=== PATIENT | male | born 1985 | race Caucasian/White ===

== ENCOUNTER 2020-03-09 00:05 | Emergency (ER) | payer SELFPAY ==
--- NOTE | 2020-03-09 00:06 | ED.FALL ---
HPI - Fall General Chief Complaint: Fall Stated Complaint: RIB PAIN Time Seen by Provider: 03/09/20 00:06 Source: patient Mode of arrival: ambulatory Limitations: other (ETOH use) History of Present Illness MD complaint: fall Onset (ago): minute(s) Fall from: other (not sure, was drinking today using pesticides in the house and states he passed out) Fall witnessed: no Place fall occurred: home Loss of consciousness: yes Prolonged down time: unclear Symptoms prior to fall: lightheadedness Context: alcohol use and other (using pesticides at home) Location of injury: head, face and chest Severity: moderate Associated symptoms (after fall): denies Related Data Previous Rx's Medication Instructions Recorded cyclobenzaprine 10 mg PO TID PRN #14 tab 03/09/20 ibuprofen 600 mg PO Q6H PRN #30 tab 03/09/20 lidocaine 1 patch TOPICAL DAILY PRN #10 ea 03/09/20 Allergies Allergy/AdvReac Type Severity Reaction Status Date / Time No Known Allergies Allergy Verified 03/09/20 00:07 Review of Systems Review of Systems: Constitutional : No Fever, No Chills ENT/Mouth : No Ear Pain, No Hoarseness, No sore throat Eyes: No Eye Pain, No Swelling, No Redness, No Foreign Body, bruise R eye Cardiovascular : positive left rib Chest Pain, No SOB Respiratory : No Cough, No Dyspnea Gastrointestinal : No Nausea, No Vomiting, No Diarrhea, No abdominal Pain Genitourinary : No Dysuria, No Hematuria Musculoskeletal : no joint pain, No Myalgias, No Joint Swelling Skin : No Skin lacerations, No rash Neuro : No Weakness, No Numbness, No Loss of Consciousness, No Dizziness, No Headache Psych : No Anxiety/Panic, No Depression Heme/Lymph: no easy bruising, no Lymphadenopathy Endocrine : No Polyuria, No Polydipsia All other systems reviewed and are negative [facility] Past Medical History Medical History Anxiety HTN (hypertension) Surgical History H/O fasciotomy Social History Social History (Updated 03/09/20 @ 00:13 by Britni Keys DO) Alcohol intake: current Alcohol intake frequency: 0-2 drinks per day Alcohol type: hard liquor Smoking Status: Never smoker Smoked in Last 30 Days: No Use of substances other than those prescribed or required for medical reasons: No Advance Directives: No Physical Exam Vital Signs: Vital Signs: Vital Signs Temp Pulse Resp BP Pulse Ox 03/09/20 02:00 97 16 132/87 98 03/09/20 00:39 16 03/09/20 00:18 98.0 F 116 H 18 141/103 H 98 Body Mass Index 31.1 Appearance: Alert. Oriented X3. No acute distress. Anxious, ETOH odor Eyes: Pupils equal, round and reactive to light. ENT: Pharynx normal. Ecchymosis mild R periorbital area Neck: Normal inspection. Neck supple. CVS: Normal heart rate and rhythm. Pulses normal. Chest: L anterior lower ribs contusion noted Respiratory: No respiratory distress. Breath sounds normal. Abdomen: Soft and nontender. Skin: Skin warm and dry. Normal skin color. Normal skin turgor. Extremities: No lower extremity edema. No calf ttp Neuro: Oriented X 3. No motor deficit. No sensory deficit. Course Course Course Narrative: no acute traumatic findings, + ETOH, stable VS, no signs of pesticide poisoning, can be DC MDM - Fall MDM Narrative Medical decision making narrative: 34 yo male s/p drinking ETOH and using pesticides at home has no signs of cholinergic toxicity at this time but did fall likely due to ETOH - at this time will need labs, CT trauma of head/cspine/chest/abdomen - IVF ordered dispo per results and findings Lab Data Result diagrams: 03/09/20 00:45 03/09/20 00:45 Labs: Lab Results 03/09/20 03/09/20 03/09/20 Range/Units 00:45 00:45 00:45 WBC 6.7 (4.8-10.8) X10*3/uL RBC 5.96 H (4.60-5.80) X10*6/uL Hgb 17.0 (14.0-18.0) g/dl Hct 51.7 (42-52) % MCV 86.7 (80-98) fL MCH 28.5 (27.0-33.0) pg MCHC 32.9 (31.0-36.0) g/dl RDW 16.4 H (11.0-16.0) % Plt Count 355 (160-400) X10*3/uL MPV 8.7 L (9.4-12.4) fL Immature Gran % (Auto) 0.6 H (0.0-0.4) % Neut % (Auto) 65.9 (45-73) % Lymph % (Auto) 28.5 (20-40) % [place] % (Auto) 4.0 (2-11) % Eos % (Auto) 0.1 (0-4) % Baso % (Auto) 0.9 (0-2) % Lymph # (Auto) 1.9 (1.2-4.9) X10*3/uL [place] # (Auto) 0.3 (0.1-1.2) X10*3/uL Eos # (Auto) 0.0 (0.0-0.4) X10*3/uL Baso # (Auto) 0.1 (0.0-0.2) X10*3/uL Abs Immat Gran (auto) 0.04 H (0.00-0.03) X10*3/uL Absolute Neuts (auto) 4.4 (2.0-8.3) X10*3/uL Absolute Nucleated RBC 0.000 (0.0-0.012) X10*3/uL Nucleated RBC % (auto) 0.0 (0.0-0.2) /100WBC PT 11.7 (10.8-13.0) SEC INR 1.0 (0.9-1.1) APTT 30.1 (24.1-38.0) SEC Sodium 143 (135-145) mmol/L Potassium 4.2 (3.3-5.1) mmol/l Chloride 104 (96-108) mmol/L Carbon Dioxide 25 (22-29) mmol/L Anion Gap 18 (12-20) BUN 5 L (9-16) mg/dL Creatinine 1.06 (0.5-1.4) mg/dL Estim Creat Clear Calc 110.7 Estimated GFR > 60 Random Glucose 86 (60-115) mg/dL Calcium 8.9 (8.4-10.2) mg/dL Magnesium 2.0 (1.6-2.6) mg/dL Total Bilirubin 0.4 (0.0-1.0) mg/dL Direct Bilirubin < 0.2 (0.0-0.5) mg/dL AST 54 H (5-37) U/L ALT 75 H (0-40) U/L Alkaline Phosphatase 60 (39-117) U/L Total Protein 7.9 (6.5-8.0) g/dL Albumin 4.8 (3.5-5.0) g/dL Lipase 17 (8-78) U/L Ethyl Alcohol mg/dL 03/09/20 Range/Units 00:45 WBC (4.8-10.8) X10*3/uL RBC (4.60-5.80) X10*6/uL Hgb (14.0-18.0) g/dl Hct (42-52) % MCV (80-98) fL MCH (27.0-33.0) pg MCHC (31.0-36.0) g/dl RDW (11.0-16.0) % Plt Count (160-400) X10*3/uL MPV (9.4-12.4) fL Immature Gran % (Auto) (0.0-0.4) % Neut % (Auto) (45-73) % Lymph % (Auto) (20-40) % [place] % (Auto) (2-11) % Eos % (Auto) (0-4) % Baso % (Auto) (0-2) % Lymph # (Auto) (1.2-4.9) X10*3/uL [place] # (Auto) (0.1-1.2) X10*3/uL Eos # (Auto) (0.0-0.4) X10*3/uL Baso # (Auto) (0.0-0.2) X10*3/uL Abs Immat Gran (auto) (0.00-0.03) X10*3/uL Absolute Neuts (auto) (2.0-8.3) X10*3/uL Absolute Nucleated RBC (0.0-0.012) X10*3/uL Nucleated RBC % (auto) (0.0-0.2) /100WBC PT (10.8-13.0) SEC INR (0.9-1.1) APTT (24.1-38.0) SEC Sodium (135-145) mmol/L Potassium (3.3-5.1) mmol/l Chloride (96-108) mmol/L Carbon Dioxide (22-29) mmol/L Anion Gap (12-20) BUN (9-16) mg/dL Creatinine (0.5-1.4) mg/dL Estim Creat Clear Calc Estimated GFR Random Glucose (60-115) mg/dL Calcium (8.4-10.2) mg/dL Magnesium (1.6-2.6) mg/dL Total Bilirubin (0.0-1.0) mg/dL Direct Bilirubin (0.0-0.5) mg/dL AST (5-37) U/L ALT (0-40) U/L Alkaline Phosphatase (39-117) U/L Total Protein (6.5-8.0) g/dL Albumin (3.5-5.0) g/dL Lipase (8-78) U/L Ethyl Alcohol 172 mg/dL ECG Data Attestation: I personally reviewed and interpreted this ECG as follows: ECG interpretation date: 03/09/20 ECG interpretation time: 02:37 Interpretation: Rate: 94 Rhythm: NSR [place]: left Normal P waves. Normal TAYA. Normal QRS complex. ST T wave : normal qTC: normal prior studies: no acute ischemia The study has been interpreted contemporaneously by me. . Discharge Plan Discharge Clinical Impression: Alcohol intoxication Qualifiers: Complication of substance-induced condition: uncomplicated Qualified Code(s): F10.920 - Alcohol use, unspecified with intoxication, uncomplicated Contusion Qualifiers: Encounter type: initial encounter Contusion area: thoracic wall Front or back of thoracic wall: unspecified whether front or back Qualified Code(s): S20.20XA - Contusion of thorax, unspecified, initial encounter Patient Disposition: Home, Self-Care Instructions: Abuse of Alcohol (ED), Contusion in Adults (ED) Prescriptions: New cyclobenzaprine 10 mg tablet 10 mg PO TID PRN (Reason: muscle spasm) Qty: 14 RF: 0 ibuprofen 600 mg tablet 600 mg PO Q6H PRN (Reason: pain) Qty: 30 RF: 0 lidocaine 4 % adhesive patch,medicated 1 patch topical DAILY PRN (Reason: pain) Qty: 10 RF: 0 Stand Alone Forms: Work/School Release
--- NOTE | 2020-03-09 00:08 | CT_ITS ---
EXAMINATION: CT CHEST WITH CONTRAST CT ABDOMEN AND PELVIS WITH CONTRAST CLINICAL INFORMATION: Trauma. Fall. Left-sided pain. Contusion. COMPARISON: None. TECHNIQUE: Multidetector volumetric imaging was performed through the chest, abdomen and pelvis following the administration of 85 mL of Omnipaque 350 intravenous contrast. Sagittal and coronal reformatted images were obtained on the technologist's workstation. Axial MIP volume rendering provided. This CT examination was performed using dose optimization techniques as appropriate, variously including the following: *Automated exposure control *Adjustment of mA and/or kV according to patient size (this includes techniques or standardized protocols for targeted exams where dose is matched to indication/reason for exam; i.e. extremities or head) *Use of iterative reconstruction technique DLP: 1034 mGy-cm. FINDINGS: CHEST: Lungs: The central airways are patent. No consolidation. No pleural effusion or pneumothorax. There is a posterior left upper lobe pulmonary nodule measuring 0.3 cm on series 8 image 94. Mediastinum: The heart is of normal size. There is no pericardial effusion. Central vascular structures are unremarkable. No hilar or mediastinal lymphadenopathy. Chest Wall/Axilla: No lymphadenopathy. No chest wall mass. ABDOMEN/PELVIS: Liver, Gallbladder, Biliary Tree: The liver is normal in size, shape, and attenuation. No focal hepatic lesion or biliary ductal dilatation is present. The gallbladder is unremarkable with no evidence of radiopaque gallstones, gallbladder wall thickening, or pericholecystic inflammatory changes. Pancreas: Unremarkable. Spleen: Unremarkable. Adrenal Glands: Unremarkable. Kidneys and Ureters: The kidneys are normal in size, shape, and attenuation. No hydronephrosis, hydroureter or calculi seen. No perinephric stranding. Bladder: Unremarkable. Gastrointestinal Tract: The stomach is unremarkable. Normal caliber small bowel. There is no obstruction. No colonic wall thickening or inflammatory changes. No free air. No free fluid. The appendix is unremarkable. Abdominal Wall: There is no hernia. There is minimal stranding in the subcutaneous fat overlying the left lower chest/upper abdomen as seen on series 6 image 12. Additional minimal stranding lateral to the right hip on series 6 image 85. Lymphovascular Structures: Lymph nodes: Normal. Vascular: Unremarkable. Pelvic Viscera: The prostate and seminal vesicles are unremarkable. OSSEOUS STRUCTURES: No acute traumatic findings. The sternum is intact. The ribs are intact. No scapular fracture. Vertebral body height and alignment is maintained. No pelvic fracture. Appropriate alignment at the pelvis. CT/CT abdomen pelvis w con IMPRESSION: Minimal stranding in the subcutaneous tissues noted. No acute fractures are seen. No acute traumatic finding within the chest, abdomen, or pelvis. 0.3 cm left upper lobe pulmonary nodule. No further follow-up is necessary if this is a low risk patient.
--- NOTE | 2020-03-09 00:08 | CT_ITS ---
EXAMINATION: NONCONTRAST HEAD CT NONCONTRAST CERVICAL SPINE CT INDICATION INFORMATION: Fall COMPARISON: None TECHNIQUE: Separate noncontrast CT examinations of the head and cervical spine were performed. Coronal and sagittal images were created for each examination at the technologist workstation. This CT examination was performed using dose optimization techniques as appropriate, variously including the following: *Automated exposure control *Adjustment of mA and/or kV according to patient size (this includes techniques or standardized protocols for targeted exams where dose is matched to indication/reason for exam; i.e. extremities or head) *Use of iterative reconstruction technique DLP: 2051 mGy-cm FINDINGS: Head: There is no evidence of acute intracranial hemorrhage or territorial infarction. No abnormal mass effect or midline shift is seen. Bush to white matter differentiation is well preserved. No extra-axial fluid collections are identified. No hydrocephalus. No significant volume loss. There is no abnormal attenuation within the brain parenchyma. No acute osseous or soft tissue abnormality. The mastoid air cells and visualized portions of the paranasal sinuses are well aerated. Cervical spine: Straightening of the normal cervical lordosis. There is otherwise anatomic alignment of the vertebral bodies and posterior elements. The atlantoaxial and atlantooccipital articulations are intact. Vertebral body heights and intervertebral disc spaces are maintained. No evidence of acute fracture. No prevertebral soft tissue swelling. Visualized portions of the lung apices are unremarkable. The thyroid gland is unremarkable. CT/CT cervical spine wo con IMPRESSION: 1. No acute intracranial findings. 2. No acute fracture or malalignment of the cervical spine.
[2020-03-09 00:18] VITALS: BP 141/103; PULSE 116; RESP 18; TEMP 36.7; O2SAT 98; BMI 31.1
[2020-03-09 00:39] VITALS: RESP 16
[2020-03-09] MEDS: Morphine Sulfate 2 MG/ML CARTRIDGE IVPUSH (00:39)
[2020-03-09] MEDS: 0.9 % Sodium Chloride 1,000 ML 999 ML IVCONT ×2 (00:39→02:13)
[2020-03-09] MEDS: ondansetron HCL 4 MG/2 ML VIAL IVPUSH (00:39)
[2020-03-09 00:51] LABS: Basophils Absolute Auto 0.1 X10*3/uL (0.0-0.2); Basophils Percent Auto 0.9 % (0-2); Eosinophils Percent Auto 0.1 % (0-4); Hematocrit 51.7 % (42-52); Imm Gran Abs Auto 0.04 X10*3/uL (0.00-0.03); Imm Gran Pct Auto 0.6 % (0.0-0.4); Lymphocytes Absolute Auto 1.9 X10*3/uL (1.2-4.9); Lymphocytes Percent Auto 28.5 % (20-40); MANUAL DIFF FLAG NO; Mean Corpuscular HGB Conc 32.9 g/dl (31.0-36.0); Mean Corpuscular Hemoglobin 28.5 pg (27.0-33.0); Mean Corpuscular Volume 86.7 fL (80-98); Mean Platelet Volume 8.7 fL (9.4-12.4); Monocytes Absolute Auto 0.3 X10*3/uL (0.1-1.2); Neutrophils Absolute Auto 4.4 X10*3/uL (2.0-8.3); Neutrophils Percent Auto 65.9 % (45-73); Platelet Count 355 X10*3/uL (160-400); Red Blood Count 5.96 X10*6/uL (4.60-5.80); Red Cell Distribution Width 16.4 % (11.0-16.0); White Blood Count 6.7 X10*3/uL (4.8-10.8)
[2020-03-09 00:57] LABS: Prothrombin Time 11.7 SEC (10.8-13.0)
[2020-03-09] MEDS: Acetaminophen 325 MG TABLET 650 MG PO (00:59)
[2020-03-09 01:00] LABS: Partial Thromboplastin Time 30.1 SEC (24.1-38.0)
[2020-03-09 01:19] LABS: Ethanol 172 mg/dL
[2020-03-09 01:21] LABS: Alanine Aminotransferase 75 U/L (0-40); Albumin Level 4.8 g/dL (3.5-5.0); Alkaline Phosphatase 60 U/L (39-117); Anion Gap 18 (12-20); Aspartate Amino Transferase 54 U/L (5-37); Bilirubin Direct < 0.2 mg/dL (0.0-0.5); Bilirubin Total 0.4 mg/dL (0.0-1.0); Blood Urea Nitrogen 5 mg/dL (9-16); Calcium 8.9 mg/dL (8.4-10.2); Carbon Dioxide 25 mmol/L (22-29); Chloride 104 mmol/L (96-108); Creatinine Clr Calc Pharmacy 110.7; Estimated Glomerular Filt Rate > 60; Glucose Random 86 mg/dL (60-115); Lipase 17 U/L (8-78); Potassium 4.2 mmol/l (3.3-5.1); Sodium 143 mmol/L (135-145); Total Protein 7.9 g/dL (6.5-8.0)
--- NOTE | 2020-03-09 01:26 | ECG_ITS ---
Test Reason : FALL Blood Pressure : / mmHG Vent. Rate : 094 BPM Atrial Rate : 094 BPM P-R Int : 154 ms QRS Dur : 082 ms QT Int : 360 ms P-R-T Axes : 043 -42 -23 degrees QTc Int : 450 ms Normal sinus rhythm Left axis deviation Abnormal ECG No previous ECGs available Referred By: Britni Keys Electronically Signed By:JOSE DANIEL GAITAN MD
[2020-03-09 02:00] VITALS: BP 132/87; PULSE 97; RESP 16; O2SAT 98
[2020-03-09] MEDS: iohexoL 350 MG/ML 100 ML INFUS..BTL 85 ML IV (02:08)
[2020-03-09] MEDS: Lidocaine 4 % Patch ADH..PATCH 1 PATCH TRANSDERMA (02:13)
--- NOTE | 2020-03-09 02:42 | PC.NURSE ---
pt declined/refused addition lab draw for hemglobin
--- NOTE | 2020-03-09 02:59 | PC.NURSE ---
Pt attempting to call for sober ride home
== END 2020-03-09 03:31 | disposition home or self-care (01) ==
PROVIDERS: Emergency Provider Emergency Medicine
DX: S20.223A Contusion of bilateral back wall of thorax, initial encounter (principal); F10.129 Alcohol abuse with intoxication, unspecified; R07.81 Pleurodynia; M54.5 Low back pain; M54.2 Cervicalgia; R10.9 Unspecified abdominal pain; I10 Essential (primary) hypertension; W18.30XA Fall on same level, unspecified, initial encounter; Y93.9 Activity, unspecified; Y92.9 Unspecified place or not applicable; Y99.9 Unspecified external cause status; Y90.6 Blood alcohol level of 120-199 mg/100 ml; Z79.899 Other long term (current) drug therapy
CPT/HCPCS: 36415; 70450; 71260; 72125; 74177; 80048; 80076; 80320; 83690; 83735; 85025; 85610; 85730; 93005; 96361; 96374; 96375; 99284; J2270; J2405; Q9967

== ENCOUNTER 2020-05-22 09:44 | Emergency (ER) | payer OTHER, SELFPAY ==
[2020-05-22 09:57] VITALS: BP 149/104; PULSE 100; RESP 18; TEMP 36.8; O2SAT 98; BMI 34.4
--- NOTE | 2020-05-22 10:06 | PC.NURSE ---
PT EXTREMELY PARANOID, FLAT AFFECT, SHAKING STRETCHER, SPEAKING IN ONE OR TWO WORD SENTENCES, AGITATED WALKING AROUND ER LOOKING VERY CONFUSED. PT STATES MY BEHAVIOR AND NOT RIGHT.
--- NOTE | 2020-05-22 10:29 | CT_ITS ---
EXAMINATION: CT ABDOMEN AND PELVIS WITHOUT CONTRAST CLINICAL INFORMATION: Right upper quadrant abdominal pain COMPARISON: March 09, 2020 TECHNIQUE: Multidetector volumetric imaging was performed from the superior aspect of the liver through the pubic symphysis. Sagittal and coronal reformatted images were obtained on the technologist's workstation. This CT examination was performed using dose optimization techniques as appropriate, variously including the following: *Automated exposure control *Adjustment of mA and/or kV according to patient size (this includes techniques or standardized protocols for targeted exams where dose is matched to indication/reason for exam; i.e. extremities or head) *Use of iterative reconstruction technique DLP: 625 mGy-cm FINDINGS: There is a large amount of motion artifact present due to patient having involuntary tremors which makes it a suboptimal examination. LUNG BASES: The visualized lung bases are unremarkable. No pleural or pericardial effusion. Heart normal size. LIVER, GALLBLADDER, AND BILIARY TREE: The liver is normal in size, shape, and attenuation. No focal hepatic lesion or biliary ductal dilatation is present. The gallbladder is unremarkable with no evidence of radiopaque gallstones, gallbladder wall thickening, or obvious pericholecystic inflammatory changes. PANCREAS: Unremarkable. SPLEEN: Unremarkable. ADRENAL GLANDS: Unremarkable. KIDNEYS AND URETERS: The kidneys are normal in size, shape, and attenuation. No hydronephrosis, hydroureter, or calculi seen. No perinephric stranding. BLADDER: Unremarkable. GASTROINTESTINAL TRACT: No dilated loops of large or small bowel evident. No free air or free fluid. No evidence of acute diverticulitis. The appendix is visualized and appears unremarkable other than for containing a small phlebolith. About the distal cecum there is question of some inflammatory change within the fat however this is more likely related to motion artifact and true edematous change. No abnormal fluid collection is seen. ABDOMINAL WALL: No significant hernia is appreciated. LYMPH NODES: No lymphadenopathy appreciated. VASCULAR: Unremarkable. PELVIC VISCERA: Unremarkable. OSSEOUS STRUCTURES: No destructive bony lesions identified. There is spina bifida occulta at S1. CT/CT abdomen pelvis wo con IMPRESSION: Suboptimal study due to tremors and motion artifact. No specific findings to explain patient's pain.
--- NOTE | 2020-05-22 10:43 | PC.NURSE ---
PT FOUND ATTEMPTING TO GIVE WATER TO PT IN ROOM 18. PT VERBALLY ACOSTING TO THIS RN. EDUCATED ABOUT GIVING RANDOM PTS ITEMS AND BEING IN PTS ROOM.
[2020-05-22] MEDS: LORazepam 2 MG/ML VIAL IM ×3 (10:48→17:40)
--- NOTE | 2020-05-22 10:48 | PC.NURSE ---
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 PT ACCEPTING INJECTION CALM AND COOPERATIVE.
--- NOTE | 2020-05-22 11:24 | ED_ITS ---
HPI - Abdominal Pain General Chief Complaint: Abdominal Pain Stated Complaint: abd pain, n/v Time Seen by Provider: 05/22/20 10:18 Source: patient and EMS Mode of arrival: EMS Limitations: no limitations History of Present Illness HPI narrative: 34yoM c PMHx of PTSD, anxiety and HTN presenting to the ED c c/o RUQ abd pain that started at his umbilical aspect of the abdomen for the past 2 days with associated nausea/vomiting. Patient appears very anxious although denies any SI/HI/auditory visual hallucinations thoughts of self-injury. Denies any fevers, headaches, dizziness, hemoptysis, chest pain or shortness of breath, diarrhea, constipation or any other symptoms complaints or concerns at this time. Patient denies recent travel or sick contacts. Related Data Previous Rx's Medication Instructions Recorded cyclobenzaprine 10 mg PO TID PRN #14 tab 03/09/20 ibuprofen 600 mg PO Q6H PRN #30 tab 03/09/20 lidocaine 1 patch TOPICAL DAILY PRN #10 ea 03/09/20 lorazepam [Ativan] 1 mg PO TID PRN #10 tab 05/22/20 Allergies Allergy/AdvReac Type Severity Reaction Status Date / Time No Known Allergies Allergy Verified 03/09/20 00:07 Review of Systems Review of Systems Constitutional : No Weight loss, No Fever, No Chills, No Night Sweats, No Fatigue, NoMalaise ENT/Mouth: No ear pain, No sore throat, No Difficulty swallowing Cardiovascular : No Chest Pain, No SOB, No Dyspnea on Exertion, No Orthopnea, No Edema, No Palpitations Respiratory : No Cough, No Sputum, No Wheezing, No Dyspnea Gastrointestinal : + Nausea, + Vomiting, No Diarrhea, + abdominal Pain, No Hematochezia, No Melena Genitourinary : No irregular bleeding, No Dysuria, No Urinary Frequency, No Hematuria,No Urinary Incontinence, No Urgency, No Flank Pain Musculoskeletal : No joint pain, No Myalgias, No Joint Swelling Skin : No Skin Lesions, No rash Neuro : No Weakness, No Numbness, No Paresthesias, No Loss of Consciousness, NoDizziness, No Headache Psych : No Social Issues, Heme/Lymph: No Bruising, No Bleeding,No Lymphadenopathy Endocrine : No Polyuria, No Polydipsia, No Temperature Intolerance Yes all other systems are reviewed and are negative Physical Exam Vital Signs: Vital Signs: Last Vital Signs Temp 98.2 F 05/22/20 09:57 Pulse 100 05/22/20 09:57 Resp 18 05/22/20 09:57 BP 149/104 H 05/22/20 09:57 Pulse Ox 98 05/22/20 09:57 Body Mass Index 34.4 vital signs have been reviewed as normal and appeared to be correct. Blood pressure normal. Heart rate normal. Respiration rate normal. Temperature normal. Oxygen saturation normal. Appearance: Alert. Oriented X3. No acute distress. Head: Normal external exam. Normocephalic. Eyes: PERRLA. EOMI. Conjunctiva and sclera normal. Eyelids normal. ENT: Pharynx normal. Uvula midline. Moist mucous membranes. Neck: Normal inspection. Neck supple. FROM. No adenopathy. No meningeal signs. CVS: Normal heart rate and rhythm. Heart sound normal. No murmurs noted. Pulses normal throughout. Respiratory: No respiratory distress. Painless inspiration. Breath sounds normal. No wheezes/rales/rhonchi noted. Chest nontender. No accessory muscle usage noted or decreased air movement noted. Abdomen: Soft and TTP at upper/RUQ/epigastric abdomen with guarding. No rigidity. Negative Lawson sign. Bowel sounds normal in all 4 quadrants. No distention noted. No organomegaly noted. No visible injury noted. No rebound tenderness. Negative Rovsing sign. Negative obturator's sign. Negative psoas sign. Back: No CVA tenderness. Full range of motion noted. Skin: Skin warm and dry. Normal skin color. Normal skin turgor. No rashes/lesions/lacerations noted. Extremities: Extremities exhibit normal range of motion. Extremities nontender. Neuro: Oriented X 3. No motor deficit. No sensory deficit. Reflexes normal. Course Course Course Narrative: 11:25am - 34yoM c PMHx of PTSD, anxiety and HTN presenting to the ED c c/o RUQ abd pain that started at his umbilical aspect of the abdomen for the past 2 days with associated nausea/vomiting. - Concern for cholecysitis vs pancreatitis - Plan: Labs, CT scan of abd/pelvis without contrast as patient pulled out his IV. Provide 2 mg of IM Ativan Then re-evaluate Reevaluation(s) Reevaluation #1: - ETOH level 251. AST 45. ALT 72. Sodium 146. Otherwise all other labs WNL. CT scan of abdomen and pelvis within normal limits no acute processes noted unknown cause of the patient's abdominal pain although will DC home with a short script for Ativan as the patient appeared very anxious when he 1st arrived and is now resting at this time along with instructions return if any new or worsening symptoms to follow up with primary care provider. Patient understands agrees the plan. Time: 11:57 MDM - Abdominal Pain Medical Records Attestation: I reviewed the patient's medical records. Lab Data Attestation: I reviewed the patient's lab results. Result diagrams: 05/22/20 11:24 05/22/20 11:24 Labs: Lab Results 05/22/20 05/22/20 05/22/20 Range/Units 11:24 11:24 11:24 WBC 7.9 (4.8-10.8) X10*3/uL RBC 5.87 H (4.60-5.80) X10*6/uL Hgb 17.4 (14.0-18.0) g/dl Hct 50.7 (42-52) % MCV 86.4 (80-98) fL MCH 29.6 (27.0-33.0) pg MCHC 34.3 (31.0-36.0) g/dl RDW 13.7 (11.0-16.0) % Plt Count 264 D (160-400) X10*3/uL MPV 9.0 L (9.4-12.4) fL Immature Gran % (Auto) 0.8 H (0.0-0.4) % Neut % (Auto) 56.8 (45-73) % Lymph % (Auto) 35.5 (20-40) % Roberts % (Auto) 4.8 (2-11) % Eos % (Auto) 1.3 (0-4) % Baso % (Auto) 0.8 (0-2) % Lymph # (Auto) 2.8 (1.2-4.9) X10*3/uL Roberts # (Auto) 0.4 (0.1-1.2) X10*3/uL Eos # (Auto) 0.1 (0.0-0.4) X10*3/uL Baso # (Auto) 0.1 (0.0-0.2) X10*3/uL Abs Immat Gran (auto) 0.06 H (0.00-0.03) X10*3/uL Absolute Neuts (auto) 4.5 (2.0-8.3) X10*3/uL Absolute Nucleated RBC 0.000 (0.0-0.012) X10*3/uL Nucleated RBC % (auto) 0.0 (0.0-0.2) /100WBC PT 11.4 (10.8-13.0) SEC INR 1.0 (0.9-1.1) Sodium 146 H (135-145) mmol/L Potassium 4.2 (3.3-5.1) mmol/l Chloride 105 (96-108) mmol/L Carbon Dioxide 26 (22-29) mmol/L Anion Gap 19 (12-20) BUN 10 D (9-16) mg/dL Creatinine 1.13 (0.5-1.4) mg/dL Estim Creat Clear Calc 105.6 Estimated GFR > 60 Random Glucose 107 (60-115) mg/dL Calcium 8.9 (8.4-10.2) mg/dL Magnesium 2.2 (1.6-2.6) mg/dL Total Bilirubin 0.3 (0.0-1.0) mg/dL Direct Bilirubin 0.2 (0.0-0.5) mg/dL AST 45 H (5-37) U/L ALT 72 H (0-40) U/L Alkaline Phosphatase 75 D (39-117) U/L Total Protein 7.5 (6.5-8.0) g/dL Albumin 4.6 (3.5-5.0) g/dL Lipase 30 (8-78) U/L Ethyl Alcohol mg/dL 05/22/20 Range/Units 11:24 WBC (4.8-10.8) X10*3/uL RBC (4.60-5.80) X10*6/uL Hgb (14.0-18.0) g/dl Hct (42-52) % MCV (80-98) fL MCH (27.0-33.0) pg MCHC (31.0-36.0) g/dl RDW (11.0-16.0) % Plt Count (160-400) X10*3/uL MPV (9.4-12.4) fL Immature Gran % (Auto) (0.0-0.4) % Neut % (Auto) (45-73) % Lymph % (Auto) (20-40) % Roberts % (Auto) (2-11) % Eos % (Auto) (0-4) % Baso % (Auto) (0-2) % Lymph # (Auto) (1.2-4.9) X10*3/uL Roberts # (Auto) (0.1-1.2) X10*3/uL Eos # (Auto) (0.0-0.4) X10*3/uL Baso # (Auto) (0.0-0.2) X10*3/uL Abs Immat Gran (auto) (0.00-0.03) X10*3/uL Absolute Neuts (auto) (2.0-8.3) X10*3/uL Absolute Nucleated RBC (0.0-0.012) X10*3/uL Nucleated RBC % (auto) (0.0-0.2) /100WBC PT (10.8-13.0) SEC INR (0.9-1.1) Sodium (135-145) mmol/L Potassium (3.3-5.1) mmol/l Chloride (96-108) mmol/L Carbon Dioxide (22-29) mmol/L Anion Gap (12-20) BUN (9-16) mg/dL Creatinine (0.5-1.4) mg/dL Estim Creat Clear Calc Estimated GFR Random Glucose (60-115) mg/dL Calcium (8.4-10.2) mg/dL Magnesium (1.6-2.6) mg/dL Total Bilirubin (0.0-1.0) mg/dL Direct Bilirubin (0.0-0.5) mg/dL AST (5-37) U/L ALT (0-40) U/L Alkaline Phosphatase (39-117) U/L Total Protein (6.5-8.0) g/dL Albumin (3.5-5.0) g/dL Lipase (8-78) U/L Ethyl Alcohol 251 mg/dL Imaging Data CT scan - abdomen: Attestation: I personally reviewed and interpreted this imaging study as follows: Radiologist's impression: FINDINGS: There is a large amount of motion artifact present due to patient having involuntary tremors which makes it a suboptimal examination. LUNG BASES: The visualized lung bases are unremarkable. No pleural or pericardial effusion. Heart normal size. LIVER, GALLBLADDER, AND BILIARY TREE: The liver is normal in size, shape, and attenuation. No focal hepatic lesion or biliary ductal dilatation is present. The gallbladder is unremarkable with no evidence of radiopaque gallstones, gallbladder wall thickening, or obvious pericholecystic inflammatory changes. PANCREAS: Unremarkable. SPLEEN: Unremarkable. ADRENAL GLANDS: Unremarkable. KIDNEYS AND URETERS: The kidneys are normal in size, shape, and attenuation. No hydronephrosis, hydroureter, or calculi seen. No perinephric stranding. BLADDER: Unremarkable. GASTROINTESTINAL TRACT: No dilated loops of large or small bowel evident. No free air or free fluid. No evidence of acute diverticulitis. The appendix is visualized and appears unremarkable other than for containing a small phlebolith. About the distal cecum there is question of some inflammatory change within the fat however this is more likely related to motion artifact and true edematous change. No abnormal fluid collection is seen. ABDOMINAL WALL: No significant hernia is appreciated. LYMPH NODES: No lymphadenopathy appreciated. VASCULAR: Unremarkable. PELVIC VISCERA: Unremarkable. OSSEOUS STRUCTURES: No destructive bony lesions identified. There is spina bifida occulta at S1. CT/CT abdomen pelvis wo con IMPRESSION: Suboptimal study due to tremors and motion artifact. No specific findings to explain patient's pain. Discharge Plan Discharge Clinical Impression: Anxiety, Abdominal pain, Alcohol dependence Patient Disposition: Home, Self-Care Instructions: Abdominal Pain (ED), Alcohol Use Disorder (ED) Prescriptions: New lorazepam [Ativan] 1 mg tablet 1 mg PO TID PRN (Reason: anxiety) Qty: 10 RF: 0 No Action cyclobenzaprine 10 mg tablet 10 mg PO TID PRN (Reason: muscle spasm) Qty: 14 RF: 0 ibuprofen 600 mg tablet 600 mg PO Q6H PRN (Reason: pain) Qty: 30 RF: 0 lidocaine 4 % adhesive patch,medicated 1 patch topical DAILY PRN (Reason: pain) Qty: 10 RF: 0 Referrals: Physician,Unknown [Primary Care Provider] - 2 days (your pcp) Print Language: Mosotho [facility] Past Medical History Attestation statement: The following information was validated with the patient. Medical History Anxiety HTN (hypertension) Surgical History H/O fasciotomy Social History Social History Alcohol intake: current Alcohol intake frequency: 0-2 drinks per day Alcohol type: hard liquor Smoking Status: Never smoker Advance Directives: No Advance Directives Information Provided: No
[2020-05-22 11:30] LABS: Basophils Absolute Auto 0.1 X10*3/uL (0.0-0.2); Basophils Percent Auto 0.8 % (0-2); Eosinophils Absolute Auto 0.1 X10*3/uL (0.0-0.4); Eosinophils Percent Auto 1.3 % (0-4); Hematocrit 50.7 % (42-52); Hemoglobin 17.4 g/dl (14.0-18.0); Imm Gran Abs Auto 0.06 X10*3/uL (0.00-0.03); Imm Gran Pct Auto 0.8 % (0.0-0.4); Lymphocytes Absolute Auto 2.8 X10*3/uL (1.2-4.9); Lymphocytes Percent Auto 35.5 % (20-40); MANUAL DIFF FLAG NO; Mean Corpuscular HGB Conc 34.3 g/dl (31.0-36.0); Mean Corpuscular Hemoglobin 29.6 pg (27.0-33.0); Mean Corpuscular Volume 86.4 fL (80-98); Monocytes Absolute Auto 0.4 X10*3/uL (0.1-1.2); Monocytes Percent Auto 4.8 % (2-11); Neutrophils Absolute Auto 4.5 X10*3/uL (2.0-8.3); Neutrophils Percent Auto 56.8 % (45-73); Platelet Count 264 X10*3/uL (160-400); Red Blood Count 5.87 X10*6/uL (4.60-5.80); Red Cell Distribution Width 13.7 % (11.0-16.0); White Blood Count 7.9 X10*3/uL (4.8-10.8)
--- NOTE | 2020-05-22 11:33 | PC.NURSE ---
pt cooperative for blood draw by this rn. pt making bizarre statements such as im 60 years old. i gave a fake name and age so that i dont have to get billed. theres two stages of fake id's; the one you get when youre in high school to go to the [employer], and the one you get late in life to avoid taxes and stuff .
[2020-05-22 11:35] LABS: Prothrombin Time 11.4 SEC (10.8-13.0)
[2020-05-22 11:49] LABS: Ethanol 251 mg/dL
[2020-05-22 11:54] LABS: Alanine Aminotransferase 72 U/L (0-40); Albumin Level 4.6 g/dL (3.5-5.0); Alkaline Phosphatase 75 U/L (39-117); Anion Gap 19 (12-20); Aspartate Amino Transferase 45 U/L (5-37); Bilirubin Direct 0.2 mg/dL (0.0-0.5); Bilirubin Total 0.3 mg/dL (0.0-1.0); Blood Urea Nitrogen 10 mg/dL (9-16); Calcium 8.9 mg/dL (8.4-10.2); Carbon Dioxide 26 mmol/L (22-29); Chloride 105 mmol/L (96-108); Creatinine Clr Calc Pharmacy 105.6; Estimated Glomerular Filt Rate > 60; Glucose Random 107 mg/dL (60-115); Lipase 30 U/L (8-78); Magnesium 2.2 mg/dL (1.6-2.6); Potassium 4.2 mmol/l (3.3-5.1); Sodium 146 mmol/L (135-145); Total Protein 7.5 g/dL (6.5-8.0)
--- NOTE | 2020-05-22 12:18 | PC.NURSE ---
12:10 pt given discharge paper work. verbalizes understanding, making sure this rn has correct pharmacy. 12:17: justin rn alerting this rn to pt in 17h sitting on ground . this rn over to assess pt and pt appears to have tied shoelace around stretcher siderail and wrapped around pt neck. shoelace immediately cut and removed from pts neck. pt has reddened area around neck, speaking in full clear sentences, rr even/unlabored. provider at bedside to assess and sec 12 pt . security at bedside to change pt over to hospital attire. back to stretcher calm and cooperative.
--- NOTE | 2020-05-22 12:28 | PC.NURSE ---
pt ambulated over to [id number] w steady gait w security and this rn escort.
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
--- NOTE | 2020-05-22 12:57 | MHC.CARE ---
CARE team attempted to verify insurance for pt by obtaining IDs and Insurance card. The insurance card had number listed as [phone] is not open on weekends or after 5 for any calls. [facility] called [facility] [place] [facility] this matter. Admissions could not verify a commercial insurance name other than that pt is 90% service connected and can be referred [facility] needed but are also aware that it would be in pts best interests to have a bedsearch (if needed) [facility] of the [facility] depending upon availability.
--- NOTE | 2020-05-22 13:07 | PC.NURSE ---
[facility] faxed and called, verified with raul
--- NOTE | 2020-05-22 14:57 | PC.NURSE ---
Pt currently sleeping, respirations even and unlabored, in no apparent distress. Pt waiting to be seen by N.
--- NOTE | 2020-05-22 18:23 | PC.NURSE ---
Pt ambulated to bathroom with steady gait, asked to leave. Plan of care explained. Pt understandable, requested medication for anxiety, pt medicated per emar. Currently sitting in common area social with peers.
--- NOTE | 2020-05-22 19:18 | PC.NURSE ---
Report received. PT is standing in the doorway of his room. Calm and cooperative. Waiting to be seen by BHN.
[2020-05-22] MEDS: LORazepam 1 MG TABLET 2 MG PO (20:29)
--- NOTE | 2020-05-22 22:03 | MHC.CARE ---
Pt arrived to ED with medical complaints, however due to pt's behavioral presentation and attempt to hang self with a shoelace, pt was placed on a Section 12 for assessment. Pt's BAL was 215 at 11:24. BHN arrived for assessment in the afternoon, however due to pt's alcohol level it was discussed that a clinician would return to evaluate pt around 18:30. At 19:00 CARE team contacted [facility] re: when a clinician would be coming to assess pt. This short story writer was informed that no clinician will be available until after 23:00. Pt was instead assessed by CARE team. Disposition is for inpatient psychiatric admission. Pt is [facility] connected and is otherwise uninsured. CARE team will coordinate with [facility] in the morning re: pt's plan of care.
[2020-05-22 23:52] VITALS: BP 166/103; PULSE 105; RESP 14; O2SAT 99
[2020-05-23] VITALS (11 sets, daily range): BP systolic 128–163; BP diastolic 85–107; PULSE 86–124; RESP 18–20; TEMP 36.4–37.4; O2SAT 95–98
--- NOTE | 2020-05-23 01:44 | PC.NURSE ---
PT's med rec is only partially completed. This nurse called [facility] pharmacy to confirm meds but the only meds they had on file were short term prescriptions given from various emergency departments. PT stated that he takes clonidine 0.1 mg daily and gabapentin 400 mg BID, [facility]. This nurse was unable to reach the [facility] after hours in order to confirm the PT's meds. Provider notified. Clonidine dosage was confirmed with [facility]. Gabapentin will have to be confirmed with [facility] later on today.
--- NOTE | 2020-05-23 07:18 | PC.NURSE ---
Report received from NATALIE Bee. Pt resting, resp unlabored.
[2020-05-23] MEDS: cloNIDine HCL 0.1 MG TABLET PO ×2 (08:24→16:31)
[2020-05-23] MEDS: LORazepam 1 MG TABLET PO ×4 (08:24→16:31)
--- NOTE | 2020-05-23 09:38 | PC.NURSE ---
Pt reports good effect from Ativan given. 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 pt attempting to reach pt.
--- NOTE | 2020-05-23 09:52 | MHC.CARE ---
[facility]email left with the [facility] regarding possible placement options.
--- NOTE | 2020-05-23 11:19 | PC.NURSE ---
Pt continues to be concerned about his mother, states he is sole caregiver. Able to chaRGE PHONE TO CALL HER, PT ALSO CALLED FOR WELLNESS CHECK W/ [facility].
[2020-05-23 11:23] LABS: COVID-19 Test Negative (Negative)
--- NOTE | 2020-05-23 11:28 | PC.NURSE ---
Pt reports continued anxiety, denies any sign/symptom of witrhdrawal.
[2020-05-23] MEDS: Nicotine Polacrilex 2 MG GUM BUCCAL ×2 (12:38→20:46)
--- NOTE | 2020-05-23 13:08 | PC.NURSE ---
Pt awake, alert. Per CARE team pt has been accepted to [facility]. Pt currently eating lunch in common area, affect even.
--- NOTE | 2020-05-23 13:50 | PC.NURSE ---
Pt aware that he will be going to [facility]. Reviewed crisis process and inpatient processw/ pt.
--- NOTE | 2020-05-23 14:52 | MHC.CARE ---
Calls to [facility] in [place], they have accepted patient, would like him there for around 4pm. Unable to arrange ambulance until 5-5:30 pm, left message to see if they can take him later or if the admission could be pushed to the morning.
--- NOTE | 2020-05-23 15:11 | MHC.CARE ---
[facility] calls with [facility] [place], wanted him there at 1600. Unable to arrange the ambulance here until 1700. Admission will be tomorrow, ambulance cancelled for today. [facility] to call back the CARE Team with an admission time in the morning Providers updated
--- NOTE | 2020-05-23 16:08 | PC.NURSE ---
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 CARE team in now to speak w/ pt.
[2020-05-23 16:20] LABS: Amylase 52 U/L (28-100)
--- NOTE | 2020-05-23 16:34 | PC.NURSE ---
Pt reporting that he is feeling 'panicked.' Provider aware that he is also hypertensive. Ativan and clonodine given. Pt currently in common area.
[2020-05-23 19:21] LABS: Appearance Urine CLEAR; Color Urine YELLOW; Glucose Urine UA NEG (NEG); Leukocyte Esterase Urine NEG (NEG); Nitrite Urine NEG (NEG); Specific Gravity - Urine 1.025 (1.005-1.025); Urine Blood TRACE (NEG); Urine Ketones NEG (NEG); Urine Protein TRACE MG/DL (NEG-TRACE)
[2020-05-23 19:26] LABS: WBC Urine 0 /HPF (0-4)
[2020-05-23 20:03] LABS: Amphetamine Screen Urine Not Detected (Not Detect); Barbiturates, Urine Not Detected (Not Detect); Benzodiazepines Screen Urine Not Detected (Not Detect); Cannabinoid Screen Urine Not Detected (Not Detect); Cocaine Screen Urine Not Detected (Not Detect); Opiate Screen Urine Not Detected (Not Detect); Phencyclidine Screen Urine Not Detected (Not Detect)
--- NOTE | 2020-05-23 20:30 | PC.NURSE ---
UV and WILLIS result faxed to [facility] at [phone]. Patient calm and quiet with good behavioral control, will continue to monitor.
--- NOTE | 2020-05-24 00:39 | PC.NURSE ---
[facility] called/confirmed receipt of UA and UTOX result faxed earlier, they asked for latest vital signs and CIWA score/faxed as requested, spoke with Dr Govea/completed reported/accepted the patient/ETA at [facility] is 8 am/completed the transfer process/F/U by ED sectretary. Patient currently in bed appears sleeping, no distress observed/reported, will continue to monitor.
[2020-05-24] MEDS: LORazepam 1 MG TABLET PO ×2 (03:15→06:42)
[2020-05-24 04:37] VITALS: BP 131/86; PULSE 82; RESP 17; TEMP 36.8; O2SAT 99
--- NOTE | 2020-05-24 07:16 | PC.NURSE ---
Report received from NATALIE Peng. Pt resting, resp unlabored. Pt awakened for scheduled a.m. discharge.
--- NOTE | 2020-05-24 07:50 | PC.NURSE ---
EMS in to transfer pt to [facility] - pt awakened, cooperative w/ transfer. Pt reporting that he lost a vaporizer- referred to belongings list- not on list. Called security- no items in their possession. Pt wrote out a description, given to head charger.
== END 2020-05-24 08:23 | disposition home or self-care (01) ==
PROVIDERS: Physician Assistant; Physician Assistant Medical; Emergency Provider Emergency Medicine
DX: R10.11 Right upper quadrant pain (principal); F43.10 Post-traumatic stress disorder, unspecified; F10.229 Alcohol dependence with intoxication, unspecified; Y90.8 Blood alcohol level of 240 mg/100 ml or more; F41.1 Generalized anxiety disorder; F43.0 Acute stress reaction; Z79.899 Other long term (current) drug therapy
CPT/HCPCS: 36415; 74176; 80048; 80076; 80307; 80320; 81001; 82150; 83690; 83735; 85025; 85610; 87635; 96372; 99285; J2060

== ENCOUNTER 2020-08-31 08:18 | Emergency (ER) | payer OTHER, SELFPAY ==
--- NOTE | ~2020-08-31 | CT_ITS ---
EXAMINATION: CT HEAD WITHOUT CONTRAST CLINICAL INFORMATION: Headache COMPARISON: None TECHNIQUE: Contiguous axial imaging was performed from the skull base to vertex without intravenous administration of contrast. This CT examination was performed using dose optimization techniques as appropriate, variously including the following: *Automated exposure control *Adjustment of mA and/or kV according to patient size (this includes techniques or standardized protocols for targeted exams where dose is matched to indication/reason for exam; i.e. extremities or head) *Use of iterative reconstruction technique DLP: 801 mGy-cm FINDINGS: There is no evidence of acute intracranial hemorrhage or territorial infarction. No abnormal mass effect or midline shift is seen. Bush to white matter differentiation is well preserved. No extra-axial fluid collections are identified. The ventricles are normal in size. There is no abnormal attenuation within the brain parenchyma. The osseous structures and soft tissues are normal. There is mild mucoperiosteal thickening bilateral ostiomeatal complex and maxillary sinuses. Rest of the paranasal sinuses are clear. CT/CT head/brain wo con IMPRESSION: No acute intracranial process seen. Mild deformity changes bilateral maxillary sinus and ostiomeatal complex.
[2020-08-31 09:30] VITALS: BP 143/91; PULSE 119; RESP 17; TEMP 37.2; O2SAT 98
--- NOTE | 2020-08-31 10:07 | ED_ITS ---
HPI - Headache General Chief Complaint: Headache Stated Complaint: headache, dizziness, memory loss Time Seen by Provider: 08/31/20 10:02 Source: patient Mode of arrival: ambulatory Limitations: no limitations History of Present Illness HPI Narrative: 34-year-old male came in for evaluation of headache. This is a 34-year-old male came in for 2 days history of headache, describes the headache as the whole head hurt and pressure inside his head, headache started gradually then progressively getting worse, headache is constant, slightly associated with nausea but no vomiting, no photophobia, no neck stiffness. N othing makes the pain worse, nothing make it better, no history of similar headache in the past. Patient has a history of panic attacks feel very anxious requesting Ativan to calm her down. Patient has no SI or HI. Related Data Home Medications Medication Instructions Recorded Confirmed clonidine HCl 1 tab PO DAILY 05/23/20 05/23/20 Previous Rx's Medication Instructions Recorded cyclobenzaprine 10 mg PO TID PRN #14 tab 03/09/20 ibuprofen 600 mg PO Q6H PRN #30 tab 03/09/20 lidocaine 1 patch TOPICAL DAILY PRN #10 ea 03/09/20 famotidine [Pepcid] 20 mg PO BID #10 tab 05/22/20 lorazepam [Ativan] 1 mg PO TID PRN #10 tab 05/22/20 ondansetron HCl [Zofran] 4 mg PO Q8H PRN #10 tab 05/22/20 Allergies Allergy/AdvReac Type Severity Reaction Status Date / Time No Known Allergies Allergy Verified 03/09/20 00:07 Review of Systems Review of Systems: All other systems are reviewed and are negative Constitutional: Reports as per HPI and Reports no additional constitutional complaints Eyes: Reports as per HPI and Reports no additional eye complaints Reports system reviewed and no additional complaints, except as documented Cardiovascular: Reports as per HPI and Reports no additional cardiovascular complaints Respiratory: Reports as per HPI and Reports no additional respiratory complaints Gastrointestinal: Reports as per HPI and Reports no additional gastrointestinal complaints Genitourinary: Reports no additional female genitourinary complaints Musculoskeletal: Reports no additional musculoskeletal complaints Skin/Breast: Reports system reviewed and no additional complaints, except as docu Psychiatric: Reports no additional psychiatric complaints Endocrine: Reports no additional endocrine complaints Hematologic/Lymphatic: Reports no additional hematologic/lymphatic complaints Allergic/Immunologic: Reports no additional allergic/immunologic complaints Reports system reviewed and no additional complaints, except as documented and Reports Abnormal speech present [facility] Past Medical History Medical History Anxiety HTN (hypertension) Surgical History H/O fasciotomy Social History Social History Alcohol intake: unknown Smoking Status: Current some day smoker Advance Directives: No Advance Directives Information Provided: Yes Physical Exam Vital Signs: Vital Signs: Last Vital Signs Temp 99.1 F 08/31/20 12:00 Pulse 82 08/31/20 12:00 Resp 18 08/31/20 12:00 BP 139/80 08/31/20 12:00 Pulse Ox 98 08/31/20 12:00 Vital signs have been reviewed as appeared to be correct. Blood pressure elevated. Heart rate elevated likely due to anxiety. Respiration rate normal. Temperature normal. Oxygen saturation normal. Appearance: Alert. Oriented X3. No acute distress. Anxious. Head: Normal external exam. Normocephalic. Atraumatic. No Ayala signs noted. No raccoon eyes noted Eyes: PERRLA. EOMI. Conjunctiva and sclera normal. Eyelids normal. ENT: TM's Normal. Pharynx normal. Uvula midline. Moist mucous membranes. No trismus noted. No drooling noted. No muffled voice noted. Neck: Normal inspection. Neck supple. FROM. No adenopathy. Thyroid Normal. No meningeal signs. No neck mass noted. CVS: Normal heart rate and rhythm. Heart sound normal. No murmurs noted. Pulses normal throughout. Respiratory: No respiratory distress. Painless inspiration. Breath sounds normal. No wheezes/rales/rhonchi noted. Chest nontender. No accessory muscle usage noted or decreased air movement noted. Abdomen: Soft and nontender. Bowel sounds normal in all 4 quadrants. No distention noted. No organomegaly noted. No visible injury noted. Back: No CVA tenderness. Full range of motion noted. Skin: Skin warm and dry. Normal skin color. Normal skin turgor. No rashes/lesions/lacerations noted. Extremities: No lower extremity edema. Extremities exhibit normal range of motion. Extremities nontender. Neuro: Oriented X 3. No motor deficit. No sensory deficit. Reflexes normal. Course Course Course Narrative: Assessment and plan. 34-year-old male history of anxiety came in appear very anxious complaining of headache for the past 3 days, neuro exam/CT of the head are unremarkable. Patient has no risk for intracranial bleed no family history of brain tumor or aneurysm. Patient's symptoms improved after couple doses of Ativan and Tylenol. Will discharge the patient to follow-up with PCP. [facility] - Headache Lab Data Attestation: I reviewed the patient's lab results. Result diagrams: 08/31/20 10:20 08/31/20 10:20 Labs: Lab Results 08/31/20 08/31/20 Range/Units 10:20 10:20 WBC 5.6 (4.8-10.8) X10*3/uL RBC 5.76 (4.60-5.80) X10*6/uL Hgb 16.5 (14.0-18.0) g/dl Hct 47.5 (42-52) % MCV 82.5 (80-98) fL MCH 28.6 (27.0-33.0) pg MCHC 34.7 (31.0-36.0) g/dl RDW 14.0 (11.0-16.0) % Plt Count 214 (160-400) X10*3/uL MPV 8.8 L (9.4-12.4) fL Immature Gran % (Auto) 0.2 (0.0-0.4) % Neut % (Auto) 55.6 (45-73) % Lymph % (Auto) 34.9 (20-40) % Marion % (Auto) 7.4 (2-11) % Eos % (Auto) 1.4 (0-4) % Baso % (Auto) 0.5 (0-2) % Lymph # (Auto) 2.0 (1.2-4.9) X10*3/uL Marion # (Auto) 0.4 (0.1-1.2) X10*3/uL Eos # (Auto) 0.1 (0.0-0.4) X10*3/uL Baso # (Auto) 0.0 (0.0-0.2) X10*3/uL Abs Immat Gran (auto) 0.01 (0.00-0.03) X10*3/uL Absolute Neuts (auto) 3.1 (2.0-8.3) X10*3/uL Absolute Nucleated RBC 0.000 (0.0-0.012) X10*3/uL Nucleated RBC % (auto) 0.0 (0.0-0.2) /100WBC Sodium 141 (135-145) mmol/L Potassium 3.5 (3.3-5.1) mmol/L Chloride 101 (96-108) mmol/L Carbon Dioxide 26 (22-29) mmol/L Anion Gap 18 (12-20) BUN 5 L (9-16) mg/dL Creatinine 0.92 (0.5-1.4) mg/dL Estim Creat Clear Calc TNP Estimated GFR > 60 Random Glucose 87 (60-115) mg/dL Calcium 9.5 D (8.4-10.2) mg/dL Lipase 17 (8-78) U/L Imaging Data CT scan - head: Radiologist's impression: No acute intracranial process seen. Mild deformity changes bilateral maxillary sinus and ostiomeatal complex. Discharge Plan Discharge Clinical Impression: Anxiety, Headache Patient Disposition: Home, Self-Care Instructions: Acute Headache (ED), Anxiety (ED) Prescriptions: No Action lorazepam [Ativan] 1 mg tablet 1 mg PO TID PRN (Reason: anxiety) Qty: 10 RF: 0 ondansetron HCl [Zofran] 4 mg tablet 4 mg PO Q8H PRN (Reason: nausea and vomiting) Qty: 10 RF: 0 famotidine [Pepcid] 20 mg tablet 20 mg PO BID Qty: 10 RF: 0 clonidine HCl 0.1 mg tablet 1 tab PO DAILY RF: 0 cyclobenzaprine 10 mg tablet 10 mg PO TID PRN (Reason: muscle spasm) Qty: 14 RF: 0 ibuprofen 600 mg tablet 600 mg PO Q6H PRN (Reason: pain) Qty: 30 RF: 0 lidocaine 4 % adhesive patch,medicated 1 patch topical DAILY PRN (Reason: pain) Qty: 10 RF: 0 Referrals: Physician,Unknown [Primary Care Provider] - 2 days
[2020-08-31] MEDS: LORazepam 1 MG TABLET PO (10:27)
[2020-08-31 10:28] LABS: MANUAL DIFF FLAG NO
[2020-08-31] MEDS: Acetaminophen 325 MG TABLET 650 MG PO (10:28)
[2020-08-31] MEDS: ondansetron HCL 4 MG/2 ML VIAL IVPUSH (10:29)
[2020-08-31] MEDS: 0.9 % Sodium Chloride 1,000 ML 999 ML IVCONT (10:31)
--- NOTE | 2020-08-31 10:33 | PC.NURSE ---
Pt medicated for pain, nausea, and anxiety.
[2020-08-31 10:37] LABS: Basophils Percent Auto 0.5 % (0-2); Eosinophils Absolute Auto 0.1 X10*3/uL (0.0-0.4); Eosinophils Percent Auto 1.4 % (0-4); Hematocrit 47.5 % (42-52); Hemoglobin 16.5 g/dl (14.0-18.0); Imm Gran Abs Auto 0.01 X10*3/uL (0.00-0.03); Imm Gran Pct Auto 0.2 % (0.0-0.4); Lymphocytes Percent Auto 34.9 % (20-40); Mean Corpuscular HGB Conc 34.7 g/dl (31.0-36.0); Mean Corpuscular Hemoglobin 28.6 pg (27.0-33.0); Mean Corpuscular Volume 82.5 fL (80-98); Mean Platelet Volume 8.8 fL (9.4-12.4); Monocytes Absolute Auto 0.4 X10*3/uL (0.1-1.2); Monocytes Percent Auto 7.4 % (2-11); Neutrophils Absolute Auto 3.1 X10*3/uL (2.0-8.3); Neutrophils Percent Auto 55.6 % (45-73); Platelet Count 214 X10*3/uL (160-400); Red Blood Count 5.76 X10*6/uL (4.60-5.80); White Blood Count 5.6 X10*3/uL (4.8-10.8)
[2020-08-31 11:03] LABS: Anion Gap 18 (12-20); Blood Urea Nitrogen 5 mg/dL (9-16); Calcium 9.5 mg/dL (8.4-10.2); Carbon Dioxide 26 mmol/L (22-29); Chloride 101 mmol/L (96-108); Estimated Glomerular Filt Rate > 60; Glucose Random 87 mg/dL (60-115); Lipase 17 U/L (8-78); Potassium 3.5 mmol/L (3.3-5.1); Sodium 141 mmol/L (135-145)
[2020-08-31 12:00] VITALS: BP 139/80; PULSE 82; RESP 18; TEMP 37.3; O2SAT 98
--- NOTE | 2020-08-31 13:09 | PC.NURSE ---
Pt continues to have some anxiety. MD aware and plan is to provide the patient with IV ativan.
[2020-08-31] MEDS: LORazepam 2 MG/ML VIAL 1 MG IVPUSH (13:19)
== END 2020-08-31 14:21 | disposition home or self-care (01) ==
PROVIDERS: Emergency Provider Emergency Medicine
DX: R51.9 Headache, unspecified (principal); F41.1 Generalized anxiety disorder; F43.0 Acute stress reaction; Z79.899 Other long term (current) drug therapy
CPT/HCPCS: 36415; 70450; 80048; 83690; 85025; 96372; 99283; J2060; J2405

== ENCOUNTER 2020-09-02 23:04 | Emergency (ER) | payer OTHER, SELFPAY ==
[2020-09-02 23:10] VITALS: BP 165/117; PULSE 131; RESP 22; O2SAT 100; BMI 33.9
[2020-09-02 23:31] VITALS: BP 165/117; PULSE 131; RESP 20; TEMP 36.8; O2SAT 94
--- NOTE | 2020-09-02 23:34 | PC.NURSE ---
NATALIE MCCRARY AWARE OF PATIENT HIGH BLOOD PRESSURE AND HIGH HEART RATE .
--- NOTE | 2020-09-02 23:46 | MHC.CARE ---
CARE Team receives a call from Officer Myles from [facility]. He advocates for CARE Team to provide support and resources to pt for substance use. Officer states that pt was recently d/c from [address] Officer reports that pt had seizures before coming to the ED. CARE Team communicates this to pt's nurse, Estelita ESTRADA, who agrees to place CARE Team consult. CARE Team or recovery support will work with pt once he is medically cleared. Pt is a .
--- NOTE | 2020-09-02 23:55 | PC.NURSE ---
PT REFUSING LABS.
--- NOTE | 2020-09-02 23:58 | ECG_ITS ---
Test Reason : TACHY Blood Pressure : / mmHG Vent. Rate : 127 BPM Atrial Rate : 127 BPM P-R Int : 150 ms QRS Dur : 080 ms QT Int : 298 ms P-R-T Axes : 048 -30 -11 degrees QTc Int : 433 ms Sinus tachycardia Left axis deviation Abnormal ECG When compared with ECG of 09-MAR-2020 02:32, T wave amplitude has decreased in Anterior leads Referred By: Migdalia Jones Electronically Signed By:ISIDRO ZARATE MD
--- NOTE | 2020-09-03 00:10 | ED.ALCOHOL ---
HPI - Alcohol General Chief Complaint: ETOH/Substance Use Stated Complaint: etoh Time Seen by Provider: 09/02/20 23:58 Source: patient Mode of arrival: EMS History of Present Illness HPI narrative: 44-year-old male intoxicated who comes in stating he has been sober for a number of months but ?fell off the wagon? as he has been drinking for the past couple of days and he reports concerns that he has had 2 seizures. Patient states he is very embarrassed that he ?fell off the wagon? but is currently declining detox or feelings of suicidal ideation. Otherwise, patient has no acute complaints. Related Data Home Medications Medication Instructions Recorded Confirmed clonidine HCl 1 tab PO DAILY 05/23/20 05/23/20 Previous Rx's Medication Instructions Recorded cyclobenzaprine 10 mg PO TID PRN #14 tab 03/09/20 ibuprofen 600 mg PO Q6H PRN #30 tab 03/09/20 lidocaine 1 patch TOPICAL DAILY PRN #10 ea 03/09/20 famotidine [Pepcid] 20 mg PO BID #10 tab 05/22/20 lorazepam [Ativan] 1 mg PO TID PRN #10 tab 05/22/20 ondansetron HCl [Zofran] 4 mg PO Q8H PRN #10 tab 05/22/20 Allergies Allergy/AdvReac Type Severity Reaction Status Date / Time No Known Allergies Allergy Verified 03/09/20 00:07 Review of Systems Review of Systems: Pertinent positives and negatives as stated in HPI 10 point review of systems is otherwise negative. [facility] Past Medical History Source: nursing notes reviewed Medical History Anxiety HTN (hypertension) Surgical History H/O fasciotomy Social History Social History Alcohol intake: unknown Smoking Status: Current some day smoker Advance Directives: No Advance Directives Information Provided: No Physical Exam Vital Signs: Vital Signs: Last Vital Signs Temp 98.2 F 09/02/20 23:31 Pulse 84 09/03/20 06:00 Resp 16 09/03/20 06:00 BP 145/91 H 09/03/20 06:00 Pulse Ox 99 09/03/20 06:00 Body Mass Index 33.9 VITAL SIGNS: Reviewed. GENERAL: Well developed, well nourished, in no acute distress. HEAD: Normocephalic/atraumatic EYES: PERRLA, EOMI OROPHARYNX: no oral lesions noted, posterior pharynx clear NECK: Supple, no adenopathy LUNGS: Normal breath sounds. SpO2<99> CARDIOVASCULAR: Regular rate and rhythm without noted murmurs ABDOMEN: Soft, non-tender, non-distended with bowel sounds. NEUROLOGIC: Alert and oriented x 4. Slurring speech secondary to alcohol intoxication Course Course Course Narrative: 34-year-old male with history and clinical presentation consistent with alcohol intoxication. Patient declining lab work at this time and was provided with a dose of Librium as well as Ativan. Patient initially agitated but calmed down and is now resting comfortably. Patient is neither suicidal and is not requesting detox. The plan is to observe patient until he is adequately recovered from intoxication to be discharged. Reevaluation(s) Reevaluation #1: Patient placed in physician observation because the patient needed more time detox. At the time observation was started the patient's vital signs were stable, patient is alert and oriented but slightly agitated, neuro: Nonfocal, CV RRR, lungs clear Time: 01:00 Discharge Plan Discharge Clinical Impression: Alcoholic intoxication Patient Disposition: Home, Self-Care Instructions: Alcohol Intoxication (ED) Additional Instructions: Return to the emergency department if you have any acute worsening of your symptoms. Prescriptions: No Action lorazepam [Ativan] 1 mg tablet 1 mg PO TID PRN (Reason: anxiety) Qty: 10 RF: 0 ondansetron HCl [Zofran] 4 mg tablet 4 mg PO Q8H PRN (Reason: nausea and vomiting) Qty: 10 RF: 0 famotidine [Pepcid] 20 mg tablet 20 mg PO BID Qty: 10 RF: 0 clonidine HCl 0.1 mg tablet 1 tab PO DAILY RF: 0 cyclobenzaprine 10 mg tablet 10 mg PO TID PRN (Reason: muscle spasm) Qty: 14 RF: 0 ibuprofen 600 mg tablet 600 mg PO Q6H PRN (Reason: pain) Qty: 30 RF: 0 lidocaine 4 % adhesive patch,medicated 1 patch topical DAILY PRN (Reason: pain) Qty: 10 RF: 0 Referrals: Physician,None [Primary Care Provider] - 2 days
[2020-09-03] MEDS: 0.9 % Sodium Chloride 1,000 ML 999 ML IV (00:22)
[2020-09-03] MEDS: chlordiazePOXIDE HCl 25 MG CAPSULE PO (00:22)
--- NOTE | 2020-09-03 00:49 | PC.NURSE ---
ATTEMPT TO DO EKG ON PATIENT ,PATIENT BECOME UNCOOPERATIVE AND PULLING OUT LEADS ,MD MORALES AND NATALIE MCCRARY AWARE .
[2020-09-03] MEDS: LORazepam 2 MG/ML VIAL 1 MG IVPUSH ×2 (00:57→02:55)
--- NOTE | 2020-09-03 01:05 | PC.NURSE ---
Pt states im feeling anxious . pt medicated as per emar to relax. Gave girlfriend update on phone after pt's permission. will continue to monitor pt.
[2020-09-03 02:00] VITALS: BP 147/87; PULSE 85; RESP 16; O2SAT 98
--- NOTE | 2020-09-03 02:11 | PC.NURSE ---
PT IS GETTING UP AND GETTING DRESSED. PT TOLD TO SIT MANY TIMES.
[2020-09-03 04:00] VITALS: BP 141/90; PULSE 82; RESP 16; O2SAT 99
[2020-09-03 06:00] VITALS: BP 145/91; PULSE 84; RESP 16; O2SAT 99
[2020-09-03] MEDS: LORazepam 2 MG/ML VIAL IVPUSH ×2 (08:02→08:59)
[2020-09-03 08:03] VITALS: BP 130/103; PULSE 126; RESP 16; O2SAT 98
--- NOTE | 2020-09-03 08:15 | PC.NURSE ---
Hubert (classroom technology coach) at bedside speaking with pt. Pt reports ETOH last night, ? two seizures but reports he is unsure of what happened. Reports increased anxiety and has Ativan rx to him, Ativan ordered and given. Pt is vague with details prior to coming to ED. HR intially 130s but trending down after Ativan administration Pt denies SI/HI. Fluids started. Coordinating ride home at this time.
--- NOTE | 2020-09-03 08:19 | MHC.RECOVSUP ---
Recovery Support note: Patient is a 34 year old [place] speaking male who presented [place] [facility] due to alcohol use and suspected withdrawal symptoms. This screenplay writer met with patient prior to discharge to discuss drinking and recovery supports. Patient was agreeable to consultation. Patient reports that he had a period of sobriety over a month prior to relapsing a couple days ago. Patient reports he relapsed because of his anxiety and [facility]. 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 Patient acknowledges that alcohol consumption is not an appropriate way to handle anxiety and he reports that he will not be doing this again. Discussed coping skills with patient. Patient has a therapist through the [facility] and also is familiar with the [facility] supports. Patient is well versed in recovery supports and is familiar with AA and IOP. Patient reports he is trying to get his job back and does not have time for IOP. Patient reports he is on naltrexone and that he finds it helpful. Encouraged patient not to let this relapse slow down the great progress he has made with his recovery and patient acknowledged. Encouraged patient to reach out to friends or family for support if he is feeling anxious and coping skills are not helping. Recovery Support Team available as needed.
[2020-09-03] MEDS: 0.9 % Sodium Chloride 1,000 ML 999 ML IVCONT (08:36)
[2020-09-03 09:04] VITALS: BP 141/92; PULSE 119
[2020-09-03 09:30] VITALS: BP 141/90; PULSE 114; RESP 18; O2SAT 97
--- NOTE | 2020-09-03 10:06 | PC.NURSE ---
Pt sleeping, awakes easily then HR noted back up to 120s, Dr Marquez aware, will do EKG, pt now agreeable. Pt request to go home. States increased panic/anxiety and not managed well at home. Pt noted with clear speech, lucid.
== END 2020-09-03 10:10 | disposition home or self-care (01) ==
PROVIDERS: Emergency Provider Student in an Organized Health Care Education/Training Program
DX: F10.129 Alcohol abuse with intoxication, unspecified (principal); F41.1 Generalized anxiety disorder; F43.0 Acute stress reaction; I10 Essential (primary) hypertension; Y90.9 Presence of alcohol in blood, level not specified; F17.200 Nicotine dependence, unspecified, uncomplicated; Z71.6 Tobacco abuse counseling; Z79.899 Other long term (current) drug therapy; Z71.41 Alcohol abuse counseling and surveillance of alcoholic
CPT/HCPCS: 93005; 96365; 96375; 96376; 99284; J2060

== ENCOUNTER 2020-09-03 14:30 | Emergency (ER) | payer OTHER, SELFPAY ==
--- NOTE | ~2020-09-03 | CT_ITS ---
EXAMINATION: CT HEAD WITHOUT CONTRAST CLINICAL INFORMATION: Passed out on porch. COMPARISON: 08/31/2020 TECHNIQUE: Contiguous axial imaging was performed from the skull base to vertex without intravenous administration of contrast. This CT examination was performed using dose optimization techniques as appropriate, variously including the following: *Automated exposure control *Adjustment of mA and/or kV according to patient size (this includes techniques or standardized protocols for targeted exams where dose is matched to indication/reason for exam; i.e. extremities or head) *Use of iterative reconstruction technique DLP: 831 mGy-cm FINDINGS: There is no evidence of acute intracranial hemorrhage or territorial infarction. No abnormal mass effect or midline shift is seen. Bush to white matter differentiation is well preserved. No extra-axial fluid collections are identified. The ventricles are normal in size. There is no abnormal attenuation within the brain parenchyma. The osseous structures and soft tissues are normal. The mastoid air cells and visualized portions of the paranasal sinuses are well aerated. CT/CT head/brain wo con IMPRESSION: No acute intracranial pathology.
[2020-09-03 14:47] VITALS: BP 145/86; BP 147/89; PULSE 107; RESP 18; TEMP 36.7; O2SAT 95; BMI 33.4
--- NOTE | 2020-09-03 15:33 | ED_ITS ---
HPI - Alcohol General Chief Complaint: ETOH/Substance Use <JAY Abdi - Last Filed: 09/03/20 16:34> Stated Complaint: ETOH USE,FOUND BY NEIGHBOR ON BACK DECK <JAY Abdi - Last Filed: 09/03/20 16:34> Time Seen by Provider: 09/03/20 14:55 <JAY Abdi - Last Filed: 09/03/20 16:34> Source: patient and EMS <JAY Abdi - Last Filed: 09/03/20 16:34> Mode of arrival: EMS <JAY Abdi - Last Filed: 09/03/20 16:34> History of Present Illness HPI narrative: 34-year-old male with a past medical history of anxiety, hypertension, ETOH abuse, BIBA after neighbor called EMS finding patient intoxicated naked on his porch next to vomit. Patient was recently discharged from our facility 3 hours [facility] after being evaluated last night for similar instances. Patient admits to drinking a lot of vodka, denies illicit drugs, SI or HI. Denies fall/trauma or injury. Patient intoxicated, history limited due to acute mental status, falling asleep during evaluation, continuously asking for Ativan due to his fear of having a seizure <JAY Abdi - Last Filed: 09/03/20 16:34> Related Data Home Medications: Home Medications Medication Instructions Recorded Confirmed clonidine HCl 1 tab PO DAILY 05/23/20 05/23/20 Previous Rx's Medication Instructions Recorded cyclobenzaprine 10 mg PO TID PRN #14 tab 03/09/20 ibuprofen 600 mg PO Q6H PRN #30 tab 03/09/20 lidocaine 1 patch TOPICAL DAILY PRN #10 ea 03/09/20 famotidine [Pepcid] 20 mg PO BID #10 tab 05/22/20 lorazepam [Ativan] 1 mg PO TID PRN #10 tab 05/22/20 ondansetron HCl [Zofran] 4 mg PO Q8H PRN #10 tab 05/22/20 <JAY Abdi Last Filed: 09/03/20 16:34> Allergies/Adverse Reactions: Allergies Allergy/AdvReac Type Severity Reaction Status Date / Time No Known Allergies Allergy Verified 03/09/20 00:07 <JAY Abdi - Last Filed: 09/03/20 16:34> Review of Systems Review of Systems: Constitutional: No Fever Cardiovascular: No Chest Pain, No SOB Gastrointestinal: No Nausea, No Vomiting, No Abdominal pain Musculoskeletal: No joint pain, No Myalgias, No Joint Swelling Skin: No rash Neuro: No head trauma, No Headache Psych: No SI/HI History limited due to patient's acute intoxication <JAY Abdi - Last Filed: 09/03/20 16:34> Yes all other systems are reviewed and are negative <JAY Abdi - Last Filed: 09/03/20 16:34> PMFSH Past Medical History Attestation statement: The following information was validated with the patient. <JAY Abdi - Last Filed: 09/03/20 16:34> Medical History: Medical History Anxiety HTN (hypertension) <JAY Abdi - Last Filed: 09/03/20 16:34> Surgical History: Surgical History H/O fasciotomy <JAY Abdi - Last Filed: 09/03/20 16:34> Social History Social History: Social History Alcohol intake: current Alcohol intake frequency: 0-2 drinks per day Alcohol type: hard liquor Smoking Status: Never smoker Advance Directives: No Advance Directives Information Provided: No <JAY Abdi - Last Filed: 09/03/20 16:34> Physical Exam Vital Signs: Vital Signs: Last Vital Signs Temp 97.9 F 09/03/20 16:16 Pulse 133 H 09/03/20 21:13 Resp 16 09/03/20 21:13 BP 144/98 H 09/03/20 21:13 Pulse Ox 99 09/03/20 21:13 Body Mass Index 33.4 <JAY Abdi - Last Filed: 09/03/20 16:34> Vital Signs: Last Vital Signs Temp 97.9 F 09/03/20 16:16 Pulse 133 H 09/03/20 21:13 Resp 16 09/03/20 21:13 BP 144/98 H 09/03/20 21:13 Pulse Ox 99 09/03/20 21:13 Body Mass Index 33.4 <Migdalia Jones MD - Last Filed: 09/03/20 23:00> Const: Other: Intoxicated, EtOH odor on breath, arousable to voice <Iveth Arauz NV - Last Filed: 09/03/20 16:34> General: cooperative, healthy appearing and lethargic <Iveth Arauz NV - Last Filed: 09/03/20 16:34> Orientation/consciousness: lethargic <Iveth Arauz NV - Last Filed: 16:34> Limitations: no limitations <Iveth Arauz NV - Last Filed: 09/03/20 16:34> HENMT: Head: Yes normal to inspection, Yes atraumatic, No Ayala's sign, No contusion and No raccoon eyes <JAY Abdi - Last Filed: 09/03/20 16:34> Ears: hearing grossly normal bilaterally <Iveth Arauz NV - Last Filed: 09/03/20 16:34> General nose exam: Normal external nose present <Iveth Arauz NV - Last Filed: 09/03/20 16:34> Face and sinus: Yes normal facial exam <JAY Abdi - Last Filed: 09/03/20 16:34> Eyes: General: appearance normal, both eyes and all related structures <JAY Abdi - Last Filed: 09/03/20 16:34> Pupils: Equal, round and reactive pupils present and Dilated pupils bilaterally <JAY Abdi - Last Filed: 09/03/20 16:34> EOM: EOMs intact bilaterally <Iveth Arauz NV - Last Filed: 09/03/20 16:34> Neck: Neck: Yes normal visual inspection and Yes no meningeal signs <JAY Abdi - Last Filed: 09/03/20 16:34> Chest: Chest palpation & inspection: normal inspection of the chest <JAY Abdi - Last Filed: 09/03/20 16:34> Resp: Effort & Inspection: normal respiratory effort <JAY Abdi - Last Filed: 09/03/20 16:34> Cardio: Rate: regular rate <JAY Abdi - Last Filed: 09/03/20 16:34> GI: Inspection: Yes normal to inspection <JAY Abdi Last Filed: 09/03/20 16:34> Palpation (GI): Soft to palpation, nontender, no guarding and not rigid <JAY Abdi - Last Filed: 09/03/20 16:34> Skin: Rashes: no rashes <JAY Abdi Last Filed: 09/03/20 16:34> Wounds: no wounds <JAY Abdi Last Filed: 09/03/20 16:34> Neuro: General: moves all extremities and no meningeal signs <JAY Abdi Last Filed: 09/03/20 16:34> Cranial nerves: Yes Equal, round and reactive pupils present <JAY Abdi Last Filed: 09/03/20 16:34> Extrem: Other: HERNANDEZ <JAY Abdi Last Filed: 09/03/20 16:34> General: Yes normal to inspection <JAY Abdi Last Filed: 09/03/20 16:34> Course Course Course Narrative: CT head/brain wo con IMPRESSION: No acute intracranial pathology -Patient is sleeping comfortably, heart rate in the 120s will obtain EKG (appears chronically tachycardic) -1635--ED care transferred to JAY Macdonald pending ethanol/WILLIS, BHN eval, clinical sobriety and re-evaluation <JAY Abdi - Last Filed: 09/03/20 16:34> On re-evaluation patient is speaking in full sentences and articulating well, he continues to deny any suicidal or homicidal ideation and continues to decline any detox programs. Patient has a sober ride home who will also observe patient. Patient is otherwise clinically stable for discharge into the care of his friend who is sober. <Migdalia Jones MD - Last Filed: 09/03/20 23:00> MDM - Alcohol MDM Narrative Medical decision making narrative: 34-year-old male with a past medical history of anxiety, hypertension, ET OH abuse, BIBA after neighbor called EMS finding patient intoxicated naked on his porch next to vomit. Patient was recently discharged from our facility 3 hours [facility] after being evaluated last night for similar instances. On exam mildly tachycardic, NAD, EtOH odor on breath, atraumatic, alert to voice, continuously asking for Ativan, HERNANDEZ. Plan: Ethanol, IVF, head CT <JAY Abdi - Last Filed: 09/03/20 16:34> Medical Records Attestation: I reviewed the patient's medical records. <JAY Abdi Last Filed: 09/03/20 16:34> Lab Data Attestation: I reviewed the patient's lab results. <JAY Abdi Last Filed: 09/03/20 16:34> Labs: Lab Results 09/03/20 09/03/20 Range/Units 16:12 17:49 Urine Opiates Screen Not Detected (Not Detect) Ur Barbiturates Screen Not Detected (Not Detect) Ur Phencyclidine Scrn Not Detected (Not Detect) Ur Amphetamines Screen Not Detected (Not Detect) U Benzodiazepines Scrn Not Detected (Not Detect) Urine Cocaine Screen Not Detected (Not Detect) U Marijuana (THC) Screen Not Detected (Not Detect) Ethyl Alcohol 381 H* mg/dL <JAY Abdi Last Filed: 09/03/20 16:34> Lab Results 09/03/20 09/03/20 Range/Units 16:12 17:49 Urine Opiates Screen Not Detected (Not Detect) Ur Barbiturates Screen Not Detected (Not Detect) Ur Phencyclidine Scrn Not Detected (Not Detect) Ur Amphetamines Screen Not Detected (Not Detect) U Benzodiazepines Scrn Not Detected (Not Detect) Urine Cocaine Screen Not Detected (Not Detect) U Marijuana (THC) Screen Not Detected (Not Detect) Ethyl Alcohol 381 H* mg/dL <Migdalia Jones MD - Last Filed: 09/03/20 23:00> Discharge Plan Discharge Clinical Impression: Alcoholic intoxication <JAY Abdi Last Filed: 09/03/20 16:34> Patient Disposition: Home, Self-Care <JAY Abdi Last Filed: 09/03/20 16:34> Instructions: Alcohol Intoxication (ED) <JAY Abdi Last Filed: 09/03/20 16:34> Additional Instructions: Recommend seeking help for your alcohol problem. Please return to the emergency department for any acute changes. <JAY Abdi - Last Filed: 09/03/20 16:34> Prescriptions: No Action lorazepam [Ativan] 1 mg tablet 1 mg PO TID PRN (Reason: anxiety) Qty: 10 RF: 0 ondansetron HCl [Zofran] 4 mg tablet 4 mg PO Q8H PRN (Reason: nausea and vomiting) Qty: 10 RF: 0 famotidine [Pepcid] 20 mg tablet 20 mg PO BID Qty: 10 RF: 0 clonidine HCl 0.1 mg tablet 1 tab PO DAILY RF: 0 cyclobenzaprine 10 mg tablet 10 mg PO TID PRN (Reason: muscle spasm) Qty: 14 RF: 0 ibuprofen 600 mg tablet 600 mg PO Q6H PRN (Reason: pain) Qty: 30 RF: 0 lidocaine 4 % adhesive patch,medicated 1 patch topical DAILY PRN (Reason: pain) Qty: 10 RF: 0 <JAY Abdi - Last Filed: 09/03/20 16:34> Referrals: Ezekiel Earl PA [Primary Care Provider] - 2 days <JAY Abdi - Last Filed: 09/03/20 16:34>
[2020-09-03 16:16] VITALS: BP 124/77; PULSE 122; RESP 21; TEMP 36.6; O2SAT 95
[2020-09-03] MEDS: 0.9 % Sodium Chloride 1,000 ML 999 ML IVCONT (16:40)
--- NOTE | 2020-09-03 16:44 | PC.NURSE ---
Pt was uncooperative with outbursts on arrival to ED. Pt is now cooperative.following commands. He is sleeping at this time. VSS but HR in 120s. JAY eli aware of this and EKG obtained. He is receiving IVF and capnography is being monitored.
[2020-09-03 16:46] LABS: Amphetamine Screen Urine Not Detected (Not Detect); Barbiturates, Urine Not Detected (Not Detect); Benzodiazepines Screen Urine Not Detected (Not Detect); Cannabinoid Screen Urine Not Detected (Not Detect); Cocaine Screen Urine Not Detected (Not Detect); Opiate Screen Urine Not Detected (Not Detect); Phencyclidine Screen Urine Not Detected (Not Detect)
--- NOTE | 2020-09-03 17:48 | PC.NURSE ---
Pt threatening to leave and is trying to pull out IV. IV was removed for patient safety. Pt agreeable to blood draw at this time. Awaiting results prior to calling N team.
--- NOTE | 2020-09-03 17:53 | PC.NURSE ---
Pt offered sandwich and is calm at this time.
[2020-09-03 18:09] LABS: Ethanol 381 mg/dL
--- NOTE | 2020-09-03 18:30 | PC.NURSE ---
[facility] notified of pt's consult. They are aware of ETOH level at this time and agree to see pt once he is clinically sober. Fax sent to [facility] office at this time.
--- NOTE | 2020-09-03 19:30 | PC.NURSE ---
Assumed care of pt. Pt sleeping in stretcher in NAD. Pt wakes to voice.
[2020-09-03 21:13] VITALS: BP 144/98; PULSE 133; RESP 16; O2SAT 99
--- NOTE | 2020-09-03 21:17 | MHC.RECOVSUP ---
Recovery support o Current location: ED-21 o Identified substance use concern: Alcohol <del>-</del> <del>Overdose</del> <del>-</del> <del>Withdrawal</del> <del>-</del> <del>Seeking</del> <del>ATS</del> <del>(detox)</del> - Support ? Intervention: <del>o</del> <del>ATS</del> <del>bed</del> <del>search</del> <del>started/completed/in</del> <del>process</del> <del>o</del> <del>MAT</del> <del>started</del> <del>or</del> <del>to</del> <del>be</del> <del>started</del> o Community resources provided o Harm reduction discussion ? Plan: <del>o</del> <del>Referral</del> <del>to</del> <del>[facility]del> <del>o</del> <del>Bed</del> <del>search</del> <del>in</del> <del>progress</del> <del>to</del> <del>o</del> <del>Follow</del> <del>up</del> <del>tomorrow</del> o Patient awaiting crisis evaluation <del>o</del> <del>Patient</del> <del>to</del> <del>follow</del> <del>up</del> <del>with</del> <del>[facility]</del> <del>after</del> <del>discharge</del> ? Additional information: I was able to speak briefly with pt and he stated that he was in the ED last night and does not remember what happened. He is currently waiting on N to see him. pt stated having a hx of mental illness and is not on MAT. pt should be followed up with.
--- NOTE | 2020-09-03 21:44 | PC.NURSE ---
PT IS CONSTANTLY ASKING FOR HIS BELONGINGS AND PHONE. PT IS REDIRECTED AT THIS TIME. PT AWAKE AND SITTING UP IN STRETCHER COMPLAINING. PT STARTS SHAKING THE STRETCHER AND SECURITY AT BEDSIDE.
--- NOTE | 2020-09-03 22:20 | PC.NURSE ---
Dr. Jones at the patients bedside. Patient requesting to go home- per Dr. Jones if patient can find a ride home than he is free to be discharged. Patients cellphone has all contacts and numbers on it and is currently being charged so that patient can call a friend/family member.
== END 2020-09-03 23:26 | disposition home or self-care (01) ==
PROVIDERS: Physician Assistant; Emergency Provider Student in an Organized Health Care Education/Training Program; PCP Physician Assistant
DX: F10.120 Alcohol abuse with intoxication, uncomplicated (principal); Y90.8 Blood alcohol level of 240 mg/100 ml or more; R00.0 Tachycardia, unspecified; I10 Essential (primary) hypertension; F41.9 Anxiety disorder, unspecified
CPT/HCPCS: 36415; 70450; 80307; 80320; 96360; 99284

== ENCOUNTER 2021-07-25 18:56 | Emergency (ER) | payer OTHER, SELFPAY ==
[2021-07-25 19:05] VITALS: BP 141/92; PULSE 120; RESP 20; TEMP 37.1; O2SAT 98; BMI 31.9
[2021-07-25 19:41] LABS: COVID-19 Test Negative (Negative)
--- NOTE | 2021-07-25 20:03 | ED_ITS ---
HPI - Psych General Chief Complaint: Psychiatric Symptoms Stated Complaint: crisis Time Seen by Provider: 07/25/21 19:06 Source: patient and EMS Mode of arrival: EMS Limitations: no limitations History of Present Illness HPI Narrative: Patient comes to emergency room complaining ideas of self-harm, states that he is very ashamed (unclear reason). Patient states that all of his anxiety is triggered by the war in [facility]. Patient states he is a . Was stationed in [employer]. States he has a lot of guilt that his sister while he was there. 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 Related Data Home Medications Medication Instructions Recorded Confirmed clonidine HCl 0.1 mg tablet 1 tab PO DAILY 05/23/20 05/23/20 Previous Rx's Medication Instructions Recorded cyclobenzaprine 10 mg tablet 10 mg PO TID PRN #14 tab 03/09/20 ibuprofen 600 mg tablet 600 mg PO Q6H PRN #30 tab 03/09/20 lidocaine 4 % topical patch 1 patch TOPICAL DAILY PRN #10 ea 03/09/20 famotidine 20 mg tablet (Pepcid) 20 mg PO BID #10 tab 05/22/20 lorazepam 1 mg tablet (Ativan) 1 mg PO TID PRN #10 tab 05/22/20 ondansetron HCl 4 mg tablet 4 mg PO Q8H PRN #10 tab 05/22/20 (Zofran) Allergies Allergy/AdvReac Type Severity Reaction Status Date / Time No Known Allergies Allergy Verified 03/09/20 00:07 Review of Systems Review of Systems: Constitutional : No Weight loss, No Fever, No Chills, No Night Sweats, No Fatigue, No Malaise ENT/Mouth : No Hearing loss, No Ear Pain, No Nasal Congestion, No Sinus Pain, No Hoarseness, No sore throat, No Rhinorrhea, No Swallowing Difficulty Eyes: No Eye Pain, No Swelling, No Redness, No Foreign Body, No Discharge, No Vision Changes Cardiovascular : No Chest Pain, No SOB, No Dyspnea on Exertion, No Orthopnea, No Edema, No Palpitations Respiratory : No Cough, No Sputum, No Wheezing, No Smoke Exposure, No Dyspnea Gastrointestinal : No Nausea, No Vomiting, No Diarrhea, No Constipation, No abdominal Pain, No Hematochezia, No Melena Genitourinary : no irregular bleeding, No Dysuria, No Urinary Frequency, No Hematuria, No Urinary Incontinence, No Urgency, No Flank Pain, No Urinary Flow Changes, No Hesitancy Musculoskeletal : No joint pain, No Myalgias, No Joint Swelling Skin : No Skin Lesions, No rash Neuro : No Weakness, No Numbness, No Paresthesias, No Loss of Consciousness, No Dizziness, No Headache Psych : Anxiety, mild self-harm ideation, no homicidal ideation Heme/Lymph: No Bruising, No Bleeding,No Lymphadenopathy Endocrine : No Polyuria, No Polydipsia, No Temperature Intolerance [facility] Past Medical History Medical History ADHD Anxiety HTN (hypertension) Surgical History H/O fasciotomy Social History Social History Alcohol intake: current Alcohol intake frequency: 0-2 drinks per day Alcohol type: hard liquor Physical Exam Vital Signs: Vital Signs: Last Vital Signs Temp 98.7 F 07/25/21 19:05 Pulse 120 H 07/25/21 19:05 Resp 20 07/25/21 19:05 BP 141/92 H 07/25/21 19:05 Pulse Ox 98 07/25/21 19:05 BMI result Body Mass Index 31.9 Const: Other: Appearance: Alert. Oriented X3. No acute distress. Eyes: Pupils equal, round and reactive to light. ENT: Pharynx normal. Neck: Normal inspection. Neck supple. No lymph nodes noted. No crepitus CVS: Normal heart rate and rhythm. Pulses normal. Normal S1 and S2 Respiratory: No respiratory distress. Breath sounds normal. No Wheezing. No rales Abdomen: Soft and nontender. No rigidity. No distention. Skin: Skin warm and dry. Normal skin color. Normal skin turgor. Extremities: No lower extremity edema. No Lacerations. No Rash Neuro: Oriented X 3. No motor deficit. No sensory deficit. Moving all extremities. No slurred speech. CN 2 through 12 grossly intact Psych: calm, cooperative, patient is hyperverbal, speaking in tangents Course Course Course Narrative: Patients, cooperative, hyperverbal. Patient concerned that he ran out of Ativan couple of days ago and has not had any, concerned about going to withdrawal. Patient was given 2 mg of p.o. Ativan. [facility] consult pending Physician of katelyn started 20:10 [facility] - Psych Lab Data Labs: Lab Results 07/25/21 Range/Units 19:20 COVID-19 ([facility]) Negative (Negative) COVID-19 Clin Com See Note Discharge Plan Discharge Clinical Impression: Anxiety, Hyperverbal speech Patient Disposition: Still a Patient Prescriptions: No Action lorazepam [Ativan] 1 mg tablet 1 mg PO TID PRN (Reason: anxiety) Qty: 10 0RF ondansetron HCl [Zofran] 4 mg tablet 4 mg PO Q8H PRN (Reason: nausea and vomiting) Qty: 10 0RF famotidine [Pepcid] 20 mg tablet 20 mg PO BID Qty: 10 0RF clonidine HCl 0.1 mg tablet 1 tab PO DAILY 0RF cyclobenzaprine 10 mg tablet 10 mg PO TID PRN (Reason: muscle spasm) Qty: 14 0RF ibuprofen 600 mg tablet 600 mg PO Q6H PRN (Reason: pain) Qty: 30 0RF lidocaine 4 % adhesive patch,medicated 1 patch topical DAILY PRN (Reason: pain) Qty: 10 0RF Rx Instructions: may leave on for up to 12 hrs
[2021-07-25] MEDS: LORazepam 1 MG TABLET 2 MG PO (20:06)
[2021-07-25 22:22] LABS: Amphetamine Screen Urine POSITIVE (Not Detect); Barbiturates, Urine Not Detected (Not Detect); Benzodiazepines Screen Urine Not Detected (Not Detect); Cannabinoid Screen Urine POSITIVE (Not Detect); Cocaine Screen Urine Not Detected (Not Detect); Fentanyl, urine Not Detected (Not Detect); Opiate Screen Urine Not Detected (Not Detect); Phencyclidine Screen Urine Not Detected (Not Detect)
[2021-07-26 01:52] VITALS: BP 122/76; PULSE 98; RESP 16; TEMP 37.2; O2SAT 100
[2021-07-26] MEDS: LORazepam 1 MG TABLET 2 MG PO (02:14)
--- NOTE | 2021-07-26 06:41 | PC.NURSE ---
Patient overall slept well, received Ativan 2 mg @ 2005 and 213 for restlessness with + effect, BHN referral completed/confirmed, patient will be evaluated in the morning, care team made aware, patient requested discharge but was informed that he needs to speak with crises clinician, behavior non concerning, hyper-verbal with paranoia at the base, VSS, will continue to monitor
--- NOTE | 2021-07-26 07:25 | PC.NURSE ---
patient appers to remain asleep at present respirations ar even and unlabored patient appears in no distress
[2021-07-26 09:44] VITALS: BP 123/61; PULSE 87; RESP 19; TEMP 36.4; O2SAT 100
[2021-07-26] MEDS: LORazepam 1 MG TABLET PO (10:06)
== END 2021-07-26 13:38 | disposition home or self-care (01) ==
PROVIDERS: Emergency Provider Emergency Medicine
DX: F41.9 Anxiety disorder, unspecified (principal); F80.1 Expressive language disorder; R45.851 Suicidal ideations; Z20.822 Contact with and (suspected) exposure to COVID-19; Z72.89 Other problems related to lifestyle; Z65.5 Exposure to disaster, war and other hostilities; Z79.899 Other long term (current) drug therapy
CPT/HCPCS: 80307; 87635; 99284

== ENCOUNTER 2021-08-03 20:12 | Emergency (ER) | payer OTHER, SELFPAY ==
[2021-08-03 20:58] VITALS: BP 146/90; PULSE 111; RESP 18; TEMP 37.1; O2SAT 98; BMI 34.3
--- NOTE | 2021-08-03 22:05 | ED_ITS ---
HPI - General Adult General Chief complaint: General Medical <Uzma Lewis NP - Last Filed: 08/04/21 02:43> Stated complaint: Med refill <Uzma Lewis NP - Last Filed: 08/04/21 02:43> Source: patient <Uzma Lewis NP - Last Filed: 08/04/21 02:43> Mode of arrival: ambulatory <Uzma Lewis NP - Last Filed: 08/04/21 02:43> Limitations: no limitations <Uzma Lewis NP - Last Filed: 08/04/21 02:43> History of Present Illness HPI narrative: 35-year-old male presents for medication refill. States to have significant anxiety, PTSD, and flashback vivid night terrors. Denies suicidal and homicidal ideation at this time. <Uzma Lewis NP - Last Filed: 08/04/21 02:43> Onset (ago): month(s) <Uzma Lewis NP - Last Filed: 08/04/21 02:43> Severity: moderate <Uzma Lewis NP - Last Filed: 08/04/21 02:43> Treatments prior to arrival: none <Uzma Lewis NP - Last Filed: 08/04/21 02:43> Related Data Home medications: Home Medications Medication Instructions Recorded Confirmed clonidine HCl 0.1 mg tablet 1 tab PO DAILY 05/23/20 05/23/20 Previous Rx's Medication Instructions Recorded cyclobenzaprine 10 mg tablet 10 mg PO TID PRN #14 tab 03/09/20 ibuprofen 600 mg tablet 600 mg PO Q6H PRN #30 tab 03/09/20 lidocaine 4 % topical patch 1 patch TOPICAL DAILY PRN #10 ea 03/09/20 famotidine 20 mg tablet (Pepcid) 20 mg PO BID #10 tab 05/22/20 lorazepam 1 mg tablet (Ativan) 1 mg PO TID PRN #10 tab 05/22/20 ondansetron HCl 4 mg tablet 4 mg PO Q8H PRN #10 tab 05/22/20 (Zofran) lorazepam 1 mg tablet (Ativan) 1 mg PO TID PRN #7 tab 08/03/21 <Uzma Lewis NP - Last Filed: 08/04/21 02:43> Allergies/adverse reactions: Allergies Allergy/AdvReac Type Severity Reaction Status Date / Time watermelon Allergy Itching Verified 08/03/21 21:41 <Uzma Lewis NP - Last Filed: 08/04/21 02:43> Review of Systems Review of Systems: Constitutional: No Fever, No Chills ENT/Mouth: No Ear Pain, No Nasal Congestion, No sore throat Eyes: No Eye Pain, No Swelling, No Redness Cardiovascular: No Chest Pain, No SOB Respiratory: No Cough, No Sputum, No Dyspnea Gastrointestinal: No Nausea, No Vomiting, No Diarrhea, No Hematochezia, No Melena Genitourinary: No Dysuria, No Urinary Frequency, No Hematuria Musculoskeletal: No Myalgias Skin: No Skin Lesions, No rash Neuro: No Weakness, No Numbness, No Paresthesias, No Dizziness, No Headache Psych: positive Anxiety, no Depression, no SI/HI Heme/Lymph: No Lymphadenopathy Endocrine: No Polyuria, No Polydipsia <Uzma Lewis NP - Last Filed: 08/04/21 02:43> Yes all other systems are reviewed and are negative <Uzma Lewis NP - Last Filed: 08/04/21 02:43> [facility] Past Medical History Attestation statement: The following information was validated with the patient. <Uzma Lewis NP - Last Filed: 08/04/21 02:43> Source: old records reviewed <Uzma Lewis NP - Last Filed: 08/04/21 02:43> Medical History: Medical History ADHD Anxiety HTN (hypertension) <Uzma Lewis NP - Last Filed: 08/04/21 02:43> Surgical History: Surgical History H/O fasciotomy <Uzma Lewis NP - Last Filed: 08/04/21 02:43> Social History Social History: Social History Alcohol intake: current Alcohol intake frequency: a few times a month Alcohol type: beer Smoked in Last 30 Days: No Use of substances other than those prescribed or required for medical reasons: No Substance Use Type: Marijuana Advance Directives: No Advance Directives Information Provided: No <Uzma Lewis NP - Last Filed: 08/04/21 02:43> Physical Exam ED Vital Signs: Vital Signs - 24 hr 08/03/21 20:58 08/03/21 23:04 Temperature 98.8 F Pulse Rate 111 H 94 Respiratory Rate 18 18 Blood Pressure 146/90 H 140/80 H Pulse Oximetry 98 99 BMI result Body Mass Index 34.3 <Uzma Lewis NP - Last Filed: 08/04/21 02:43> Appearance: Alert. Oriented X3. No acute distress. Eyes: Pupils equal, round and reactive to light. Sclera nonicteric. EOMI. No nystagmus. ENT: Pharynx normal. Neck: Normal inspection. Neck supple. CVS: Normal heart rate and rhythm. Pulses normal. Respiratory: No respiratory distress. Breath sounds normal. Abdomen: Soft and nontender. Skin: Skin warm and dry. Normal skin color. Normal skin turgor. Extremities: No lower extremity edema. Gait well-balanced well coordinated. Neuro: No motor deficit. No sensory deficit. Cranial nerves 2-12 intact. <Uzma Lewis NP - Last Filed: 08/04/21 02:43> Course Course Course Narrative: 35-year-old male presents with anxiety, PTSD, and night terrors. [facility]. States that he has been having some increased anxiety secondary to PTSD exacerbation and night terrors. Patient is alert oriented x4, answering questions politely inappropriately, has episodes of inappropriate laughter but states that he does that because he is anxious. [facility] does [facility]. After detailed discussion, I will provide refill of Ativan, [place] Pat was verified. Patient verbalized understanding of and agrees to plan of care to discharge home. Verbalized understanding of signs and symptoms indicating need for emergent intervention <LAUREN Monsalve Last Filed: 08/04/21 02:43> Medical Decision Making Differential Diagnosis Differential Diagnosis: Anxiety, PTSD a medication refill <Uzma Lewis NP - Last Filed: 08/04 02:43> Medical Records Medical records reviewed: Yes I reviewed the patient's medical records. <Uzma Lewis NP - Last Filed: 08/04/21 02:43> Discharge Plan Discharge Clinical Impression: Anxiety, Complex posttraumatic stress disorder <Uzma Lewis NP - Last Filed: 08/04/21 02:43> Patient Disposition: Home, Self-Care <Uzma Lewis NP - Last Filed: 08/04/21 02:43> Instructions: Post Traumatic Stress Disorder (ED), Anxiety (ED) <Uzma Lewis NP - Last Filed: 08/04/21 02:43> Additional Instructions: [facility]. I refilled your Ativan prescription with 4 tablets. You must follow-up with your physician. Thank you for choosing this emergency department for evaluation. Please follow-up with primary care physician as needed. Return to the emergency department for any new, concerning, or worsening symptoms. <Uzma Lewis NP - Last Filed: 08/04/21 02:43> Prescriptions: New lorazepam [Ativan] 1 mg tablet 1 mg PO TID PRN (Reason: anxiety) Qty: 7 0RF No Action lorazepam [Ativan] 1 mg tablet 1 mg PO TID PRN (Reason: anxiety) Qty: 10 0RF ondansetron HCl [Zofran] 4 mg tablet 4 mg PO Q8H PRN (Reason: nausea and vomiting) Qty: 10 0RF famotidine [Pepcid] 20 mg tablet 20 mg PO BID Qty: 10 0RF clonidine HCl 0.1 mg tablet 1 tab PO DAILY 0RF cyclobenzaprine 10 mg tablet 10 mg PO TID PRN (Reason: muscle spasm) Qty: 14 0RF ibuprofen 600 mg tablet 600 mg PO Q6H PRN (Reason: pain) Qty: 30 0RF lidocaine 4 % adhesive patch,medicated 1 patch topical DAILY PRN (Reason: pain) Qty: 10 0RF Rx Instructions: may leave on for up to 12 hrs <Uzma Lewis NP - Last Filed: 08/04/21 02:43> Interventions: ED Discharge Assessment Last Done: 08/03/21 23:43 <LAUREN Monsalve Last Filed: 08/04/21 02:43> Discharge Date/Time: 08/03/21 23:44 <Uzma Lewis NP - Last Filed: 08/04/21 02:43>
[2021-08-03] MEDS: LORazepam 1 MG TABLET 2 MG PO (23:02)
[2021-08-03 23:04] VITALS: BP 140/80; PULSE 94; RESP 18; O2SAT 99
== END 2021-08-03 23:44 | disposition home or self-care (01) ==
PROVIDERS: Emergency Provider Emergency Medicine
DX: F41.9 Anxiety disorder, unspecified (principal); F43.10 Post-traumatic stress disorder, unspecified; F51.4 Sleep terrors [night terrors]; I10 Essential (primary) hypertension
CPT/HCPCS: 99283; 99284

== ENCOUNTER 2021-08-25 17:42 | Emergency (ER) | payer OTHER, SELFPAY ==
[2021-08-25 17:56] VITALS: BP 152/97; PULSE 104; RESP 20; TEMP 36.5; O2SAT 100; BMI 30.1
== END 2021-08-25 22:51 | disposition left against medical advice (07) ==
PROVIDERS: Emergency Provider Emergency Medicine
DX: F41.1 Generalized anxiety disorder (principal); F43.0 Acute stress reaction; Z79.899 Other long term (current) drug therapy
CPT/HCPCS: 99281; 99282

== ENCOUNTER 2021-08-29 01:42 | Emergency (ER) | payer OTHER, SELFPAY ==
[2021-08-29 01:47] VITALS: BP 149/97; PULSE 100; O2SAT 98
[2021-08-29 01:52] VITALS: BMI 29.6
[2021-08-29 02:01] VITALS: BP 152/92; PULSE 91; RESP 16; TEMP 37.1; O2SAT 95
--- NOTE | 2021-08-29 02:19 | PC.NURSE ---
upon assessment, pt reports anxiety, stating he feels fine other than anxious. pt was asked if he took his ativan today, and he stated no, im out, and that why im here im having money issues with my medications, and im here for resources. Pt requesting xanax and nicotine lozenges. pt asked this RN not to ask questions twice, this RN stated that the doctor may ask similar questions, to which he responded, well you need to go talk to the doctor because if I get asked questions twice I will misinform just to misinform. awaiting MD to sign up for pt
--- NOTE | 2021-08-29 02:55 | ED.PSYCH ---
HPI - Psych General Chief Complaint: Psychiatric Symptoms Stated Complaint: CRISIS Time Seen by Provider: 08/29/21 02:53 Source: patient Mode of arrival: EMS History of Present Illness HPI Narrative: 35-year-old male with a history on review of documentation demonstrating depression, anxiety, ADHD, alcohol intoxication who is brought in this morning by EMS when said patient called EMS for colt. Patient reports that he ran out of medication due to financial issues and he is here for resources. He otherwise denies any constitutional symptoms. Patient informed the nurse that he was only going to say things once so the doctor better be in the room with the story was going to change. Related Data Home Medications Medication Instructions Recorded Confirmed clonidine HCl 0.1 mg tablet 1 tab PO DAILY 05/23/20 05/23/20 dextroamphetamine-amphetamine 10 1 tab PO BID 08/29/21 08/29/21 mg tablet prazosin 1 mg capsule 1 cap PO BEDTIME 08/29/21 08/29/21 Previous Rx's Medication Instructions Recorded cyclobenzaprine 10 mg tablet 10 mg PO TID PRN #14 tab 03/09/20 ibuprofen 600 mg tablet 600 mg PO Q6H PRN #30 tab 03/09/20 lidocaine 4 % topical patch 1 patch TOPICAL DAILY PRN #10 ea 03/09/20 famotidine 20 mg tablet (Pepcid) 20 mg PO BID #10 tab 05/22/20 ondansetron HCl 4 mg tablet 4 mg PO Q8H PRN #10 tab 05/22/20 (Zofran) lorazepam 1 mg tablet (Ativan) 1 mg PO TID PRN #7 tab 08/03/21 Allergies Allergy/AdvReac Type Severity Reaction Status Date / Time watermelon Allergy Itching Verified 08/03/21 21:41 Review of Systems Review of Systems: Pertinent positives and negatives as stated in HPI 10 point review of systems is otherwise negative. [facility] Past Medical History Source: nursing notes reviewed Medical History ADHD Anxiety HTN (hypertension) Surgical History H/O fasciotomy Social History Social History Alcohol intake: current Alcohol intake frequency: a few times a month Alcohol type: beer Patient Tobacco Use Status: Current everyday Tobacco user Smoked in Last 30 Days: Yes Substance Use Type: Marijuana Advance Directives: No Advance Directives Information Provided: Yes Physical Exam Vital Signs: Vital Signs: Last Vital Signs Temp 98.8 F 08/29/21 02:01 Pulse 91 08/29/21 02:01 Resp 16 08/29/21 02:01 BP 152/92 H 08/29/21 02:01 Pulse Ox 95 08/29/21 02:01 BMI result Body Mass Index 29.6 VITAL SIGNS: Reviewed. GENERAL: Well developed, well nourished, in no acute distress. HEAD: Normocephalic/atraumatic EYES: PERRLA, EOMI EARS: Ext canals without abnormality OROPHARYNX: no oral lesions noted, posterior pharynx clear LUNGS: Normal breath sounds. SpO2<95> CARDIOVASCULAR: Regular rate and rhythm without noted murmurs ABDOMEN: Soft, non-tender, non-distended with bowel sounds. No rigidity. No guarding. No palpable masses or hernias noted MUSCULOSKELETAL: No tenderness, deformities, or effusions noted on gross inspection. EXTREMITIES: No cyanosis, clubbing or edema. SKIN: Inspection of the skin reveals no rashes NEUROLOGIC: Alert and oriented x 4. Strength and sensation to light touch were grossly intact x 4, cranial nerves 2-12 grossly intact. PSYCH: aggressive behavior, psychosis Course Course Course Narrative: 35-year-old male with history and clinical presentation suggestive of colt or psychosis. Patient is reported to have discussed ?bizarre things? with nursing staff in the behavioral pot for patient had be transferred for escalating aggression at approximately 0240. On review of urine toxicology findings orally positive for marijuana and on review medications prescribed there does not appear to be any evidence prescriptions for bipolar or antipsychotics. 2 mg Ativan were given orally and patient is currently resting comfortably. He is otherwise cleared for further evaluation by the crisis team. [facility]. Reevaluation(s) Reevaluation #1: Patient placed in physician observation because the patient needed more time for crisis evaluation. At the time observation was started the patient's vital signs were stable, patient is alert and oriented, neuro: Nonfocal, CV RRR, lungs clear Time: 07:19 MDM - Psych Lab Data Labs: Lab Results 08/29/21 Range/Units 03:52 Urine Opiates Screen Not Detected (Not Detect) Urine Fentanyl Screen Not Detected (Not Detect) Ur Barbiturates Screen Not Detected (Not Detect) Ur Phencyclidine Scrn Not Detected (Not Detect) Ur Amphetamines Screen Not Detected (Not Detect) U Benzodiazepines Scrn Not Detected (Not Detect) Urine Cocaine Screen Not Detected (Not Detect) U Marijuana (THC) Screen POSITIVE H (Not Detect) Discharge Plan Discharge Clinical Impression: Altered behavior, Psychosis Patient Disposition: Still a Patient Prescriptions: No Action ondansetron HCl [Zofran] 4 mg tablet 4 mg PO Q8H PRN (Reason: nausea and vomiting) Qty: 10 0RF famotidine [Pepcid] 20 mg tablet 20 mg PO BID Qty: 10 0RF clonidine HCl 0.1 mg tablet 1 tab PO DAILY 0RF cyclobenzaprine 10 mg tablet 10 mg PO TID PRN (Reason: muscle spasm) Qty: 14 0RF ibuprofen 600 mg tablet 600 mg PO Q6H PRN (Reason: pain) Qty: 30 0RF lidocaine 4 % adhesive patch,medicated 1 patch topical DAILY PRN (Reason: pain) Qty: 10 0RF Rx Instructions: may leave on for up to 12 hrs lorazepam [Ativan] 1 mg tablet 1 mg PO TID PRN (Reason: anxiety) Qty: 7 0RF prazosin 1 mg capsule 1 cap PO BEDTIME 0RF dextroamphetamine-amphetamine 10 mg tablet 1 tab PO BID 0RF
[2021-08-29] MEDS: LORazepam 1 MG TABLET 2 MG PO ×4 (03:20→21:06)
--- NOTE | 2021-08-29 03:26 | PC.NURSE ---
pt continues to be restless and aggressive at time of transfer to the POD. Pt refusing IM medication. Pt requesting PO medication. Provider aware. Medicated per order. Security at the bedside, Nursing supervisor calibration aware. This financial writer present.
[2021-08-29] MEDS: Nicotine Polacrilex 2 MG GUM BUCCAL ×3 (04:06→13:22)
[2021-08-29 04:13] LABS: Amphetamine Screen Urine Not Detected (Not Detect); Barbiturates, Urine Not Detected (Not Detect); Benzodiazepines Screen Urine Not Detected (Not Detect); Cannabinoid Screen Urine POSITIVE (Not Detect); Cocaine Screen Urine Not Detected (Not Detect); Fentanyl, urine Not Detected (Not Detect); Opiate Screen Urine Not Detected (Not Detect); Phencyclidine Screen Urine Not Detected (Not Detect)
--- NOTE | 2021-08-29 04:43 | PC.NURSE ---
At 0245, PT came to the pod from room 13 after being brought to our facility by ambulance with complaints of anxiety due to running out of meds. When this RN approached the PT, he was already changed over into proper attire for the pod but still had numerous items in his room and in his possession. PT was agreeable to having most of the items secured in a locker; this included multiple books, a liter, some pens, a hat, and a sharp plastic object. PT did however adamantly refuse to take off the two chains around his neck, citing that they were from his sister and he never takes them off. PT also had a pair of plastic sunglasses on his head that he refused to hand over because he has photosensitivity . PT threatened to harm staff if they tried to take any items from him, specifically the sunglasses and chains. PT's speech is scattered and grandiose in nature. Decision was made between staff, security, and clinical farm management supervisor to allow the PT to hold on to those items as they provided comfort to the PT and he had not presented with significant risk of harm to himself or others. Plan was to provide meds to the PT and hope that his demeanor and logic would change later in the morning. This RN asked the PT if he would accept meds that would help with his anxiety, listing zyprexa, ativan, and benadryl in IM form. PT initially agreed to take ativan and zyrexa but refused benadryl because he took hydroxyzine earlier and the meds did the same thing . This RN complied and brought two syringes into the PT's room to be administered. Right before the first med (zyrexa) was going to be delivered the PT changed his disposition about receiving meds through IM route and requested PO meds. This RN then requested 2 mg of ativan PO from provider. PT willingly accepted this med. After receiving the med, PT's behavior was calm and cooperative. PT came out of his room and politely asked if he could watch TV in the common area. This RN complied. PT then asked if he could have some sheets of paper and a marker to write out his thoughts. PT has remained in the common area, quietly watching TV and scribbling thoughts and images on paper.
--- NOTE | 2021-08-29 05:29 | PC.NURSE ---
PT is currently speaking with our head of security Trent, who had been made aware of plan for PT. PT's speech remains to be grandiose and paranoid throughout conversation but PT is still in control of his actions and behavior.
--- NOTE | 2021-08-29 06:16 | PC.NURSE ---
[facility] referral completed with Smartsheet form.
--- NOTE | 2021-08-29 07:25 | PC.NURSE ---
patient appears to remain asleep at present respirations are even and unlabored patient appears in no distress
[2021-08-29 08:05] VITALS: BP 132/88; PULSE 82; RESP 16; TEMP 36.7; O2SAT 100
--- NOTE | 2021-08-29 08:45 | PHA.MEDREC ---
Pharmacy Consult ? Medication Reconciliation Pharmacy has completed the medication reconciliation.
--- NOTE | 2021-08-29 10:05 | PC.NURSE ---
exhibits poor boundaries, goes into peers areas and starts conversations w seeming strangers. ambulates around unit with no shirt on, in conversations theres people with millions of dollars not using it, if i had it id fix my car and treat myself a little but theres no food in my house in [place]
[2021-08-29] MEDS: Nicotine Polacrilex 2 MG GUM 4 MG BUCCAL ×3 (15:18→23:08)
--- NOTE | 2021-08-29 21:05 | PC.NURSE ---
Patient jumped across bed in room, walked over to nurse's station requesting ativan that he states he needs for his anxiety and nicotine gum. Medication given as per MD order, see MAR. Patient quietly walked back to room. Will monitor closely.
[2021-08-29 21:14] VITALS: BP 135/89; PULSE 88; RESP 20; TEMP 37.1; O2SAT 98
--- NOTE | 2021-08-29 21:23 | PC.NURSE ---
Patient banging head against wall and then attempted to barricade himself in room by pushing all furniture against door. Patient currently laying on floor with shirt off. Security called and at bedside. Will monitor closely.
[2021-08-29] MEDS: clonazePAM 1 MG TABLET PO (23:49)
[2021-08-29] MEDS: Prazosin HCL 1 MG CAPSULE PO (23:49)
--- NOTE | 2021-08-29 23:49 | PC.NURSE ---
Patient agitated, walking through mae without shirt, requesting meds for anxiety. MD notified and Klonobishnu ordered and given, see MAR. Will monitor closely.
[2021-08-29 23:51] VITALS: BP 136/87; PULSE 76; RESP 16; TEMP 36.6; O2SAT 100
--- NOTE | 2021-08-30 00:13 | PC.NURSE ---
Patient sitting in chair that he placed on top of bed. Staff at bedside to help patient off of chair and into bed, patient refused. Offered patient food/fluids, patient refused. Security called and aware. Patient now laying in bed with chair still on top of bed. Will monitor closely.
--- NOTE | 2021-08-30 00:39 | PC.NURSE ---
Patient asleep, NAD noted. Will monitor closely.
[2021-08-30] MEDS: Nicotine Polacrilex 2 MG GUM 4 MG BUCCAL ×8 (01:06→18:05)
--- NOTE | 2021-08-30 03:52 | MHC.CARE ---
Late entry: CARE team checked in with pt. He has continued to demonstrate some disorganized and bizarre behavior and delusional thinking but has been maintaining behavioral control throughout the 2nd and 3rd shift this evening.
--- NOTE | 2021-08-30 07:10 | PC.NURSE ---
patient appears to remain asleep at present patient has created a little fort in his room by balancing mattress on its side and placing weighted chair on top of bed frame, seemingly patient awaits transfer today to [place] inpatient stay. respirations are even and unlabored, patient appears in no distress.
--- NOTE | 2021-08-30 07:32 | PC.NURSE ---
generations will suffer if i am sectioned over the course of my mothers birthday which is the 24th of this month , then requests coffee.
[2021-08-30] MEDS: Amphetamine Mixed Salts 10 MG TABLET PO ×2 (07:37→13:24)
[2021-08-30 09:32] LABS: MANUAL DIFF FLAG NO
[2021-08-30 09:39] LABS: Basophils Percent Auto 0.6 % (0-2); Eosinophils Absolute Auto 0.4 X10*3/uL (0.0-0.4); Eosinophils Percent Auto 6.5 % (0-4); Hematocrit 47.8 % (42.0-52.0); Hemoglobin 16.1 g/dl (14.0-18.0); Imm Gran Abs Auto 0.03 X10*3/uL (0.00-0.03); Imm Gran Pct Auto 0.5 % (0.0-0.4); Lymphocytes Absolute Auto 1.3 X10*3/uL (1.2-4.9); Lymphocytes Percent Auto 20.5 % (20-40); Mean Corpuscular HGB Conc 33.7 g/dl (31.0-36.0); Mean Corpuscular Hemoglobin 29.9 pg (27.0-33.0); Mean Corpuscular Volume 88.8 fL (80.0-98.0); Mean Platelet Volume 9.6 fL (9.4-12.4); Monocytes Absolute Auto 0.4 X10*3/uL (0.1-1.2); Monocytes Percent Auto 6.4 % (2-11); Neutrophils Absolute Auto 4.1 x10*3/uL (2.0-8.3); Neutrophils Percent Auto 65.5 % (45-73); Platelet Count 272 X10*3/uL (160-400); Red Blood Count 5.38 X10*6/uL (4.60-5.80); Red Cell Distribution Width 17.1 % (11.0-16.0); White Blood Count 6.3 X10*3/uL (4.8-10.8)
[2021-08-30 09:49] LABS: COVID-19 Test Negative (Negative)
[2021-08-30 09:53] LABS: Ethanol < 10 mg/dL
[2021-08-30 09:58] LABS: Alanine Aminotransferase 24 U/L (0-40); Albumin Level 4.5 g/dL (3.5-5.0); Alkaline Phosphatase 78 U/L (39-117); Anion Gap 15 (12-20); Aspartate Amino Transferase 24 U/L (5-37); Bilirubin Direct < 0.2 mg/dL (0.0-0.5); Bilirubin Total 0.3 mg/dL (0.0-1.0); Blood Urea Nitrogen 9 mg/dL (9-16); Calcium 10.2 mg/dL (8.4-10.2); Carbon Dioxide 27 mmol/L (22-29); Chloride 102 mmol/L (96-108); Estimated Glomerular Filt Rate > 60; Glucose Random 72 mg/dL (60-115); Potassium 4.6 mmol/L (3.3-5.1); Sodium 139 mmol/L (135-145); Total Protein 7.7 g/dL (6.5-8.0)
[2021-08-30 10:05] VITALS: BP 142/97; PULSE 107; TEMP 37.6; O2SAT 99
[2021-08-30 10:09] LABS: Appearance Urine CLEAR; Color Urine YELLOW; Glucose Urine UA NEG (NEG); Leukocyte Esterase Urine NEG (NEG); Nitrite Urine NEG (NEG); Specific Gravity - Urine 1.015 (1.005-1.025); Urine Blood NEG (NEG); Urine Ketones NEG (NEG); Urine Protein NEG (NEG-TRACE)
[2021-08-30 10:21] LABS: Amphetamine Screen Urine Not Detected (Not Detect); Barbiturates, Urine Not Detected (Not Detect); Benzodiazepines Screen Urine Not Detected (Not Detect); Cannabinoid Screen Urine POSITIVE (Not Detect); Cocaine Screen Urine Not Detected (Not Detect); Fentanyl, urine Not Detected (Not Detect); Opiate Screen Urine Not Detected (Not Detect); Phencyclidine Screen Urine Not Detected (Not Detect)
[2021-08-30 10:27] LABS: RBC Urine 0 /HPF (0); WBC Urine 0-2 /HPF (0-4)
[2021-08-30] MEDS: LORazepam 1 MG TABLET 2 MG PO ×3 (11:11→19:17)
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
[2021-08-30 13:09] LABS: Influenza A PCR NEGATIVE (Negative); Influenza B PCR NEGATIVE (Negative); Resp Syncy Virus RNA Qual PCR NEGATIVE (Negative); SARS COV2 PCR INHOUSE NEGATIVE (Negative)
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
[2021-08-30] MEDS: HaloperidoL 5 MG TABLET PO (19:17)
== END 2021-08-30 19:42 ==
PROVIDERS: Physician Assistant Medical; Student in an Organized Health Care Education/Training Program; Emergency Provider Emergency Medicine
DX: F33.1 Major depressive disorder, recurrent, moderate (principal); F10.129 Alcohol abuse with intoxication, unspecified; R41.82 Altered mental status, unspecified; F17.200 Nicotine dependence, unspecified, uncomplicated; F43.0 Acute stress reaction; F41.1 Generalized anxiety disorder; Y90.9 Presence of alcohol in blood, level not specified; Z20.822 Contact with and (suspected) exposure to COVID-19; Z71.6 Tobacco abuse counseling; Z79.899 Other long term (current) drug therapy
CPT/HCPCS: 0241U; 36415; 80053; 80307; 81001; 82077; 82248; 85025; 87635; 99285

== ENCOUNTER 2021-09-06 03:29 | Emergency (ER) | payer OTHER, SELFPAY ==
[2021-09-06 03:34] VITALS: BP 128/72; BP 137/81; PULSE 86; PULSE 90; RESP 16; TEMP 37; O2SAT 97; O2SAT 98; BMI 28.0
--- NOTE | 2021-09-06 03:36 | ED.PSYCH ---
HPI - Psych General Chief Complaint: Anxiety Stated Complaint: insomnia Time Seen by Provider: 09/06/21 03:36 Source: patient Mode of arrival: EMS Limitations: no limitations History of Present Illness HPI Narrative: Patient history of PTSD, ADHD, anxiety unable to sleep for last 3 days had few drinks try to sleep unable to sleep denies any depression suicidal ideation or homicidal feeling no hallucinations patient was here on 08/29 and transferred to [place] inpatient psych from where he was discharged 2 days ago. Patient unable to focus short-tempered asking for a place to sleep Related Data Home Medications Medication Instructions Recorded Confirmed dextroamphetamine-amphetamine 10 1 tab PO BID@0800,1200 08/29/21 08/29/21 mg tablet prazosin 1 mg capsule 1 cap PO BEDTIME PRN 08/29/21 08/29/21 Allergies Allergy/AdvReac Type Severity Reaction Status Date / Time watermelon Allergy Itching Verified 08/03/21 21:41 Review of Systems Review of Systems: Yes all other systems are reviewed and are negative PMFSH Past Medical History Medical History ADHD Anxiety HTN (hypertension) Surgical History H/O fasciotomy Social History Social History Alcohol intake: current Alcohol intake frequency: a few times a month Alcohol type: beer Patient Tobacco Use Status: Current everyday Tobacco user Substance Use Type: Marijuana Advance Directives: No Physical Exam Vital Signs: Vital Signs: Last Vital Signs Temp 98.6 F 09/06/21 03:34 Pulse 86 09/06/21 03:34 Resp 16 09/06/21 03:34 BP 137/81 09/06/21 03:34 Pulse Ox 98 09/06/21 03:34 BMI result Body Mass Index 28.0 Appearance: Alert. Oriented X3. No acute distress. Anxious Eyes: PERRLA, No Nystagmus ENT: Pharynx normal. Oral Mucosa moist Neck: Normal inspection. Neck supple. CVS: Normal heart rate and rhythm. Pulses normal. Respiratory: No respiratory distress. Equal air entry bilateral, Abdomen: Soft and nontender. Bowel sounds are present, Skin: Skin warm and dry. Normal skin color. Normal skin turgor. Extremities: No lower extremity edema. No calf tenderness Psych: Very anxious , angry in between, denies SI/HI no hallucination Neuro: Oriented X 3. No motor deficit. No sensory deficit.No cerebellar signs , cranial nerves II-XII intact MDM - Psych MDM Narrative Medical decision making narrative: Patient will be kept in part medicated with Ativan Haldol and Benadryl will be seen by care team in aM for anxiety Lab Data Labs: Lab Results 09/06/21 Range/Units 05:24 COVID-19 (ONEAL) Negative (Negative) COVID-19 Clin Com See Note Discharge Plan Discharge Clinical Impression: Anxiety Patient Disposition: Still a Patient Prescriptions: No Action prazosin 1 mg capsule 1 cap PO BEDTIME PRN (Reason: NIGHTMARES) 0RF dextroamphetamine-amphetamine 10 mg tablet 1 tab PO BID@0800,1200 0RF
[2021-09-06] MEDS: LORazepam 1 MG TABLET 2 MG PO (03:56)
--- NOTE | 2021-09-06 04:46 | PC.NURSE ---
PT is refusing all and any labs, including blood and urine samples.
--- NOTE | 2021-09-06 05:04 | PC.NURSE ---
PT seen by security walking out of ambulance bay with no shoes on his feet. When found outside, across the street from ambulance bay, PT stated that he needed to smoke a cigarette. This RN informed the PT that this behavior was unacceptable and PT would likely be discharged in the morning prior to shift change. After hearing this news, PT became irate and started yelling that he wanted to be transferred to another hospital to receive care. PT was then offered to be moved to the pod and to discuss his issues with crisis later in the morning. PT agreed to this plan.
[2021-09-06] MEDS: HaloperidoL 5 MG TABLET PO (05:22)
[2021-09-06] MEDS: diphenhydrAMINE HCL 25 MG TABLET 50 MG PO (05:22)
[2021-09-06 05:46] LABS: COVID-19 Test Negative (Negative)
--- NOTE | 2021-09-06 06:47 | PC.NURSE ---
Patient just got transferred from main ED, administered Haldol 5 mg po and Benadrayl 50 mg for racing thought, care team consult completed, care team made aware to assess the patient to see full evaluation is needed or not, patient denied SI/HI/AVH, patient is currently in bed appears sleeping, will continue to monitor.
--- NOTE | 2021-09-06 07:02 | PC.NURSE ---
patient appears to remain asleep respirations are even unlabored patient appears in no distress
--- NOTE | 2021-09-06 14:10 | MHC.CARE ---
CARE Team met with patient in 5, he was alert and oriented, engaged easily, made intermittent eye contact, speech and voice within normal limits, not pressured. Hygiene and grooming unremarkable. Thought process logical though unable to provide details about medication changes or upcoming appointments but stated he has things in place. Patient stated that he feels much better after sleeping today, It was a gift, had been unable to sleep the last few days since discharging from [facility] inpatient psychiatric unit. Patient left here last week on a Saturday for and discharged on Saturday, likely signed a 3-Day notice and is obviously more stable than last week and likely close to his baseline. Patient maintained that he feels safe to go home; he denied suicidal ideation, plan or intention and stated he has no thoughts to harm anyone else. The ambulance report supported patient's initial complaint of anxiety due to lack of sleep without any noted behavioral concerns. Attempts were made to contact patient's mother for collateral contact and the mailbox was full. Patient has all of his providers through the [facility], has stable housing and a supportive family, is help seeking and does not appear to be having a mental health crisis and not in need of an inpatient psychiatric hospitalization at this time. ED Provider, JAY Gya and furrier shop supervisor KVNG Jones consulted and in agreement with plan to discharge. Patient has contact information for [facility] and local crisis lines, LYFT will be provided to patient for return home.
[2021-09-06] MEDS: Nicotine Polacrilex Lozenge 4 MG LOZENGE BUCCAL (15:23)
== END 2021-09-06 15:40 | disposition home or self-care (01) ==
PROVIDERS: Emergency Provider Internal Medicine
DX: F41.9 Anxiety disorder, unspecified (principal); I10 Essential (primary) hypertension; Z20.822 Contact with and (suspected) exposure to COVID-19
CPT/HCPCS: 36415; 82077; 87635; 99283; 99284; Q0163

== ENCOUNTER 2021-09-11 13:03 | Emergency (ER) | payer OTHER, SELFPAY ==
[2021-09-11 13:13] VITALS: BP 144/86; BP 176/96; PULSE 81; TEMP 37.1; O2SAT 100; BMI 30.4
[2021-09-11] MEDS: LORazepam 1 MG TABLET 2 MG PO (14:25)
[2021-09-11] MEDS: Nicotine Polacrilex 2 MG GUM BUCCAL ×3 (14:25→21:28)
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
[2021-09-11 14:31] VITALS: RESP 16
[2021-09-11 14:46] LABS: Amphetamine Screen Urine Not Detected (Not Detect); Barbiturates, Urine Not Detected (Not Detect); Benzodiazepines Screen Urine Not Detected (Not Detect); Cannabinoid Screen Urine POSITIVE (Not Detect); Cocaine Screen Urine Not Detected (Not Detect); Fentanyl, urine Not Detected (Not Detect); Opiate Screen Urine Not Detected (Not Detect); Phencyclidine Screen Urine Not Detected (Not Detect)
--- NOTE | 2021-09-11 18:58 | MHC.CARE ---
[facility] unable to send clinician to evaluate pt. CARE team will be assessing pt shortly. Covid swab needed prior to eval.
--- NOTE | 2021-09-11 19:29 | PHA.MEDREC ---
Pharmacy Consult ? Medication Reconciliation Pharmacy has completed the medication reconciliation. Spoke with patient, contacted [facility] and [facility]x. Pt reports being on Clonidine 0.1 mg daily although no recent claim history. Last took medications about 1 week ago.
[2021-09-11 19:56] LABS: COVID-19 Test Negative (Negative)
[2021-09-11 21:46] VITALS: BP 136/95; PULSE 82; RESP 18; O2SAT 97
[2021-09-11] MEDS: LORazepam 1 MG TABLET PO (21:52)
[2021-09-12] MEDS: Nicotine Polacrilex 2 MG GUM BUCCAL ×7 (01:35→19:30)
[2021-09-12 01:39] VITALS: BP 128/71; PULSE 80; RESP 17; TEMP 36.6; O2SAT 97
[2021-09-12] MEDS: diphenhydrAMINE HCL 25 MG TABLET 50 MG PO ×2 (02:04→19:49)
--- NOTE | 2021-09-12 06:47 | PC.NURSE ---
Patient slept through the night, administered Ativan 1 mg PO at 2152 for anxiety after talking with care team, woke up at 0200 requested medication fall sleep, Benadryl 50 mg po administered at 0204, patient had long conversation with care team, disposition pending at this time, patient will be f/u by care team in the morning to establish disposition, behavior appropriate and non concerning at this time, med rec completed/pending provider's approval, VSS, will continue to monitor.
--- NOTE | 2021-09-12 07:14 | PC.NURSE ---
patient appears to remain at rest at present respirations are even and unlabored, patient appears in no distress
[2021-09-12] MEDS: LORazepam 1 MG TABLET 2 MG PO (08:55)
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
[2021-09-12] MEDS: LORazepam 1 MG TABLET PO ×2 (11:06→16:06)
--- NOTE | 2021-09-12 11:12 | PC.NURSE ---
i want whomever thats keeping me here to know i miss my mom and i need to work for her, youre keeping me from her, or this place is patient took offered ativan soon thereafter states loudly to the air in his room im not a threat to myself or others
--- NOTE | 2021-09-12 11:24 | PC.NURSE ---
i'm going to flip the f- out if im not released
--- NOTE | 2021-09-12 16:34 | MHC.CARE ---
CARE Team has been communicating with the [facility], Dr. Anaya Elmore (x [phone]) is his therapist of 6 years, she reported she last saw patient a month ago. Has typically in treatment for depression and substance use but never psychosis, they are aware of his recent admission to [facility]. [facility] for [facility] pending labs (which he has refused). Angelina from admissions (x [phone]) said the call back if absolutely unable to get labs After 6:30 call [phone] (senior windows systems administrator of day)
--- NOTE | 2021-09-12 17:43 | MHC.CARE ---
CARE team spoke with Carolyn, admissions forensic social worker at the [facility]. Carolyn reported that they are not able to admit the pt without a full lab work up and recommended trying the [facility] or [facility]. She also reported that the MD will pay for community admissions for psychiatric treatment, in the event that we could admit him within our facility or place him at another. Pt will be presented for possible admission to this hospital's inpatient psychiatry.
--- NOTE | 2021-09-12 19:16 | MHC.CARE ---
Inpatient psychiatry will not accept pt for transfer this evening, stating that the pt receiving treatment at the [facility] is essential to continuity of care and current acuity on both adult units. If pt continues to refuse labs and [facility] will not accommodate an admission tomorrow, his case will be reviewed at that time.
[2021-09-12] MEDS: HaloperidoL 5 MG TABLET PO ×2 (19:50)
[2021-09-13] MEDS: Nicotine Polacrilex 2 MG GUM BUCCAL ×8 (05:19→21:53)
--- NOTE | 2021-09-13 06:13 | PC.NURSE ---
Patient slept through the night, no distress observed/reported, out of bed once for bathroom use and back, patient was not happy when he was told his ativan is due at 2 am, even threatened to act up, patient agreed to take haldol, Haldol 10 mg + Benadryl 50 mg administered at 1950 with + effect, no ativan was administered during overnight shift, patient was assessed by care team, [facility] will not accept without labs done, patient is bed search per care team, behavior unpredictable, will continue to monitor.
--- NOTE | 2021-09-13 07:50 | PC.NURSE ---
patient appears to be on the whole resting at present, patient was awake at beginning of shift, asking about legal status and the ability to be discharged at present, respirations are even and unlabored patient appears in no distress.
[2021-09-13] MEDS: Ibuprofen 600 MG TABLET PO (09:01)
[2021-09-13] MEDS: LORazepam 1 MG TABLET PO ×2 (09:02→17:17)
[2021-09-13] MEDS: LORazepam 1 MG TABLET 2 MG PO ×2 (12:30→18:28)
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
[2021-09-13 17:14] LABS: MANUAL DIFF FLAG NO
[2021-09-13 17:19] LABS: Basophils Absolute Auto 0.1 X10*3/uL (0.0-0.2); Basophils Percent Auto 0.8 % (0-2); Eosinophils Absolute Auto 0.4 X10*3/uL (0.0-0.4); Eosinophils Percent Auto 4.2 % (0-4); Hematocrit 50.3 % (42.0-52.0); Hemoglobin 16.4 g/dl (14.0-18.0); Imm Gran Abs Auto 0.05 X10*3/uL (0.00-0.03); Imm Gran Pct Auto 0.6 % (0.0-0.4); Lymphocytes Absolute Auto 2.7 X10*3/uL (1.2-4.9); Lymphocytes Percent Auto 31.9 % (20-40); Mean Corpuscular HGB Conc 32.6 g/dl (31.0-36.0); Mean Corpuscular Hemoglobin 29.7 pg (27.0-33.0); Mean Corpuscular Volume 91.1 fL (80.0-98.0); Mean Platelet Volume 9.2 fL (9.4-12.4); Monocytes Absolute Auto 0.6 X10*3/uL (0.1-1.2); Monocytes Percent Auto 7.2 % (2-11); Neutrophils Absolute Auto 4.6 x10*3/uL (2.0-8.3); Neutrophils Percent Auto 55.3 % (45-73); Platelet Count 371 X10*3/uL (160-400); Red Blood Count 5.52 X10*6/uL (4.60-5.80); Red Cell Distribution Width 16.1 % (11.0-16.0); White Blood Count 8.4 X10*3/uL (4.8-10.8)
[2021-09-13 17:45] LABS: Alanine Aminotransferase 35 U/L (0-40); Albumin Level 4.4 g/dL (3.5-5.0); Alkaline Phosphatase 63 U/L (39-117); Anion Gap 14 (12-20); Aspartate Amino Transferase 23 U/L (5-37); Bilirubin Total 0.4 mg/dL (0.0-1.0); Blood Urea Nitrogen 10 mg/dL (9-16); Calcium 10.3 mg/dL (8.4-10.2); Carbon Dioxide 27 mmol/L (22-29); Chloride 105 mmol/L (96-108); Creatinine Clr Calc Pharmacy 111.5; Estimated Glomerular Filt Rate > 60; Glucose Fasting 79 mg/dL (60-99); Potassium 4.8 mmol/L (3.3-5.1); Sodium 141 mmol/L (135-145); Total Protein 7.2 g/dL (6.5-8.0)
[2021-09-13 19:45] LABS: Influenza A PCR NEGATIVE (Negative); Influenza B PCR NEGATIVE (Negative); Resp Syncy Virus RNA Qual PCR NEGATIVE (Negative); SARS COV2 PCR INHOUSE NEGATIVE (Negative)
[2021-09-13 19:51] VITALS: BP 133/78; PULSE 83; RESP 18; TEMP 37.2; O2SAT 100
[2021-09-13] MEDS: diphenhydrAMINE HCL 25 MG TABLET 50 MG PO (21:52)
[2021-09-13] MEDS: HaloperidoL 5 MG TABLET 10 MG PO (21:53)
[2021-09-14] MEDS: Nicotine Polacrilex 2 MG GUM BUCCAL ×3 (03:40→07:23)
[2021-09-14 05:56] VITALS: BP 129/84; PULSE 74; RESP 17; O2SAT 100
--- NOTE | 2021-09-14 06:11 | PC.NURSE ---
Patient slept through the night, patient received Haldol 10 mg PO and Benadryl 50 mg PO with positive effect, patient refused his first dose of Tegretol because he wants to know more about the medication, copy of medication information provided to the patient for perusal, behavior much calmer, more respectful, and non concerning at this time, VSS, disposition per care team is [facility] bed [facility], will continue to monitor.
[2021-09-14] MEDS: carBAMazepine ER 100 MG TAB.ER.12H 300 MG PO (07:22)
[2021-09-14] MEDS: LORazepam 1 MG TABLET PO ×2 (07:22→08:37)
[2021-09-14 07:32] VITALS: BP 132/76; PULSE 83; RESP 16; TEMP 36.8; O2SAT 99
--- NOTE | 2021-09-14 07:34 | PC.NURSE ---
pt is a/o x 3 no sob/elida noted skin pink warm dry speaks in full sentences. amb (i) gait steady. pt is upset and states that he wants to talk to [facility], i feel like i have wasted 4 days of my life here. i am going to take the meds that they ordered because i want to get home to my mom so that i can help her because she needs help at home . pt requested/received his ativan, tegretol and nicotine gum. pt is taking a shower and appears a little calmer.
--- NOTE | 2021-09-14 08:03 | PC.NURSE ---
CARE TEAM (ORA) AT BEDSIDE, PT AWARE OF PLAN OF CARE.
[2021-09-14] MEDS: diphenhydrAMINE HCL 25 MG TABLET 50 MG PO (08:36)
[2021-09-14] MEDS: HaloperidoL 5 MG TABLET PO (08:37)
--- NOTE | 2021-09-14 08:40 | PC.NURSE ---
PT SPOKE TO HIS MOTHER AT LENGTH ON THE PHONE
--- NOTE | 2021-09-14 10:08 | PC.NURSE ---
NICORETTE GUM GIVEN X 1 AT 1008, UNABLE TO CHART IN JUL.
--- NOTE | 2021-09-14 11:18 | MHC.CARE ---
CARE Team [facility] to the [facility] at 930[facility] - awaiting final review of Pts packet for referral. VA stated they will call back with acceptance or denial.
== END 2021-09-14 12:10 ==
PROVIDERS: Nurse Practitioner Family; Physician Assistant Medical; Emergency Provider Emergency Medicine
DX: F33.1 Major depressive disorder, recurrent, moderate (principal); F41.9 Anxiety disorder, unspecified; F43.10 Post-traumatic stress disorder, unspecified; F22 Delusional disorders; F12.90 Cannabis use, unspecified, uncomplicated; F17.200 Nicotine dependence, unspecified, uncomplicated; Z20.822 Contact with and (suspected) exposure to COVID-19; Z71.6 Tobacco abuse counseling; Z79.899 Other long term (current) drug therapy
CPT/HCPCS: 0241U; 36415; 80053; 80307; 85025; 87635; 99285; Q0163

== ENCOUNTER 2021-09-27 10:23 | Emergency (ER) | payer OTHER, SELFPAY ==
--- NOTE | 2021-09-27 10:57 | PC.NURSE ---
upon arrival at 1025 pod called and rn vasquez stated she would send staff out to get pt. previously discussed with cupola charger that pt was to go back to pod.
== END 2021-09-27 14:51 | disposition left against medical advice (07) ==
PROVIDERS: Emergency Provider Emergency Medicine
DX: F31.9 Bipolar disorder, unspecified (principal); F41.1 Generalized anxiety disorder; F90.9 Attention-deficit hyperactivity disorder, unspecified type

== ENCOUNTER 2022-05-14 18:22 | Inpatient (IN) | payer OTHER, SELFPAY ==
[2022-05-14] VITALS (7 sets, daily range): BP systolic 105–151; BP diastolic 62–84; PULSE 90–102; RESP 18–40; O2SAT 92–98; BMI 31.5
--- NOTE | ~2022-05-14 | CT_ITS ---
EXAMINATION: CT HEAD WITHOUT CONTRAST CLINICAL INFORMATION: Trauma. COMPARISON: CT head 09/03/2020 TECHNIQUE: Contiguous axial imaging was performed from the skull base to vertex without intravenous administration of contrast. Coronal and sagittal reformatted images are performed at the CT scanner. [This CT examination was performed using dose optimization techniques as appropriate, variously including the following: *Automated exposure control *Adjustment of mA and/or kV according to patient size (this includes techniques or standardized protocols for targeted exams where dose is matched to indication/reason for exam; i.e. extremities or head) *Use of iterative reconstruction technique] DLP: 1472 mGy-cm. FINDINGS: There is no evidence of acute intracranial hemorrhage or territorial infarction. No abnormal mass-effect or midline shift is seen. Bush to white matter differentiation is well preserved. No extra-axial fluid collections are identified. The ventricles are normal in size. There is no abnormal attenuation within the brain parenchyma. There is no osseous abnormality. The mastoid air cells and visualized portions of the paranasal sinuses are well-aerated. CT/CT head/brain wo IV con IMPRESSION: No acute intracranial pathology.
--- NOTE | 2022-05-14 18:49 | ECG_ITS ---
Test Reason : INTOX Blood Pressure : / mmHG Vent. Rate : 125 BPM Atrial Rate : 125 BPM P-R Int : 162 ms QRS Dur : 078 ms QT Int : 300 ms P-R-T Axes : 051 -53 005 degrees QTc Int : 433 ms Sinus tachycardia Left axis deviation Abnormal ECG When compared with ECG of 03-SEP-2020 10:02, No significant change was found Referred By: Radha Aguayo Electronically Signed By:KOREY VAZQUEZ
--- NOTE | 2022-05-14 18:50 | ED.ALCOHOL ---
HPI - Alcohol General Chief Complaint: ETOH/Substance Use <JAY Barber - Last Filed: 05/14/22 18:55> Stated Complaint: ? alcohol withdrawals..seeking help <JAY Barber - Last Filed: 05/14/22 18:55> Time Seen by Provider: 05/14/22 19:25 <JAY Barber - Last Filed: 05/14/22 18:55> Source: patient <JAY Velasco - Last Filed: 05/15/22 01:36> Mode of arrival: ambulatory <JAY Velasco - Last Filed: 05/15/22 01:36> Limitations: altered mental status <JAY Velasco Last Filed: 05/15/22 01:36> History of Present Illness HPI narrative: This is a 36-year-old male history of generalized anxiety, ADHD, bipolar disorder, PTSD presenting to the emergency department requesting detox from alcohol. Patient stated he was going to have a seizure, then purposely hit his head against the wall as hard as he could and started asking for Ativan. Patient aggressive, hitting, screaming, throwing himself on the ground and purposely slamming his head against the wall. Patient stating he is having seizures and moving all extremities however awake and alert during the entire episode. Patient extremely aggressive, trying to throw things tells staff he is trying to kill himself and would like himself . He is reaching for things in the room he can harm himself with. Unable to provide me an accurate history or review of systems. Security at the bedside. <JAY Velasco - Last Filed: 05/15/22 01:36> Related Data Home Medications: Home Medications Medication Instructions Recorded Confirmed dextroamphetamine-amphetamine 10 1 tab PO BID@0800,1200 08/29/21 09/11/21 mg tablet lorazepam 1 mg tablet 1 mg PO DAILY PRN anxiety 09/11/21 09/11/21 nicotine (polacrilex) 2 mg gum 2 mg buccal Q2H 09/11/21 09/11/21 prazosin 1 mg capsule 1 cap PO BEDTIME PRN nightmares 09/11/21 09/11/21 <JAY Barber - Last Filed: 05/14/22 18:55> Allergies/Adverse Reactions: Allergies Allergy/AdvReac Type Severity Reaction Status Date / Time watermelon Allergy Itching Verified 08/03/21 21:41 <JAY Barber - Last Filed: 05/14/22 18:55> Review of Systems Review of Systems: Yes Unobtainable due to mental status <JAY Velasco - Last Filed: 05/15/22 01:36> FOR[facility], [facility] Past Medical History Attestation statement: The following information was validated with the patient. <JAY Velasco - Last Filed: 05/15/22 01:36> Source: old records reviewed and nursing notes reviewed <JAY Velasco - Last Filed: 05/15/22 01:36> Medical History: Medical History ADHD Anxiety HTN (hypertension) <JAY Barber - Last Filed: 05/14/22 18:55> Surgical History: Surgical History H/O fasciotomy <JAY Barber - Last Filed: 05/14/22 18:55> Social History Social History: Social History Alcohol intake: current Alcohol intake frequency: a few times a month Alcohol type: beer Patient Tobacco Use Status: Current everyday Tobacco user Substance Use Type: Marijuana Advance Directives: No Advance Directives Information Provided: No <JAY Barber - Last Filed: 05/14/22 18:55> Physical Exam ED Vital Signs: Vital Signs - 24 hr 05/14/22 18:46 05/14/22 20:00 05/14/22 20:13 Pulse Rate 97 98 102 H Respiratory Rate 18 20 35 H Blood Pressure 151/84 H 105/65 109/62 Pulse Oximetry 97 98 95 Oxygen Delivery Method Room Air Nasal Cannula Nasal Cannula Oxygen Flow Rate 2 2 05/14/22 19:58 05/14/22 20:28 05/14/22 20:58 Pulse Rate 100 93 93 Respiratory Rate 40 H 21 H 21 H Blood Pressure 113/64 105/66 108/66 Pulse Oximetry 92 95 96 Oxygen Delivery Method Room Air Room Air Nasal Cannula Oxygen Flow Rate 2 2 05/14/22 22:54 05/15/22 00:17 Pulse Rate 90 87 Respiratory Rate 20 17 Blood Pressure 106/64 103/61 Pulse Oximetry 94 95 Oxygen Delivery Method Room Air Room Air Oxygen Flow Rate BMI result Body Mass Index 31.5 <JAY Barber - Last Filed: 05/14/22 18:55> Vital Signs - 24 hr 05/14/22 18:46 05/14/22 20:00 05/14/22 20:13 Pulse Rate 97 98 102 H Respiratory Rate 18 20 35 H Blood Pressure 151/84 H 105/65 109/62 Pulse Oximetry 97 98 95 Oxygen Delivery Method Room Air Nasal Cannula Nasal Cannula Oxygen Flow Rate 2 2 05/14/22 19:58 05/14/22 20:28 05/14/22 20:58 Pulse Rate 100 93 93 Respiratory Rate 40 H 21 H 21 H Blood Pressure 113/64 105/66 108/66 Pulse Oximetry 92 95 96 Oxygen Delivery Method Room Air Room Air Nasal Cannula Oxygen Flow Rate 2 2 05/14/22 22:54 05/15/22 00:17 Pulse Rate 90 87 Respiratory Rate 20 17 Blood Pressure 106/64 103/61 Pulse Oximetry 94 95 Oxygen Delivery Method Room Air Room Air Oxygen Flow Rate BMI result Body Mass Index 31.5 vss <JAY Velasco - Last Filed: 05/15/22 01:36> Appearance: Alert.? Oriented X3.? Patient with Erratic behavior and aggressive behavior. On the ground slamming his head into the wall screaming. Head: Normocephalic, atraumatic, no step-offs or deformities Eyes: Pupils equal, round and reactive to light.? ENT: Pharynx normal.? Neck: Normal inspection.? Neck supple.? CVS: Normal heart rate and rhythm.? Pulses normal.? Respiratory: No respiratory distress.? Breath sounds normal.? Abdomen: Soft and nontender.? Skin: Skin warm and dry.? Normal skin color.? Normal skin turgor.? Extremities: No lower extremity edema.? No calf ttp. 5/5 strength to bilateral upper and lower extremities Neuro: Oriented X 3.? No motor deficit.? No sensory deficit. CN 2-12 intact <JAY Velasco Last Filed: 05/15/22 01:36> Course Course Course Narrative: RME-18:50PM - 36-year-old male with a past medical history of alcohol dependence/abuse presenting to the ED reporting alcohol withdrawal seeking help. Started to pretend have a seizure while in the waiting room then intensely struck his head against a wall and slid down to the floor did not head his head or lose consciousness. Was able to get back up. Normal steady gait. Patient agitated and on appropriate at this time. Was triaged while in the wheelchair. Plan: Labs, EKG, COVID/RSV/flu swab. Patient will be evaluated in the ED sitting next to triage. <JAY Barber - Last Filed: 05/14/22 18:55> Reevaluation(s) Reevaluation #1: CBC with slight leukocytosis likely reactive from behavior/agitation. Chemistry with slightly elevated anion gap likely secondary to alcohol abuse/intoxication. Patient is noted to have a significantly elevated CPK 1984 consistent with rhabdomyolysis. Salicylates, acetaminophen negative. Ethanol level 256. Head CT pending <JAY Velasco Last Filed: 05/15/22 01:36> Time: 23:38 <JAY Velasco Last Filed: 05/15/22 01:36> Reevaluation #2: Head CT negative. Patient noted to be in significant rhabdomyolysis, uptrending CPK, spoke to hospitalist about case will ask patient if he would be willing to stay. <JAY Velasco Last Filed: 05/15/22 01:36> Time: 01:33 <JAY Velasco Last Filed: 05/15/22 01:36> Reevaluation #3: Patient willing to stay. At this time patient will be admitted to the hospital for rhabdo. <JAY Velasco Last Filed: 05/15/22 01:36> Time: 01:34 <JAY Velasco Last Filed: 05/15/22 01:36> Medical Decision Making Medical Decision Making MDM Narrative: 1922 36 year old male presents requesting detox from alcohol, patient states he is having seizure he throws himself on the ground continues talking stating that he is seizing, then he purposely started banging his head against the wall. Physical exam aggressive male. Otherwise benign. Concerns for PTSD versus bipolar disorder versus substance abuse. Unlikely alcohol withdrawal based off of initial presentation. Due to patient's slamming his head intentionally against the wall as hard as he could will obtain CT to rule out intracranial hemorrhage. Plan labs, imaging, drug screen, salicylate, acetaminophen. <JAY Velasco - Last Filed: 05/15/22 01:36> Differential Diagnosis Differential Diagnoses: The differential diagnosis associated with the presentation includes <JAY Velasco - Last Filed: 05/15/22 01:36> Concerns for PTSD versus bipolar disorder versus substance abuse. Unlikely alcohol withdrawal based off of initial presentation. Due to patient's slamming his head intentionally against the wall as hard as he could will obtain CT to rule out intracranial hemorrhage. <JAY Velasco - Last Filed: 05/15/22 01:36> Admission/Observation Consideration of admission/observation: Escalation of care including admission/observation considered <JAY Velasco - Last Filed: 05/15/22 01:36> Consult Healthcare Provider Management of the patient was discussed with: Behavioral Health Provider <JAY Velasco - Last Filed: 05/15/22 01:36> Lab Data MDM Lab Attestation statement: I reviewed the patient's lab results. <JAY Velasco - Last Filed: 05/15/22 01:36> Result Diagrams: : 05/14/22 19:54 05/14/22 19:54 <JAY Barber - Last Filed: 05/14/22 18:55> Labs: Lab Results 05/14/22 05/14/22 05/15/22 Range/Units 19:54 19:54 00:51 WBC 12.5 H (4.8-10.8) X10*3/uL RBC 5.26 (4.60-5.80) X10*6/uL Hgb 15.6 (14.0-18.0) g/dl Hct 44.4 (42.0-52.0) % MCV 84.4 (80.0-98.0) fL MCH 29.7 (27.0-33.0) pg MCHC 35.1 (31.0-36.0) g/dl RDW 13.2 (11.0-16.0) % Plt Count 346 (160-400) X10*3/uL MPV 9.4 (9.4-12.4) fL Immature Gran % (Auto) 0.4 (0.0-0.4) % Neut % (Auto) 43.9 L (45-73) % Lymph % (Auto) 37.8 (20-40) % Taylor % (Auto) 8.8 (2-11) % Eos % (Auto) 8.3 H (0-4) % Baso % (Auto) 0.8 (0-2) % Lymph # (Auto) 4.7 (1.2-4.9) X10*3/uL Taylor # (Auto) 1.1 (0.1-1.2) X10*3/uL Eos # (Auto) 1.0 H (0.0-0.4) X10*3/uL Baso # (Auto) 0.1 (0.0-0.2) X10*3/uL Abs Immat Gran (auto) 0.05 H (0.00-0.03) X10*3/uL Absolute Neuts (auto) 5.5 (2.0-8.3) x10*3/uL Absolute Nucleated RBC 0.000 (0.0-0.012) X10*3/uL Nucleated RBC % (auto) 0.0 (0.0-0.2) /100WBC Sodium 144 (135-145) mmol/L Potassium 3.7 D (3.3-5.1) mmol/L Chloride 104 (96-108) mmol/L Carbon Dioxide 23 (22-29) mmol/L Anion Gap 21 H (12-20) BUN 6 L (9-16) mg/dL Creatinine 0.95 (0.5-1.4) mg/dL Estim Creat Clear Calc 129.7 Estimated GFR > 60 Random Glucose 87 (60-115) mg/dL Calcium 9.7 (8.4-10.2) mg/dL Magnesium 2.3 (1.6-2.6) mg/dL Total Bilirubin 0.4 (0.0-1.0) mg/dL AST 49 H (5-37) U/L ALT 41 H (0-40) U/L Alkaline Phosphatase 104 (39-117) U/L Total Creatine Kinase 1984 H 2524 H (38-174) U/L Total Protein 7.7 (6.5-8.0) g/dL Albumin 4.7 (3.5-5.0) g/dL Lipase 27 (8-78) U/L Salicylates < 5.0 L (15-30) mg/dL Acetaminophen < 1 (<30) mcg/mL Ethyl Alcohol 256 mg/dL <JAY Barber - Last Filed: 05/14/22 18:55> Lab Results 05/14/22 05/14/22 05/15/22 Range/Units 19:54 19:54 00:51 WBC 12.5 H (4.8-10.8) X10*3/uL RBC 5.26 (4.60-5.80) X10*6/uL Hgb 15.6 (14.0-18.0) g/dl Hct 44.4 (42.0-52.0) % MCV 84.4 (80.0-98.0) fL MCH 29.7 (27.0-33.0) pg MCHC 35.1 (31.0-36.0) g/dl RDW 13.2 (11.0-16.0) % Plt Count 346 (160-400) X10*3/uL MPV 9.4 (9.4-12.4) fL Immature Gran % (Auto) 0.4 (0.0-0.4) % Neut % (Auto) 43.9 L (45-73) % Lymph % (Auto) 37.8 (20-40) % Taylor % (Auto) 8.8 (2-11) % Eos % (Auto) 8.3 H (0-4) % Baso % (Auto) 0.8 (0-2) % Lymph # (Auto) 4.7 (1.2-4.9) X10*3/uL Taylor # (Auto) 1.1 (0.1-1.2) X10*3/uL Eos # (Auto) 1.0 H (0.0-0.4) X10*3/uL Baso # (Auto) 0.1 (0.0-0.2) X10*3/uL Abs Immat Gran (auto) 0.05 H (0.00-0.03) X10*3/uL Absolute Neuts (auto) 5.5 (2.0-8.3) x10*3/uL Absolute Nucleated RBC 0.000 (0.0-0.012) X10*3/uL Nucleated RBC % (auto) 0.0 (0.0-0.2) /100WBC Sodium 144 (135-145) mmol/L Potassium 3.7 D (3.3-5.1) mmol/L Chloride 104 (96-108) mmol/L Carbon Dioxide 23 (22-29) mmol/L Anion Gap 21 H (12-20) BUN 6 L (9-16) mg/dL Creatinine 0.95 (0.5-1.4) mg/dL Estim Creat Clear Calc 129.7 Estimated GFR > 60 Random Glucose 87 (60-115) mg/dL Calcium 9.7 (8.4-10.2) mg/dL Magnesium 2.3 (1.6-2.6) mg/dL Total Bilirubin 0.4 (0.0-1.0) mg/dL AST 49 H (5-37) U/L ALT 41 H (0-40) U/L Alkaline Phosphatase 104 (39-117) U/L Total Creatine Kinase 1984 H 2524 H (38-174) U/L Total Protein 7.7 (6.5-8.0) g/dL Albumin 4.7 (3.5-5.0) g/dL Lipase 27 (8-78) U/L Salicylates < 5.0 L (15-30) mg/dL Acetaminophen < 1 (<30) mcg/mL Ethyl Alcohol 256 mg/dL <JAY Velasco - Last Filed: 05/15/22 01:36> Independent Interpretation I performed an independent interpretation of an: EKG <JAY Velasco - Last Filed: 05/15/22 01:36> Radiology Impression Discussion of test interpretation with radiology: I have reviewed the radiologist's reading. <JAY Velasco - Last Filed: 05/15/22 01:36> Independent Historian Clinical information obtained from an independent historian. History obtained from or confirmed by: Other (self however poor historian ) <JAY Velasco - Last Filed: 05/15/22 01:36> External Record Review External record reviewed: Inpatient record, Outpatient record and Prior outpatient labs <JAY Velasco - Last Filed: 05/15/22 01:36> Core Measures AMI core measures followed: Yes <JAY Velasco - Last Filed: 05/15/22 01:36> Measure exclusions: not indicated <JAY Velasco - Last Filed: 05/15/22 01:36> Medications Administered Discontinued Medications Generic Name Dose Route Start Last Admin Trade Name Freq PRN Reason Stop Dose Admin Diphenhydramine HCl 50 mg 05/14/22 19:25 05/14/22 19:47 Diphenhydramine Hcl 50 Mg/Ml Vial IM 05/14/22 19:26 50 mg ONCE ONE Administration Haloperidol Lactate 10 mg 05/14/22 19:25 05/14/22 19:47 Haloperidol Lactate 5 Mg/Ml Vial IM 05/14/22 19:26 10 mg ONCE ONE Administration Sodium Chloride 1,000 mls @ 999 mls/hr 05/14/22 22:45 05/14/22 23:13 Ns IV 05/14/22 23:45 999 mls/hr .Q1H1M FRANK Administration Sodium Chloride 1,000 mls @ 999 mls/hr 05/14/22 22:45 05/14/22 23:13 Ns IV 05/14/22 23:45 999 mls/hr .Q1H1M FRANK Administration Lorazepam 1 mg 05/14/22 19:25 05/14/22 19:48 Lorazepam 2 Mg/Ml Vial IM 05/14/22 19:26 1 mg ONCE ONE Administration Lorazepam 2 mg 05/14/22 19:32 05/14/22 19:36 Lorazepam 1 Mg Tablet PO 05/14/22 19:33 2 mg ONCE ONE Administration <JAY Barber - Last Filed: 05/14/22 18:55> Medications Administered Discontinued Medications Generic Name Dose Route Start Last Admin Trade Name Freq PRN Reason Stop Dose Admin Diphenhydramine HCl 50 mg 05/14/22 19:25 05/14/22 19:47 Diphenhydramine Hcl 50 Mg/Ml Vial IM 05/14/22 19:26 50 mg ONCE ONE Administration Haloperidol Lactate 10 mg 05/14/22 19:25 05/14/22 19:47 Haloperidol Lactate 5 Mg/Ml Vial IM 05/14/22 19:26 10 mg ONCE ONE Administration Sodium Chloride 1,000 mls @ 999 mls/hr 05/14/22 22:45 05/14/22 23:13 Ns IV 05/14/22 23:45 999 mls/hr .Q1H1M FRANK Administration Sodium Chloride 1,000 mls @ 999 mls/hr 05/14/22 22:45 05/14/22 23:13 Ns IV 05/14/22 23:45 999 mls/hr .Q1H1M FRANK Administration Lorazepam 1 mg 05/14/22 19:25 05/14/22 19:48 Lorazepam 2 Mg/Ml Vial IM 05/14/22 19:26 1 mg ONCE ONE Administration Lorazepam 2 mg 05/14/22 19:32 05/14/22 19:36 Lorazepam 1 Mg Tablet PO 05/14/22 19:33 2 mg ONCE ONE Administration <JAY Velasco - Last Filed: 05/15/22 01:36> Critical Care Time Critical Care Time Critical Care Time: No <JAY Velasco - Last Filed: 05/15/22 01:36> Discharge Plan Discharge Clinical Impression: Alcoholic intoxication, Rhabdomyolysis <JAY Barber - Last Filed: 05/14/22 18:55> Patient Disposition: Admitted As Inpatient <JAY Barber Last Filed: 05/14/22 18:55> Prescriptions: No Action dextroamphetamine-amphetamine 10 mg tablet 1 tab PO BID@0800,1200 lorazepam 1 mg tablet 1 mg PO DAILY PRN (Reason: anxiety) nicotine (polacrilex) 2 mg Gum 2 mg BUCCAL Q2H prazosin 1 mg capsule 1 cap PO BEDTIME PRN (Reason: nightmares) <JAY Barber Last Filed: 05/14/22 18:55>
--- NOTE | 2022-05-14 19:10 | MHC.EDTECH ---
This tech attempted to draw labs,ekg on patient, patient is not cooperating,and are awaiting a bed assignment,Provider Noel Rn are aware.
[2022-05-14] MEDS: LORazepam 1 MG TABLET 2 MG PO (19:36)
[2022-05-14] MEDS: diphenhydrAMINE HCL 50 MG/ML VIAL IM (19:47)
[2022-05-14] MEDS: Haloperidol Lactate 5 MG/ML VIAL 10 MG IM (19:47)
[2022-05-14] MEDS: LORazepam 2 MG/ML VIAL 1 MG IM (19:48)
[2022-05-14 19:58] LABS: MANUAL DIFF FLAG NO
[2022-05-14 20:00] LABS: Basophils Absolute Auto 0.1 X10*3/uL (0.0-0.2); Basophils Percent Auto 0.8 % (0-2); Eosinophils Percent Auto 8.3 % (0-4); Hematocrit 44.4 % (42.0-52.0); Hemoglobin 15.6 g/dl (14.0-18.0); Imm Gran Abs Auto 0.05 X10*3/uL (0.00-0.03); Imm Gran Pct Auto 0.4 % (0.0-0.4); Lymphocytes Absolute Auto 4.7 X10*3/uL (1.2-4.9); Lymphocytes Percent Auto 37.8 % (20-40); Mean Corpuscular HGB Conc 35.1 g/dl (31.0-36.0); Mean Corpuscular Hemoglobin 29.7 pg (27.0-33.0); Mean Corpuscular Volume 84.4 fL (80.0-98.0); Mean Platelet Volume 9.4 fL (9.4-12.4); Monocytes Absolute Auto 1.1 X10*3/uL (0.1-1.2); Monocytes Percent Auto 8.8 % (2-11); Neutrophils Absolute Auto 5.5 x10*3/uL (2.0-8.3); Neutrophils Percent Auto 43.9 % (45-73); Platelet Count 346 X10*3/uL (160-400); Red Blood Count 5.26 X10*6/uL (4.60-5.80); Red Cell Distribution Width 13.2 % (11.0-16.0); White Blood Count 12.5 X10*3/uL (4.8-10.8)
[2022-05-14 20:27] LABS: Alanine Aminotransferase 41 U/L (0-40); Albumin Level 4.7 g/dL (3.5-5.0); Alkaline Phosphatase 104 U/L (39-117); Anion Gap 21 (12-20); Aspartate Amino Transferase 49 U/L (5-37); Bilirubin Total 0.4 mg/dL (0.0-1.0); Blood Urea Nitrogen 6 mg/dL (9-16); Calcium 9.7 mg/dL (8.4-10.2); Carbon Dioxide 23 mmol/L (22-29); Chloride 104 mmol/L (96-108); Creatinine Clr Calc Pharmacy 129.7; Estimated Glomerular Filt Rate > 60; Glucose Random 87 mg/dL (60-115); Lipase 27 U/L (8-78); Magnesium 2.3 mg/dL (1.6-2.6); Potassium 3.7 mmol/L (3.3-5.1); Sodium 144 mmol/L (135-145); Total Protein 7.7 g/dL (6.5-8.0)
--- NOTE | 2022-05-14 20:27 | PC.NURSE ---
Pt came in violent and combative, pt was in dangerous to himself and to other. Pt was chemical restrain as order by the provider.
--- NOTE | 2022-05-14 20:53 | MHC.RECOVSUP ---
? Reason for consult:ETOH o? Current location:ED18? o? Identified substance use concern:? -? Support ? Intervention: o? Community resources provided ? Plan: o? Follow up tomorrow? ? Additional information:RC tried to wake pt up to discuss ATS services, and/or instructional coach services, but the pt was heavily sedated and was not responding. Please follow up tomorrow. (RC did make sure pt was breathing)
--- NOTE | 2022-05-14 21:39 | PC.NURSE ---
Patient asleep, vs assessed, no apparent distress
[2022-05-14 22:41] LABS: Acetaminophen LAB < 1 mcg/mL (<30); Ethanol 256 mg/dL; Salicylate < 5.0 mg/dL (15-30)
[2022-05-14] MEDS: 0.9 % Sodium Chloride 1,000 ML 999 ML IV ×2 (23:13)
--- NOTE | 2022-05-14 23:15 | PC.NURSE ---
Pt woken up to establish IV access.Patient calm and cooperative, in and out of sleep while line was being established; 20g in R forearm. 2L NS running per JUL.
[2022-05-15] VITALS (7 sets, daily range): BP systolic 103–152; BP diastolic 61–94; PULSE 87–107; RESP 17–20; TEMP 36.6–37.4; O2SAT 95–99
--- NOTE | 2022-05-15 00:19 | PC.NURSE ---
Patient resting quietly, no apparent distress, vs assessed, pt no longer on O2 supplementation; O2Sat at 95% on RA.
--- NOTE | 2022-05-15 02:29 | PC.NURSE ---
Pt resting quietly, no apparent distress.
[2022-05-15] MEDS: 0.9 % Sodium Chloride 1,000 ML 999 ML IV ×2 (02:45→02:46)
[2022-05-15 03:36] LABS: Influenza A PCR NEGATIVE (Negative); Influenza B PCR NEGATIVE (Negative); Resp Syncy Virus RNA Qual PCR NEGATIVE (Negative); SARS COV2 PCR INHOUSE NEGATIVE (Negative)
--- NOTE | 2022-05-15 05:36 | PC.NURSE ---
Addendum entered by Emily Cadet 05/15/22 05:56: *While going over the assessment Original Note: While going of the [place] Suicide assessment patient refused to answer whether he has planned to harm to harm himself and if so, was it with in three months. Otherwise, patient has been calm and cooperative. Patient is alert and oriented. No apparent distress, pt denies any pain, nausea, sensitivity to light nor sound, audible/visual hallucinations.
--- NOTE | 2022-05-15 06:17 | P.HPHOSP_ITS ---
History of Present Illness Date of Service: 05/15/22 Chief Complaint: detox 20-year-old male with past medical history of bipolar disorder, PTSD, anxiety, hypertension, ADHD, G AD, who presents to the hospital requesting detox. Patient has severe PTSD, went through an episode of severe anxiety and agitation in the ED, received multiple sedatives, currently is sleeping. Patient is arousable, able to answers questions appropriately. history is obtained mostly from ED PA, patient reported having seizure, then purposefully hit his head against the wall while in the ED as hard as he could and started asking for Ativan. Patient became more aggressive, hitting screaming and throwing himself on the ground and purposefully to slamming his head against the wall. on arrival to the ED patient hemodynamically stable with no significant abnormal vitals Labs are significant for WBC count 12.5, CPK of 1984 that increased to 1524 despite the fluids Alcohol level of [address] negative Review of Systems Review of Systems: Yes all other systems are reviewed and are negative [facility] Medical History (Updated 05/15/22 @ 06:22 by Deepak Wolfe MD) ADHD ADHD (attention deficit hyperactivity disorder) Anxiety Bipolar 1 disorder ЕЛЕНА (generalized anxiety disorder) HTN (hypertension) Family History (Updated 05/15/22 @ 06:23 by Deepak Wolfe MD) Other No family history of coronary artery disease Surgical History H/O fasciotomy Social History Alcohol intake: current Alcohol intake frequency: a few times a month Alcohol type: beer Patient Tobacco Use Status: Current everyday Tobacco user Substance Use Type: Marijuana Advance Directives: No Advance Directives Information Provided: No Meds Allergies Allergy/AdvReac Type Severity Reaction Status Date / Time watermelon Allergy Itching Verified 05/15/22 02:32 Active Medications: Current Medications Acetaminophen (Acetaminophen 325 Mg Tablet) 650 mg PO Q6H PRN PRN Reason: Pain, Mild (Pain Scale 1-3) Docusate Sodium (Docusate Sodium 100 Mg Capsule) 100 mg PO DAILY PRN PRN Reason: Constipation Folic Acid (Folic Acid 1 Mg Tablet) 1 mg PO DAILY [facility]ANK Ondansetron HCl (Ondansetron Hcl 4 Mg/2 Ml Vial) 4 mg IVPUSH Q8H PRN PRN Reason: Nausea and Vomiting Pharmacy Consult (Consult Rx Perform Med Rec) 1 each MISCELLANE ONCE PRN PRN Reason: Consult order Sodium Chloride (0.9 % Sodium Chloride Flush 3 Ml Syringe) 3 ml IVFLUSH QSHIFT FRANK Thiamine HCl (Thiamine Hcl 100 Mg Tablet) 100 mg PO DAILY [facility] Home Medications Medication Instructions Recorded Confirmed Last Taken Type dextroamphetamine-amphetamine 10 1 tab PO BID@0800,1200 08/29/21 05/15/22 Unknown History mg tablet lorazepam 1 mg tablet 1 mg PO DAILY PRN anxiety 09/11/21 05/15/22 Unknown History nicotine (polacrilex) 2 mg gum 2 mg buccal Q2H 09/11/21 05/15/22 Unknown History Physical Exam Vital Signs and Narrative: Vital Signs: Last Vital Signs Pulse 89 05/15/22 05:48 Resp 18 05/15/22 05:48 BP 132/81 05/15/22 05:48 Pulse Ox 99 05/15/22 05:48 O2 Del Method 05/15/22 05:48 O2 Flow Rate 2 05/14/22 20:58 BMI result Body Mass Index 31.5 Const: Other: sleeping well arousable General: cooperative and no acute distress Eyes: General: appearance normal, both eyes and all related structures Resp: Effort & Inspection: normal respiratory effort Auscultation: clear to auscultation bilaterally Cardio: Rate: regular rate Rhythm: regular rhythm GI: Palpation (GI): Soft to palpation Auscultation: normal bowel sounds Skin: General skin exam: no rashes or lesions noted Neuro: Cognition (Neuro): normal cognition Extrem: General: Yes normal to inspection and Yes no pedal edema Results Labs CBC and Chem 7: 05/14/22 19:54 05/14/22 19:54 Labs: Laboratory Results - last 24 hr 05/14/22 05/14/22 05/15/22 19:54 19:54 00:51 MCV 84.4 MCH 29.7 MCHC 35.1 RDW 13.2 Plt Count 346 MPV 9.4 Immature Gran % (Auto) 0.4 Neut % (Auto) 43.9 L Lymph % (Auto) 37.8 [place] % (Auto) 8.8 Eos % (Auto) 8.3 H Baso % (Auto) 0.8 Lymph # (Auto) 4.7 [place] # (Auto) 1.1 Eos # (Auto) 1.0 H Baso # (Auto) 0.1 Abs Immat Gran (auto) 0.05 H Absolute Neuts (auto) 5.5 Absolute Nucleated RBC 0.000 Nucleated RBC % (auto) 0.0 Anion Gap 21 H Estim Creat Clear Calc 129.7 Estimated GFR > 60 Random Glucose 87 Calcium 9.7 Magnesium 2.3 Total Bilirubin 0.4 AST 49 H ALT 41 H Alkaline Phosphatase 104 Total Creatine Kinase 1984 H 2524 H Total Protein 7.7 Albumin 4.7 Lipase 27 Salicylates < 5.0 L Acetaminophen < 1 Ethyl Alcohol 256 COVID-19 (ONEAL) COVID-19 Clin Com Influenza Type A (PCR) Influenza Type B (PCR) RSV RNA Qual (PCR) SARS-CoV-2 RNA (RT-PCR) 05/15/22 05/15/22 02:50 02:50 MCV MCH MCHC RDW Plt Count MPV Immature Gran % (Auto) Neut % (Auto) Lymph % (Auto) [place] % (Auto) Eos % (Auto) Baso % (Auto) Lymph # (Auto) [place] # (Auto) Eos # (Auto) Baso # (Auto) Abs Immat Gran (auto) Absolute Neuts (auto) Absolute Nucleated RBC Nucleated RBC % (auto) Anion Gap Estim Creat Clear Calc Estimated GFR Random Glucose Calcium Magnesium Total Bilirubin AST ALT Alkaline Phosphatase Total Creatine Kinase Total Protein Albumin Lipase Salicylates Acetaminophen Ethyl Alcohol COVID-19 (ONEAL) Cancelled COVID-19 Clin Com Cancelled Influenza Type A (PCR) NEGATIVE Influenza Type B (PCR) NEGATIVE RSV RNA Qual (PCR) NEGATIVE SARS-CoV-2 RNA (RT-PCR) NEGATIVE Imaging Radiologist's Impressions: Impressions Head CT 05/14/22 22:41 IMPRESSION: No acute intracranial pathology. Assessment and Plan (1) Rhabdomyolysis: Status: Acute (2) Alcoholic intoxication: Status: Acute Plan 36-year-old male with past medical history of alcohol abuse mother medical and mood history presents the hospital questioning detox from alcohol # rhabdomyolysis - likely secondary to trauma, patient noticed to be hitting himself with throwing himself on the floor while in the E D - will treat with IV fluids - follow CPK # alcohol intoxication and withdrawal - patient started on phenobarb protocol - thiamine and folic acid - monitor withdrawal symptoms # bipolar/anxiety/ mood disorder - had a psychotic episode in the ED - consult psychiatry DVT prophylaxis: early ambulati Time Spent With Patient Time: Total time managing care of this patient today ____ minutes. Quality Stroke Does the patient have a stroke diagnosis?: No VTE Prior VTE?: No VTE Risk Level:: Medical - low VTE Device Contraindication: Treatment Not Indicated VTE Drug Contraindication: Treatment Not Indicated
--- NOTE | 2022-05-15 07:11 | PHA.MEDREC ---
Pharmacy Consult ? Medication Reconciliation Pharmacy has completed the medication reconciliation. Reviewed med rec done by nursing
[2022-05-15] MEDS: Folic Acid 1 MG TABLET PO (08:31)
[2022-05-15] MEDS: Thiamine HCL 100 MG TABLET PO (08:31)
[2022-05-15] MEDS: Lactated Ringers 1,000 ML 125 ML IVCONT ×2 (08:32→15:33)
[2022-05-15] MEDS: PHENobarbitaL sodium 130 MG/ML IM ONCE 350 MG IM (08:32)
[2022-05-15] MEDS: 0.9 % Sodium Chloride Flush 3 ML SYRINGE IVFLUSH (08:32)
--- NOTE | 2022-05-15 08:55 | PC.NURSE ---
pt is a/o x 4 no sob/elida noted skin pink warm dry speaks in full sentences. lungs - slightly diminished. heart sounds - regular. abd soft and non-tender. bx + x 4 quads. no edema noted. pt aware of plan of care.
[2022-05-15] MEDS: Nicotine Polacrilex 2 MG GUM BUCCAL ×2 (10:45→15:33)
[2022-05-15] MEDS: PHENobarbitaL sodium 130 MG/ML VIAL IM Q3Hx2 260 MG IM ×2 (10:45→12:44)
[2022-05-15] MEDS: Dextroamphetamine/Amphetamine XR 10 MG CAP.ER.24H 20 MG PO (10:45)
--- NOTE | 2022-05-15 11:05 | PHA.MEDREC ---
Pharmacy Consult ? Medication Reconciliation Pharmacy has completed the medication reconciliation. Contacted [place] for list of medications.
--- NOTE | 2022-05-15 11:49 | MHC.CM.PN ---
CM met wirh Patient at bedside and addressed MENDEZ with him, providing him with the original and a copy will be placed on the chart. Patient lives in a house with his Mother and he is receiving Disability. Patient has a diagnosis of ETOH, Bipolar, Severe PTSD, Severe Anxiety, Agitation, ADHD and he may benefit from a Care Team Consult. Home VS Care team intervention is the goal and CM has initiated and will follow for dc planning.Patient's P[facility] through [facility] [place].
--- NOTE | 2022-05-15 12:51 | PM.EVENT ---
Event Note Date of Service: 05/15/22 Event Note: Patient seen evaluated this morning Looks much more comfortable, less agitated No reported events since the morning Continue alcohol withdrawal protocol with phenobarbital Atarax as needed for anxiety Addiction team to follow the patient once he is medically clear Time Spent With Patient Time: Total time managing care of this patient today ____ minutes.
--- NOTE | 2022-05-15 13:30 | PC.NURSE ---
pt seen by dr barajas, pt aware of plan of care. pt denies any si/hi. pt has been calm and co-op.
[2022-05-15 13:55] LABS: Appearance Urine Clear; Color Urine Yellow; Glucose Urine UA Negative (Negative); Leukocyte Esterase Urine Negative (Negative); Nitrite Urine Negative (Negative); Urine Blood Negative (Negative); Urine Ketones 15 mg/dL (Negative); Urine Protein Negative (Neg-Trace)
[2022-05-15 13:58] LABS: Amphetamine Screen Urine Not Detected (Not Detect); Barbiturates, Urine POSITIVE (Not Detect); Benzodiazepines Screen Urine Not Detected (Not Detect); Cannabinoid Screen Urine POSITIVE (Not Detect); Cocaine Screen Urine Not Detected (Not Detect); Fentanyl, urine Not Detected (Not Detect); Opiate Screen Urine Not Detected (Not Detect); Phencyclidine Screen Urine Not Detected (Not Detect)
[2022-05-15] MEDS: hydrOXYzine HCL 25 MG TABLET PO (15:37)
--- NOTE | 2022-05-15 17:13 | PC.NURSE ---
pt asking to have fluids paused for a little while. no obvious signs of dehydration noted.
--- NOTE | 2022-05-15 20:21 | PC.NURSE ---
pt not found in his bed, clothing not present, gown at bedside. security called. door by RP found agar. door does lock when closed all the way. security called and [address] 384 room checked and pt not present. pt has iv and police called.
--- NOTE | 2022-05-15 20:28 | PC.NURSE ---
20 angio found in red bin. pt self removed his iv before leaving. cell feed department supervisor is aware of pt elopment.
--- NOTE | 2022-05-15 20:39 | PC.NURSE ---
security cam has pt leaving fully dressed at 1840 walking thur the main ed doors.
--- NOTE | 2022-05-15 21:47 | PM.EVENT ---
Event Note Date of Service: 05/15/22 Event Note: Was informed by the nurse that pt eloped around 18:30 but it was noticed around 20:30. Time Spent With Patient Time: Total time managing care of this patient today ____ minutes.
--- NOTE | 2022-05-15 21:53 | PM.PSYCN ---
History of Present Illness Date of Service: 05/15/22 Chief Complaint: RHabdo Reason for Consult: assess Sources of Information: patient interviewed, chart reviewed and crisis/core team assessment reviewed HPI Narrative: Patient is a 36-year-old , with history of substance abuse, PTSD, and carries bipolar disorder diagnosis. Who presents to the ED requesting detox, exhibiting dysregulation in the face of non medication adherence and ongoing substance abuse. Patient got dysregulated in the ED, yelling screaming hit his head on the wall, saying he wants Ativan; he feigned a behavioral seizure, witnessed (and not a seizure). Dining Room Hostess consulted to assess. By the time sheet writer met with patient he was calm and in adequate behavior control. He apologized for his behaviors saying he was drunk and out of his mind but that he is fine now. He denies any SI or HI. He agrees to restart Seroquel which he had been on in the past. [facility] Past Psychiatric History: -Pt has [facility] providers through the [facility]. Hx of LEO escobedo in 2019 for SI. -Past meds: zoloft, wellbutrin, paxil, effexor, viibryd (tried 2x), trintellix, [place] (didnt like that it required blood work), Lamictal, Seroquel (?calming effect?), Risperdal (?the worst?), Abilify (?the worst?), latuda (?set me off?), Clonidine. Says ?no ssri, no snri, no antipsychotic had any effect on me. Medical Evaluation Reviewed: Yes [facility] Medical History (Updated 07/31/22 @ 11:12 by Lion Sherman MD) ADHD ADHD (attention deficit hyperactivity disorder) Anxiety Bipolar 1 disorder ЕЛЕНА (generalized anxiety disorder) HTN (hypertension) PTSD (post-traumatic stress disorder) Surgical History H/O fasciotomy Family History: Deferred Social History: Substance History: Severe alcohol abuse Trauma History: Positive for trauma history Diagnostics Vital Signs (24Hr): Vital Signs - 24 hr 05/14/22 22:54 05/15/22 00:17 05/15/22 02:30 Temperature Pulse Rate 90 87 90 Respiratory Rate 20 17 19 Blood Pressure 106/64 103/61 108/72 Pulse Oximetry 94 95 98 Oxygen Delivery Method Room Air Room Air Room Air 05/15/22 04:00 05/15/22 05:48 05/15/22 07:21 Temperature 97.9 F Pulse Rate 89 89 91 Respiratory Rate 19 18 20 Blood Pressure 132/81 132/81 130/86 Pulse Oximetry 97 99 95 Oxygen Delivery Method Room Air Room Air Room Air 05/15/22 09:37 05/15/22 13:30 Temperature 98.7 F 99.4 F Pulse Rate 88 107 H Respiratory Rate 18 20 Blood Pressure 140/83 H 152/94 H Pulse Oximetry 97 97 Oxygen Delivery Method Room Air Room Air BMI result Body Mass Index 31.5 Labs 05/14/22 19:54 05/14/22 19:54 Labs: Laboratory Results - last 48 hr 05/14/22 05/14/22 05/15/22 19:54 19:54 00:51 WBC 12.5 H RBC 5.26 Hgb 15.6 Hct 44.4 MCV 84.4 MCH 29.7 MCHC 35.1 RDW 13.2 Plt Count 346 MPV 9.4 Immature Gran % (Auto) 0.4 Neut % (Auto) 43.9 L Lymph % (Auto) 37.8 [place] % (Auto) 8.8 Eos % (Auto) 8.3 H Baso % (Auto) 0.8 Lymph # (Auto) 4.7 [place] # (Auto) 1.1 Eos # (Auto) 1.0 H Baso # (Auto) 0.1 Abs Immat Gran (auto) 0.05 H Absolute Neuts (auto) 5.5 Absolute Nucleated RBC 0.000 Nucleated RBC % (auto) 0.0 Sodium 144 Potassium 3.7 D Chloride 104 Carbon Dioxide 23 Anion Gap 21 H BUN 6 L Creatinine 0.95 Estim Creat Clear Calc 129.7 Estimated GFR > 60 Random Glucose 87 Calcium 9.7 Magnesium 2.3 Total Bilirubin 0.4 AST 49 H ALT 41 H Alkaline Phosphatase 104 Total Creatine Kinase 1984 H 2524 H Total Protein 7.7 Albumin 4.7 Lipase 27 Urine Color Urine Appearance Urine pH Ur Specific [place] Urine Protein Urine Glucose (UA) Urine Ketones Urine Blood Urine Nitrite Ur Leukocyte Esterase Salicylates < 5.0 L Urine Opiates Screen Urine Fentanyl Screen Acetaminophen < 1 Ur Barbiturates Screen Ur Phencyclidine Scrn Ur Amphetamines Screen U Benzodiazepines Scrn Urine Cocaine Screen U Marijuana (THC) Screen Ethyl Alcohol 256 COVID-19 (ONEAL) COVID-19 Clin Com Influenza Type A (PCR) Influenza Type B (PCR) RSV RNA Qual (PCR) SARS-CoV-2 RNA (RT-PCR) 05/15/22 05/15/22 05/15/22 02:50 02:50 07:12 WBC RBC Hgb Hct MCV MCH MCHC RDW Plt Count MPV Immature Gran % (Auto) Neut % (Auto) Lymph % (Auto) [place] % (Auto) Eos % (Auto) Baso % (Auto) Lymph # (Auto) [place] # (Auto) Eos # (Auto) Baso # (Auto) Abs Immat Gran (auto) Absolute Neuts (auto) Absolute Nucleated RBC Nucleated RBC % (auto) Sodium Potassium Chloride Carbon Dioxide Anion Gap BUN Creatinine Estim Creat Clear Calc Estimated GFR Random Glucose Calcium Magnesium Total Bilirubin AST ALT Alkaline Phosphatase Total Creatine Kinase 3059 H Total Protein Albumin Lipase Urine Color Urine Appearance Urine pH Ur Specific [place] Urine Protein Urine Glucose (UA) Urine Ketones Urine Blood Urine Nitrite Ur Leukocyte Esterase Salicylates Urine Opiates Screen Urine Fentanyl Screen Acetaminophen Ur Barbiturates Screen Ur Phencyclidine Scrn Ur Amphetamines Screen U Benzodiazepines Scrn Urine Cocaine Screen U Marijuana (THC) Screen Ethyl Alcohol COVID-19 (ONEAL) Cancelled COVID-19 Clin Com Cancelled Influenza Type A (PCR) NEGATIVE Influenza Type B (PCR) NEGATIVE RSV RNA Qual (PCR) NEGATIVE SARS-CoV-2 RNA (RT-PCR) NEGATIVE 05/15/22 05/15/22 13:35 13:35 WBC RBC Hgb Hct MCV MCH MCHC RDW Plt Count MPV Immature Gran % (Auto) Neut % (Auto) Lymph % (Auto) [place] % (Auto) Eos % (Auto) Baso % (Auto) Lymph # (Auto) [place] # (Auto) Eos # (Auto) Baso # (Auto) Abs Immat Gran (auto) Absolute Neuts (auto) Absolute Nucleated RBC Nucleated RBC % (auto) Sodium Potassium Chloride Carbon Dioxide Anion Gap BUN Creatinine Estim Creat Clear Calc Estimated GFR Random Glucose Calcium Magnesium Total Bilirubin AST ALT Alkaline Phosphatase Total Creatine Kinase Total Protein Albumin Lipase Urine Color Yellow Urine Appearance Clear Urine pH 7.0 Ur Specific [place] 1.010 Urine Protein Negative Urine Glucose (UA) Negative Urine Ketones 15 Urine Blood Negative Urine Nitrite Negative Ur Leukocyte Esterase Negative Salicylates Urine Opiates Screen Not Detected Urine Fentanyl Screen Not Detected Acetaminophen Ur Barbiturates Screen POSITIVE H Ur Phencyclidine Scrn Not Detected Ur Amphetamines Screen Not Detected U Benzodiazepines Scrn Not Detected Urine Cocaine Screen Not Detected U Marijuana (THC) Screen POSITIVE H Ethyl Alcohol COVID-19 (ONEAL) COVID-19 Clin Com Influenza Type A (PCR) Influenza Type B (PCR) RSV RNA Qual (PCR) SARS-CoV-2 RNA (RT-PCR) Imaging Radiology Impressions: ITS Impressions Head CT 05/14/22 22:41 IMPRESSION: No acute intracranial pathology. Mental Status Exam Mental Status Exam Narrative: Pt is tired but alert and oriented; behavior is cooperative, calm; patient is not in distress; dressed in hospital attire with with adequate hygiene; mood is described as okay and affect blunted; eye contact appropriate; Speech is normal rate, volume and prosody and not pressured; some psychomotor retardation present; thought process is organized and goal directed; Thought content is on tx; otherwise pertinent to relevant topics and without any delusional content, paranoid ideations or grandiosity; denies any SI/HI. There is no evidence of perceptual disturbance. Patients insight and judgment appear intact. Medications Medications Current Medications Acetaminophen (Acetaminophen 325 Mg Tablet) 650 mg PO Q6H PRN PRN Reason: Pain, Mild (Pain Scale 1-3) Amphetamine/Dextroamphetamine (Dextroamphetamine/Amphetamine Xr 10 Mg Cap.Er.24h) 20 mg PO DAILY [facility] Last Admin: 05/15/22 10:45 Dose: 20 mg Docusate Sodium (Docusate Sodium 100 Mg Capsule) 100 mg PO DAILY PRN PRN Reason: Constipation Folic Acid (Folic Acid 1 Mg Tablet) 1 mg PO DAILY [facility] Last Admin: 05/15/22 08:31 Dose: 1 mg Hydroxyzine HCl (Hydroxyzine Hcl 25 Mg Tablet) 25 mg PO Q4H PRN PRN Reason: anxiety/restlessness Last Admin: 05/15/22 15:37 Dose: 25 mg Lactated Ringer's (Lr) 1,000 mls @ 125 mls/hr IVCONT .Q8H [facility] Last Infusion: 05/15/22 17:10 Dose: 0 mls/hr Nicotine Polacrilex (Nicotine Polacrilex 2 Mg Gum) 2 mg BUCCAL Q2H [facility] Last Admin: 05/15/22 15:34 Dose: Not Given Ondansetron HCl (Ondansetron Hcl 4 Mg/2 Ml Vial) 4 mg IVPUSH Q8H PRN PRN Reason: Nausea and Vomiting Pharmacy Consult (Consult Rx Perform Med Rec) 1 each MISCELLANE ONCE PRN PRN Reason: Consult order Pharmacy Consult (Consult Rx Etoh Phenob Im/Po) 1 each MISCELLANE ONCE PRN; Protocol PRN Reason: Consult order Phenobarbital (Phenobarbital 15 Mg Tablet) 45 mg PO BID [facility]; Protocol Stop: 05/17/22 09:01 Phenobarbital (Phenobarbital 30 Mg Tablet) 30 mg PO BID [facility]; Protocol Stop: 05/19/22 09:01 Phenobarbital (Phenobarbital 30 Mg Tablet) 30 mg PO DAILY [facility]; Protocol Stop: 05/21/22 09:01 Sodium Chloride (0.9 % Sodium Chloride Flush 3 Ml Syringe) 3 ml IVFLUSH QSHIFT [facility] Last Admin: 05/15/22 15:13 Dose: Not Given Thiamine HCl (Thiamine Hcl 100 Mg Tablet) 100 mg PO DAILY [facility] Last Admin: 05/15/22 08:31 Dose: 100 mg Allergies Allergies Allergy/AdvReac Type Severity Reaction Status Date / Time watermelon Allergy Itching Verified 05/15/22 02:32 Assessment & Plan Assessment & Plan (1) Alcoholic intoxication: Status: Acute Code(s): F10.929 - Alcohol use, unspecified with intoxication, unspecified (2) PTSD (post-traumatic stress disorder): Status: Acute Code(s): F43.10 - Post-traumatic stress disorder, unspecified Plan Patient is a 36-year-old , with history of substance abuse, PTSD, and carries bipolar disorder diagnosis. Who presents to the ED requesting detox, exhibiting dysregulation in the face of non medication adherence and ongoing substance abuse. Patient got dysregulated in the ED, yelling screaming hit his head on the wall, saying he wants Ativan; he feigned a behavioral seizure, witnessed (and not a seizure). Dining Room Hostess consulted to assess. By the time sheet writer met with patient he was calm and in adequate behavior control. He apologized for his behaviors saying he was drunk and out of his mind but that he is fine now. He denies any SI or HI. He agrees to restart Seroquel which he had been on in the past. Patient says he [facility]. Impression/plan: At this time patient is calm and apologizes for his behavior saying he was intoxicated and out of control. He denies any SI or HI Recommend giving patient some more time to demonstrate whether he remains in behavioral control or not Start Seroquel Recommend against stimulant medication at this time Total time managing care of this patient today ____ minutes. Patient educated on: diagnosis, medication risk/benefits and substance abuse Informed Consent: understands and further education needed
== END 2022-05-15 20:30 | disposition left against medical advice (07) | DRG 558 ==
LOC: HO.ED 05-15 01:36 → HO.EDOVER 05-15 07:05 → HO.S3 05-15 19:32
PROVIDERS: Physician Assistant; Physician Assistant Medical; Admitting Provider Internal Medicine; Emergency Provider Internal Medicine; Visit Provider Student in an Organized Health Care Education/Training Program
DX: M62.82 Rhabdomyolysis (principal); F10.139 Alcohol abuse with withdrawal, unspecified; F90.9 Attention-deficit hyperactivity disorder, unspecified type; F17.210 Nicotine dependence, cigarettes, uncomplicated; Z71.6 Tobacco abuse counseling; Z20.822 Contact with and (suspected) exposure to COVID-19; Y90.8 Blood alcohol level of 240 mg/100 ml or more; F41.1 Generalized anxiety disorder; F31.9 Bipolar disorder, unspecified; F10.129 Alcohol abuse with intoxication, unspecified; Z79.899 Other long term (current) drug therapy
CPT/HCPCS: 0241U; 36415; 70450; 80053; 80143; 80179; 80307; 81003; 82077; 82550; 83690; 83735; 85025; 92950; 93005; 99285; J1200; J2060; J2560

== ENCOUNTER 2022-06-25 11:33 | Emergency (ER) | payer OTHER, SELFPAY ==
--- NOTE | ~2022-06-25 | CT_ITS ---
EXAMINATION: CT SOFT TISSUE NECK WITH CONTRAST CLINICAL INFORMATION: Throat pain and neck swelling. COMPARISON: No relevant prior imaging. TECHNIQUE: Following the intravenous administration of 60 mL of Omnipaque 350 intravenous contrast, helical imaging was performed in the axial plane with generation of coronal and sagittal reformatted images. This CT examination was performed using dose optimization techniques as appropriate, variously including the following: *Automated exposure control *Adjustment of mA and/or kV according to patient size (this includes techniques or standardized protocols for targeted exams where dose is matched to indication/reason for exam; i.e. extremities or head) *Use of iterative reconstruction technique DLP: 1786 mGy-cm FINDINGS: There is symmetric prominence and hyperenhancement of the palatine and lingual tonsils. Otherwise no worrisome enhancing soft tissue mass. There are a few symmetrically enlarged albeit otherwise nonspecific cervical lymph nodes, none of which demonstrate worrisome enhancement characteristics to suggest capsular invasion or central necrosis. Parapharyngeal and retromaxillary fat is preserved grossly preserved. [employer] spaces are symmetric. The parotid and submandibular glands are normal. The tongue base and epiglottis are normal. Preepiglottic fat is preserved. Glottic and subglottic airways are patent. The thyroid gland is normal and the remainder of the visualized visceral soft tissues are normal. There are nonspecific centrilobular gland glass opacities visualized within both lungs. The aortic arch apex is normal. Cervical carotid and vertebral arteries are grossly patent. Internal jugular veins fill symmetrically. There is no acute osseous finding. No worrisome lytic or blastic osseous lesion. Grossly no evidence of spinal canal compromise. The skull base is intact. No mastoid or middle ear effusion. No active paranasal sinus disease. Limited visualization of intracranial anatomy reveals no abnormal finding. CT/CT soft tissue neck w IV con IMPRESSION: There is symmetric prominence of the palatine and lingual tonsils that may represent a manifestation of tonsillitis in the clinical setting of throat pain. There are a few symmetrically enlarged likely reactive cervical lymph nodes, none of which demonstrate worrisome enhancement characteristics. No discrete enhancing soft tissue mass. There are nonspecific centrilobular gland glass opacities visualized within both lungs that are only partially included within [id number] of this examination and it may represent infectious or inflammatory etiology.
[2022-06-25 11:50] VITALS: BP 132/102; PULSE 101; RESP 20; TEMP 37.4; O2SAT 99; BMI 31.9
--- NOTE | 2022-06-25 11:51 | ED.GENADULT ---
HPI - General Adult General Chief complaint: General Medical <JAY Gay - Last Filed: 06/25/22 11:57> Stated complaint: swollen glands <JAY Gay - Last Filed: 06/25/22 11:57> Time Seen by Provider: 06/25/22 14:36 <JAY Gay - Last Filed: 06/25/22 11:57> Source: patient <Parknéstor Cordero DEYA Dudley - Last Filed: 06/25/22 17:52> Mode of arrival: ambulatory <Park Dudley CNP - Last Filed: 06/25/22 17:52> Limitations: no limitations <Park Dudley CNP - Last Filed: 06/25/22 17:52> History of Present Illness HPI narrative: Patient is a 36-year-old male presents emergency department for evaluation of sore throat and neck swelling. Reports onset of symptoms to be 5 days ago. Initially with a sore throat that is progressively worsening. He states he woke this morning noticing swelling to the left side of his neck. He also endorses feelings of he has difficulty breathing, difficulty swallowing, and changes to his voice. Denies fevers, chills, nasal congestion, ear pain, chest pain. <Park Dudley CNP - Last Filed: 06/25/22 17:52> Related Data Home medications: Home Medications Medication Instructions Recorded Confirmed lorazepam 1 mg tablet 1 mg PO BID PRN panic attacks 09/11/21 05/15/22 nicotine (polacrilex) 2 mg gum 2 mg buccal Q2H PRN Smoking 09/11/21 05/15/22 Cessation clonidine HCl 0.1 mg tablet 0.1 mg PO BID 05/15/22 05/15/22 dextroamphetamine-amphetamine ER 20 mg PO DAILY 05/15/22 05/15/22 20 mg 24hr capsule,extend release (Adderall XR) multivitamin 1 tab PO DAILY 05/15/22 05/15/22 venlafaxine 75 mg capsule,extended 150 mg PO DAILY 05/15/22 05/15/22 release 24 hr Previous Rx's Medication Instructions Recorded doxycycline hyclate 100 mg capsule 100 mg PO BID 7 days #14 caps 06/25/22 <JAY Gay - Last Filed: 06/25/22 11:57> Allergies/adverse reactions: Allergies Allergy/AdvReac Type Severity Reaction Status Date / Time watermelon Allergy Itching Verified 05/15/22 02:32 <JAY Gay - Last Filed: 06/25/22 11:57> Review of Systems Review of Systems: Constitutional: No fever. No chills. No weakness. Positive fatigue. ENT/ Mouth: No Ear Pain, no Nasal Congestion, positive sore throat, No Rhinorrhea, positive Swallowing Difficulty Skin: No rash or itching. Cardiovascular: No chest pain. No palpitations. Respiratory: Positive shortness of breath. No cough. No sputum production. Gastrointestinal: No nausea. No vomiting. No diarrhea. No abdominal pain. Genitourinary: No burning micturition. No urinary frequency. Neurologic: No headache. No dizziness. No syncope. No numbness or tingling in the extremities. Musculoskeletal: No muscle pain. No back pain. No joint pain or stiffness. <Park Dudley CNP - Last Filed: 06/25/22 17:52> Yes all other systems are reviewed and are negative <Park Dudley CNP - Last Filed: 06/25/22 17:52> PMF Past Medical History Attestation statement: The following information was validated with the patient. <Park Dudley CNP - Last Filed: 06/25/22 17:52> Source: old records reviewed <Park Dudley CNP - Last Filed: 06/25/22 17:52> Medical History: Medical History ADHD ADHD (attention deficit hyperactivity disorder) Anxiety Bipolar 1 disorder ЕЛЕНА (generalized anxiety disorder) HTN (hypertension) <JAY Gay - Last Filed: 06/25/22 11:57> Surgical History: Surgical History H/O fasciotomy <JAY Gay Last Filed: 06/25/22 11:57> Family History Family History: Family History (Updated 05/15/22 @ 06:23 by Deepak Wolfe MD) Other No family history of coronary artery disease <JAY Gay - Last Filed: 06/25/22 11:57> Social History Social History: Social History Alcohol intake: current Alcohol intake frequency: a few times a month Alcohol type: beer Patient Tobacco Use Status: Current everyday Tobacco user Substance Use Type: Marijuana Advance Directives: No Advance Directives Information Provided: No service: Yes Current occupational status: disabled <JAY Gay - Last Filed: 06/25/22 11:57> Physical Exam ED Vital Signs: Vital Signs - 24 hr 06/25/22 11:50 06/25/22 17:45 Temperature 99.4 F 99.3 F Pulse Rate 101 H 98 Respiratory Rate 20 18 Blood Pressure 132/102 H 155/100 H Pulse Oximetry 99 100 Oxygen Delivery Method Room Air Room Air BMI result Body Mass Index 31.9 <JAY Gay - Last Filed: 06/25/22 11:57> Vital Signs - 24 hr 06/25/22 11:50 06/25/22 17:45 Temperature 99.4 F 99.3 F Pulse Rate 101 H 98 Respiratory Rate 20 18 Blood Pressure 132/102 H 155/100 H Pulse Oximetry 99 100 Oxygen Delivery Method Room Air Room Air BMI result Body Mass Index 31.9 <Park Dudley CNP - Last Filed: 06/25/22 17:52> Appearance: Alert.?Oriented to person, place and time. No acute distress.?Normal affect. Eyes: Pupils equal, round and reactive to light.? ENT: Pharynx erythematous, 2+ tonsil sore hypertrophy on the left, uvula midline. No trismus. No drooling. Neck: Normal inspection.? Neck supple.? Positive left cervical adenopathy. Swelling and tenderness upon palpation over the left anterior neck. ? CVS: Heart sounds normal. Normal heart rate and rhythm.? Pulses normal.?? Respiratory: No respiratory distress.? Lung sounds clear to auscultation bilaterally?? Abdomen: Soft and non-tender. Normoactive bowel sounds. Skin: Skin warm and dry.? Normal skin color.? Extremities: No lower extremity edema.? Neuro: Moves all extremities spontaneously. Sensation intact bilaterally. Ambulates with normal steady gait. <Park Dudley CNP - Last Filed: 06/25/22 17:52> Course Course Course Narrative: RME - 36 yo male presenting to the ER for evaluation of worsening sore throat and neck swelling for the last 5 days, L>R. Now reports trouble breathing, difficulty swallowing and voice changes. Handling secretions normally in triage, airway patent. Uvula midline but fullness of the left tonsil and anterior neck tenderness and swelling L>R. Will get labs and CT scan for further evaluation. Stable to remain in waiting room until treatment room is available. <JAY Gay - Last Filed: 06/25/22 11:57> Reevaluation(s) Reevaluation #1: CBC reveals leukocytosis 18.6 with left shift, CMP overall unremarkable, aside from mildly elevated AST/ALT which is consistent with prior labs although slightly more elevated. Abdominal examination is benign, no associated gastrointestinal symptoms. Tolerated oral liquids and solids without complication in the emergency department. CT of the soft tissue neck reveals symmetrical prominence of tonsils with enlarged reactive cervical lymph nodes, no discrete soft tissue mass. Nonspecific centrilobar ground-glass opacities within both lungs. Not consistent with peritonsillar/retropharyngeal abscess, Darian's angina. Discussed findings with patient, at this time will treat with Decadron 10 mg orally single dosage common sent prescription for antibiotic to pharmacy for coverage of tonsillitis/community-acquired pneumonia. Reviewed worrisome signs and symptoms or to the emergency department outpatient follow-up provider. All questions answered. Stable for discharge. <Park Dudley CNP - Last Filed: 06/25/22 17:52> Time: 16:57 <Park Dudley CNP - Last Filed: 06/25/22 17:52> Medications Administered Discontinued Medications Generic Name Dose Route Start Last Admin Trade Name Freq PRN Reason Stop Dose Admin Acetaminophen 975 mg 06/25/22 17:06 06/25/22 17:39 Acetaminophen 325 Mg Tablet PO 06/25/22 17:07 975 mg ONCE ONE Administration Dexamethasone Sodium Phosphate 10 mg 06/25/22 17:06 06/25/22 17:39 Dexamethasone Sod Phosphate 10 Mg/Ml Vial PO 06/25/22 17:07 10 mg ONCE ONE Administration Iohexol 100 ml 06/25/22 15:25 06/25/22 15:26 Iohexol 350 Mg/Ml 100 Ml Infus..Btl IV 06/25/22 15:26 60 ml ONCE ONE Administration <JAY Gay - Last Filed: 06/25/22 11:57> Medications Administered Discontinued Medications Generic Name Dose Route Start Last Admin Trade Name Ajay PRN Reason Stop Dose Admin Acetaminophen 975 mg 06/25/22 17:06 06/25/22 17:39 Acetaminophen 325 Mg Tablet PO 06/25/22 17:07 975 mg ONCE ONE Administration Dexamethasone Sodium Phosphate 10 mg 06/25/22 17:06 06/25/22 17:39 Dexamethasone Sod Phosphate 10 Mg/Ml Vial PO 06/25/22 17:07 10 mg ONCE ONE Administration Iohexol 100 ml 06/25/22 15:25 06/25/22 15:26 Iohexol 350 Mg/Ml 100 Ml Infus..Btl IV 06/25/22 15:26 60 ml ONCE ONE Administration <Park Dudley CNP - Last Filed: 06/25/22 17:52> Medical Decision Making Medical Decision Making [facility] Narrative: Patient is a 36-year-old male with past medical history of ADHD, anxiety, bipolar disorder, hypertension presented to the emergency department for evaluation of sore throat and neck swelling as reported in HPI. At the time my examination he is overall well-appearing. No respiratory distress. No tachypnea or hypoxic, he is managing his secretions and speaking clear full sentences. Examination notable for left tonsillar hypertrophy and left anterior neck swelling/tenderness. <Park Dudley CNP - Last Filed: 06/25/22 17:52> Differential Diagnosis Differential Diagnoses: The differential diagnosis associated with the presentation includes (Tonsillitis, retropharyngeal abscess, parapharyngeal abscess, Darian's angina, viral upper respiratory infection, pneumonia) <Park Dudley CNP - Last Filed: 06/25/22 17:52> Lab Data [facility] Lab Attestation statement: I reviewed the patient's lab results. <Park Dudley CNP - Last Filed: 06/25/22 17:52> Result Diagrams: 06/25/22 12:33 06/25/22 12:33 <JAY Gay - Last Filed: 06/25/22 11:57> Labs: Lab Results 06/25/22 06/25/22 06/25/22 Range/Units 12:33 12:33 12:33 WBC 18.6 H (4.8-10.8) X10*3/uL RBC 4.50 L (4.60-5.80) X10*6/uL Hgb 13.4 L (14.0-18.0) g/dl Hct 39.8 L (42.0-52.0) % MCV 88.4 (80.0-98.0) fL MCH 29.8 (27.0-33.0) pg MCHC 33.7 (31.0-36.0) g/dl RDW 14.4 (11.0-16.0) % Plt Count 277 (160-400) X10*3/uL MPV 8.7 L (9.4-12.4) fL Immature Gran % (Auto) 3.6 H (0.0-0.4) % Neut % (Auto) 73.4 H (45-73) % Lymph % (Auto) 9.8 L (20-40) % Marion % (Auto) 8.9 (2-11) % Eos % (Auto) 3.7 (0-4) % Baso % (Auto) 0.6 (0-2) % Lymph # (Auto) 1.8 (1.2-4.9) X10*3/uL Marion # (Auto) 1.7 H (0.1-1.2) X10*3/uL Eos # (Auto) 0.7 H (0.0-0.4) X10*3/uL Baso # (Auto) 0.1 (0.0-0.2) X10*3/uL Abs Immat Gran (auto) 0.67 H (0.00-0.03) X10*3/uL Absolute Neuts (auto) 13.7 H (2.0-8.3) x10*3/uL Absolute Nucleated RBC 0.000 (0.0-0.012) X10*3/uL Nucleated RBC % (auto) 0.0 (0.0-0.2) /100WBC Smear Tech's Comments VERIFIED Sodium 139 (135-145) mmol/L Potassium 4.3 (3.3-5.1) mmol/L Chloride 105 (96-108) mmol/L Carbon Dioxide 23 (22-29) mmol/L Anion Gap 15 (12-20) BUN 6 L (9-16) mg/dL Creatinine 0.79 (0.5-1.4) mg/dL Estim Creat Clear Calc 147.4 Estimated GFR > 60 Random Glucose 101 (60-115) mg/dL Calcium 9.0 D (8.4-10.2) mg/dL Magnesium 2.0 (1.6-2.6) mg/dL Total Bilirubin 0.4 (0.0-1.0) mg/dL Direct Bilirubin 0.2 (0.0-0.5) mg/dL AST 90 H (5-37) U/L ALT 130 H (0-40) U/L Alkaline Phosphatase 87 (39-117) U/L Total Protein 6.9 (6.5-8.0) g/dL Albumin 4.3 (3.5-5.0) g/dL Monoscreen Negative (Negative) Influenza Type A (PCR) (Negative) Influenza Type B (PCR) (Negative) RSV RNA Qual (PCR) (Negative) SARS-CoV-2 RNA (RT-PCR) (Negative) 06/25/22 Range/Units 12:33 WBC (4.8-10.8) X10*3/uL RBC (4.60-5.80) X10*6/uL Hgb (14.0-18.0) g/dl Hct (42.0-52.0) % MCV (80.0-98.0) fL MCH (27.0-33.0) pg MCHC (31.0-36.0) g/dl RDW (11.0-16.0) % Plt Count (160-400) X10*3/uL MPV (9.4-12.4) fL Immature Gran % (Auto) (0.0-0.4) % Neut % (Auto) (45-73) % Lymph % (Auto) (20-40) % Marion % (Auto) (2-11) % Eos % (Auto) (0-4) % Baso % (Auto) (0-2) % Lymph # (Auto) (1.2-4.9) X10*3/uL Marion # (Auto) (0.1-1.2) X10*3/uL Eos # (Auto) (0.0-0.4) X10*3/uL Baso # (Auto) (0.0-0.2) X10*3/uL Abs Immat Gran (auto) (0.00-0.03) X10*3/uL Absolute Neuts (auto) (2.0-8.3) x10*3/uL Absolute Nucleated RBC (0.0-0.012) X10*3/uL Nucleated RBC % (auto) (0.0-0.2) /100WBC Smear Tech's Comments Sodium (135-145) mmol/L Potassium (3.3-5.1) mmol/L Chloride (96-108) mmol/L Carbon Dioxide (22-29) mmol/L Anion Gap (12-20) BUN (9-16) mg/dL Creatinine (0.5-1.4) mg/dL Estim Creat Clear Calc Estimated GFR Random Glucose (60-115) mg/dL Calcium (8.4-10.2) mg/dL Magnesium (1.6-2.6) mg/dL Total Bilirubin (0.0-1.0) mg/dL Direct Bilirubin (0.0-0.5) mg/dL AST (5-37) U/L ALT (0-40) U/L Alkaline Phosphatase (39-117) U/L Total Protein (6.5-8.0) g/dL Albumin (3.5-5.0) g/dL Monoscreen (Negative) Influenza Type A (PCR) NEGATIVE (Negative) Influenza Type B (PCR) NEGATIVE (Negative) RSV RNA Qual (PCR) NEGATIVE (Negative) SARS-CoV-2 RNA (RT-PCR) NEGATIVE (Negative) <JAY Gay - Last Filed: 06/25/22 11:57> Lab Results 06/25/22 06/25/22 06/25/22 Range/Units 12:33 12:33 12:33 WBC 18.6 H (4.8-10.8) X10*3/uL RBC 4.50 L (4.60-5.80) X10*6/uL Hgb 13.4 L (14.0-18.0) g/dl Hct 39.8 L (42.0-52.0) % MCV 88.4 (80.0-98.0) fL MCH 29.8 (27.0-33.0) pg MCHC 33.7 (31.0-36.0) g/dl RDW 14.4 (11.0-16.0) % Plt Count 277 (160-400) X10*3/uL MPV 8.7 L (9.4-12.4) fL Immature Gran % (Auto) 3.6 H (0.0-0.4) % Neut % (Auto) 73.4 H (45-73) % Lymph % (Auto) 9.8 L (20-40) % Marion % (Auto) 8.9 (2-11) % Eos % (Auto) 3.7 (0-4) % Baso % (Auto) 0.6 (0-2) % Lymph # (Auto) 1.8 (1.2-4.9) X10*3/uL Marion # (Auto) 1.7 H (0.1-1.2) X10*3/uL Eos # (Auto) 0.7 H (0.0-0.4) X10*3/uL Baso # (Auto) 0.1 (0.0-0.2) X10*3/uL Abs Immat Gran (auto) 0.67 H (0.00-0.03) X10*3/uL Absolute Neuts (auto) 13.7 H (2.0-8.3) x10*3/uL Absolute Nucleated RBC 0.000 (0.0-0.012) X10*3/uL Nucleated RBC % (auto) 0.0 (0.0-0.2) /100WBC Smear Tech's Comments VERIFIED Sodium 139 (135-145) mmol/L Potassium 4.3 (3.3-5.1) mmol/L Chloride 105 (96-108) mmol/L Carbon Dioxide 23 (22-29) mmol/L Anion Gap 15 (12-20) BUN 6 L (9-16) mg/dL Creatinine 0.79 (0.5-1.4) mg/dL Estim Creat Clear Calc 147.4 Estimated GFR > 60 Random Glucose 101 (60-115) mg/dL Calcium 9.0 D (8.4-10.2) mg/dL Magnesium 2.0 (1.6-2.6) mg/dL Total Bilirubin 0.4 (0.0-1.0) mg/dL Direct Bilirubin 0.2 (0.0-0.5) mg/dL AST 90 H (5-37) U/L ALT 130 H (0-40) U/L Alkaline Phosphatase 87 (39-117) U/L Total Protein 6.9 (6.5-8.0) g/dL Albumin 4.3 (3.5-5.0) g/dL Monoscreen Negative (Negative) Influenza Type A (PCR) (Negative) Influenza Type B (PCR) (Negative) RSV RNA Qual (PCR) (Negative) SARS-CoV-2 RNA (RT-PCR) (Negative) 06/25/22 Range/Units 12:33 WBC (4.8-10.8) X10*3/uL RBC (4.60-5.80) X10*6/uL Hgb (14.0-18.0) g/dl Hct (42.0-52.0) % MCV (80.0-98.0) fL MCH (27.0-33.0) pg MCHC (31.0-36.0) g/dl RDW (11.0-16.0) % Plt Count (160-400) X10*3/uL MPV (9.4-12.4) fL Immature Gran % (Auto) (0.0-0.4) % Neut % (Auto) (45-73) % Lymph % (Auto) (20-40) % Marion % (Auto) (2-11) % Eos % (Auto) (0-4) % Baso % (Auto) (0-2) % Lymph # (Auto) (1.2-4.9) X10*3/uL Marion # (Auto) (0.1-1.2) X10*3/uL Eos # (Auto) (0.0-0.4) X10*3/uL Baso # (Auto) (0.0-0.2) X10*3/uL Abs Immat Gran (auto) (0.00-0.03) X10*3/uL Absolute Neuts (auto) (2.0-8.3) x10*3/uL Absolute Nucleated RBC (0.0-0.012) X10*3/uL Nucleated RBC % (auto) (0.0-0.2) /100WBC Smear Tech's Comments Sodium (135-145) mmol/L Potassium (3.3-5.1) mmol/L Chloride (96-108) mmol/L Carbon Dioxide (22-29) mmol/L Anion Gap (12-20) BUN (9-16) mg/dL Creatinine (0.5-1.4) mg/dL Estim Creat Clear Calc Estimated GFR Random Glucose (60-115) mg/dL Calcium (8.4-10.2) mg/dL Magnesium (1.6-2.6) mg/dL Total Bilirubin (0.0-1.0) mg/dL Direct Bilirubin (0.0-0.5) mg/dL AST (5-37) U/L ALT (0-40) U/L Alkaline Phosphatase (39-117) U/L Total Protein (6.5-8.0) g/dL Albumin (3.5-5.0) g/dL Monoscreen (Negative) Influenza Type A (PCR) NEGATIVE (Negative) Influenza Type B (PCR) NEGATIVE (Negative) RSV RNA Qual (PCR) NEGATIVE (Negative) SARS-CoV-2 RNA (RT-PCR) NEGATIVE (Negative) <Park Dudley CNP - Last Filed: 06/25/22 17:52> Independent Interpretation I performed an independent interpretation of an: CT Scan <Park Dudley CNP - Last Filed: 06/25/22 17:52> Radiology Impression Discussion of test interpretation with radiology: I have reviewed the radiologist's reading. <Park Dudley CNP - Last Filed: 06/25/22 17:52> Radiologist Impression: CT/CT soft tissue neck w IV con IMPRESSION: There is symmetric prominence of the palatine and lingual tonsils that may represent a manifestation of tonsillitis in the clinical setting of throat pain. There are a few symmetrically enlarged likely reactive cervical lymph nodes, none of which demonstrate worrisome enhancement characteristics. No discrete enhancing soft tissue mass. ? There are nonspecific centrilobular gland glass opacities visualized within both lungs that are only partially included within [id number] of this examination and it may represent infectious or inflammatory etiology. <Park Dudley CNP - Last Filed: 06/25/22 17:52> Prescription Management I considered prescription management with: Antibiotic <Park Dudley CNP - Last Filed: 06/25/22 17:52> Discharge Plan Discharge Clinical Impression: Acute tonsillitis, Community acquired pneumonia <JAY Gay - Last Filed: 06/25/22 11:57> Patient Disposition: Home, Self-Care <JAY Gay - Last Filed: 06/25/22 11:57> Instructions: Tonsillitis (ED), Pneumonia (ED) <JAY Gay - Last Filed: 06/25/22 11:57> Additional Instructions: You received a dose of steroids while in the emergency department today, this will help with your symptoms You can take ibuprofen 200 mg, 3 tablets (600mg) every 6-8 hours as needed for pain, in addition to Tylenol 500 mg, 2 tablets (1,000mg) every 4-6 hours as needed for pain, but not to exceed 3 doses daily (3,000mg).? Prescription for antibiotics were sent to your pharmacy, please complete this entire course. Contact your primary care provider to arrange for a follow-up visit within the next week if symptoms persist. You may return back to emergency department any new or worsening symptoms or concerns. <JAY Gay - Last Filed: 06/25/22 11:57> Prescriptions: New doxycycline hyclate 100 mg capsule 100 mg PO BID 7 Days Qty: 14 0RF No Action dextroamphetamine-amphetamine [Adderall XR] 20 mg Capsule,Extended Release 24hr 20 mg PO DAILY multivitamin Tablet 1 tab PO DAILY clonidine HCl 0.1 mg Tablet 0.1 mg PO BID venlafaxine 75 mg Capsule,Extended Release 24hr 150 mg PO DAILY lorazepam 1 mg tablet 1 mg PO BID PRN (Reason: panic attacks) nicotine (polacrilex) 2 mg Gum 2 mg BUCCAL Q2H PRN (Reason: Smoking Cessation) <JAY Gay - Last Filed: 06/25/22 11:57> Referrals: Physician,Unknown J [Primary Care Provider] - <JAY Gay - Last Filed: 06/25/22 11:57> Interventions: ED Discharge Assessment Last Done: 06/25/22 17:50 <JAY Gay - Last Filed: 06/25/22 11:57> Discharge Date/Time: 06/25/22 17:50 <JAY Gay - Last Filed: 06/25/22 11:57>
[2022-06-25 12:40] LABS: Basophils Absolute Auto 0.1 X10*3/uL (0.0-0.2); Basophils Percent Auto 0.6 % (0-2); Eosinophils Absolute Auto 0.7 X10*3/uL (0.0-0.4); Eosinophils Percent Auto 3.7 % (0-4); Hematocrit 39.8 % (42.0-52.0); Hemoglobin 13.4 g/dl (14.0-18.0); Imm Gran Abs Auto 0.67 X10*3/uL (0.00-0.03); Imm Gran Pct Auto 3.6 % (0.0-0.4); Lymphocytes Absolute Auto 1.8 X10*3/uL (1.2-4.9); Lymphocytes Percent Auto 9.8 % (20-40); Mean Corpuscular HGB Conc 33.7 g/dl (31.0-36.0); Mean Corpuscular Hemoglobin 29.8 pg (27.0-33.0); Mean Corpuscular Volume 88.4 fL (80.0-98.0); Mean Platelet Volume 8.7 fL (9.4-12.4); Monocytes Absolute Auto 1.7 X10*3/uL (0.1-1.2); Monocytes Percent Auto 8.9 % (2-11); Neutrophils Absolute Auto 13.7 x10*3/uL (2.0-8.3); Neutrophils Percent Auto 73.4 % (45-73); Platelet Count 277 X10*3/uL (160-400); Red Cell Distribution Width 14.4 % (11.0-16.0); SCAN SMEAR FLAG 1; White Blood Count 18.6 X10*3/uL (4.8-10.8)
[2022-06-25 12:41] LABS: MANUAL DIFF FLAG SCAN
[2022-06-25 13:00] LABS: Alanine Aminotransferase 130 U/L (0-40); Albumin Level 4.3 g/dL (3.5-5.0); Alkaline Phosphatase 87 U/L (39-117); Anion Gap 15 (12-20); Aspartate Amino Transferase 90 U/L (5-37); Bilirubin Direct 0.2 mg/dL (0.0-0.5); Bilirubin Total 0.4 mg/dL (0.0-1.0); Blood Urea Nitrogen 6 mg/dL (9-16); Carbon Dioxide 23 mmol/L (22-29); Chloride 105 mmol/L (96-108); Creatinine Clr Calc Pharmacy 147.4; Estimated Glomerular Filt Rate > 60; Glucose Random 101 mg/dL (60-115); Potassium 4.3 mmol/L (3.3-5.1); Sodium 139 mmol/L (135-145); Total Protein 6.9 g/dL (6.5-8.0)
[2022-06-25 13:03] LABS: Monotest Negative (Negative); SLIDE REVIEW VERIFIED
[2022-06-25 13:17] LABS: Influenza A PCR NEGATIVE (Negative); Influenza B PCR NEGATIVE (Negative); Resp Syncy Virus RNA Qual PCR NEGATIVE (Negative); SARS COV2 PCR INHOUSE NEGATIVE (Negative)
[2022-06-25] MEDS: iohexoL 350 MG/ML 100 ML INFUS..BTL IV (15:26)
[2022-06-25] MEDS: Acetaminophen 325 MG TABLET 975 MG PO (17:39)
[2022-06-25] MEDS: dexAMETHasone sod phosphate 10 MG/ML VIAL PO (17:39)
[2022-06-25 17:45] VITALS: BP 155/100; PULSE 98; RESP 18; TEMP 37.4; O2SAT 100
== END 2022-06-25 17:50 | disposition home or self-care (01) ==
PROVIDERS: Physician Assistant; Emergency Provider Emergency Medicine
DX: J03.90 Acute tonsillitis, unspecified (principal); J18.8 Other pneumonia, unspecified organism; Z20.822 Contact with and (suspected) exposure to COVID-19; Z20.828 Contact with and (suspected) exposure to other viral communicable diseases; I10 Essential (primary) hypertension; F17.200 Nicotine dependence, unspecified, uncomplicated; F12.90 Cannabis use, unspecified, uncomplicated; Z79.899 Other long term (current) drug therapy
CPT/HCPCS: 0241U; 70491; 80048; 80076; 83735; 85025; 86308; 99283; 99284; J1100; Q9967

== ENCOUNTER 2023-01-24 17:29 | Emergency (ER) | payer OTHER, SELFPAY ==
[2023-01-24] VITALS (12 sets, daily range): BP systolic 116–147; BP diastolic 62–94; PULSE 89–110; RESP 14–28; O2SAT 83–96; BMI 36.7
--- NOTE | ~2023-01-24 | XR_ITS ---
EXAMINATION: XR CHEST CLINICAL INFORMATION: Reason for Exam shortness of breath COMPARISON: CT chest 03/09/2020 TECHNIQUE: One view of the chest FINDINGS: Lines and tubes: EKG leads overlie the patient. Clear lungs. No pleural effusion. No pneumothorax. Unchanged cardiomediastinal silhouette. XR/XR chest 1V IMPRESSION: * Clear lungs.
--- NOTE | 2023-01-24 17:38 | ECG_ITS ---
Test Reason : SOB Blood Pressure : / mmHG Vent. Rate : 088 BPM Atrial Rate : 088 BPM P-R Int : 164 ms QRS Dur : 080 ms QT Int : 348 ms P-R-T Axes : 046 -81 012 degrees QTc Int : 421 ms Normal sinus rhythm Left axis deviation Abnormal ECG When compared with ECG of 14-MAY-2022 19:42, Heart rate has decreased Referred By: Migdalia Jones Electronically Signed By:BRITNEY NAGY
--- NOTE | 2023-01-24 17:38 | ED_ITS ---
HPI - Overdose General Chief Complaint: Overdose Stated Complaint: OVERDOSE + NARCAN Time Seen by Provider: 01/24/23 17:31 Source: patient Mode of arrival: EMS History of Present Illness HPI Narrative: 37-year-old male is brought in by EMS after he was noted to overdose, states that he snorted the drugs and then EMS states that his friend administered Narcan, unclear amount and patient himself is unclear exactly what he may have been given. He states that this is his 1st time. He is noted to be hypoxic and complains of difficulty breathing. Related Data Home Medications Medication Instructions Recorded Confirmed lorazepam 1 mg tablet 1 mg PO BID PRN panic attacks 09/11/21 05/15/22 nicotine (polacrilex) 2 mg gum 2 mg buccal Q2H PRN Smoking 09/11/21 05/15/22 Cessation clonidine HCl 0.1 mg tablet 0.1 mg PO BID 05/15/22 05/15/22 dextroamphetamine-amphetamine ER 20 mg PO DAILY 05/15/22 05/15/22 20 mg 24hr capsule,extend release (Adderall XR) multivitamin 1 tab PO DAILY 05/15/22 05/15/22 venlafaxine 75 mg capsule,extended 150 mg PO DAILY 05/15/22 05/15/22 release 24 hr Previous Rx's Medication Instructions Recorded doxycycline hyclate 100 mg capsule 100 mg PO BID 7 days #14 caps 06/25/22 Allergies Allergy/AdvReac Type Severity Reaction Status Date / Time watermelon Allergy Itching Verified 05/15/22 02:32 Review of Systems 2 Review of Systems: Pertinent positives and negatives as stated in HPI PMFSH Past Medical History Source: nursing notes reviewed Medical History PTSD (post-traumatic stress disorder) ЕЛЕНА (generalized anxiety disorder) ADHD (attention deficit hyperactivity disorder) Bipolar 1 disorder ADHD HTN (hypertension) Anxiety Surgical History H/O fasciotomy Family History Family History Other No family history of coronary artery disease Social History Social History Alcohol intake: current Alcohol intake frequency: 0-2 drinks per day Alcohol type: beer Patient Tobacco Use Status: Current everyday Tobacco user Smoked in Last 30 Days: No Use of substances other than those prescribed or required for medical reasons: Yes Substance Use Type: Opiates Advance Directives: No Advance Directives Information Provided: No service: Yes Current occupational status: disabled Physical Exam 2 Vital Signs: Vital Signs: Last Vital Signs Pulse 108 H 01/24/23 22:06 Resp 16 01/24/23 22:06 BP 137/75 01/24/23 22:06 Pulse Ox 96 01/24/23 22:06 O2 Del Method High Flow Nasal C annula 01/24/23 22:06 O2 Flow Rate 40 01/24/23 21:08 FiO2 50 01/24/23 21:08 Oxygen Flow Rate 15 01/24/23 17:38 BMI result Body Mass Index 36.7 VITAL SIGNS: Reviewed. GENERAL: Well developed, well nourished, in no acute distress. HEAD: Normocephalic/atraumatic EYES: PERRLA, EOMI EARS: Ext canals without abnormality NOSE: Nares patent bilateral OROPHARYNX: no oral lesions noted, posterior pharynx clear NECK: Supple, no adenopathy LUNGS: Normal breath sounds, tachypnea. No adventitious sounds or accessory muscle use. SpO2<78> CARDIOVASCULAR: Tachycardia rate and rhythm without noted murmurs ABDOMEN: Soft, non-tender, non-distended with bowel sounds. No rigidity. No guarding. No palpable masses or hernias noted MUSCULOSKELETAL: No tenderness, deformities, or effusions noted on gross inspection. EXTREMITIES: No cyanosis, clubbing or edema. SKIN: Inspection of the skin reveals no rashes NEUROLOGIC: Alert and oriented x 4. Strength and sensation to light touch were grossly intact x 4. Medications Administered Discontinued Medications Generic Name Dose Route Start Last Admin Trade Name Freq PRN Reason Stop Dose Admin Fentanyl 25 mcg 01/24/23 18:03 01/24/23 18:10 Fentanyl Citrate/Pf 100 Mcg/2 Ml Vial IVPUSH 01/24/23 18:04 25 mcg ONCE ONE Administration Protocol Lorazepam 0.5 mg 01/24/23 19:28 01/24/23 19:54 Lorazepam 2 Mg/Ml Vial IVPUSH 01/24/23 19:29 0.5 mg ONCE ONE Administration Lorazepam 0.5 mg 01/24/23 22:21 01/24/23 22:27 Lorazepam 0.5 Mg Tablet PO 01/24/23 22:22 0.5 mg ONCE ONE Administration Methylprednisolone Sodium Succinate 125 mg 01/24/23 18:03 01/24/23 18:10 Methylprednisolone Sod Succ 125 Mg/2 Ml Vial IVPUSH 01/24/23 18:04 125 mg ONCE ONE Administration Medical Decision Making Medical Decision Making [facility] Narrative: 37-year-old male with history and clinical presentation consistent with accidental overdose, 1st time he using inhaled opioids as per patient. Suspect that patient may have a pneumonitis, my prelim read of the stat portable chest x-ray is negative for pulmonary edema or pneumothorax. Patient required to be placed on 100% non-rebreather to get oxygenation greater than 84%. 1746: Patient will be placed on Oxymizer and titrated to 92% and in the meantime preparation for high-flow nasal cannula as it is my 15 and that patient will do better on humidified oxygen. Patient is received 25 mcg of fentanyl and then 0.5 mg of Ativan x2 and 125 mg of Solu-Medrol. Patient has progressively been weaned off of the high-flow and is now on the Oxymizer at 9 L. he appears much improved I reviewed all investigations and there is no leukocytosis, there is no anemia or thrombocytopenia. Chemistry disease are grossly within normal limits without ELENI and no electrolyte or liver enzyme abnormalities. High sensitivity troponin is noted to be detectable at 13.6 without acute EKG changes. Chest x-ray without infiltrate and otherwise my interpretation is in agreement with radiology's impression. Signed out to DR Cam - Titrate off oxygen - discharge when clinically stable Differential Diagnosis Differential Diagnoses: The differential diagnosis associated with the presentation includes Please see the discussion above Admission/Observation Consideration of admission/observation: Escalation of care including admission/observation considered Please see the discussion above Lab Data [facility] Lab Attestation statement: I reviewed the patient's lab results. Please see the discussion above 01/24/23 17:40 01/24/23 17:40 Labs: Lab Results 01/24/23 01/24/23 Range/Units 17:40 18:49 WBC 9.5 (4.8-10.8) X10*3/uL RBC 6.82 H D (4.60-5.80) X10*6/uL Hgb 17.4 D (14.0-18.0) g/dl Hct 54.2 H D (42.0-52.0) % MCV 79.5 L (80.0-98.0) fL MCH 25.5 L (27.0-33.0) pg MCHC 32.1 (31.0-36.0) g/dl RDW 16.9 H (11.0-16.0) % Plt Count 301 (160-400) X10*3/uL MPV 9.4 (9.4-12.4) fL Immature Gran % (Auto) 0.4 (0.0-0.4) % Neut % (Auto) 77.7 H (45-73) % Lymph % (Auto) 17.5 L (20-40) % Gallia % (Auto) 3.1 (2-11) % Eos % (Auto) 1.0 (0-4) % Baso % (Auto) 0.3 (0-2) % Lymph # (Auto) 1.7 (1.2-4.9) X10*3/uL Gallia # (Auto) 0.3 (0.1-1.2) X10*3/uL Eos # (Auto) 0.1 (0.0-0.4) X10*3/uL Baso # (Auto) 0.0 (0.0-0.2) X10*3/uL Abs Immat Gran (auto) 0.04 H (0.00-0.03) X10*3/uL Absolute Neuts (auto) 7.4 (2.0-8.3) x10*3/uL Absolute Nucleated RBC 0.000 (0.0-0.012) X10*3/uL Nucleated RBC % (auto) 0.0 (0.0-0.2) /100WBC Sodium 143 (135-145) mmol/L Potassium 4.0 (3.3-5.1) mmol/L Chloride 105 (96-108) mmol/L Carbon Dioxide 23 (22-29) mmol/L Anion Gap 19 (12-20) BUN 8 L (9-16) mg/dL Creatinine 1.27 (0.5-1.4) mg/dL Estim Creat Clear Calc 97.3 Estimated GFR > 60 Random Glucose 107 (60-115) mg/dL Calcium 9.8 D (8.4-10.2) mg/dL Total Bilirubin 0.3 (0.0-1.0) mg/dL AST 26 (5-37) U/L ALT 43 H (0-40) U/L Alkaline Phosphatase 51 (39-117) U/L Troponin I High Sens 13.6 (<3.5-35.0) ng/L Total Protein 7.8 (6.5-8.0) g/dL Albumin 4.6 (3.5-5.0) g/dL COVID-19 (ONEAL) Negative (Negative) COVID-19 Clin Com See Note Independent Interpretation I performed an independent interpretation of an: EKG Interpretation: Normal sinus rhythm, HR-88, no STEMI, MS/QRS/QTC is within normal limits. Radiology Impression Discussion of test interpretation with radiology: I have reviewed the radiologist's reading. Radiologist Impression: Please see the discussion above Critical Care Time Critical Care Time Critical Care Time: Yes Total Critical Care Time: 60 Attestation: I personally attest to this time spent taking care of the patient. Discharge Plan Discharge Clinical Impression: Accidental overdose, Pneumonitis Patient Disposition: Still a Patient Instructions: Adult Overdose (ED), Pneumonitis (ED) Additional Instructions: Follow-up with your primary care doctor. Prescriptions: No Action dextroamphetamine-amphetamine [Adderall XR] 20 mg Capsule,Extended Release 24hr 20 mg PO DAILY multivitamin Tablet 1 tab PO DAILY clonidine HCl 0.1 mg Tablet 0.1 mg PO BID venlafaxine 75 mg Capsule,Extended Release 24hr 150 mg PO DAILY doxycycline hyclate 100 mg capsule 100 mg PO BID 7 Days Qty: 14 0RF lorazepam 1 mg tablet 1 mg PO BID PRN (Reason: panic attacks) nicotine (polacrilex) 2 mg Gum 2 mg BUCCAL Q2H PRN (Reason: Smoking Cessation)
--- NOTE | 2023-01-24 17:40 | PC.NURSE ---
pt a&ox3. respirations even but labored 22-24 breaths per minute. pt lungs sounds clear but diminished. pt reports chest pain and difficultly breathing reporting he is having a panic attack . pt skin diaphoretic and warm to touch and slightly ashen. pt coming from friends house where he reports trying opiates for the first time. pt friend found pt on floor unresponsive. ems reports finding multiple bags around the pt. pt on 15L oxymax sating at 82-88%. pt denies SI/HI. pt sinus tachy 105-110 on tele.
[2023-01-24 17:46] LABS: MANUAL DIFF FLAG NO
[2023-01-24 17:48] LABS: Basophils Percent Auto 0.3 % (0-2); Eosinophils Absolute Auto 0.1 X10*3/uL (0.0-0.4); Hematocrit 54.2 % (42.0-52.0); Hemoglobin 17.4 g/dl (14.0-18.0); Imm Gran Abs Auto 0.04 X10*3/uL (0.00-0.03); Imm Gran Pct Auto 0.4 % (0.0-0.4); Lymphocytes Absolute Auto 1.7 X10*3/uL (1.2-4.9); Lymphocytes Percent Auto 17.5 % (20-40); Mean Corpuscular HGB Conc 32.1 g/dl (31.0-36.0); Mean Corpuscular Hemoglobin 25.5 pg (27.0-33.0); Mean Corpuscular Volume 79.5 fL (80.0-98.0); Mean Platelet Volume 9.4 fL (9.4-12.4); Monocytes Absolute Auto 0.3 X10*3/uL (0.1-1.2); Monocytes Percent Auto 3.1 % (2-11); Neutrophils Absolute Auto 7.4 x10*3/uL (2.0-8.3); Neutrophils Percent Auto 77.7 % (45-73); Platelet Count 301 X10*3/uL (160-400); Red Blood Count 6.82 X10*6/uL (4.60-5.80); Red Cell Distribution Width 16.9 % (11.0-16.0); White Blood Count 9.5 X10*3/uL (4.8-10.8)
--- NOTE | 2023-01-24 17:49 | PC.NURSE ---
pt on nasal cannula sating in the low 80s pt then placed on on 15L on non rebreather sating between 87-90%.
--- NOTE | 2023-01-24 17:50 | PC.NURSE ---
repiratory at bedside placing pt on high flow nasal cannula 75% at 40L. pt sating at 94%
--- NOTE | 2023-01-24 17:57 | PC.NURSE ---
belonging secured with security in [place].
[2023-01-24 18:03] LABS: Alanine Aminotransferase 43 U/L (0-40); Albumin Level 4.6 g/dL (3.5-5.0); Alkaline Phosphatase 51 U/L (39-117); Anion Gap 19 (12-20); Aspartate Amino Transferase 26 U/L (5-37); Bilirubin Total 0.3 mg/dL (0.0-1.0); Blood Urea Nitrogen 8 mg/dL (9-16); Calcium 9.8 mg/dL (8.4-10.2); Carbon Dioxide 23 mmol/L (22-29); Chloride 105 mmol/L (96-108); Creatinine Clr Calc Pharmacy 97.3; Estimated Glomerular Filt Rate > 60; Glucose Random 107 mg/dL (60-115); Sodium 143 mmol/L (135-145); Total Protein 7.8 g/dL (6.5-8.0)
[2023-01-24] MEDS: fentaNYL citrate/PF 100 MCG/2 ML VIAL 25 MCG IVPUSH (18:10)
[2023-01-24] MEDS: methylPREDNISolone Sod Succ 125 MG/2 ML VIAL IVPUSH (18:10)
--- OUTSIDE RECORDS SUMMARY | 2023-01-24 18:20 | XMS_ITS | Continuity of Care Document ---
Author Name Unknown Organization [facility] ter Address [address] [place] [id number]- Care Team Providers Care Glaze Sprayer Name Role Phone Dimitris QURESHI, John Plascencia Primary Care Physician Encounter [facility] – [place] Date(s): 03/10/20 - 03/12/[address] [address]- [facility] Discharge Disposition: A-D/C Home Attending Physician: Cole QURESHI, Buck Pang Admitting Physician: Elton Eller MD Referring Physician: Not on Staff, Referring MD Allergies, Adverse Reactions, Alerts No Known Medication Allergies Immunizations Not Given Vaccine Date Status Refusal Reason pneumococcal 23-valent vaccine 03/11/20 Not Given Patient Refuses Medications Adderall 15 mg oral tablet 1 tablet = 15 mg, By Mouth, Daily in AM, # 2 tablet, 0 Refills, Maintenance, 03/12/20 15:47:00 EDT,Tablet, [facility], 1 tablet By Mouth Daily in AM, 1, cm, 03/12/20 12:33:00 EDT, Height, 93.4, kg, 03/10/20 15:40:00 EDT, Dry Weight Start Date: 03/12/20 Status: Ordered ALPRAZolam 1 mg oral tablet 1 tablet = 1 mg, By Mouth, 2 times a day, # 4 tablet, 0 Refills, Acute 03/14/20 16:00:00 EST, 03/12/20 15:47:00 EDT, Tablet, [facility], 1, cm, 03/12/20 12:33:00 EDT, Height, 93.4, kg, 03/10/20 15:40:00 EDT, Dry Weight Start Date: 03/12/20 Stop Date: 03/14/20 Status: Ordered cloNIDine 0.1 mg oral tablet 0.1 mg, 1, tablet, By Mouth, Daily, # 2 tablet, Refills 0, Tot. Refills 0, Maintenance, 03/12/20 15:42:00 EDT, Route to Pharmacy Electronically, [facility], 1, cm, 03/12/20 12:33:00 EDT, Height, 93.4, kg, 03/10/20 15:40:00 EDT, Dry Weight Start Date: 03/12/20 Status: Ordered folic acid 1 mg oral tablet 1 mg, 1, tablet, By Mouth, Daily, # 30 tablet, Refills 11, Tot. Refills 11, Maintenance, 03/12/20 15:43:00 EDT, Route to Pharmacy Electronically, [facility], 1, cm, 03/12/20 12:33:00 EDT, Height, 93.4, kg, 03/10/20 15:40:00 EDT, Dry Weight Start Date: 03/12/20 Status: Ordered melatonin 3 mg oral tablet, extended release 1 tablet = 3 mg, By Mouth, Daily at bedtime, # 60 tablet, 1 Refills, Acute 03/12/21 15:44:00 EDT, 03/12/20 15:43:00 EDT, ER Tablet, [facility], 1 tablet By Mouth Daily at bedtime, 1, cm, 03/12/20 12:33:00 EDT, Height, 93.4, kg, 03/10/20... Start Date: 03/12/20 Stop Date: 03/12/21 Status: Ordered pyridoxine 50 mg oral tablet 50 mg, 1, tablet, By Mouth, Daily, # 30 tablet, Refills 11, Tot. Refills 11, Acute 03/12/21 15:44:00 EDT, 03/12/20 15:43:00 EDT, Route to Pharmacy Electronically, [facility], 1, cm, 03/12/20 12:33:00 EDT, Height, 93.4, kg, 03/10/20 15:40... Start Date: 03/12/20 Stop Date: 03/12/21 Status: Ordered thiamine 100 mg oral tablet 100 mg, 1, tablet, By Mouth, 2 times a day, # 30 tablet, Refills 11, Tot. Refills 11, Acute 03/12/21 15:44:00 EDT, 03/12/20 15:43:00 EDT, Route to Pharmacy Electronically, [facility], 1, cm, 03/12/20 12:33:00 EDT, Height, 93.4, kg, 03/10... Start Date: 03/12/20 Stop Date: 03/12/21 Status: Ordered venlafaxine 50 mg oral tablet 1 tablet = 50 mg, By Mouth, 2 times a day, # 4 tablet, 0 Refills, Maintenance, 03/12/20 15:42:00 EDT, Tablet, [facility], 1, cm, 03/12/20 12:33:00 EDT, Height, 93.4, kg, 03/10/20 15:40:00 EDT, Dry Weight Start Date: 03/12/20 Status: Ordered Vital Signs Most recent to oldest [Reference Range]: 1 2 3 Height 1 cm (03/12/20 12:33 PM) 1 cm (03/12/20 8:27 AM) 1 cm (03/12/20 5:07 AM) Weight 93.4 kg (03/10/20 3:40 PM) Oxygen Saturation [94-100 %] 99 % (03/12/20 12:33 PM) 96 % (03/12/20 8:27 AM) 100 % (03/12/20 5:07 AM) Pulse Rate [55-90 bpm] 64 bpm (03/12/20 12:33 PM) 56 bpm (03/12/20 8:27 AM) 60 bpm (03/12/20 5:07 AM) Blood Pressure [90-138/55-84 mm Hg] 146/78mm Hg *H* (03/12/20 12:33 PM) 143/78mm Hg *H* (03/12/20 8:27 AM) 132/86mm Hg (03/12/20 5:07 AM) Respiratory Rate [16-30 br/min] 18 br/min (03/12/20 12:33 PM) 18 br/min (03/12/20 8:27 AM) 19 br/min (03/12/20 5:07 AM) Temperature [96.8-100.4 DegF] 98.7 DegF (03/12/20 12:33 PM) 98.5 DegF (03/12/20 8:27 AM) 98.6 DegF (03/12/20 5:07 AM) Mode of Delivery (Oxygen) Room air (03/12/20 12:33 PM) Room air (03/12/20 8:27 AM) Room air (03/12/20 5:07 AM) Blood pressure sites Arm, right (03/12/20 12:33 PM) Arm, left (03/12/20 8:27 AM) Arm, left (03/12/20 5:07 AM) Temperature Route Oral (03/12/20 12:33 PM) Oral (03/12/20 8:27 AM) Oral (03/12/20 5:07 AM) Dry Weight 93.4 kg (03/10/20 3:40 PM)
--- OUTSIDE RECORDS SUMMARY | 2023-01-24 18:20 | XMS_ITS | Continuity of Care Document ---
Author Name Unknown Organization [facility] ter Address [address] [place] [id number]- Care Team Providers Care Dye Can Operator Name Role Phone John Shanks MD Primary Care Physician Encounter [facility] – [place] Date(s): 03/05/20 - 03/05/[address] [address]- [facility] Encounter Diagnosis Flank pain(Final) - 03/05/20 Discharge Disposition: A-D/C Home Attending Physician: Jayesh Payne MD Admitting Physician: Jayesh Payne MD Referring Physician: Not on Staff, Referring MD Allergies, Adverse Reactions, Alerts No Known Medication Allergies Medications Adderall 15 mg oral tablet 1 tablet = 15 mg, By Mouth, Daily in AM, # 30 tablet, 0 Refills, Maintenance, 03/05/20 18:02:00 EDT, Tablet Start Date: 03/05/20 Status: Ordered cloNIDine 0.1 mg oral tablet 0.1 mg, 1, tablet, By Mouth, Daily, # 30 tablet, Refills 0, Tot. Refills 0, Maintenance, 03/05/20 18:02:00 EDT, Print Requisition Start Date: 03/05/20 Status: Ordered venlafaxine 50 mg oral tablet 1 tablet = 50 mg, By Mouth, 2 times a day, # 60 tablet, 0 Refills, Maintenance, 03/05/20 18:03:00 EDT, Tablet Start Date: 03/05/20 Status: Ordered Vital Signs Most recent to oldest [Reference Range]: 1 2 3 Oxygen Saturation [94-100 %] 99 % (03/05/20 2:55 PM) 100 % (03/05/20 1:49 PM) 96 % (03/05/20 11:09 AM) Pulse Rate [55-90 bpm] 88 bpm (03/05/20 2:55 PM) 92 bpm *H* (03/05/20 1:49 PM) 93 bpm *H* (03/05/20 11:09 AM) Blood Pressure [90-138/55-84 mm Hg] 153/90mm Hg *H* (03/05/20 2:55 PM) 152/96mm Hg *H* (03/05/20 1:49 PM) 159/86mm Hg *H* (03/05/20 11:09 AM) Respiratory Rate [16-30 br/min] 18 br/min (03/05/20 2:55 PM) 18 br/min (03/05/20 1:49 PM) 16 br/min (03/05/20 11:09 AM) Temperature [96.8-100.4 DegF] 98.6 DegF (03/05/20 2:55 PM) 98.7 DegF (03/05/20 1:49 PM) 98.1 DegF (03/05/20 11:09 AM) Mode of Delivery (Oxygen) Room air (03/05/20 2:55 PM) Room air (03/05/20 1:49 PM) Room air (03/05/20 11:09 AM) Blood pressure sites Arm, right (03/05/20 2:55 PM) Arm, right (03/05/20 1:49 PM) Arm, left (03/05/20 11:09 AM) Temperature Route Oral (03/05/20 2:55 PM) Oral (03/05/20 1:49 PM) Oral (03/05/20 11:09 AM)
--- OUTSIDE RECORDS SUMMARY | 2023-01-24 18:20 | XMS_ITS | Continuity of Care Document ---
Author Name Unknown Organization [facility] ter Address [address] [place] [id number] Care Team Providers Care Promotional Demonstrator Name Role Phone Not on Staff, PCP Primary Care Physician Unavail able [place] [facility] [place] - 06/19/[address] [id number]- Encounter Diagnosis Rhabdomyolysis(Final) - 06/17/22 Discharge Disposition: A-D/C AMA Attending Physician: Ros QURESHI, Davidhui Admitting Physician: Rock Post DO Referring Physician: Not on Staff, Referring MD Allergies, Adverse Reactions, Alerts No Known Medication Allergies Immunizations Not Given Vaccine Date Status Refusal Reason pneumococcal 23-valent vaccine 03/11/20 Not Given Patient Refuses Medications Adderall 15 mg oral tablet 1 tablet = 15 mg, By Mouth, Daily in AM, 0 Refills, Maintenance, 06/18/22 0:47:00 EST, Tablet, Partial fill upon patient request if the prescription is for a schedule II opioid drug. Start Date: 06/18/22 Status: Ordered cloNIDine 0.1 mg oral tablet 0.1 mg, 1, tablet, By Mouth, Daily, # 2 tablet, Refills 0, Tot. Refills 0, Maintenance, 03/12/20 15:42:00 EDT, Route to Pharmacy Electronically, [facility], 1, cm, 03/12/20 12:33:00 EDT, Height, 93.4, kg, 03/10/20 15:40:00 EDT, Dry Weight Start Date: 03/12/20 Status: Ordered cloNIDine 0.1 mg oral tablet 0.1 mg, 1, tablet, By Mouth, Daily, # 30 tablet, Refills 0, Maintenance, 06/18/22 0:47:00 EST, Partial fill upon patient request if the prescription is for a schedule II opioid drug. Start Date: 06/18/22 Status: Ordered folic acid 1 mg oral tablet 1 mg, 1, tablet, By Mouth, Daily, # 30 tablet, Refills 11, Tot. Refills 11, Maintenance, 03/12/20 15:43:00 EDT, Route to Pharmacy Electronically, [facility], 1, cm, 03/12/20 12:33:00 EDT, Height, 93.4, kg, 03/10/20 15:40:00 EDT, Dry Weight Start Date: 03/12/20 Status: Ordered venlafaxine 25 mg oral tablet 2 tablet = 50 mg, By Mouth, 2 times a day, # 270 tablet, 0 Refills, Maintenance, 06/18/22 0:47:00 EST, Tablet, Partial fill upon patient request if the prescription is for a schedule II opioid drug. Start Date: 06/18/22 Status: Ordered Results Radiology Reports * Exam Date Time Procedure Performing Provider Status 06/18/22 5:14 AM Chest Portable Ghanshyam Adam (Waylon ified) Notes: (Chest Portable) Reason For Exam: leukocytosis, cough;Pleuritic Pain RESULT: Chest Portable Examination: Portable chest performed on 06/18/2022. History: Pleuritic pain. Leukocytosis. Cough. Findings: A frontal view of the chest is submitted without comparison. The cardiac and mediastinal silhouettes are within normal limits. Right upper and left lower lobe airspace opacities are demonstrated, greatest within the right upper lobe. There are no pneumothoraces or pleural effusions. The osseous structures are unremarkable. IMPRESSION: Multifocal airspace opacity, consistent with pneumonia. Follow-up to complete radiographic resolution after treatment is recommended. WSN: [id number] Ordering Physician: Yudy West Dictated By: Gela Costa MD Dictated Date/Time: 06/18/22 8:51 am Reviewed By: Gela Costa MD Signed By: Gela Costa MD Signed Date/Time: 06/18/22 8:51 am Transcribed By: CAS Transcribed Date/Time: 06/18/22 8:50 am * Exam Date Time Procedure Performing Provider Status 06/18/22 3:[address] Head/Brain W/O Contrast Geronimo Madrigal (Verified) Notes: (CT Head/Brain W/O Contrast) Reason For Exam: ams, likey intoxicated. need to r/o hematomoa / infarct;Behavior Problem RESULT: CT Head/Brain W/O Contrast CT Head/Brain W/O Contrast INDICATION: Reason: Behavior Problem; ams, likey intoxicated. need to r o hematomoa infarct; Clinical Question(s): Infarction TECHNIQUE: Noncontrast head CT using axial technique and reconstructed in axial and coronal planes.Iterative reconstruction techniques are used to optimize dose and image quality. CTDIvol Head: 47.80 mGy, DLP Head: 772 mGy*cm. COMPARISON: None. 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 BRAIN AND EXTRA-AXIAL SPACES: No parenchymal hemorrhage, midline shift, or mass effect. Bush-white matter differentiation is wellpreserved. No acute infarct. Ventricles, sulci, and basilar cisterns are normal. Mild low-density white matter changes. No subarachnoid hemorrhage. No subdural or epidural collection. CALVARIUM, SKULL BASE, AND SOFT TISSUES: No fractures or suspicious bony lesions. Mild mucosal thickening of the right maxillary sinus and ethmoid air cells. The remaining paranasalsinuses and mastoid air cells are clear. Visualized orbits and globes are intact. The extracranial soft tissues are unremarkable. IMPRESSION: No acute intracranial hemorrhage or acute intracranial process. I have personally reviewed the images and I agree with this report. WSN: [id number] Ordering Physician: Yudy West Dictated By: Carolina Cardoza DO Dictated Date/Time: 06/18/22 9:50 am Reviewed By: Pete Garg MD Signed By: Pete Garg MD Signed Date/Time: 06/18/22 9:55 am Transcribed By: CAS Transcribed Date/Time: 06/18/22 9:21 am Vital Signs Most recent to oldest [Reference Range]: 1 2 3 Oxygen Saturation [94-100 %] 99 % (06/19/22 7:24 AM) 95 % (06/19/22 6:13 AM) 99 % (06/19/22 4:23 AM) Pulse Rate [55-90 bpm] 84 bpm (06/19/22 7:24 AM) 88 bpm (06/19/22 6:13 AM) 85 bpm (06/19/22 4:23 AM) Blood Pressure [90-138/55-84 mm Hg] 146/94mm Hg *H* (06/19/22 7:24 AM) 138/93mm Hg (06/19/22 6:13 AM) 135/93mm Hg (06/19/22 4:23 AM) Respiratory Rate [16-30 br/min] 14 br/min *L* (06/19/22 7:24 AM) 23 br/min (06/19/22 6:13 AM) 88 br/min *H* (06/19/22 4:23 AM) Temperature [96.8-100.4 DegF] 98.1 DegF (06/19/22 6:13 AM) 98.7 DegF (06/18/22 9:33 AM) 99.2 DegF (06/17/22 8:55 PM) Liters per Minute 2 L/min (06/17/22 11:30 AM) 2 L/min (06/17/22 10:35 AM) Mode of Delivery (Oxygen) Room air (06/19/22 7:24 AM) Room air (06/19/22 6:13 AM) Room air (06/19/22 4:23 AM) Blood pressure sites Arm, right (06/18/22 6:44 PM) Arm, right (06/18/22 4:28 PM) Arm, right (06/18/22 2:06 PM) Temperature Route Oral (06/19/22 6:13 AM) Oral (06/18/22 9:33 AM) Oral (06/17/22 8:55 PM) Admission evaluation note * Brett QURESHI, Yudy Hall: MODIFY, MODIFY, MODIFY, PERFORM, MODIFY, MODIFY Event Display: Admission Note Authored Date: Patient: ??JASVIR PETTIT ? Age:??36 Years?Sex:??Male?:??1985?? Chief Complaint/Reason for Consultation naked running around outside, girlfriend reports cocaine use, pt yelling he needed water and ativan. 250mg Ketamine IM given History of Present Illness 36-year-old male with PMH of HTN, alcohol use disorder, ADHD, anxiety was brought to the ED by EMS due to altered mental status. ?? Patient medical chart reviewed, seen and examined at bedside.?? As per chart review patient found by the police after using cocaine wandering in the streets naked and agitated.?? Received 250 mg of IM ketamine by EMS and also received Narcan by his girlfriend earlier that evening.?? Currently patient easily arousable, awake and oriented to self, time and place.?? He does not know how he ended up in the hospital.?? Complains of feeling anxious/shaky.?? Denies any headache, dizziness, chest pain,shortness of breath, palpitations, nausea, vomiting, fever, chills, cough, sore throat, runny nose,abdominal pain, constipation, diarrhea, dysuria. ?? Initially in the ED, patient remains afebrile, tachycardic to 100, RR 18, initial blood pressureelevated to 195/114 later improved to 131/93, saturating 95% on room air.?? Found to have significant leukocytosis 24.6, Hgb 16, PLT 312, electrolytes normal, BUN/creatinine 12/1.2, anion gap of 24, bicarb of 20, blood glucose 108, AST/ALT 87/42, lactate initially was 7.9 improved to 3 after IV fluids, CK uptrending 6405-- 7759 -- 8286.?? High-sensitivity troponin 22?21?17, ethanol level 21, urine drug screen in process.?? Patient received IV lorazepam and 2 L of fluid boluses and will be admitted to inpatient medicine service for further management. Review of Systems All the systems are reviewed and are negative, except as above Objective ? Vital Signs?? Temperature: 99.2 DegF (06/17/22 20:55:00) Temperature Route: Oral (06/17/22 20:55:00) Pulse Rate:??99 bpm??High (06/17/22 20:55:00) Respiratory Rate: 16 br/min (06/17/22 23:18:00) Systolic Blood Pressure:??139 mm Hg??High (06/17/22 20:55:00) Diastolic Blood Pressure:??114 mm Hg??High (06/17/22 20:55:00) Blood pressure sites: Leg, left (06/17/22 10:35:00) Mean Arterial Pressure: 141 mm Hg (06/17/22 09:33:00) Pulse Pressure: 78 mm Hg (06/17/22 16:33:00) Oxygen Saturation: 97 % (06/17/22 20:55:00) Liters per Minute: 2 L/min (06/17/22 11:30:00) Mode of Delivery (Oxygen): Room air (06/17/22 20:55:00) Early Warning Score: 3 (06/17/22 23:57:00) ? Pain Scores FACES Scale Score: 0 (09:33) ? Intake/Output? No Data Available ?? Precautions Seizure Precautions ? Physical Exam ?? Gen- not in acute distress,??anxious HEENT- Normocephalic, Atraumatic, pupils equally reacting to light and accommodation.?? No pallor, icterus Neck-supple, no JVD, no lymphadenopathy. Heart-S1S2(+),??regular, no murmurs lungs- Clear, b/l air entry, no wheezing Abdomen-soft, nontender,nondistended,??bowel sounds present in 4q Extremities-pulses palpable??2+. No pedal edema Neurological- AAO??3. No??gross focal neurological deficits Psychiatric-patient???s mood is anxious Assessment/Plan 36-year-old male with PMH of HTN, alcohol use disorder, ADHD, anxiety was brought to the ED by EMS due to altered mental status. Initially in the ED, patient remains afebrile, tachycardic to 100, RR 18, initial blood pressure elevated to 195/114 later improved to 131/93, saturating 95% on room air.?? Found to have significant leukocytosis 24.6, Hgb 16, PLT 312, electrolytes normal, BUN/abhjujoody64/1.2, anion gap of 24, bicarb of 20, blood glucose 108, AST/ALT 87/42, lactate initially was 7.9 improved to 3 after IV fluids, CK uptrending 6405-- 3280 -- 8286.?? High-sensitivity troponin 22?21?17, ethanol level 21, urine drug screen in process.?? Patient received IV lorazepam and 2 L of fluid boluses and will be admitted to inpatient medicine service for further management. ?? Altered mental status Alcohol intoxication/withdrawal Polysubstance use disorder Rhabdomyolysis? Transaminitis Lactic acidosis Anion gap metabolic acidosis -??due to elevated lactic acid significant leukocytosis - likely due to hemoconcentration due to hypovolemia vs stress induced. will do infectious workup - f/w CXR, Urinanalysis. no skin rashes/cellulitis like changes. Vitals as per unit standard Telemetry monitoring S/p 2 L fluid boluses Continued??on maintenance IV fluids 200 cc/h On CIWA protocol, lorazepam as needed as per CIWA score Follow-up with urine drug screen Trend electrolytes,??lactate,??CK until normal Trend LFTs Thiamine/folic acid/multivitamin/pyridoxine Zofran??as needed nausea and vomiting HTN???clonidine??0.1 mg daily Once improved, addiction medicine consulted f/w CT head ?? Code???full, confirmed with patient at bedside Diet???regular DVT prophylaxis???subcu Lovenox ?? Patient seen and examined on 06/17/2022 Histories Allergies Allergies ?(Active and Proposed Allergies Only) No Known Medication Allergies? (Severity: Unknown severity, Onset: Unknown) ? Past Medical History/Problem List No problems documented. ? Past Surgical History No surgery history documented. ? Social History No social history documented. ? Family History No family history recorded. ? Medications Home Medications Amphetamine-Dextroamphetamine (Adderall 15 mg oral tablet)?1?tab(s)?15?Milligram?By Mouth?Daily in AM Clonidine (cloNIDine 0.1 mg oral tablet)?0.1?Milligram?1?tablet?By Mouth?Daily Venlafaxine (venlafaxine 25 mg oral tablet)?2?tab(s)?50?Milligram?By Mouth?2 times a day ? Inpatient Medications Medications (18) Active SCHEDULED: (6) Enoxaparin 40 mg Inj (Enoxaparin Inj) ??40 mg 0.4 mL, Subcutaneous Injection, Daily Folic Acid 1 mg Tablet (Folic Acid Tablet) ??1 mg, By Mouth, Daily Multivitamin Tablet ??1 tablet, By Mouth, Daily NaCl 0.9% Flush 3ml (NaCL 0.9% Flush) ??3 mL, IV Push, Every 8 hours Pyridoxine 50 mg Tablet (Pyridoxine Tablet) ??50 mg, By Mouth, Daily Thiamine 100 mg Tablet (Thiamine Tablet) ??100 mg, By Mouth, 2 times a day CONTINUOUS: (1) Lactated Ringers (1000 mL) Cont IV 1,000 mL (LR 1,000 mL) ??1,000 mL, IV Infusion, 200 mL/hr PRN: (11) Acetaminophen 325 mg Tablet (Acetaminophen Tablet) ??650 mg, By Mouth, Every 4 hours Clonidine 0.1 mg Tablet (cloNIDine 0.1 mg oral tablet) ??0.1 mg, By Mouth, Daily Dextromethorphan-Guaifenesin 20 mg-200 mg/10 mL Liqu UD (Robitussin DM Liquid) ??10 mL, By Mouth, Every 4 hours Lorazepam 2 mg Inj Syringe (Ativan Inj) ??1 mg, IV Push Slowly, Every 2 hours Lorazepam 2 mg Inj Syringe (Ativan Inj) ??2 mg, IV Push Slowly, Every 2 hours Lorazepam 2 mg Inj Syringe (Ativan Inj) ??2 mg, IV Push Slowly, Every hour Melatonin 3 mg Tablet (Melatonin Tablet) ??3 mg, By Mouth, Daily at bedtime NaCl 0.9% Flush 3ml (NaCL 0.9% Flush) ??3 mL, IV Push, Every 8 hours Polyethylene Glycol 17 Gm Powder (MiraLax Powder) ??17 Gm 1 pack/packet, By Mouth, Daily Senna 8.6 mg / Docusate 50 mg tablet (Docusate/Senna Tablet) ??1 tablet, By Mouth, 2 times a day Simethicone 80 mg Chewable Tablet (Simethicone Tablet) ??80 mg, Chew, 3 times a day ? Results Recent Labs BLOOD COUNT & DIFF WBC 24.6 k/mm3 (High)?? 06/17/2022 09:57 RBC 5.42 m/mm3 ()?? 06/17/2022 09:57 Hgb 16.0 Gm/dL ()?? 06/17/2022 09:57 Hct 49.8 % ()?? 06/17/2022 09:57 MCV 91.9 femtoliters ()?? 06/17/2022 09:57 MCH 29.5 pg ()?? 06/17/2022 09:57 MCHC 32.1 g/dL (Low)?? 06/17/2022 09:57 Platelet Count 312 k/mm3 ()?? 06/17/2022 09:57 RDW-SD 51.4 femtoliters (High)?? 06/17/2022 09:57 MPV 9.5 femtoliters ()?? 06/17/2022 09:57 Nucleated RBC (Automated) 0.0 #/100 WBC'S ()?? 06/17/2022 09:57 Abs. NRBC 0.0 k/mm3 ()?? 06/17/2022 09:57 Abs. Neut 20.7 k/mm3 (High)?? 06/17/2022 09:57 Abs. Lymph 0.7 k/mm3 (Low)?? 06/17/2022 09:57 Abs. Eaton 2.7 k/mm3 (High)?? 06/17/2022 09:57 Abs. Eo 0.0 k/mm3 ()?? 06/17/2022 09:57 Abs. Baso 0.0 k/mm3 ()?? 06/17/2022 09:57 Neut % 75.0 % ()?? 06/17/2022 09:57 Lymph % 3.0 % (Low)?? 06/17/2022 09:57 Eaton % 11.0 % (High)?? 06/17/2022 09:57 Eos % 0.0 % ()?? 06/17/2022 09:57 Baso % 0.0 % ()?? 06/17/2022 09:57 Metamyelocyte % 2.0 % ()?? 06/17/2022 09:57 Band % 9.0 % (High)?? 06/17/2022 09:57 Platelet Estimate ADEQUATE ()?? 06/17/2022 09:57 ?? CARDIAC CK, Total 8286 units/L (High)?? 06/17/2022 15:09 CK MB Confirmation - Quant 36.9 ng/mL (High)?? 06/17/2022 09:57 High Sensitivity Troponin (HSTnT) 17 ng/L ()?? 06/17/2022 13:23 ?? CHEM GENERAL Sodium 142 mmol/L ()?? 06/17/2022 09:57 Potassium 4.9 mmol/L ()?? 06/17/2022 09:57 Chloride 98 mmol/L ()?? 06/17/2022 09:57 Bicarbonate Level 20 mmol/L (Low)?? 06/17/2022 09:57 Anion Gap 24 (High)?? 06/17/2022 09:57 Glucose Level 108 mg/dL (High)?? 06/17/2022 09:57 Glucose, POC 112 mg/dL (High)?? 06/17/2022 09:40 BUN 12 mg/dL ()?? 06/17/2022 09:57 Creatinine-Blood 1.2 mg/dL ()?? 06/17/2022 09:57 Estimated GFR Creatinine 46 ML/MIN/1.73 M2 ()?? 06/17/2022 09:57 Calcium 9.8 mg/dL ()?? 06/17/2022 09:57 Protein, Total 8.0 Gm/dL ()?? 06/17/2022 09:57 Albumin 5.3 Gm/dL (High)?? 06/17/2022 09:57 AG Ratio 2.0 ()?? 06/17/2022 09:57 Alkaline Phosphatase 81 units/L ()?? 06/17/2022 09:57 AST (SGOT) 87 units/L (High)?? 06/17/2022 09:57 ALT (SGPT) 42 units/L (High)?? 06/17/2022 09:57 Bilirubin, Total 0.4 mg/dL ()?? 06/17/2022 09:57 Lactate 3.0 mmol/L (High)?? 06/17/2022 11:33 ?? HEME OTHER Hold Blue Top SPECIMEN DISCARDED AFTER 4 HOURS. ()?? 06/17/2022 11:33 ?? MISC. CHEMISTRY Hold Gel Top SPECIMEN DISCARDED AFTER 1 WEEK ()?? 06/17/2022 11:33 ?? TOXICOLOGY/TDM Ethanol, Serum or Plasma 21 mg/dL (Abnormal)?? 06/17/2022 09:57 Salicylate Level <0.3 mg/dL (Low)?? 06/17/2022 09:57 Acetaminophen Level <5 mg/L (Low)?? 06/17/2022 09:57 ?? VIROLOGY COVID-19 by RT-PCR NEGATIVE ()?? 06/17/2022 23:28 ? Urinalysis?? No qualifying data available. ?? Microbiology ?? COVID-19 (Novel Coronavirus), Rapid PCR?? Completed?? Source: Nasal Body Site: Nose Collected Dt/Tm: 06/17/2022 22:08 Last Updated Dt/Tm: 06/18/2022 00:47 ? Cardiology Labs CK, Total:??8286 units/L??High (06/17/22 15:09:00) CK, Total:??7759 units/L??High (06/17/22 13:23:00) CK, Total:??6405 units/L??High (06/17/22 09:57:00) CK, Total:??6405 units/L??High (06/17/22 09:57:00) CK MB Confirmation - Quant:??36.9 ng/mL??High (06/17/22 09:57:00) High Sensitivity Troponin (HSTnT): 17 ng/L (06/17/22 13:23:00) High Sensitivity Troponin (HSTnT): 21 ng/L (06/17/22 11:33:00) High Sensitivity Troponin (HSTnT):??22 ng/L??High (06/17/22 09:58:00) ? EKG study * Event Display: ECG 12-Lead Authored Date: Please click on pdf link to open report * Event Display: ECG 12-Lead Authored Date: Ventricular Rate: 134 BPM Atrial Rate: 134 BPM P-R Interval: 144 ms QRS Duration: 74 ms Q-T Interval: 282 ms QTC Calculation(Bazett): 421 ms P Seymour: 45 degrees R Seymour: 6 degrees T Seymour: 23 degrees Poor data quality, interpretation may be adversely affected Sinus tachycardia Indeterminate axis Borderline ECG No previous ECGs available Confirmed by GUILLAUME OCHOA ([id number]) on 06/18/2022 9:46:52 AM Lewis: GUILLAUME OCHOA [facility] Progress note * Cristina Bhardwaj: PERFORM, SIGN, VERIFY Event Display: [facility] Authored Date: Patient: JASVIR PETTIT Age: 36 years Sex: Male : 1985 Associated Diagnoses: None Author: Cristina Bhardwaj Addiction med consult request placed - ETOH, cocaine, marijuana use. Patient was admitted with AMS after using cocaine. Tox + cocaine and barbiturates. Attempted to meet with the patient around 10am this morning, however patient was not in his ED bed. Upon reviewing the patients chart after, appears patient left AMA about 10 min prior to my arrival to the ED. Addiction service will sign off for now. * Nawaf Jackman DO: PERFORM Event Display: [facility] Authored Date: [id number] Patient: ??JAVSIR PETTIT ? Age:??36 Years?Sex:??Male?:??1985?? Subjective Patient seen and examined this morning. ??He is resting in the ED room??and states that he is feeling quite anxious at this time. ??He admits to use of alcohol as well as marijuana but denying other drugs.?? We will wait for U tox to return??however there was reported history of cocaine use.?? Otherwise we will continue patient on CIWA protocol and continue to monitor.?? Patient did have an elevated procalcitonin however he has been afebrile and denying any respiratory symptoms at this time andthis may have been elevated in the setting of the very elevated lactate as well as rhabdomyolysis??and will repeat??his patient without any other pulmonary signs. ?? Review of Systems As per HPI Objective Vital Signs?? Temperature: 98.7 DegF (06/18/22 09:33:00) Temperature Route: Oral (06/18/22 09:33:00) Pulse Rate:??91 bpm??High (06/18/22 12:42:00) Respiratory Rate: 18 br/min (06/18/22 12:42:00) Systolic Blood Pressure: 124 mm Hg (06/18/22 12:42:00) Diastolic Blood Pressure: 79 mm Hg (06/18/22 12:42:00) Blood pressure sites: Arm, right (06/18/22 12:42:00) Mean Arterial Pressure: 104 mm Hg (06/18/22 11:18:00) Pulse Pressure: 45 mm Hg (06/18/22 12:42:00) Oxygen Saturation: 95 % (06/18/22 12:42:00) Mode of Delivery (Oxygen): Room air (06/18/22 12:42:00) Early Warning Score: 2 (06/18/22 12:43:04) ? Intake/Output? No Data Available ? Physical Exam General Appearance: NAD. Eyes:??No scleral icterus. ENT: ??MM moist. Dentition intact. Cardiovascular: RRR S1 and S2 heard with no M/R/G. No JVD. Respiratory: ??Breath sounds clear to auscultation bilaterally. GI: Soft. Nontender and nondistended. MS: ??No edema or erythema in the lower extremities. Skin:??No rashes seen on chest, abdomen, or back. ? Neuro: ??No slurred speech. Moving upper and lower extremities spontaneously. Psych: Alert and oriented x3.?? Results Recent Labs BLOOD COUNT & DIFF WBC 14.7 k/mm3 (High)?? 06/18/2022 05:18 RBC 4.31 m/mm3 (Low)?? 06/18/2022 05:18 Hgb 13.2 Gm/dL (Low)?? 06/18/2022 05:18 Hct 38.9 % (Low)?? 06/18/2022 05:18 MCV 90.3 femtoliters ()?? 06/18/2022 05:18 MCH 30.6 pg ()?? 06/18/2022 05:18 MCHC 33.9 g/dL ()?? 06/18/2022 05:18 Platelet Count 201 k/mm3 ()?? 06/18/2022 05:18 RDW-SD 48.1 femtoliters (High)?? 06/18/2022 05:18 MPV 9.6 femtoliters ()?? 06/18/2022 05:18 Nucleated RBC (Automated) 0.0 #/100 WBC'S ()?? 06/18/2022 05:18 Abs. NRBC 0.0 k/mm3 ()?? 06/18/2022 05:18 Abs. Neut 11.2 k/mm3 (High)?? 06/18/2022 05:18 Abs. Lymph 2.0 k/mm3 ()?? 06/18/2022 05:18 Abs. Eaton 1.0 k/mm3 ()?? 06/18/2022 05:18 Abs. Eo 0.4 k/mm3 ()?? 06/18/2022 05:18 Abs. Baso 0.1 k/mm3 ()?? 06/18/2022 05:18 Neut % 76.1 % (High)?? 06/18/2022 05:18 Lymph % 13.3 % (Low)?? 06/18/2022 05:18 Eaton % 6.9 % ()?? 06/18/2022 05:18 Eos % 2.7 % ()?? 06/18/2022 05:18 Baso % 0.5 % ()?? 06/18/2022 05:18 Metamyelocyte % 2.0 % ()?? 06/17/2022 09:57 Band % 9.0 % (High)?? 06/17/2022 09:57 Platelet Estimate ADEQUATE ()?? 06/17/2022 09:57 Imm Gran 0.5 % ()?? 06/18/2022 05:18 Abs. Imm Gran 0.1 k/mm3 ()?? 06/18/2022 05:18 ?? CARDIAC CK, Total 7658 units/L (High)?? 06/18/2022 05:18 CK MB Confirmation - Quant 31.5 ng/mL (High)?? 06/18/2022 05:18 High Sensitivity Troponin (HSTnT) 17 ng/L ()?? 06/17/2022 13:23 ?? CHEM GENERAL Sodium 136 mmol/L ()?? 06/18/2022 05:18 Potassium 3.7 mmol/L ()?? 06/18/2022 05:18 Chloride 102 mmol/L ()?? 06/18/2022 05:18 Bicarbonate Level 25 mmol/L ()?? 06/18/2022 05:18 Anion Gap 9 ()?? 06/18/2022 05:18 Glucose Level 81 mg/dL ()?? 06/18/2022 05:18 Glucose, POC 112 mg/dL (High)?? 06/17/2022 09:40 BUN 10 mg/dL ()?? 06/18/2022 05:18 Creatinine-Blood 1.0 mg/dL ()?? 06/18/2022 05:18 Estimated GFR Creatinine 108 ML/MIN/1.73 M2 ()?? 06/18/2022 05:18 Calcium 9.1 mg/dL ()?? 06/18/2022 05:18 Phosphorus 3.2 mg/dL ()?? 06/18/2022 05:18 Magnesium 1.8 mg/dL ()?? 06/18/2022 05:18 Protein, Total 8.0 Gm/dL ()?? 06/17/2022 09:57 Albumin 5.3 Gm/dL (High)?? 06/17/2022 09:57 AG Ratio 2.0 ()?? 06/17/2022 09:57 Alkaline Phosphatase 81 units/L ()?? 06/17/2022 09:57 AST (SGOT) 87 units/L (High)?? 06/17/2022 09:57 ALT (SGPT) 42 units/L (High)?? 06/17/2022 09:57 Bilirubin, Total 0.4 mg/dL ()?? 06/17/2022 09:57 Lactate 1.4 mmol/L ()?? 06/18/2022 05:18 ?? HEME OTHER Hold Blue Top SPECIMEN DISCARDED AFTER 4 HOURS. ()?? 06/18/2022 05:18 ?? MISC. CHEMISTRY Procalcitonin 1.04 ng/mL ()?? 06/18/2022 05:18 Hold Gel Top SPECIMEN DISCARDED AFTER 1 WEEK ()?? 06/17/2022 11:33 ?? TOXICOLOGY/TDM Ethanol, Serum or Plasma 21 mg/dL (Abnormal)?? 06/17/2022 09:57 Salicylate Level <0.3 mg/dL (Low)?? 06/17/2022 09:57 Barbiturate Screen, Urine POSITIVE (Abnormal)?? 06/18/2022 06:11 Cannabinoid Screen, Urine NONE DETECTED ()?? 06/18/2022 06:11 Cocaine Metabolite Screen, Urine POSITIVE (Abnormal)?? 06/18/2022 06:11 Amphetamine Screen, Urine NONE DETECTED ()?? 06/18/2022 06:11 Acetaminophen Level <5 mg/L (Low)?? 06/17/2022 09:57 ?? UA/URINALYSIS Appear/Color, Urine LIGHT YELLOW ()?? 06/18/2022 06:11 Specific [place], Urine 1.013 ()?? 06/18/2022 06:11 pH, Urine 8.5 (High)?? 06/18/2022 06:11 Albumin, Urine NEGATIVE ()?? 06/18/2022 06:11 Glucose, Urine NEGATIVE ()?? 06/18/2022 06:11 Ketones, Urine NEGATIVE ()?? 06/18/2022 06:11 Bilirubin, Urine NEGATIVE ()?? 06/18/2022 06:11 Hemoglobin, Urine NEGATIVE ()?? 06/18/2022 06:11 Nitrite, Urine NEGATIVE ()?? 06/18/2022 06:11 Leukocyte, Urine NEGATIVE ()?? 06/18/2022 06:11 Urobilinogen NORMAL mg/dL ()?? 06/18/2022 06:11 WBC's, Urine 1 /HPF ()?? 06/18/2022 06:11 RBC's, Urine 1 /HPF ()?? 06/18/2022 06:11 Mucus SLIGHT /LPF ()?? 06/18/2022 06:11 ?? VIROLOGY COVID-19 by RT-PCR NEGATIVE ()?? 06/17/2022 23:28 ? Assessment/Plan Jasvir is a 36-year-old gentleman with a possible history of hypertension, alcohol use disorder, polysubstance use, ADHD and anxiety was brought into the emergency department after being found in an altered mental state. ??He was initially noted to be afebrile but tachycardic and hypertensive which subsequently improved. ??Patient additionally noted to have a very elevated leukocytosis as well asa lactate of 7.9 and an elevated CK which is now improving after fluid resuscitation. ??Patient admitted for further observation and management. ?? Altered mental status Polysubstance use disorder Alcohol intoxication/withdrawal Patient with a significant past medical history of multiple substance use disorder. ??He states that his last drink was just before presentation and U-Tox notable for barbiturates and cocaine. ??Patient also endorses marijuana use. ??Patient with an elevated CK which peaked at just over 8000 there is no downtrending with fluid resuscitation we will continue on aggressive fluid resuscitation untilback below 5000. ??Additionally patient with an elevated lactate which is again likely secondary tothe substance use and elevated lactate. ??CT head without any acute abnormalities ?Continue aggressive fluid resuscitation ?Continue to monitor output ?Trend CK ?Continue CIWA protocol with Ativan dosing ?Addiction psych consult placed ?Thiamine/folate/multivitamin/pyridoxine ?? Community acquired pneumonia Patient found to be tachycardic and hypertensive on presentation as well as had a significant leukocytosis and an elevated procalcitonin at 1.04. ??Patient's leukocytosis has improved but is still elevated and he has a chest x-ray that is remarkable for multifocal airspace opacities consistent withpneumonia. ??Given this we will initiate on therapy for community-acquired pneumonia. ?Start??ceftriaxone ?Azithromycin 500 mg today and then 250 mg for 4 days ?Monitor response ?Monitor respiratory status ?? Hypertension: Continue clonidine ?? Diet: Regular DVT prophylaxis: Lovenox Code: Full ?? Portable XR Chest Views * BHSP[facility]erscribe , UMESH S: TRANSCRIBE Gela Costa MD: VERIFY Event Display: Result: Authored Date: [id number] Examination: Portable chest performed on 06/18/2022. History: Pleuritic pain. Leukocytosis. Cough. Findings: A frontal view of the chest is submitted without comparison. The cardiac and mediastinal silhouettes are within normal limits. Right upper and left lower lobe airspace opacities are demonstrated, greatest within the right upper lobe. There are no pneumothoraces or pleural effusions. The osseous structures are unremarkable. IMPRESSION: Multifocal airspace opacity, consistent with pneumonia. Follow-up to complete radiographic resolution after treatment is recommended. WSN: [id number] Ordering Physician: Yudy West Dictated By: Gela Costa MD Dictated Date/Time: 06/18/22 8:51 am Reviewed By: Gela Costa MD Signed By: Gela Costa MD Signed Date/Time: 06/18/22 8:51 am Transcribed By: CAS Transcribed Date/Time: 06/18/22 8:[address] Head WO contrast * Pete Garg MD: VERIFY Pete Garg MD: VERIFY Carolina Cardoza DO: SIGN Event Display: Result: Authored Date: [id number] CT Head/Brain W/O Contrast INDICATION: Reason: Behavior Problem; ams, likey intoxicated. need to r o hematomoa infarct; Clinical Question(s): Infarction TECHNIQUE: Noncontrast head CT using axial technique and reconstructed in axial and coronal planes.Iterative reconstruction techniques are used to optimize dose and image quality. CTDIvol Head: 47.80 mGy, DLP Head: 772 mGy*cm. COMPARISON: None. 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 BRAIN AND EXTRA-AXIAL SPACES: No parenchymal hemorrhage, midline shift, or mass effect. Bush-white matter differentiation is wellpreserved. No acute infarct. Ventricles, sulci, and basilar cisterns are normal. Mild low-density white matter changes. No subarachnoid hemorrhage. No subdural or epidural collection. CALVARIUM, SKULL BASE, AND SOFT TISSUES: No fractures or suspicious bony lesions. Mild mucosal thickening of the right maxillary sinus and ethmoid air cells. The remaining paranasalsinuses and mastoid air cells are clear. Visualized orbits and globes are intact. The extracranial soft tissues are unremarkable. IMPRESSION: No acute intracranial hemorrhage or acute intracranial process. I have personally reviewed the images and I agree with this report. WSN: [id number] Ordering Physician: Yudy West Dictated By: Carolina Cardoza DO Dictated Date/Time: 06/18/22 9:50 am Reviewed By: Pete Garg MD Signed By: Pete Garg MD Signed Date/Time: 06/18/22 9:55 am Transcribed By: CAS Transcribed Date/Time: 06/18/22 9:21 am Patient Care team information Care Team Personnel Name: Woodrow Rivas RN Position: [facility] ED RN W/OE and Tasks Member Role: Primary Care Nurse Name: Jeovanny Jaeger RN Position: S RN Member Role: Primary Care Nurse Name: Not on Staff, PCP Position: [facility] Physician (General Medicine) Member Role: PCP Name: Jewels RAY Attending Position: [facility] ED Medicine Name: Stacey Ratliff RN Position: [facility] ED RN W/OE and Tasks Member Role: Patient Care Provider Name: Ailyn Kirk Position: [facility] ED [facility] Member Role: Planimeter Operator Name: Brittany Oviedo Position: [facility] ED [facility] Member Role: Planimeter Operator Care Team Related Persons Name: HAYLEY PETTIT Address: home [address] [place] [id number]
--- OUTSIDE RECORDS SUMMARY | 2023-01-24 18:20 | XMS_ITS | Continuity of Care Document ---
Author Name Unknown Organization [facility] ter Address [address] [place] [id number]- Care Team Providers Care Adoption Specialist Name Role Phone Not on Staff, PCP Primary Care Physician Unavail able [place] [facility] [place]/19[place] - 08/20/[address] [address]- Discharge Disposition: A-D/C Home Attending Physician: Ashtyn Ryan MD, Eva Admitting Physician: Ashtyn Ryan MD, Eva Referring Physician: Not on Staff, Referring MD Allergies, Adverse Reactions, Alerts No Known Medication Allergies Immunizations Not Given Vaccine Date Status Refusal Reason pneumococcal 23-valent vaccine 03/11/20 Not Given Patient Refuses Medications cloNIDine 0.1 mg oral tablet 0.1 mg, 1, tablet, By Mouth, Daily, # 2 tablet, Refills 0, Tot. Refills 0, Maintenance, 03/12/20 15:42:00 EDT, Route to Pharmacy Electronically, [facility], 1, cm, 03/12/20 12:33:00 EDT, Height, 93.4, kg, 03/10/20 15:40:00 EDT, Dry Weight Start Date: 03/12/20 Status: Ordered folic acid 1 mg oral tablet 1 mg, 1, tablet, By Mouth, Daily, # 30 tablet, Refills 11, Tot. Refills 11, Maintenance, 03/12/20 15:43:00 EDT, Route to Pharmacy Electronically, [facility], 1, cm, 03/12/20 12:33:00 EDT, Height, 93.4, kg, 03/10/20 15:40:00 EDT, Dry Weight Start Date: 03/12/20 Status: Ordered Vital Signs Most recent to oldest [Reference Range]: 1 2 3 Oxygen Saturation [94-100 %] 99 % (08/20/21 11:27 AM) 99 % (08/19/21 4:26 PM) 99 % (08/19/21 2:27 PM) Pulse Rate [55-90 bpm] 78 bpm (08/20/21 11:27 AM) 88 bpm (08/19/21 4:26 PM) 99 bpm *H* (08/19/21 2:27 PM) Blood Pressure [90-138/55-84 mm Hg] 130/88mm Hg (08/20/21 11: AM) 132/70mm Hg (08/19/21 4:26 PM) 134/94mm Hg (08/19/21 2:27 PM) Respiratory Rate [16-30 br/min] 16 br/min (08/20/21: AM) 16 br/min (08/19/21 4:26 PM) 16 br/min (08/19/21 2:27 PM) Temperature [96.8-100.4 DegF] 98.5 DegF (08/20/21: AM) 97.6 DegF (08/19/21:27 PM) Mode of Delivery (Oxygen) Room air (08/20/21 11:27 AM) Room air (08/19/21 4:26 PM) Room air (08/19/21 2:27 PM) Blood pressure sites Arm, right (08/20/21 11: AM) Arm, right (08/19/21 2:27 PM) Temperature Route Oral (08/20/21 11: AM) Oral (08/19/21 2:27 PM)
--- NOTE | 2023-01-24 18:58 | PC.NURSE ---
Assumed care of pt. Assessed pain post medications. Pt lyingon stretcher, endorsing chest and head pain 10/10. requesting additional pain management. Pt on High Flow NC, with O2 sat >93% at this time. LSCTA. pt AxO x4.
[2023-01-24 19:11] LABS: COVID-19 Test Negative (Negative); IDNOW Serial# 08D9AD1C
[2023-01-24 19:19] LABS: Troponin-I High Sensitivity 13.6 ng/L (<3.5-35.0)
[2023-01-24] MEDS: LORazepam 2 MG/ML VIAL 0.5 MG IVPUSH (19:54)
[2023-01-24] MEDS: LORazepam 0.5 MG TABLET PO (22:27)
--- NOTE | 2023-01-24 22:30 | PC.NURSE ---
Call phone obtained from [employer], provided to pt to make personal calls
[2023-01-24 22:53] LABS: Ethanol 80 mg/dL
[2023-01-25 00:07] VITALS: BP 146/87; PULSE 85; RESP 17; TEMP 37.2; O2SAT 96
--- NOTE | 2023-01-25 00:34 | PC.NURSE ---
Titrated O2 to 4LPM on NC to ween pt off.
[2023-01-25 01:47] VITALS: BP 134/86; PULSE 95; RESP 15; O2SAT 95
--- NOTE | 2023-01-25 01:48 | PC.NURSE ---
Titrating pt down to 2L O2 via NC with good effect for weening off.
[2023-01-25 04:35] VITALS: BP 148/85; PULSE 103; RESP 26; O2SAT 97
[2023-01-25 04:50] VITALS: BP 149/88; PULSE 86; RESP 20; O2SAT 94
[2023-01-25 05:04] VITALS: BP 146/94; PULSE 88; RESP 16; RESP 20; O2SAT 94
[2023-01-25] MEDS: Albuterol Sulfate 90 MCG 8 GM INHALER 4 PUFF INHALE (05:04)
== END 2023-01-25 05:29 | disposition home or self-care (01) ==
PROVIDERS: Student in an Organized Health Care Education/Training Program; Emergency Provider Emergency Medicine
DX: T50.901A Poisoning by unspecified drugs, medicaments and biological substances, accidental (unintentional), initial encounter (principal); R00.0 Tachycardia, unspecified; Y92.9 Unspecified place or not applicable; J18.9 Pneumonia, unspecified organism; Z20.822 Contact with and (suspected) exposure to COVID-19; I10 Essential (primary) hypertension; F41.9 Anxiety disorder, unspecified; F43.10 Post-traumatic stress disorder, unspecified; F17.200 Nicotine dependence, unspecified, uncomplicated; Z79.899 Other long term (current) drug therapy
CPT/HCPCS: 36415; 71045; 80053; 80307; 84484; 85025; 87635; 93005; 94640; 96374; 96375; 99284; 99285; J2060; J2930; J3010

== ENCOUNTER 2024-08-03 16:21 | Inpatient (IN) | payer OTHER, SELFPAY ==
[2024-08-03] VITALS (8 sets, daily range): BP systolic 157–193; BP diastolic 57–124; PULSE 96–129; RESP 10–20; TEMP 36.6–37.3; O2SAT 94–97; BMI 36.4
--- NOTE | ~2024-08-03 | US_ITS ---
CLINICAL HISTORY: RUQ US abdomen limited. COMPARISON: None Technique: Real time sonographic imaging, including color-flow imaging, was performed by the nurse unit manager. Multiple sales representative consultant static images were saved for review. FINDINGS: The liver has diffusely increased echogenicity. Hypoechoic lesions present within the right lobe of the liver measuring up to 1.0 cm. Main portal vein demonstrates antegrade flow. The gallbladder is normal in size. No cholelithiasis or sludge identified. There is a positive sonographic Lawson's sign. Gallbladder wall: 1-2 mm, normal. Common bile duct: 5 mm, normal. No free intraperitoneal fluid identified. IMPRESSION: 1. Positive sonographic Lawson's sign. No additional evidence for cholecystitis. 2. Hepatic steatosis. Indeterminate small hypoechoic lesions within the right lobe of the liver possibly representing focal fatty sparing of the technically indeterminate. Recommend CT or MR hepatic protocol for further characterization. 3. No evidence of portal venous thrombus. This document has been electronically signed by: Francis Huff MD on 08/03/2024 20:03:54
--- NOTE | ~2024-08-03 | NM_ITS ---
EXAMINATION: NM HEPATOBILIARY WITH PHARM HISTORY: abd pain, r/o cholecystitis. TECHNIQUE: An hepatobiliary scan was performed following the intravenous administration of 5 mCi technetium 99m-mebrofenin. Sequential images were obtained over 1 hour. Subsequently, the patient received 2.1 mcg IV CCK over 30 minutes and additional imaging was performed. COMPARISON: Correlation is made with an abdominal ultrasound dated 08/03/2024. FINDINGS: There is normal uptake and excretion of the radiopharmaceutical by the liver. Common bile duct activity is seen at 8 minutes. Gallbladder activity is noted at 12 minutes. Small bowel activity is seen at 14 minutes. After the administration of intravenous CCK, the estimated ejection fraction is 86%, which is within normal limits. NM/NM hepatobiliary w pharm IMPRESSION: Normal hepatobiliary scan with normal gallbladder ejection fraction. Electronically signed by: Francisco Alvarez MD 08/04/2024 03:47 PM EDT
--- NOTE | 2024-08-03 16:26 | ED_ITS ---
HPI - General Adult General Chief complaint: ETOH/Substance Use Stated complaint: alcohol withdrawal Time Seen by Provider: 08/03/24 16:26 Source: patient Mode of arrival: EMS Limitations: no limitations History of Present Illness ED Provider: Zachary Acevedo DO HPI narrative: 38-year-old male with past medical history of alcohol use disorder who reports that he relapsed last week and wants detox with a history of PTSD related to his service, rhabdomyolysis, anxiety, hypertension and surgical history of fasciotomy presents to the emergency department for detox and also reports right upper abdominal pain. Review of last patient's visit here in 2022 shows that he overdose on opiates and received naloxone. He denies illicit drug use since that time, denies tobacco use. He states he has had recent stressors at home with his mother's medical condition and ran out of his prescribed lorazepam last week when he started consuming alcohol again. He states previous to that it had been several months of sobriety. He started consuming approximately 15-25 beers per day starting 7 days ago and his last drink was 3 hours ago. He reports a history of alcohol withdrawal seizures. Denies history of intubation for alcohol withdrawal. States he does have persistent epigastric and right upper quadrant abdominal pain, worsening anxiety, and some visual hallucinations today. Related Data Home Medications ?Medication ?Instructions ?Recorded ?Confirmed lorazepam 1 mg tablet 1 mg PO TID PRN panic attacks 09/11/21 08/03/24 dextroamphetamine-amphetamine ER 40 mg PO DAILY 05/15/22 08/03/24 20 mg 24hr capsule,extend release (Adderall XR) prazosin 2 mg capsule 2 mg PO BEDTIME 08/03/24 08/03/24 quetiapine 25 mg tablet 25 mg PO BEDTIME 08/03/24 08/03/24 trazodone 100 mg tablet 100 mg PO BEDTIME PRN Sleep 08/03/24 08/03/24 venlafaxine 150 mg tablet,extended 300 mg PO DAILY 08/03/24 08/03/24 release 24 hr Allergies Allergy/AdvReac Type Severity Reaction Status Date / Time watermelon Allergy Itching Verified 08/03/24 16:30 Review of Systems 2 Review of Systems: Yes all other systems are reviewed and are negative PMFSH Past Medical History Medical History PTSD (post-traumatic stress disorder) ЕЛЕНА (generalized anxiety disorder) ADHD (attention deficit hyperactivity disorder) Bipolar 1 disorder ADHD HTN (hypertension) Anxiety Surgical History H/O fasciotomy Family History Family History Other No family history of coronary artery disease Social History Social History Household Members: [facility] Do you presently have visiting nurse or other home services: No Alcohol intake: current Alcohol intake frequency: 3 or more drinks per day Alcohol type: hard liquor Comment: PT is relaxed and fell asleep Patient Tobacco Use Status: Former Tobacco user Smoked in Last 30 Days: No Use of substances other than those prescribed or required for medical reasons: No Substance Use Type: Opiates Do you feel safe in your current relationship?: Yes Advance Directives: No Advance Directives Information Provided: Yes Do you have a plan to hurt others: No Plan Recently lost weight without trying: Yes How much weight loss: Unsure Eating poorly because of decreased appetite: Yes Nutrition screen score: 5 Nutrition Risks: Poor intake 0-25% >4 days service: Yes Current occupational status: disabled Physical Exam ED Vital Signs: Vital Signs - 24 hr 08/03/24 19:27 Temperature 98.6 F Pulse Rate 111 H Respiratory Rate 20 Blood Pressure 169/102 H Pulse Oximetry 97 Oxygen Delivery Method Room Air BMI result Body Mass Index 36.4 Constitutional: ?Alert, oriented, speaking in full sentences, appears uncomfortable, appears anxious HEENT: ?Normocephalic, atraumatic. Eyes: ?PERRL, EOMI Neck: ?Supple, nontender Chest: ?No chest wall tenderness Respiratory: ?Lungs clear to auscultation, no increased work of breathing Cardio: ?Tachycardic rate, regular rhythm, no murmur, 2+ radial and DP pulses symmetrically GI: ?Soft, nondistended, there is tenderness elicited with guarding over the epigastrium and right upper quadrant Back: ?Normal range of motion, nontender Skin: ?No rash, no lesions, well-healed scar over the right upper extremity Neuro: ?Alert and oriented to person, place and time, moves all 4 extremities, no focal deficits Extremities: ?No swelling or tenderness, full range of motion Psych: ?Calm, alert and cooperative, appropriate behavior Course Course Course Narrative: This is a rapid medical exam performed by Anais Peña PA-C. The patient is a 38-year-old male with a history of alcohol abuse, PTSD, anxiety who presents with withdrawal symptoms. Patient states he has been trying to detox on his own, his last drink was 3 hours ago, he complains of abdominal pain and anxiety at this time. We will be screening basic labs serum ethanol and placing a CIWA scale. The patient was stable and can return to the waiting room pending his full medical assessment. Medications Administered Generic Name Dose Route Start Last Admin Trade Name Freq PRN Reason Stop Dose Admin Acetaminophen 650 mg 08/03/24 19:41 08/04/24 11:51 Acetaminophen 325 Mg Tablet PO 650 mg Q6H PRN Administration Pain, Mild 1-3,fever,headache Amphetamine/Dextroamphetamine 40 mg 08/04/24 09:00 08/04/24 09:40 Dextroamphetamine/Amphetamine Xr 10 Mg Cap.Er.24h PO 40 mg DAILY FRANK Administration Enoxaparin Sodium 40 mg 08/03/24 20:00 08/03/24 20:34 Enoxaparin Sodium 40 Mg/0.4 Ml Syringe SUBCUT 40 mg Q24H FRANK Administration Piperacillin Sod/Tazobactam 100 mls @ 200 mls/hr 08/03/24 20:15 08/04/24 15:45 Sod 4.5 gm/ Sodium Chloride IV 200 mls/hr Q6H FRANK Administration Lorazepam 1 mg 08/03/24 21:51 08/04/24 11:51 Lorazepam 1 Mg Tablet PO 1 mg TID PRN Administration panic attacks Nicotine Polacrilex 2 mg 08/03/24 20:10 08/03/24 21:16 Nicotine Polacrilex 2 Mg Gum BUCCAL 2 mg Q2H PRN Administration Nicotine Cravings Phenobarbital 45 mg 08/04/24 09:00 08/04/24 09:40 Phenobarbital 15 Mg Tablet PO 08/05/24 21:01 45 mg BID FRANK Administration Prazosin HCl 2 mg 08/03/24 21:55 08/03/24 22:27 Prazosin Hcl 1 Mg Capsule PO 2 mg BEDTIME FRANK Administration Protocol Quetiapine Fumarate 25 mg 08/03/24 21:55 08/03/24 22:27 Quetiapine Fumarate 25 Mg Tablet PO 25 mg BEDTIME FRANK Administration Sodium Chloride 3 ml 08/04/24 00:00 08/04/24 15:53 0.9 % Sodium Chloride Flush 3 Ml Syringe IVFLUSH 3 ml QSHIFT FRANK Administration Thiamine HCl 100 mg 08/04/24 09:00 08/04/24 09:40 Thiamine Hcl 100 Mg Tablet PO 100 mg DAILY FRANK Administration Venlafaxine HCl 300 mg 08/04/24 09:00 08/04/24 09:40 Venlafaxine Hcl Er 150 Mg Cap.Er.24h PO 300 mg DAILY FRANK Administration Discontinued Medications Generic Name Dose Route Start Last Admin Trade Name Freq PRN Reason Stop Dose Admin Al Hydroxide/Mg Hydroxide 30 ml 08/03/24 19:40 08/03/24 20:32 Magnesium Hydrox/Alum Hydrox 30 Ml Oral.Susp PO 08/03/24 19:41 30 ml ONCE ONE Administration Belladonna Alkaloids/Phenobarbital 10 ml 08/03/24 19:40 08/03/24 20:32 Phenobarb/Hyoscy/Atropine/Scop 10 Ml Elixir PO 08/03/24 19:41 10 ml ONCE ONE Administration Diazepam 10 mg 08/03/24 21:35 08/03/24 21:48 Diazepam 10 Mg/2 Ml Cartridge IVPUSH 08/03/24 21:36 10 mg STAT STA Administration Lactated Ringer's 1,000 mls @ 999 mls/hr 08/03/24 17:15 08/03/24 18:15 Lr IV 08/03/24 18:15 Infused .Q1H1M FRANK Infusion Thiamine HCl 200 mg/ Sodium 102 mls @ 204 mls/hr 08/03/24 19:40 08/03/24 21:30 Chloride IV 08/03/24 20:09 Infused ONCE ONE Infusion Dextrose/Lactated Ringer's 1,000 mls @ 125 mls/hr 08/03/24 20:30 08/04/24 05:57 D5lr IVCONT 08/04/24 04:29 Infused .Q8H FRANK Infusion Morphine Sulfate 4 mg 08/03/24 18:39 08/03/24 19:00 Morphine Sulfate 4 Mg/Ml Cartridge IVPUSH 08/03/24 18:40 4 mg ONCE ONE Administration Protocol Phenobarbital Sodium 270 mg 08/03/24 17:30 08/03/24 18:06 Phenobarbital Sodium 130 Mg/Ml Im Once IM 08/03/24 17:31 270 mg ONCE ONE Administration Phenobarbital Sodium 200 mg 08/03/24 21:00 08/04/24 01:04 Phenobarbital Sodium 130 Mg/Ml Vial Im Q3hx2 IM 08/04/24 00:01 200 mg Q3H FRANK Administration Phenobarbital Sodium 130 mg 08/04/24 14:02 08/04/24 15:45 Phenobarbital Sodium 130 Mg/Ml Vial IM 08/04/24 14:03 130 mg ONCE ONE Administration Medical Decision Making Medical Decision Making [facility] Narrative: Patient presenting with severe alcohol withdrawal. Initial CIWA is listed at 20. We suspect he will require higher level of care and initiated phenobarbital IM load. I suspect his abdominal tenderness and pain may be related to alcoholic gastritis but we will further evaluate for possible pancreatitis and performed reassessments to determine if this requires imaging for potential cholecystitis or other intra-abdominal pathologies. The patient is pleasant, agrees with plan and will continued to be monitored. Mild elevation in alkaline phosphatase. No pancreatitis per labs. Persistent right upper quadrant and epigastric abdominal pain after phenobarbital load further evaluated with right upper quadrant ultrasound with Doppler which showed no acute abnormalities per histologic technician read. Patient received morphine with some improvement in pain and is also given a GI cocktail for further management. His vital signs have remained stable and he has had no severe features since initiation of phenobarbital. Case discussed with hospitalist for admission due to severe alcohol. Admission/Observation Consideration of admission/observation: Escalation of care including admission/observation considered Consult Healthcare Provider Management of the patient was discussed with: Hospitalist Lab Data [facility] Lab Attestation statement: I reviewed the patient's lab results. 08/04/24 05:48 08/04/24 05:48 Labs: Lab Results 08/03/24 08/03/24 Range/Units 16:36 16:56 WBC 9.2 (4.8-10.8) X10*3/uL RBC 6.31 H (4.60-5.80) X10*6/uL Hgb 17.1 (14.0-18.0) g/dl Hct 50.7 (42.0-52.0) % MCV 80.3 (80.0-98.0) fL MCH 27.1 (27.0-33.0) pg MCHC 33.7 (31.0-36.0) g/dl RDW 18.0 H (11.0-16.0) % Plt Count 305 (160-400) X10*3/uL MPV 8.6 L (9.4-12.4) fL Immature Gran % (Auto) 1.3 H (0.0-0.4) % Neut % (Auto) 58.8 (45-73) % Lymph % (Auto) 29.5 (20-40) % Isabella % (Auto) 7.9 (2-11) % Eos % (Auto) 1.4 (0-4) % Baso % (Auto) 1.1 (0-2) % Lymph # (Auto) 2.7 (1.2-4.9) X10*3/uL Isabella # (Auto) 0.7 (0.1-1.2) X10*3/uL Eos # (Auto) 0.1 (0.0-0.4) X10*3/uL Baso # (Auto) 0.1 (0.0-0.2) X10*3/uL Abs Immat Gran (auto) 0.12 H (0.00-0.03) X10*3/uL Absolute Neuts (auto) 5.4 (2.0-8.3) x10*3/uL Absolute Nucleated RBC 0.000 (0.0-0.012) X10*3/uL Nucleated RBC % (auto) 0.0 (0.0-0.2) /100WBC Sodium 140 (135-145) mmol/L Potassium 3.7 (3.3-5.1) mmol/L Chloride 105 (96-108) mmol/L Carbon Dioxide 18 L (22-29) mmol/L Anion Gap 21 H (12-20) BUN 4 L (9-16) mg/dL Creatinine 0.79 (0.5-1.4) mg/dL Estim Creat Clear Calc 150.8 Estimated GFR > 60 Random Glucose 83 (60-115) mg/dL Calcium 9.2 D (8.4-10.2) mg/dL Magnesium 2.2 (1.6-2.6) mg/dL Total Bilirubin 0.4 (0.0-1.0) mg/dL AST 71 H (5-37) U/L ALT 116 H (0-40) U/L Alkaline Phosphatase 60 (39-117) U/L Total Protein 8.0 (6.5-8.0) g/dL Albumin 4.5 (3.5-5.0) g/dL Lipase 30 (8-78) U/L Urine Opiates Screen Not Detected (Not Detect) Ur Buprenorphine Scrn Not Detected (Not Detect) ng/mL Ur Oxycodone Screen Not Detected (Not Detect) ng/mL Urine Methadone Screen Not Detected (Not Detect) ng/mL Urine Fentanyl Screen Not Detected (Not Detect) Ur Barbiturates Screen Not Detected (Not Detect) Ur Phencyclidine Scrn Not Detected (Not Detect) Ur Amphetamines Screen Not Detected (Not Detect) U Benzodiazepines Scrn Not Detected (Not Detect) Urine Cocaine Screen Not Detected (Not Detect) U Marijuana (THC) Screen Not Detected (Not Detect) Ethyl Alcohol 141 mg/dL Independent Interpretation I performed an independent interpretation of an: EKG Interpretation: Some baseline artifact but otherwise sinus tachycardia at 120 beats per minute, no obvious ST wave elevation or depression, normal axis, unremarkable intervals. Radiology Impression Discussion of test interpretation with radiology: I have reviewed the radiologist's reading. Radiologist Impression: IMPRESSION: 1. Positive sonographic Lawson's sign. No additional evidence for cholecystitis. 2. Hepatic steatosis. Indeterminate small hypoechoic lesions within the right lobe of the liver possibly representing focal fatty sparing of the technically indeterminate. Recommend CT or MR hepatic protocol for further characterization. 3. No evidence of portal venous thrombus. Per findings above, no acute abnormalities suspected. Patient will require further evaluation with nonemergent workup. Discharge Plan Discharge Clinical Impression: Alcohol withdrawal syndrome Patient Disposition: Admitted As Inpatient
--- NOTE | 2024-08-03 16:29 | ECG_ITS ---
Test Reason : tachy Blood Pressure : */* mmHG Vent. Rate : 120 BPM Atrial Rate : 120 BPM P-R Int : 162 ms QRS Dur : 70 ms QT Int : 316 ms P-R-T Axes : 57 -46 -21 degrees QTcB Int : 446 ms Sinus tachycardia Left axis deviation Abnormal ECG When compared with ECG of 24-Jan-2023 17:38, No significant change was found Referred By: Anais Peña Electronically Signed By: ISIDRO ZARATE MD
[2024-08-03 16:41] LABS: MANUAL DIFF FLAG NO
[2024-08-03 16:42] LABS: Basophils Absolute Auto 0.1 X10*3/uL (0.0-0.2); Basophils Percent Auto 1.1 % (0-2); Eosinophils Absolute Auto 0.1 X10*3/uL (0.0-0.4); Eosinophils Percent Auto 1.4 % (0-4); Hematocrit 50.7 % (42.0-52.0); Hemoglobin 17.1 g/dl (14.0-18.0); Imm Gran Abs Auto 0.12 X10*3/uL (0.00-0.03); Imm Gran Pct Auto 1.3 % (0.0-0.4); Lymphocytes Absolute Auto 2.7 X10*3/uL (1.2-4.9); Lymphocytes Percent Auto 29.5 % (20-40); Mean Corpuscular HGB Conc 33.7 g/dl (31.0-36.0); Mean Corpuscular Hemoglobin 27.1 pg (27.0-33.0); Mean Corpuscular Volume 80.3 fL (80.0-98.0); Mean Platelet Volume 8.6 fL (9.4-12.4); Monocytes Absolute Auto 0.7 X10*3/uL (0.1-1.2); Monocytes Percent Auto 7.9 % (2-11); Neutrophils Absolute Auto 5.4 x10*3/uL (2.0-8.3); Neutrophils Percent Auto 58.8 % (45-73); Platelet Count 305 X10*3/uL (160-400); Red Blood Count 6.31 X10*6/uL (4.60-5.80); White Blood Count 9.2 X10*3/uL (4.8-10.8)
[2024-08-03] MEDS: Lactated Ringers 1,000 ML 999 ML IV (17:10)
--- NOTE | 2024-08-03 17:10 | PC.NURSE ---
a&ox4. tachycardic. hypertensive. pt denies any chest pain/palpitations. pt currently on RA w/o difficulty - no sob/wob noted. respirations even/unlabored. pt presents to the ED after being evaluated in triage requesting detox from alcohol withdrawal. pt reports binge drinking for the past week, drinking approximately 15-20 nips of vodka per day. 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 pt reports increase in life stressors - hx PTSD from the /depression/family deaths/illnesses. pt denies SI/HI/substance use. pt reports that he is interested in detox services. during assessment, pt noted to be extremely tremulous/diaphoretic/uncomfortable/anxious. updated CIWA = 24. pt reports hx of alcohol withdrawal seizures. provider notified/aware. 18IV placed in the right AC. seizure pads in place for safety precautions. pt seen by ED provider/notified/aware of plan of care. plan of care ongoing. call riggs placed within reach.
[2024-08-03 17:15] LABS: Amphetamine Screen Urine Not Detected (Not Detect); Barbiturates, Urine Not Detected (Not Detect); Benzodiazepines Screen Urine Not Detected (Not Detect); Buprenorphine Scr Not Detected (Not Detect); Cannabinoid Screen Urine Not Detected (Not Detect); Cocaine Screen Urine Not Detected (Not Detect); Fentanyl, urine Not Detected (Not Detect); Methadone Screen, Urine Not Detected (Not Detect); Opiate Screen Urine Not Detected (Not Detect); Oxycodone Screen Urine Not Detected (Not Detect); Phencyclidine Screen Urine Not Detected (Not Detect)
[2024-08-03 17:16] LABS: Alanine Aminotransferase 116 U/L (0-40); Albumin Level 4.5 g/dL (3.5-5.0); Alkaline Phosphatase 60 U/L (39-117); Anion Gap 21 (12-20); Aspartate Amino Transferase 71 U/L (5-37); Bilirubin Total 0.4 mg/dL (0.0-1.0); Blood Urea Nitrogen 4 mg/dL (9-16); Calcium 9.2 mg/dL (8.4-10.2); Carbon Dioxide 18 mmol/L (22-29); Chloride 105 mmol/L (96-108); Creatinine Clr Calc Pharmacy 150.8; Estimated Glomerular Filt Rate > 60; Ethanol 141 mg/dL; Glucose Random 83 mg/dL (60-115); Lipase 30 U/L (8-78); Magnesium 2.2 mg/dL (1.6-2.6); Potassium 3.7 mmol/L (3.3-5.1); Sodium 140 mmol/L (135-145)
[2024-08-03] MEDS: PHENobarbitaL sodium 130 MG/ML IM ONCE 270 MG IM (18:06)
--- NOTE | 2024-08-03 18:06 | PC.NURSE ---
pt remains tachycardic/hypertensive. otherwise vss and up to date. pt initated of phenobarb protocol. medication administered per provider order. seizure pads remain in place. lights dimmed to promote comfort. plan of care ongoing. call riggs placed within reach.
[2024-08-03] MEDS: Morphine Sulfate 4 MG/ML CARTRIDGE IVPUSH (19:00)
--- NOTE | 2024-08-03 19:03 | PC.NURSE ---
pt medicated per provider order. effectiveness pending. pt having ultrasound completed at this time. plan of care ongoing.
--- NOTE | 2024-08-03 19:32 | MHC.EDTECH ---
1999 rounding done ,vitals taken ,Patient was given fresh ice water ,RN Hope is aware of Pt high heart rate and high blood Pressure .
--- NOTE | 2024-08-03 19:43 | P.HPHOSP_ITS ---
History of Present Illness Date of Service: 08/03/24 Chief Complaint: Alcohol use disorder This is a 38-year-old male with pertinent history of alcohol use disorder with history of alcohol withdrawals including seizure, mood disorder, tobacco use disorder who presents to the emergency department for concerns of alcohol withdrawal. Patient states his last drink was 13:00 on the day of presentation. Denies using illicit drugs. Patient also complains of right upper abdominal pain that started on the day of presentation. States the pain is across right upper quadrant, epigastric region and is constant, nonradiating and without any relieving factors. Also has associated nausea. No symptoms of gastroesophageal reflux disease. Patient states he has been having tremors, some visual hallucinations and anxiety since he stopped drinking. He is interested in detox. He has been consuming about 15-25 days every day and relapsed about 7 days ago after several months of sobriety. Does have a history of alcohol withdrawal seizures. No fever, chills, chest pain, palpitations, shortness of breath, changes in urinary or bowel habits In the emergency department, patient was initiated on phenobarb protocol. Imaging with positive Lawson's sign Review of Systems 2 Constitutional: Constitutional: Reports fatigue, Reports malaise and Reports weakness Cardiovascular: Cardiovascular: Reports no additional cardiovascular complaints Respiratory: Respiratory: Reports no additional respiratory complaints Gastrointestinal: Gastrointestinal: Reports abdominal pain and Reports nausea Genitourinary: Genitourinary: Reports no additional male genitourinary complaints Neurologic: Reports tremor(s) and Reports weakness Psychiatric: Psychiatric: Reports anxiety Endocrine: Endocrine: Reports fatigue [facility] Medical History PTSD (post-traumatic stress disorder) ЕЛЕНА (generalized anxiety disorder) ADHD (attention deficit hyperactivity disorder) Bipolar 1 disorder ADHD HTN (hypertension) Anxiety Family History Other No family history of coronary artery disease Surgical History H/O fasciotomy Social History Alcohol intake: current Alcohol intake frequency: 3 or more drinks per day Alcohol type: hard liquor Comment: PT is relaxed and fell asleep Patient Tobacco Use Status: Current everyday Tobacco user Smoked in Last 30 Days: No Use of substances other than those prescribed or required for medical reasons: No Substance Use Type: Opiates Advance Directives: No Advance Directives Information Provided: Yes service: Yes Current occupational status: disabled Meds Allergies Allergy/AdvReac Type Severity Reaction Status Date / Time watermelon Allergy Itching Verified 08/03/24 16:30 Active Medications: Current Medications Pharmacy Consult (Consult Rx Etoh Phenob Im/Po) 1 each MISCELLANE ONCE PRN; Protocol PRN Reason: Consult order Phenobarbital (Phenobarbital 15 Mg Tablet) 45 mg PO BID [facility] Stop: 08/05/24 21:01 Phenobarbital (Phenobarbital 30 Mg Tablet) 30 mg PO BID [facility] Stop: 08/07/24 21:01 Phenobarbital (Phenobarbital 30 Mg Tablet) 30 mg PO DAILY [facility] Stop: 08/09/24 09:01 Phenobarbital Sodium (Phenobarbital Sodium 130 Mg/Ml Vial Im Q3hx2) 200 mg IM Q3H [facility] Stop: 08/04/24 00:01 Home Medications ?Medication ?Instructions ?Recorded ?Confirmed ?Last Taken ?Type lorazepam 1 mg tablet 1 mg PO BID PRN panic attacks 09/11/21 05/15/22 Unknown History nicotine (polacrilex) 2 mg gum 2 mg buccal Q2H PRN Smoking 09/11/21 05/15/22 Unknown History Cessation clonidine HCl 0.1 mg tablet 0.1 mg PO BID 05/15/22 05/15/22 Unknown History dextroamphetamine-amphetamine ER 20 mg PO DAILY 05/15/22 05/15/22 Unknown History 20 mg 24hr capsule,extend release (Adderall XR) multivitamin 1 tab PO DAILY 05/15/22 05/15/22 Unknown History venlafaxine 75 mg capsule,extended 150 mg PO DAILY 05/15/22 05/15/22 Unknown History release 24 hr Physical Exam 2 Vital Signs and Narrative: Vital Signs: Last Vital Signs Temp 98.6 F 08/03/24 19:27 Pulse 111 H 08/03/24 19:27 Resp 20 08/03/24 19:27 BP 169/102 H 08/03/24 19:27 Pulse Ox 97 08/03/24 19:27 O2 Del Method Room Air 08/03/24 19:27 BMI result Body Mass Index 36.4 Middle-aged male lying in bed in no distress Neck supple, no JVD Regular rate and rhythm, S1-S2 heard Regular breath sounds bilaterally, no wheezing or crackles appreciated Abdomen with right upper quadrant tenderness, no guarding, no rigidity Patient is awake, alert and oriented to self, place, time and person ; no focal motor deficit Psych: Anxious No pedal edema Results Labs 08/03/24 16:36 08/03/24 16:36 Labs: Laboratory Results - last 24 hr 08/03/24 08/03/24 16:36 16:56 MCV 80.3 MCH 27.1 MCHC 33.7 RDW 18.0 H Plt Count 305 MPV 8.6 L Immature Gran % (Auto) 1.3 H Neut % (Auto) 58.8 Lymph % (Auto) 29.5 [place] % (Auto) 7.9 Eos % (Auto) 1.4 Baso % (Auto) 1.1 Lymph # (Auto) 2.7 [place] # (Auto) 0.7 Eos # (Auto) 0.1 Baso # (Auto) 0.1 Abs Immat Gran (auto) 0.12 H Absolute Neuts (auto) 5.4 Absolute Nucleated RBC 0.000 Nucleated RBC % (auto) 0.0 Anion Gap 21 H Estim Creat Clear Calc 150.8 Estimated GFR > 60 Random Glucose 83 Calcium 9.2 D Magnesium 2.2 Total Bilirubin 0.4 AST 71 H ALT 116 H Alkaline Phosphatase 60 Total Protein 8.0 Albumin 4.5 Lipase 30 Urine Opiates Screen Not Detected Ur Buprenorphine Scrn Not Detected Ur Oxycodone Screen Not Detected Urine Methadone Screen Not Detected Urine Fentanyl Screen Not Detected Ur Barbiturates Screen Not Detected Ur Phencyclidine Scrn Not Detected Ur Amphetamines Screen Not Detected U Benzodiazepines Scrn Not Detected Urine Cocaine Screen Not Detected U Marijuana (THC) Screen Not Detected Ethyl Alcohol 141 Assessment and Plan (1) Alcohol withdrawal syndrome: Qualifiers: Complication of substance-induced condition: with perceptual disturbance Qualified Code(s): F10.932 - Alcohol use, unspecified with withdrawal with perceptual disturbance Status: Acute Plan This is a 38-year-old male with pertinent history of alcohol use disorder with history of alcohol withdrawals including seizure, mood disorder, tobacco use disorder who presents to the emergency department for concerns of alcohol withdrawal. #. Alcohol withdrawal in a patient with alcohol use disorder: Will admit patient with phenobarb protocol. Initiating thiamine. Monitor CIWA. Consulted Addiction Team, appreciate assistance #. Abdominal pain: Ultrasound positive for Lawson's sign. Empiric antibiotics. Ordered HIDA scan. #. Elevated transaminases due to alcohol use. Outpatient follow-up #. Mood disorder: Continue home mood stabilizers #. Tobacco use disorder: NRT while in the hospital #. Obesity: Counseled regarding diet and exercise Med rec pending DVT prophylaxis: Lovenox Full code Admit as inpatient and will require two night minimum hospital stay for management of alcohol withdrawal, IV antibiotics (as above), which is not possible in a lesser acute setting. Quality Stroke Does the patient have a stroke diagnosis?: No VTE Prior VTE?: No VTE Risk Level:: Medical - moderate - high VTE Device Contraindication: Treatment Not Indicated VTE Drug Contraindication: N/A - Med Ordered
[2024-08-03] MEDS: Magnesium Hydrox/Alum Hydrox 30 ML ORAL.SUSP PO (20:32)
[2024-08-03] MEDS: PHENobarb/Hyoscy/Atropine/Scop 10 ML ELIXIR PO (20:32)
[2024-08-03] MEDS: Enoxaparin Sodium 40 MG/0.4 ML SYRINGE SUBCUT (20:34)
[2024-08-03] MEDS: Thiamine HCL 200 MG in 0.9 % Sodium Chloride 100 ML 204 MG IV (20:34)
[2024-08-03] MEDS: PHENobarbitaL sodium 130 MG/ML VIAL IM Q3Hx2 200 MG IM (20:52)
[2024-08-03] MEDS: Piperacillin Sodium/Tazobactam 4.5 GM in 0.9 % Sodium Chloride 100 ML IV (20:55)
[2024-08-03] MEDS: Nicotine Polacrilex 2 MG GUM BUCCAL (21:16)
[2024-08-03] MEDS: Dextrose 5 % and Lactated Ring 1,000 ML 125 ML IVCONT (21:17)
[2024-08-03 21:22] LABS: Lactic Acid 7.1 mmol/L (0.5-2.0)
--- NOTE | 2024-08-03 21:27 | PHA.MEDREC ---
Addendum entered by Harjinder Paul 08/03/24 21:30: reviewed Original Note: Pharmacy Consult ? Medication Reconciliation Pharmacy has completed the medication reconciliation. [facility]. He said he did not take any meds today. He has not started quetiapine 2 tabs at bedtime yet, is currently taking 1 at bedtime.
[2024-08-03] MEDS: diazePAM 10 MG/2 ML CARTRIDGE IVPUSH (21:48)
--- NOTE | 2024-08-03 22:14 | MHC.EDTECH ---
Patient urine sample collected and sent to lab
[2024-08-03] MEDS: QUEtiapine Fumarate 25 MG TABLET PO (22:27)
[2024-08-03] MEDS: Prazosin HCL 1 MG CAPSULE 2 MG PO (22:27)
[2024-08-03 22:55] LABS: Appearance Urine Clear; Color Urine Yellow; Glucose Urine UA Negative (Negative); Leukocyte Esterase Urine Negative (Negative); Nitrite Urine Negative (Negative); Specific Gravity - Urine 1.015 (1.005-1.025); UMIC TRIGGER UACC YES; Urine Blood Negative (Negative); Urine Ketones Trace mg/dL (Negative); Urine Protein 30 (1+) mg/dL (Neg-Trace)
[2024-08-03 22:57] LABS: Reflex Lactate? Lactic Acid Added
[2024-08-03 23:00] LABS: Bacteria Urine None Seen (None Seen); Hyaline Casts Urine 0-2 /LPF (0-2); RBC Urine 0-2 /HPF (0-2); Squamous Epithelial Cell Urine 0-2 /HPF (0-2); WBC Urine 0-5 /HPF (0-5)
[2024-08-03 23:49] LABS: ~Lactic Acid-LAB USE ONLY 3.6 mmol/L (0.5-2.0)
[2024-08-04] VITALS (8 sets, daily range): BP systolic 107–193; BP diastolic 60–112; PULSE 86–111; RESP 12–20; TEMP 36.4; O2SAT 93–100
[2024-08-04] MEDS: PHENobarbitaL sodium 130 MG/ML VIAL IM Q3Hx2 200 MG IM (01:04)
[2024-08-04] MEDS: 0.9 % Sodium Chloride Flush 3 ML SYRINGE IVFLUSH ×3 (01:04→15:53)
[2024-08-04] MEDS: Piperacillin Sodium/Tazobactam 4.5 GM in 0.9 % Sodium Chloride 100 ML IV ×4 (01:15→21:19)
[2024-08-04 01:21] LABS: Reflex Lactate? 2 Y
[2024-08-04 02:31] LABS: ~Lactic Acid-LAB USE ONLY 3.5 mmol/L (0.5-2.0)
[2024-08-04] MEDS: LORazepam 1 MG TABLET PO ×2 (05:20→11:51)
[2024-08-04 06:38] LABS: MANUAL DIFF FLAG NO
[2024-08-04 06:47] LABS: Basophils Absolute Auto 0.1 X10*3/uL (0.0-0.2); Basophils Percent Auto 0.9 % (0-2); Eosinophils Absolute Auto 0.2 X10*3/uL (0.0-0.4); Eosinophils Percent Auto 2.5 % (0-4); Hematocrit 45.2 % (42.0-52.0); Hemoglobin 14.9 g/dl (14.0-18.0); Imm Gran Abs Auto 0.06 X10*3/uL (0.00-0.03); Imm Gran Pct Auto 0.8 % (0.0-0.4); Lymphocytes Absolute Auto 2.1 X10*3/uL (1.2-4.9); Lymphocytes Percent Auto 26.7 % (20-40); Mean Corpuscular Hemoglobin 26.8 pg (27.0-33.0); Mean Corpuscular Volume 81.3 fL (80.0-98.0); Mean Platelet Volume 9.5 fL (9.4-12.4); Monocytes Absolute Auto 0.6 X10*3/uL (0.1-1.2); Monocytes Percent Auto 7.8 % (2-11); Neutrophils Absolute Auto 4.9 x10*3/uL (2.0-8.3); Neutrophils Percent Auto 61.3 % (45-73); Platelet Count 263 X10*3/uL (160-400); Red Blood Count 5.56 X10*6/uL (4.60-5.80); Red Cell Distribution Width 17.6 % (11.0-16.0)
[2024-08-04 07:05] LABS: Anion Gap 15 (12-20); Blood Urea Nitrogen 8 mg/dL (9-16); Calcium 8.7 mg/dL (8.4-10.2); Carbon Dioxide 20 mmol/L (22-29); Chloride 106 mmol/L (96-108); Creatinine Clr Calc Pharmacy 154.7; Estimated Glomerular Filt Rate > 60; Glucose Random 109 mg/dL (60-115); Potassium 4.1 mmol/L (3.3-5.1); Sodium 137 mmol/L (135-145)
--- NOTE | 2024-08-04 08:20 | P.PNIM_ITS ---
Subjective Subjective Date of Service: 08/04/24 Interval History: f/u on alcohol withdrawal has some tremors, no hallucination Physical Exam 2 Vital Signs: Vital Signs: Last Vital Signs Temp 97.5 F 08/04/24 04:41 Pulse 86 08/04/24 04:41 Resp 15 08/04/24 04:41 BP 145/75 H 08/04/24 04:41 Pulse Ox 97 08/04/24 04:41 O2 Del Method Room Air 08/04/24 04:41 BMI result Body Mass Index 36.4 Const: Other: General: AO X 3, no acute distress Resp: CTA bilateral CVS: S1,S2,RRR GI: +BS, NT, no distention Skin: No rash Neuro: motor grossly intact Psych: appropriate affect Objective Data Active Medications Acetaminophen (Acetaminophen 325 Mg Tablet) 650 mg PO Q6H PRN PRN Reason: Pain, Mild 1-3,fever,headache Amphetamine/Dextroamphetamine (Dextroamphetamine/Amphetamine Xr 10 Mg Cap.Er.24h) 40 mg PO DAILY [facility] Calcium Carbonate (Calcium Carbonate 750 Mg Tab.Chew) 750 mg PO Q4H PRN PRN Reason: Heartburn Enoxaparin Sodium (Enoxaparin Sodium 40 Mg/0.4 Ml Syringe) 40 mg SUBCUT Q24H [facility] Last Admin: 08/03/24 20:34 Dose: 40 mg Documented By: JUSTINO Piperacillin Sod/Tazobactam (Sod 4.5 gm/ Sodium Chloride) 100 mls @ 200 mls/hr IV Q6H [facility] Last Infusion: 08/04/24 02:20 Dose: Infused Documented By: JUSTINO Lorazepam (Lorazepam 1 Mg Tablet) 1 mg PO TID PRN PRN Reason: panic attacks Last Admin: 08/04/24 05:20 Dose: 1 mg Documented By: JUSTINO Magnesium Hydroxide (Milk Of Magnesia 30 Ml Oral.Susp) 30 ml PO DAILY PRN PRN Reason: Constipation Melatonin (Melatonin 3 Mg Tablet) 6 mg PO BEDTIME PRN PRN Reason: Insomnia Nicotine Polacrilex (Nicotine Polacrilex 2 Mg Gum) 2 mg BUCCAL Q2H PRN PRN Reason: Nicotine Cravings Last Admin: 08/03/24 21:16 Dose: 2 mg Documented By: JUSTINO Ondansetron HCl (Ondansetron Hcl 4 Mg/2 Ml Vial) 4 mg IVPUSH Q8H PRN PRN Reason: Nausea and Vomiting Pharmacy Consult (Consult Rx Etoh Phenob Im/Po) 1 each MISCELLANE ONCE PRN; Protocol PRN Reason: Consult order Phenobarbital (Phenobarbital 15 Mg Tablet) 45 mg PO BID [facility] Stop: 08/05/24 21:01 Phenobarbital (Phenobarbital 30 Mg Tablet) 30 mg PO BID [facility] Stop: 08/07/24 21:01 Phenobarbital (Phenobarbital 30 Mg Tablet) 30 mg PO DAILY [facility] Stop: 08/09/24 09:01 Prazosin HCl (Prazosin Hcl 1 Mg Capsule) 2 mg PO BEDTIME [facility]; Protocol Last Admin: 08/03/24 22:27 Dose: 2 mg Documented By: JUSTINO Quetiapine Fumarate (Quetiapine Fumarate 25 Mg Tablet) 25 mg PO BEDTIME [facility] Last Admin: 08/03/24 22:27 Dose: 25 mg Documented By: JUSTINO Sodium Chloride (0.9 % Sodium Chloride Flush 3 Ml Syringe) 3 ml IVFLUSH QSHIFT [facility] Last Admin: 08/04/24 01:04 Dose: 3 ml Documented By: JUSTINO Thiamine HCl (Thiamine Hcl 100 Mg Tablet) 100 mg PO DAILY [facility] Trazodone HCl (Trazodone Hcl 100 Mg Tablet) 100 mg PO BEDTIME PRN PRN Reason: Sleep Venlafaxine HCl (Venlafaxine Hcl Er 150 Mg Cap.Er.24h) 300 mg PO DAILY [facility] Labs 08/04/24 05:48 08/04/24 05:48 Labs: Laboratory Results - last 24 hr 08/03/24 08/03/24 08/03/24 16:36 16:56 20:51 MCV 80.3 MCH 27.1 MCHC 33.7 RDW 18.0 H Plt Count 305 MPV 8.6 L Immature Gran % (Auto) 1.3 H Neut % (Auto) 58.8 Lymph % (Auto) 29.5 [place] % (Auto) 7.9 Eos % (Auto) 1.4 Baso % (Auto) 1.1 Lymph # (Auto) 2.7 [place] # (Auto) 0.7 Eos # (Auto) 0.1 Baso # (Auto) 0.1 Abs Immat Gran (auto) 0.12 H Absolute Neuts (auto) 5.4 Absolute Nucleated RBC 0.000 Nucleated RBC % (auto) 0.0 Anion Gap 21 H Estim Creat Clear Calc 150.8 Estimated GFR > 60 Random Glucose 83 Lactic Acid 7.1 H* Lactic Acid F/U @ 2Hr Lactic Acid F/U @ 4Hr Calcium 9.2 D Magnesium 2.2 Total Bilirubin 0.4 AST 71 H ALT 116 H Alkaline Phosphatase 60 Total Protein 8.0 Albumin 4.5 Lipase 30 Urine Color Urine Appearance Urine pH Ur Specific [place] Urine Protein Urine Glucose (UA) Urine Ketones Urine Blood Urine Nitrite Ur Leukocyte Esterase Urine RBC Urine WBC Ur Squamous Epith Cells Urine Bacteria Hyaline Casts Urine Opiates Screen Not Detected Ur Buprenorphine Scrn Not Detected Ur Oxycodone Screen Not Detected Urine Methadone Screen Not Detected Urine Fentanyl Screen Not Detected Ur Barbiturates Screen Not Detected Ur Phencyclidine Scrn Not Detected Ur Amphetamines Screen Not Detected U Benzodiazepines Scrn Not Detected Urine Cocaine Screen Not Detected U Marijuana (THC) Screen Not Detected Ethyl Alcohol 141 08/03/24 08/03/24 08/04/24 22:08 23:05 01:43 MCV MCH MCHC RDW Plt Count MPV Immature Gran % (Auto) Neut % (Auto) Lymph % (Auto) [place] % (Auto) Eos % (Auto) Baso % (Auto) Lymph # (Auto) [place] # (Auto) Eos # (Auto) Baso # (Auto) Abs Immat Gran (auto) Absolute Neuts (auto) Absolute Nucleated RBC Nucleated RBC % (auto) Anion Gap Estim Creat Clear Calc Estimated GFR Random Glucose Lactic Acid Lactic Acid F/U @ 2Hr 3.6 H* Lactic Acid F/U @ 4Hr 3.5 H* Calcium Magnesium Total Bilirubin AST ALT Alkaline Phosphatase Total Protein Albumin Lipase Urine Color Yellow Urine Appearance Clear Urine pH 6.0 Ur Specific [place] 1.015 Urine Protein 30 (1+) H Urine Glucose (UA) Negative Urine Ketones Trace Urine Blood Negative Urine Nitrite Negative Ur Leukocyte Esterase Negative Urine RBC 0-2 Urine WBC 0-5 Ur Squamous Epith Cells 0-2 Urine Bacteria None Seen Hyaline Casts 0-2 Urine Opiates Screen Ur Buprenorphine Scrn Ur Oxycodone Screen Urine Methadone Screen Urine Fentanyl Screen Ur Barbiturates Screen Ur Phencyclidine Scrn Ur Amphetamines Screen U Benzodiazepines Scrn Urine Cocaine Screen U Marijuana (THC) Screen Ethyl Alcohol 08/04/24 05:48 MCV 81.3 MCH 26.8 L MCHC 33.0 RDW 17.6 H Plt Count 263 MPV 9.5 Immature Gran % (Auto) 0.8 H Neut % (Auto) 61.3 Lymph % (Auto) 26.7 [place] % (Auto) 7.8 Eos % (Auto) 2.5 Baso % (Auto) 0.9 Lymph # (Auto) 2.1 [place] # (Auto) 0.6 Eos # (Auto) 0.2 Baso # (Auto) 0.1 Abs Immat Gran (auto) 0.06 H Absolute Neuts (auto) 4.9 Absolute Nucleated RBC 0.000 Nucleated RBC % (auto) 0.0 Anion Gap 15 Estim Creat Clear Calc 154.7 Estimated GFR > 60 Random Glucose 109 Lactic Acid Lactic Acid F/U @ 2Hr Lactic Acid F/U @ 4Hr Calcium 8.7 Magnesium Total Bilirubin AST ALT Alkaline Phosphatase Total Protein Albumin Lipase Urine Color Urine Appearance Urine pH Ur Specific [place] Urine Protein Urine Glucose (UA) Urine Ketones Urine Blood Urine Nitrite Ur Leukocyte Esterase Urine RBC Urine WBC Ur Squamous Epith Cells Urine Bacteria Hyaline Casts Urine Opiates Screen Ur Buprenorphine Scrn Ur Oxycodone Screen Urine Methadone Screen Urine Fentanyl Screen Ur Barbiturates Screen Ur Phencyclidine Scrn Ur Amphetamines Screen U Benzodiazepines Scrn Urine Cocaine Screen U Marijuana (THC) Screen Ethyl Alcohol Assessment and Plan (1) Alcohol withdrawal syndrome: Status: Acute Plan This is a 38-year-old male with pertinent history of alcohol use disorder with history of alcohol withdrawals including seizure, mood disorder, tobacco use disorder who presents to the emergency department for concerns of alcohol withdrawal. Alcohol withdrawal in a patient with alcohol use disorder continue phenobarbital protocol monitor ciwa thiamine and folate replacement addiction med consult, cessation discussed additional pheno with increasing symptoms Abdominal pain Ultrasound positive for Lawson's sign Empiric antibiotics. Ordered HIDA scan. Elevated transaminases due to alcohol use. Outpatient follow-up Acute lactic acidosis, not due to sepsis, rather due to alcoholism Mood disorder: Continue home mood stabilizers Tobacco use disorder: NRT while in the hospital Obesity: Counseled regarding diet and exercise Med rec pending DVT prophylaxis: Lovenox Full code need for inpatient: alcohol withdrawal Quality Stroke Does the patient have a stroke diagnosis?: No VTE Prior VTE?: No VTE Risk Level:: Medical - moderate - high VTE Device Contraindication: Treatment Not Indicated VTE Drug Contraindication: N/A - Med Ordered
[2024-08-04] MEDS: Venlafaxine HCl ER 150 MG CAP.ER.24H 300 MG PO (09:40)
[2024-08-04] MEDS: Dextroamphetamine/Amphetamine XR 10 MG CAP.ER.24H 40 MG PO (09:40)
[2024-08-04] MEDS: Thiamine HCL 100 MG TABLET PO (09:40)
[2024-08-04] MEDS: PHENobarbitaL 15 MG TABLET 45 MG PO ×2 (09:40→21:19)
--- NOTE | 2024-08-04 10:32 | MHC.CM.PN ---
PT LIVES WITH A FRIEND IS INDEPNDENT HAD NO PREVIOUS SERVICES HAS OWN [facility] HOME PT EXPECTED TO BE SEEN BY CARE TEAM DC PLAN HOME NO SERVICES
[2024-08-04] MEDS: Acetaminophen 325 MG TABLET 650 MG PO (11:51)
--- NOTE | 2024-08-04 13:38 | PC.NURSE ---
Pt to hida scan.
--- NOTE | 2024-08-04 14:35 | PC.NURSE ---
pt to scan via transport at [id number], [id number], [id number]
--- NOTE | 2024-08-04 14:40 | MHC.RECOVRN ---
AUDIT-C Brief Intervention Pt had positive screen for unhealthy alcohol use on admission, subsequently met with t/w to discuss alcohol use and recovery supports/options. This casualty underwriter met with patient to discuss current alcohol use and concerns related to increased risk of alcohol related problems.? Pt reports his drinking increased to daily use in 2012 when his sister . He had several brief periods of sobriety including his most recent of 7 months up until 1 week ago when he relapsed. He describes his drinking as episodic and binge. Discussed how alcohol use has impacted health, including negative impact on depression, anxiety and physical health including current hospital admit. Withdrawal History: seizures, tremors, visual hallucinations, anxiety. Treatment History: several detox stays since 2012 including a section 12 and a section 35 Supports:?Friends. Mother is severely disabled and depends on pt for care. Discussed risk reduction strategies including drinking below the recommended limit. Provided pt with written resources including information on inpatient and outpatient treatment, TERESA, harm reduction, and recovery coaching. Pt plans to continue tx and psych, look at [facility] and IOP. Pt provided with t/w contact information if questions or concerns arise. Denies other questions or concerns at this time.
--- NOTE | 2024-08-04 15:16 | PC.NURSE ---
atedward reassessment from 619 not completed by this RN r/t this RN not on shift until 1500 today
[2024-08-04] MEDS: PHENobarbitaL sodium 130 MG/ML VIAL IM ×2 (15:45→19:26)
--- NOTE | 2024-08-04 18:22 | PC.NURSE ---
pt reassessed ciwa is 18, pt anxious and restless, hypertensive 187/104. dr katz notified.
[2024-08-04] MEDS: hydrOXYzine HCL 25 MG TABLET PO (19:02)
--- NOTE | 2024-08-04 19:13 | PC.NURSE ---
BP 193/105. provider gustavo notified
[2024-08-04] MEDS: diazePAM 10 MG/2 ML CARTRIDGE IVPUSH (19:26)
[2024-08-04] MEDS: traZODone HCL 100 MG TABLET PO (21:19)
[2024-08-04] MEDS: QUEtiapine Fumarate 25 MG TABLET PO (21:19)
[2024-08-04] MEDS: Prazosin HCL 1 MG CAPSULE 2 MG PO (21:30)
[2024-08-05] VITALS (9 sets, daily range): BP systolic 118–165; BP diastolic 58–94; PULSE 88–110; RESP 14–20; TEMP 36.1–36.9; O2SAT 93–98
[2024-08-05] MEDS: 0.9 % Sodium Chloride Flush 3 ML SYRINGE IVFLUSH ×4 (00:40→21:20)
[2024-08-05] MEDS: Piperacillin Sodium/Tazobactam 4.5 GM in 0.9 % Sodium Chloride 100 ML IV ×2 (02:18→07:51)
--- NOTE | 2024-08-05 04:42 | MHC.EDTECH ---
This tech took over care of pt at 0330AM,rounds completed,RN assisted with vitals,pt is resting quietly,call riggs within reach
[2024-08-05] MEDS: LORazepam 1 MG TABLET PO (07:55)
--- NOTE | 2024-08-05 07:59 | PC.NURSE ---
Pt alert and oriented this morning, no acute distress. No signs of urine incontinence. Breathing even and unlabored. CIWA 8, pt medicated with PRN ativan for anxiety. Reports he feels overall better. Ate his breakfast
[2024-08-05] MEDS: Dextroamphetamine/Amphetamine XR 10 MG CAP.ER.24H 40 MG PO (09:04)
[2024-08-05] MEDS: Thiamine HCL 100 MG TABLET PO (09:05)
[2024-08-05] MEDS: Venlafaxine HCl ER 150 MG CAP.ER.24H 300 MG PO (09:05)
[2024-08-05] MEDS: PHENobarbitaL 15 MG TABLET 45 MG PO ×2 (09:05→21:20)
[2024-08-05 09:26] LABS: Magnesium 2.2 mg/dL (1.6-2.6)
--- NOTE | 2024-08-05 09:27 | HO.PM.IMPN ---
Subjective Subjective Date of Service: 08/05/24 Interval History: f/u on alcohol withdrawal he required multiple additional phenobarbital doses for Physical Exam Vital Signs: Vital Signs: Last Vital Signs Temp 98.1 F 08/05/24 09:14 Pulse 89 08/05/24 09:14 Resp 14 08/05/24 09:14 BP 130/82 08/05/24 09:14 Pulse Ox 93 08/05/24 09:14 O2 Del Method Room Air 08/05/24 09:14 BMI result Body Mass Index 36.4 Const: Other: General: AO X 3, no acute distress, calm Resp: CTA bilateral CVS: S1,S2,RRR GI: +BS, NT, no distention Skin: No rash Neuro: motor grossly intact Psych: appropriate affect Objective Data Active Medications Acetaminophen (Acetaminophen 325 Mg Tablet) 650 mg PO Q6H PRN PRN Reason: Pain, Mild 1-3,fever,headache Last Admin: 08/04/24 11:51 Dose: 650 mg Documented By: IMER Amphetamine/Dextroamphetamine (Dextroamphetamine/Amphetamine Xr 10 Mg Cap.Er.24h) 40 mg PO DAILY [facility] Last Admin: 08/05/24 09:04 Dose: 40 mg Documented By: SARAH Calcium Carbonate (Calcium Carbonate 750 Mg Tab.Chew) 750 mg PO Q4H PRN PRN Reason: Heartburn Enoxaparin Sodium (Enoxaparin Sodium 40 Mg/0.4 Ml Syringe) 40 mg SUBCUT Q24H [facility] Last Admin: 08/04/24 19:03 Dose: Not Given Documented By: IMER Non-Admin Reason: Patient Refused Hydroxyzine HCl (Hydroxyzine Hcl 25 Mg Tablet) 25 mg PO Q6H PRN PRN Reason: anxiety/restlessness Last Admin: 08/04/24 19:02 Dose: 25 mg Documented By: IMER Piperacillin Sod/Tazobactam (Sod 4.5 gm/ Sodium Chloride) 100 mls @ 200 mls/hr IV Q6H [facility] Last Infusion: 08/05/24 08:34 Dose: Infused Documented By: BE Lorazepam (Lorazepam 1 Mg Tablet) 1 mg PO TID PRN PRN Reason: panic attacks Last Admin: 08/05/24 07:55 Dose: 1 mg Documented By: BE Magnesium Hydroxide (Milk Of Magnesia 30 Ml Oral.Susp) 30 ml PO DAILY PRN PRN Reason: Constipation Melatonin (Melatonin 3 Mg Tablet) 6 mg PO BEDTIME PRN PRN Reason: Insomnia Nicotine Polacrilex (Nicotine Polacrilex 2 Mg Gum) 2 mg BUCCAL Q2H PRN PRN Reason: Nicotine Cravings Last Admin: 08/03/24 21:16 Dose: 2 mg Documented By: JUSTINO Ondansetron HCl (Ondansetron Hcl 4 Mg/2 Ml Vial) 4 mg IVPUSH Q8H PRN PRN Reason: Nausea and Vomiting Pharmacy Consult (Consult Rx Etoh Phenob Im/Po) 1 each MISCELLANE ONCE PRN; Protocol PRN Reason: Consult order Phenobarbital (Phenobarbital 15 Mg Tablet) 45 mg PO BID [facility] Stop: 08/05/24 21:01 Last Admin: 08/05/24 09:05 Dose: 45 mg Documented By: SARAH Phenobarbital (Phenobarbital 30 Mg Tablet) 30 mg PO BID [facility] Stop: 08/07/24 21:01 Phenobarbital (Phenobarbital 30 Mg Tablet) 30 mg PO DAILY [facility] Stop: 08/09/24 09:01 Prazosin HCl (Prazosin Hcl 1 Mg Capsule) 2 mg PO BEDTIME [facility]; Protocol Last Admin: 08/04/24 21:30 Dose: 2 mg Documented By: IMER Quetiapine Fumarate (Quetiapine Fumarate 25 Mg Tablet) 25 mg PO BEDTIME [facility] Last Admin: 08/04/24 21:19 Dose: 25 mg Documented By: IMER Sodium Chloride (0.9 % Sodium Chloride Flush 3 Ml Syringe) 3 ml IVFLUSH [facility] Last Admin: 08/05/24 07:51 Dose: 3 ml Documented By: BE Thiamine HCl (Thiamine Hcl 100 Mg Tablet) 100 mg PO DAILY [facility] Last Admin: 08/05/24 09:05 Dose: 100 mg Documented By: SARAH Trazodone HCl (Trazodone Hcl 100 Mg Tablet) 100 mg PO BEDTIME PRN PRN Reason: Sleep Last Admin: 08/04/24 21:19 Dose: 100 mg Documented By: IMER Venlafaxine HCl (Venlafaxine Hcl Er 150 Mg Cap.Er.24h) 300 mg PO DAILY [facility] Last Admin: 08/05/24 09:05 Dose: 300 mg Documented By: SRAAH Labs 08/04/24 05:48 08/04/24 05:48 Labs: Laboratory Results - last 24 hr 08/05/24 08/05/24 08:54 08:59 Hold Purple Top SEE NOTE Magnesium 2.2 Microbiology Microbiology Results: Microbiology 08/03/24 20:51 Blood Culture - Preliminary Blood - Venous No growth after 24 hours. 08/03/24 20:51 Blood Culture - Preliminary Blood - Venous No growth after 24 hours. Assessment and Plan (1) Alcohol withdrawal syndrome: Status: Acute Plan This is a 38-year-old male with pertinent history of alcohol use disorder with history of alcohol withdrawals including seizure, mood disorder, tobacco use disorder who presents to the emergency department for concerns of alcohol withdrawal. Alcohol withdrawal in a patient with alcohol use disorder, no psychomotor agitations continue phenobarbital protocol monitor ciwa thiamine and folate replacement addiction med consult, cessation discussed additional pheno with increasing symptoms Abdominal pain Ultrasound positive for Lawosn's sign, normal HIDA, no pain today, wbc normaal, no fever, I will stop Abx Elevated transaminases due to alcohol use. Outpatient follow-up Acute lactic acidosis, not due to sepsis, rather due to alcoholism Mood disorder: Continue home mood stabilizers Tobacco use disorder: NRT while in the hospital Obesity: Counseled regarding diet and exercise Med rec pending DVT prophylaxis: Lovenox Full code need for inpatient: alcohol withdrawal Quality Stroke Does the patient have a stroke diagnosis?: No VTE Prior VTE?: No VTE Risk Level:: Medical - moderate - high VTE Device Contraindication: Treatment Not Indicated VTE Drug Contraindication: N/A - Med Ordered
[2024-08-05 09:41] LABS: MANUAL DIFF FLAG NO
[2024-08-05 09:47] LABS: Basophils Absolute Auto 0.1 X10*3/uL (0.0-0.2); Basophils Percent Auto 0.6 % (0-2); Eosinophils Absolute Auto 0.3 X10*3/uL (0.0-0.4); Eosinophils Percent Auto 3.7 % (0-4); Hemoglobin 16.2 g/dl (14.0-18.0); Imm Gran Abs Auto 0.06 X10*3/uL (0.00-0.03); Imm Gran Pct Auto 0.8 % (0.0-0.4); Lymphocytes Absolute Auto 1.6 X10*3/uL (1.2-4.9); Lymphocytes Percent Auto 19.5 % (20-40); Mean Corpuscular HGB Conc 33.1 g/dl (31.0-36.0); Mean Corpuscular Hemoglobin 26.8 pg (27.0-33.0); Mean Platelet Volume 9.1 fL (9.4-12.4); Monocytes Absolute Auto 0.6 X10*3/uL (0.1-1.2); Monocytes Percent Auto 7.3 % (2-11); Neutrophils Absolute Auto 5.4 x10*3/uL (2.0-8.3); Neutrophils Percent Auto 68.1 % (45-73); Platelet Count 271 X10*3/uL (160-400); Red Blood Count 6.05 X10*6/uL (4.60-5.80); Red Cell Distribution Width 18.2 % (11.0-16.0); White Blood Count 7.9 X10*3/uL (4.8-10.8)
[2024-08-05 09:54] LABS: Anion Gap 13 (12-20); Blood Urea Nitrogen 15 mg/dL (9-16); Calcium 9.4 mg/dL (8.4-10.2); Carbon Dioxide 26 mmol/L (22-29); Chloride 102 mmol/L (96-108); Creatinine Clr Calc Pharmacy 114.5; Estimated Glomerular Filt Rate > 60; Glucose Random 91 mg/dL (60-115); Potassium 4.1 mmol/L (3.3-5.1); Sodium 137 mmol/L (135-145)
--- NOTE | 2024-08-05 09:57 | HO.ADDICTCON ---
History of Present Illness Date of Service: Chief Complaint: alcohol withdrawal Reason for Consult: AUD Sources of Information: patient interviewed and chart reviewed HPI Narrative: Patient is a 38 year old male with alcohol use disorder medically admitted with acute alcohol withdrawal Chart review shows patient has required extra doses of phenpobarbital and one time dose of diazepam due to severity of withdrawal sx Patient seen in room 361. He is awake, alert, engaged in interview. He presents as anxious, gripping his blanket just because my hands are shaky -- withdrawal related tremors (mild-moderate when observed), and slightly diaphoretic He acknowledges that this morning sx are improved from yesterday and overnight When seen by t/s VSS, and CIWA score 9 He reports recent recurrence of alcohol use was related to not being able to move forward with esketamine treatment. Prior to that he states he had not been drinking for several months He has a long history of what he describes as binge drinking episodes, usually associated with a stressor Over the last few weeks he reported drinking btwn 15-25 beers a day He attempted to taper on his over a few days , then ultimately decided to present to ED for help He reported severe withdrawal sx at home and reported history of VH and seizures associated with alcohol withdrawal in the past Treatment History includes various admissions at different levels of care including, ATS and [facility] He has been prescribed both naltrexone and vivivtrol in the past. He states he did not drinking while taking them, but does not think he wants to go that route right now [facility] He is very knowledgeable regarding recovery supports Past Psychiatric History: -[facility]. Hx of [facility] in 2019 for SI. -Past meds: zoloft, wellbutrin, paxil, effexor, viibryd (tried 2x), trintellix, [place] (didnt like that it required blood work), Lamictal, Seroquel (?calming effect?), Risperdal (?the worst?), Abilify (?the worst?), latuda (?set me off?), Clonidine. Says ?no ssri, no snri, no antipsychotic had any effect on me. Review of Systems Constitutional: Reports as per HPI Psychiatric: Reports anxiety, Reports difficulty concentrating and Denies visual hallucinations Diagnostics Vital Signs (24Hr): Vital Signs - 24 hr 08/04/24 13:39 08/04/24 18:20 08/04/24 19:12 Temperature Pulse Rate 101 H 111 H 93 Respiratory Rate 20 20 20 Blood Pressure 107/60 187/104 H 193/109 H Pulse Oximetry 100 99 95 Oxygen Delivery Method Room Air Room Air Room Air 08/04/24 20:03 08/04/24 21:12 08/04/24 21:30 Temperature Pulse Rate 99 89 Respiratory Rate 20 19 Blood Pressure 168/112 H 162/100 H 156/96 H Pulse Oximetry 96 97 Oxygen Delivery Method Room Air Room Air 08/05/24 00:41 08/05/24 04:11 08/05/24 07:56 Temperature 97.0 F 98 F Pulse Rate 97 91 88 Respiratory Rate 20 20 16 Blood Pressure 131/84 118/58 L 122/84 Pulse Oximetry 95 94 95 Oxygen Delivery Method Room Air Room Air Room Air 08/05/24 09:14 Temperature 98.1 F Pulse Rate 89 Respiratory Rate 14 Blood Pressure 130/82 Pulse Oximetry 93 Oxygen Delivery Method Room Air BMI result Body Mass Index 36.4 Labs 08/05/24 08:59 08/05/24 08:59 Labs: Laboratory Results - last 48 hr 08/03/24 08/03/24 08/03/24 16:36 16:56 20:51 WBC 9.2 RBC 6.31 H Hgb 17.1 Hct 50.7 MCV 80.3 MCH 27.1 MCHC 33.7 RDW 18.0 H Plt Count 305 MPV 8.6 L Immature Gran % (Auto) 1.3 H Neut % (Auto) 58.8 Lymph % (Auto) 29.5 [place] % (Auto) 7.9 Eos % (Auto) 1.4 Baso % (Auto) 1.1 Lymph # (Auto) 2.7 [place] # (Auto) 0.7 Eos # (Auto) 0.1 Baso # (Auto) 0.1 Abs Immat Gran (auto) 0.12 H Absolute Neuts (auto) 5.4 Absolute Nucleated RBC 0.000 Nucleated RBC % (auto) 0.0 Hold Purple Top Sodium 140 Potassium 3.7 Chloride 105 Carbon Dioxide 18 L Anion Gap 21 H BUN 4 L Creatinine 0.79 Estim Creat Clear Calc 150.8 Estimated GFR > 60 Random Glucose 83 Lactic Acid 7.1 H* Lactic Acid F/U @ 2Hr Lactic Acid F/U @ 4Hr Calcium 9.2 D Magnesium 2.2 Total Bilirubin 0.4 AST 71 H ALT 116 H Alkaline Phosphatase 60 Total Protein 8.0 Albumin 4.5 Lipase 30 Urine Color Urine Appearance Urine pH Ur Specific [place] Urine Protein Urine Glucose (UA) Urine Ketones Urine Blood Urine Nitrite Ur Leukocyte Esterase Urine RBC Urine WBC Ur Squamous Epith Cells Urine Bacteria Hyaline Casts Urine Opiates Screen Not Detected Ur Buprenorphine Scrn Not Detected Ur Oxycodone Screen Not Detected Urine Methadone Screen Not Detected Urine Fentanyl Screen Not Detected Ur Barbiturates Screen Not Detected Ur Phencyclidine Scrn Not Detected Ur Amphetamines Screen Not Detected U Benzodiazepines Scrn Not Detected Urine Cocaine Screen Not Detected U Marijuana (THC) Screen Not Detected Ethyl Alcohol 141 08/03/24 08/03/24 08/04/24 22:08 23:05 01:43 WBC RBC Hgb Hct MCV MCH MCHC RDW Plt Count MPV Immature Gran % (Auto) Neut % (Auto) Lymph % (Auto) [place] % (Auto) Eos % (Auto) Baso % (Auto) Lymph # (Auto) [place] # (Auto) Eos # (Auto) Baso # (Auto) Abs Immat Gran (auto) Absolute Neuts (auto) Absolute Nucleated RBC Nucleated RBC % (auto) Hold Purple Top Sodium Potassium Chloride Carbon Dioxide Anion Gap BUN Creatinine Estim Creat Clear Calc Estimated GFR Random Glucose Lactic Acid Lactic Acid F/U @ 2Hr 3.6 H* Lactic Acid F/U @ 4Hr 3.5 H* Calcium Magnesium Total Bilirubin AST ALT Alkaline Phosphatase Total Protein Albumin Lipase Urine Color Yellow Urine Appearance Clear Urine pH 6.0 Ur Specific [place] 1.015 Urine Protein 30 (1+) H Urine Glucose (UA) Negative Urine Ketones Trace Urine Blood Negative Urine Nitrite Negative Ur Leukocyte Esterase Negative Urine RBC 0-2 Urine WBC 0-5 Ur Squamous Epith Cells 0-2 Urine Bacteria None Seen Hyaline Casts 0-2 Urine Opiates Screen Ur Buprenorphine Scrn Ur Oxycodone Screen Urine Methadone Screen Urine Fentanyl Screen Ur Barbiturates Screen Ur Phencyclidine Scrn Ur Amphetamines Screen U Benzodiazepines Scrn Urine Cocaine Screen U Marijuana (THC) Screen Ethyl Alcohol 08/04/24 08/05/24 08/05/24 05:48 08:54 08:59 WBC 8.0 7.9 RBC 5.56 6.05 H Hgb 14.9 16.2 Hct 45.2 49.0 MCV 81.3 81.0 MCH 26.8 L 26.8 L MCHC 33.0 33.1 RDW 17.6 H 18.2 H Plt Count 263 271 MPV 9.5 9.1 L Immature Gran % (Auto) 0.8 H 0.8 H Neut % (Auto) 61.3 68.1 Lymph % (Auto) 26.7 19.5 L [place] % (Auto) 7.8 7.3 Eos % (Auto) 2.5 3.7 Baso % (Auto) 0.9 0.6 Lymph # (Auto) 2.1 1.6 [place] # (Auto) 0.6 0.6 Eos # (Auto) 0.2 0.3 Baso # (Auto) 0.1 0.1 Abs Immat Gran (auto) 0.06 H 0.06 H Absolute Neuts (auto) 4.9 5.4 Absolute Nucleated RBC 0.000 0.000 Nucleated RBC % (auto) 0.0 0.0 Hold Purple Top SEE NOTE Sodium 137 137 Potassium 4.1 4.1 Chloride 106 102 Carbon Dioxide 20 L 26 Anion Gap 15 13 BUN 8 L 15 Creatinine 0.77 1.04 Estim Creat Clear Calc 154.7 114.5 Estimated GFR > 60 > 60 Random Glucose 109 91 Lactic Acid Lactic Acid F/U @ 2Hr Lactic Acid F/U @ 4Hr Calcium 8.7 9.4 D Magnesium 2.2 Total Bilirubin AST ALT Alkaline Phosphatase Total Protein Albumin Lipase Urine Color Urine Appearance Urine pH Ur Specific [place] Urine Protein Urine Glucose (UA) Urine Ketones Urine Blood Urine Nitrite Ur Leukocyte Esterase Urine RBC Urine WBC Ur Squamous Epith Cells Urine Bacteria Hyaline Casts Urine Opiates Screen Ur Buprenorphine Scrn Ur Oxycodone Screen Urine Methadone Screen Urine Fentanyl Screen Ur Barbiturates Screen Ur Phencyclidine Scrn Ur Amphetamines Screen U Benzodiazepines Scrn Urine Cocaine Screen U Marijuana (THC) Screen Ethyl Alcohol Imaging Radiology Impressions: ITS Impressions Hepatobiliary Scan Nuclear Medicine 08/04/24 13:45 IMPRESSION: Normal hepatobiliary scan with normal gallbladder ejection fraction. Electronically signed by: Francisco Alvarez MD 08/04/2024 03:47 PM EDT Mental Status Exam Mental Status Exam Patient Appearance: Perspiring Patient Orientation: Person, Place, Time and Situation Level of Consciousness: Awake and Alert Patient Behavior: Talkative and Anxious Mood Description: Anxious Affect Description: Anxious Speech Pattern: Clear Hallucinations: None Thought Content: positive for Intact Judgement: Good Medications Medications Current Medications Acetaminophen (Acetaminophen 325 Mg Tablet) 650 mg PO Q6H PRN PRN Reason: Pain, Mild 1-3,fever,headache Last Admin: 08/04/24 11:51 Dose: 650 mg Amphetamine/Dextroamphetamine (Dextroamphetamine/Amphetamine Xr 10 Mg Cap.Er.24h) 40 mg PO DAILY [facility] Last Admin: 08/05/24 09:04 Dose: 40 mg Calcium Carbonate (Calcium Carbonate 750 Mg Tab.Chew) 750 mg PO Q4H PRN PRN Reason: Heartburn Enoxaparin Sodium (Enoxaparin Sodium 40 Mg/0.4 Ml Syringe) 40 mg SUBCUT Q24H [facility] Last Admin: 08/04/24 19:03 Dose: Not Given Hydroxyzine HCl (Hydroxyzine Hcl 25 Mg Tablet) 25 mg PO Q6H PRN PRN Reason: anxiety/restlessness Last Admin: 08/04/24 19:02 Dose: 25 mg Lorazepam (Lorazepam 1 Mg Tablet) 1 mg PO TID PRN PRN Reason: panic attacks Last Admin: 08/05/24 07:55 Dose: 1 mg Magnesium Hydroxide (Milk Of Magnesia 30 Ml Oral.Susp) 30 ml PO DAILY PRN PRN Reason: Constipation Melatonin (Melatonin 3 Mg Tablet) 6 mg PO BEDTIME PRN PRN Reason: Insomnia Nicotine Polacrilex (Nicotine Polacrilex 2 Mg Gum) 2 mg BUCCAL Q2H PRN PRN Reason: Nicotine Cravings Last Admin: 08/03/24 21:16 Dose: 2 mg Ondansetron HCl (Ondansetron Hcl 4 Mg/2 Ml Vial) 4 mg IVPUSH Q8H PRN PRN Reason: Nausea and Vomiting Pharmacy Consult (Consult Rx Etoh Phenob Im/Po) 1 each MISCELLANE ONCE PRN; Protocol PRN Reason: Consult order Phenobarbital (Phenobarbital 15 Mg Tablet) 45 mg PO BID [facility] Stop: 08/05/24 21:01 Last Admin: 08/05/24 09:05 Dose: 45 mg Phenobarbital (Phenobarbital 30 Mg Tablet) 30 mg PO BID [facility] Stop: 08/07/24 21:01 Phenobarbital (Phenobarbital 30 Mg Tablet) 30 mg PO DAILY [facility] Stop: 08/09/24 09:01 Prazosin HCl (Prazosin Hcl 1 Mg Capsule) 2 mg PO BEDTIME [facility]; Protocol Last Admin: 08/04/24 21:30 Dose: 2 mg Quetiapine Fumarate (Quetiapine Fumarate 25 Mg Tablet) 25 mg PO BEDTIME [facility] Last Admin: 08/04/24 21:19 Dose: 25 mg Sodium Chloride (0.9 % Sodium Chloride Flush 3 Ml Syringe) 3 ml IVFLUSH QSHIFT [facility] Last Admin: 08/05/24 07:51 Dose: 3 ml Thiamine HCl (Thiamine Hcl 100 Mg Tablet) 100 mg PO DAILY [facility] Last Admin: 08/05/24 09:05 Dose: 100 mg Trazodone HCl (Trazodone Hcl 100 Mg Tablet) 100 mg PO BEDTIME PRN PRN Reason: Sleep Last Admin: 08/04/24 21:19 Dose: 100 mg Venlafaxine HCl (Venlafaxine Hcl Er 150 Mg Cap.Er.24h) 300 mg PO DAILY [facility] Last Admin: 08/05/24 09:05 Dose: 300 mg Allergies Allergies Allergy/AdvReac Type Severity Reaction Status Date / Time watermelon Allergy Itching Verified 08/03/24 16:30 Assessment & Plan Assessment & Plan (1) Alcohol withdrawal syndrome: Qualifiers: Complication of substance-induced condition: with perceptual disturbance Qualified Code(s): F10.932 - Alcohol use, unspecified with withdrawal with perceptual disturbance Status: Acute Code(s): F10.939 - Alcohol use, unspecified with withdrawal, unspecified Assessment and Plan: Acute withdrawal with patient reporting history of DTs and seizures Currently on pheno protocol requiring additional doses to address sx recommend increasing current doses of pheno to address severity of sx as protocol doses are not sufficient at this time while not ideal, due to concern of respiratory depression, PRN lorazepam if sx still not managed with extra doses of pheno (2) Alcohol use disorder, severe, dependence: Status: Acute Code(s): F10.20 - Alcohol dependence, uncomplicated Assessment and Plan: connected to [facility] for all services declined [facility], however accepted all resources related to recovery supports Total time managing care of this patient today __40__ minutes. PMFSH Past Medical History Medical History PTSD (post-traumatic stress disorder) ЕЛЕНА (generalized anxiety disorder) ADHD (attention deficit hyperactivity disorder) Bipolar 1 disorder ADHD HTN (hypertension) Anxiety Family History Family History Other No family history of coronary artery disease Surgical History Surgical History H/O fasciotomy Social History Social History Household Members: Family Housing: Condominium Do you presently have visiting nurse or other home services: No Alcohol intake: current Alcohol intake frequency: 3 or more drinks per day Alcohol type: hard liquor Comment: PT is relaxed and fell asleep Patient Tobacco Use Status: Former Tobacco user Substance Use Type: Opiates service: Yes Current occupational status: disabled
[2024-08-05] MEDS: hydrOXYzine HCL 50 MG TABLET PO (11:47)
[2024-08-05] MEDS: PHENobarbitaL sodium 130 MG/ML VIAL IM (13:21)
--- NOTE | 2024-08-05 13:28 | MHC.CM.PN ---
per rounds pt not medically ready for dc still in withdrawal dc plan remains home
[2024-08-05] MEDS: Nicotine Polacrilex 2 MG GUM BUCCAL (14:39)
--- NOTE | 2024-08-05 14:44 | PM.PSYCN ---
History of Present Illness Date of Service: 08/05/2024 Chief Complaint: alcohol withdrawal Reason for Consult: anxiety Requesting physician: Antolin Merida Discussed with referring provider: Yes Sources of Information: patient interviewed, chart reviewed and crisis/core team assessment reviewed HPI Narrative: Mr. Bach is a 38 year-old male with a hx of Bipolar Disorder who was admitted for alcohol withdrawal on phenobarbital protocol. He reported recently started binge drinking in setting of increased depression. Psychiatry asked to see him due to anxiety and depression. He has been seen by psychiatry in two different occasions. One back in 08/30/2021 when he presented with paranoid and grandiose delusions and was referred to [facility]. Second time back in 05/15/2022 when he presented as irritable, some explosive behaviors asking for ativan but later presented as calmer. His BAL 141. Utox was negative. Pt seen in his room. He reports the last year has been very difficult for him. 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 He reports he was about to get esketamine but was ultimately denied by insurance. He reports he sees a psychiatrist through [place], Dr. Emily Jimenez. He states he is being treated for major depression, however, he has had episodes of psychosis and delusions evident while he has been see here at [facility]. He denies suicidal or homicidal ideation. He endorses depressed mood, anhedonia. He reports poor sleep. He denies VH/AH. No overt delusions noted or reported. He reports he wants to return home to his mother as soon as possible as he is main caregiver. He reports he will continue with his psychiatrist at [place] to coordinate further medication changes or treatments. He's had multiple medication trials- as noted below. He is currently on Effexor, Adderall. He also reports he completed TMS tx with no therapeutic benefit. Past Psychiatric History: OP: Dr. Emily Jimenez. Hx of N gregg in 2020 for SI. -Past meds: zoloft, wellbutrin, paxil, effexor, viibryd (tried 2x), trintellix, [place] (didnt like that it required blood work), Lamictal, Seroquel (?calming effect?), Risperdal (?the worst?), Abilify (?the worst?), latuda (?set me off?), Clonidine. Medical Evaluation Reviewed: Yes [facility] Medical History (Updated 08/06/24 @ 08:29 by Armida Guerrero NP) Bipolar 1 disorder PTSD (post-traumatic stress disorder) ЕЛЕНА (generalized anxiety disorder) ADHD (attention deficit hyperactivity disorder) ADHD HTN (hypertension) Anxiety Surgical History H/O fasciotomy Family History: Deferred Social History: Trauma History: Positive for trauma history Diagnostics Vital Signs (24Hr): Vital Signs - 24 hr 08/04/24 18:20 08/04/24 19:12 08/04/24 20:03 Temperature Pulse Rate 111 H 93 99 Respiratory Rate 20 20 20 Blood Pressure 187/104 H 193/109 H 168/112 H Pulse Oximetry 99 95 96 Oxygen Delivery Method Room Air Room Air Room Air 08/04/24 21:12 08/04/24 21:30 08/05/24 00:41 Temperature Pulse Rate 89 97 Respiratory Rate 19 20 Blood Pressure 162/100 H 156/96 H 131/84 Pulse Oximetry 97 95 Oxygen Delivery Method Room Air Room Air 08/05/24 04:11 08/05/24 07:56 08/05/24 09:14 Temperature 97.0 F 98 F 98.1 F Pulse Rate 91 88 89 Respiratory Rate 20 16 14 Blood Pressure 118/58 L 122/84 130/82 Pulse Oximetry 94 95 93 Oxygen Delivery Method Room Air Room Air Room Air 08/05/24 12:00 Temperature 97.7 F Pulse Rate 110 H Respiratory Rate 20 Blood Pressure 145/94 H Pulse Oximetry 95 Oxygen Delivery Method Room Air BMI result Body Mass Index 36.4 Labs 08/05/24 08:59 08/06/24 05:34 Labs: Laboratory Results - last 48 hr 08/03/24 08/03/24 08/03/24 16:36 16:56 20:51 WBC 9.2 RBC 6.31 H Hgb 17.1 Hct 50.7 MCV 80.3 MCH 27.1 MCHC 33.7 RDW 18.0 H Plt Count 305 MPV 8.6 L Immature Gran % (Auto) 1.3 H Neut % (Auto) 58.8 Lymph % (Auto) 29.5 Terry % (Auto) 7.9 Eos % (Auto) 1.4 Baso % (Auto) 1.1 Lymph # (Auto) 2.7 Terry # (Auto) 0.7 Eos # (Auto) 0.1 Baso # (Auto) 0.1 Abs Immat Gran (auto) 0.12 H Absolute Neuts (auto) 5.4 Absolute Nucleated RBC 0.000 Nucleated RBC % (auto) 0.0 Hold Purple Top Sodium 140 Potassium 3.7 Chloride 105 Carbon Dioxide 18 L Anion Gap 21 H BUN 4 L Creatinine 0.79 Estim Creat Clear Calc 150.8 Estimated GFR > 60 Random Glucose 83 Lactic Acid 7.1 H* Lactic Acid F/U @ 2Hr Lactic Acid F/U @ 4Hr Calcium 9.2 D Magnesium 2.2 Total Bilirubin 0.4 AST 71 H ALT 116 H Alkaline Phosphatase 60 Total Protein 8.0 Albumin 4.5 Lipase 30 Urine Color Urine Appearance Urine pH Ur Specific [place] Urine Protein Urine Glucose (UA) Urine Ketones Urine Blood Urine Nitrite Ur Leukocyte Esterase Urine RBC Urine WBC Ur Squamous Epith Cells Urine Bacteria Hyaline Casts Urine Opiates Screen Not Detected Ur Buprenorphine Scrn Not Detected Ur Oxycodone Screen Not Detected Urine Methadone Screen Not Detected Urine Fentanyl Screen Not Detected Ur Barbiturates Screen Not Detected Ur Phencyclidine Scrn Not Detected Ur Amphetamines Screen Not Detected U Benzodiazepines Scrn Not Detected Urine Cocaine Screen Not Detected U Marijuana (THC) Screen Not Detected Ethyl Alcohol 141 08/03/24 08/03/24 08/04/24 22:08 23:05 01:43 WBC RBC Hgb Hct MCV MCH MCHC RDW Plt Count MPV Immature Gran % (Auto) Neut % (Auto) Lymph % (Auto) Terry % (Auto) Eos % (Auto) Baso % (Auto) Lymph # (Auto) Terry # (Auto) Eos # (Auto) Baso # (Auto) Abs Immat Gran (auto) Absolute Neuts (auto) Absolute Nucleated RBC Nucleated RBC % (auto) Hold Purple Top Sodium Potassium Chloride Carbon Dioxide Anion Gap BUN Creatinine Estim Creat Clear Calc Estimated GFR Random Glucose Lactic Acid Lactic Acid F/U @ 2Hr 3.6 H* Lactic Acid F/U @ 4Hr 3.5 H* Calcium Magnesium Total Bilirubin AST ALT Alkaline Phosphatase Total Protein Albumin Lipase Urine Color Yellow Urine Appearance Clear Urine pH 6.0 Ur Specific [place] 1.015 Urine Protein 30 (1+) H Urine Glucose (UA) Negative Urine Ketones Trace Urine Blood Negative Urine Nitrite Negative Ur Leukocyte Esterase Negative Urine RBC 0-2 Urine WBC 0-5 Ur Squamous Epith Cells 0-2 Urine Bacteria None Seen Hyaline Casts 0-2 Urine Opiates Screen Ur Buprenorphine Scrn Ur Oxycodone Screen Urine Methadone Screen Urine Fentanyl Screen Ur Barbiturates Screen Ur Phencyclidine Scrn Ur Amphetamines Screen U Benzodiazepines Scrn Urine Cocaine Screen U Marijuana (THC) Screen Ethyl Alcohol 08/04/24 08/05/24 08/05/24 05:48 08:54 08:59 WBC 8.0 7.9 RBC 5.56 6.05 H Hgb 14.9 16.2 Hct 45.2 49.0 MCV 81.3 81.0 MCH 26.8 L 26.8 L MCHC 33.0 33.1 RDW 17.6 H 18.2 H Plt Count 263 271 MPV 9.5 9.1 L Immature Gran % (Auto) 0.8 H 0.8 H Neut % (Auto) 61.3 68.1 Lymph % (Auto) 26.7 19.5 L [place] % (Auto) 7.8 7.3 Eos % (Auto) 2.5 3.7 Baso % (Auto) 0.9 0.6 Lymph # (Auto) 2.1 1.6 Terry # (Auto) 0.6 0.6 Eos # (Auto) 0.2 0.3 Baso # (Auto) 0.1 0.1 Abs Immat Gran (auto) 0.06 H 0.06 H Absolute Neuts (auto) 4.9 5.4 Absolute Nucleated RBC 0.000 0.000 Nucleated RBC % (auto) 0.0 0.0 Hold Purple Top SEE NOTE Sodium 137 137 Potassium 4.1 4.1 Chloride 106 102 Carbon Dioxide 20 L 26 Anion Gap 15 13 BUN 8 L 15 Creatinine 0.77 1.04 Estim Creat Clear Calc 154.7 114.5 Estimated GFR > 60 > 60 Random Glucose 109 91 Lactic Acid Lactic Acid F/U @ 2Hr Lactic Acid F/U @ 4Hr Calcium 8.7 9.4 D Magnesium 2.2 Total Bilirubin AST ALT Alkaline Phosphatase Total Protein Albumin Lipase Urine Color Urine Appearance Urine pH Ur Specific [place] Urine Protein Urine Glucose (UA) Urine Ketones Urine Blood Urine Nitrite Ur Leukocyte Esterase Urine RBC Urine WBC Ur Squamous Epith Cells Urine Bacteria Hyaline Casts Urine Opiates Screen Ur Buprenorphine Scrn Ur Oxycodone Screen Urine Methadone Screen Urine Fentanyl Screen Ur Barbiturates Screen Ur Phencyclidine Scrn Ur Amphetamines Screen U Benzodiazepines Scrn Urine Cocaine Screen U Marijuana (THC) Screen Ethyl Alcohol Imaging Radiology Impressions: ITS Impressions Hepatobiliary Scan Nuclear Medicine 08/04/24 13:45 IMPRESSION: Normal hepatobiliary scan with normal gallbladder ejection fraction. Electronically signed by: Francisco Alvarez MD 08/04/2024 03:47 PM EDT RP Mental Status Exam Mental Status Exam Narrative: Appearance: wearing hospital gown, good hygiene, in NAD behavior: cooperative Psychomotor: no agitation or retardation Speech: clear, normal rate/rhythm, volume, spontaneous TP: linear TC: wanting to go home soon to his mother Mood: depressed Affect: congruent SI: none HI: none VH/AH: none Delusions: none at this moment Insight/judgment: fair x 2. Memory/cog: alert, oriented x 4. grossly intact to conversational testing. Medications Medications Current Medications Acetaminophen (Acetaminophen 325 Mg Tablet) 650 mg PO Q6H PRN PRN Reason: Pain, Mild 1-3,fever,headache Last Admin: 08/04/24 11:51 Dose: 650 mg Calcium Carbonate (Calcium Carbonate 750 Mg Tab.Chew) 750 mg PO Q4H PRN PRN Reason: Heartburn Enoxaparin Sodium (Enoxaparin Sodium 40 Mg/0.4 Ml Syringe) 40 mg SUBCUT Q24H [facility] Last Admin: 08/04/24 19:03 Dose: Not Given Hydroxyzine HCl (Hydroxyzine Hcl 25 Mg Tablet) 25 mg PO Q6H PRN PRN Reason: anxiety/restlessness Lorazepam (Lorazepam 1 Mg Tablet) 2 mg PO TID PRN PRN Reason: panic attacks Magnesium Hydroxide (Milk Of Magnesia 30 Ml Oral.Susp) 30 ml PO DAILY PRN PRN Reason: Constipation Melatonin (Melatonin 3 Mg Tablet) 6 mg PO BEDTIME PRN PRN Reason: Insomnia Nicotine Polacrilex (Nicotine Polacrilex 2 Mg Gum) 2 mg BUCCAL Q2H PRN PRN Reason: Nicotine Cravings Last Admin: 08/05/24 14:39 Dose: 2 mg Ondansetron HCl (Ondansetron Hcl 4 Mg/2 Ml Vial) 4 mg IVPUSH Q8H PRN PRN Reason: Nausea and Vomiting Pharmacy Consult (Consult Rx Etoh Phenob Im/Po) 1 each MISCELLANE ONCE PRN; Protocol PRN Reason: Consult order Phenobarbital (Phenobarbital 15 Mg Tablet) 45 mg PO BID [facility] Stop: 08/05/24 21:01 Last Admin: 08/05/24 09:05 Dose: 45 mg Phenobarbital (Phenobarbital 30 Mg Tablet) 30 mg PO BID FRANK Stop: 08/07/24 21:01 Phenobarbital (Phenobarbital 30 Mg Tablet) 30 mg PO DAILY FRANK Stop: 08/09/24 09:01 Prazosin HCl (Prazosin Hcl 1 Mg Capsule) 2 mg PO BEDTIME FRANK; Protocol Last Admin: 08/04/24 21:30 Dose: 2 mg Quetiapine Fumarate (Quetiapine Fumarate 25 Mg Tablet) 25 mg PO BEDTIME [facility] Last Admin: 08/04/24 21:19 Dose: 25 mg Sodium Chloride (0.9 % Sodium Chloride Flush 3 Ml Syringe) 3 ml IVFLUSH QSHIFT [facility] Last Admin: 08/05/24 07:51 Dose: 3 ml Thiamine HCl (Thiamine Hcl 100 Mg Tablet) 100 mg PO DAILY [facility] Last Admin: 08/05/24 09:05 Dose: 100 mg Trazodone HCl (Trazodone Hcl 100 Mg Tablet) 100 mg PO BEDTIME PRN PRN Reason: Sleep Last Admin: 08/04/24 21:19 Dose: 100 mg Venlafaxine HCl (Venlafaxine Hcl Er 150 Mg Cap.Er.24h) 300 mg PO DAILY [facility] Last Admin: 08/05/24 09:05 Dose: 300 mg Allergies Allergies Allergy/AdvReac Type Severity Reaction Status Date / Time watermelon Allergy Itching Verified 08/03/24 16:30 Assessment & Plan Assessment & Plan (1) Bipolar 1 disorder: Status: Acute Code(s): F31.9 - Bipolar disorder, unspecified (2) Alcohol use disorder, severe, dependence: Status: Acute Code(s): F10.20 - Alcohol dependence, uncomplicated (3) PTSD (post-traumatic stress disorder): Status: Acute Code(s): F43.10 - Post-traumatic stress disorder, unspecified Plan Mr. Bach is a 38 year-old male with hx of Bipolar Disorder although he tells me today he is being treated for MDD, although we have seen him with paranoid and grandiose delusions in the past. He does have multiple medication trials. He reports multiple unfortunate events that have happened in the past year, including losing his job, mother having a stroke and break up with fiance of 7 years. He denies SI/HI. He declines referrals for PHP or inpt psych (at this point given that there are no imminent safety concerns he would be voluntary). He reports he will follow up with his psychiatrist, Dr. Emily Jimenez. No further medication recommendations at this time, aside from holding adderral as he goes through withdrawal protocol. which he is in agreement with. PLAN 1. Hold adderall while in hospital 2. pt to follow up with OP psychiatric providers on discharge. controlled substance RX per OP provider. Total time managing care of this patient today ____ minutes.
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
[2024-08-05] MEDS: LORazepam 1 MG TABLET 2 MG PO (16:12)
--- NOTE | 2024-08-05 16:32 | PC.NURSE ---
KERMIT 17- Dr Merida notified and in to see pt. Po ativan given per MAR
[2024-08-05] MEDS: QUEtiapine Fumarate 25 MG TABLET PO (21:20)
[2024-08-05] MEDS: hydrOXYzine HCL 25 MG TABLET PO (21:20)
[2024-08-05] MEDS: traZODone HCL 100 MG TABLET PO (21:20)
[2024-08-05] MEDS: Prazosin HCL 1 MG CAPSULE 2 MG PO (21:20)
[2024-08-05] MEDS: Acetaminophen 325 MG TABLET 650 MG PO (21:28)
[2024-08-05] MEDS: ondansetron HCL 4 MG/2 ML VIAL IVPUSH (21:29)
[2024-08-05] MEDS: PHENobarbitaL 30 MG TABLET PO (21:37)
--- NOTE | 2024-08-06 02:47 | PC.NURSE ---
Pt seen at the start of the shift on bed alert and oriented with a CIWA score = 21, pt is tense, verbalized feeling very anxious and guarding,diaphoretic, scheduled meds including Phenobarb poand PRN Atarax given,unable to give Lorazepam as too close from the last adm, Dr. Espinoza was notified, Additional Phenobarb 30 mg po ordered and given, pt was able to sleep after, Vitals WNL, awaken spontaneously with care.
[2024-08-06 03:28] VITALS: BP 129/71; PULSE 94; RESP 18; TEMP 36.1; O2SAT 98
[2024-08-06 06:51] LABS: Anion Gap 13 (12-20); Blood Urea Nitrogen 12 mg/dL (9-16); Calcium 9.3 mg/dL (8.4-10.2); Carbon Dioxide 24 mmol/L (22-29); Chloride 105 mmol/L (96-108); Creatinine Clr Calc Pharmacy 138.5; Estimated Glomerular Filt Rate > 60; Glucose Random 85 mg/dL (60-115); Potassium 3.8 mmol/L (3.3-5.1); Sodium 138 mmol/L (135-145)
[2024-08-06 08:00] VITALS: BP 129/72; PULSE 98; RESP 16; TEMP 36.2; O2SAT 96
[2024-08-06] MEDS: Venlafaxine HCl ER 150 MG CAP.ER.24H 300 MG PO (08:49)
[2024-08-06] MEDS: PHENobarbitaL 30 MG TABLET PO (08:49)
[2024-08-06] MEDS: 0.9 % Sodium Chloride Flush 3 ML SYRINGE IVFLUSH (08:49)
[2024-08-06] MEDS: Thiamine HCL 100 MG TABLET PO (08:49)
[2024-08-06] MEDS: LORazepam 1 MG TABLET 2 MG PO (09:26)
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
--- NOTE | 2024-08-06 10:22 | HO.ADDICTPRO ---
Subjective Subjective Date of Service: 08/06/24 Reason For Visit: alcohol withdrawal Interim History: Patient seen in follow up for AUD and withdrawal He is awake, alert, pleasant and engaged in interview. He reports feeling better than yesterday and reports he was able to sleep last evening He appears overall calm, not diaphoretic, and with mild tremor (improved from yesterday) Last evening he required an extra dose of pheno for CIWA score of 21, which was effective This morning CIWA score is 3 Review of Systems Constitutional: Reports as per HPI Mental Status Exam Mental Status Exam Patient Appearance: Appropriate Patient Orientation: Person, Place, Time and Situation Level of Consciousness: Awake, Appropriate and Alert Patient Behavior: Appropriate and Talkative Mood Description: Calm Affect Description: Calm Speech Pattern: Clear Hallucinations: None Thought Content: positive for Intact Judgement: Good Diagnostics Vital Signs (24Hr): Vital Signs - 24 hr 08/05/24 12:00 08/05/24 15:14 08/05/24 19:29 Temperature 97.7 F 98.5 F 98.1 F Pulse Rate 110 H 99 106 H Respiratory Rate 20 18 17 Blood Pressure 145/94 H 165/90 H 164/92 H Pulse Oximetry 95 96 98 Oxygen Delivery Method Room Air Room Air Room Air 08/05/24 21:20 08/05/24 23:41 08/06/24 03:28 Temperature 97.8 F 97 F Pulse Rate 99 94 Respiratory Rate 18 18 Blood Pressure 164/92 H 146/93 H 129/71 Pulse Oximetry 93 98 Oxygen Delivery Method Room Air Room Air 08/06/24 08:00 Temperature 97.1 F Pulse Rate 98 Respiratory Rate 16 Blood Pressure 129/72 Pulse Oximetry 96 Oxygen Delivery Method Room Air BMI result Body Mass Index 36.4 Labs 08/05/24 08:59 08/06/24 05:34 Labs: Laboratory Results - last 48 hr 08/05/24 08/05/24 08/06/24 08:54 08:59 05:34 WBC 7.9 RBC 6.05 H Hgb 16.2 Hct 49.0 MCV 81.0 MCH 26.8 L MCHC 33.1 RDW 18.2 H Plt Count 271 MPV 9.1 L Immature Gran % (Auto) 0.8 H Neut % (Auto) 68.1 Lymph % (Auto) 19.5 L [place] % (Auto) 7.3 Eos % (Auto) 3.7 Baso % (Auto) 0.6 Lymph # (Auto) 1.6 [place] # (Auto) 0.6 Eos # (Auto) 0.3 Baso # (Auto) 0.1 Abs Immat Gran (auto) 0.06 H Absolute Neuts (auto) 5.4 Absolute Nucleated RBC 0.000 Nucleated RBC % (auto) 0.0 Hold Purple Top SEE NOTE SEE NOTE Sodium 137 138 Potassium 4.1 3.8 Chloride 102 105 Carbon Dioxide 26 24 Anion Gap 13 13 BUN 15 12 Creatinine 1.04 0.86 Estim Creat Clear Calc 114.5 138.5 Estimated GFR > 60 > 60 Random Glucose 91 85 Calcium 9.4 D 9.3 Magnesium 2.2 Imaging Radiology Impressions: ITS Impressions Hepatobiliary Scan Nuclear Medicine 08/04/24 13:45 IMPRESSION: Normal hepatobiliary scan with normal gallbladder ejection fraction. Electronically signed by: Francisco Alvarez MD 08/04/2024 03:47 PM EDT RP Medications Medications Current Medications Acetaminophen (Acetaminophen 325 Mg Tablet) 650 mg PO Q6H PRN PRN Reason: Pain, Mild 1-3,fever,headache Last Admin: 08/05/24 21:28 Dose: 650 mg Calcium Carbonate (Calcium Carbonate 750 Mg Tab.Chew) 750 mg PO Q4H PRN PRN Reason: Heartburn Enoxaparin Sodium (Enoxaparin Sodium 40 Mg/0.4 Ml Syringe) 40 mg SUBCUT Q24H FRANK Last Admin: 08/05/24 21:22 Dose: Not Given Hydroxyzine HCl (Hydroxyzine Hcl 25 Mg Tablet) 25 mg PO Q6H PRN PRN Reason: anxiety/restlessness Last Admin: 08/05/24 21:20 Dose: 25 mg Hydroxyzine HCl (Hydroxyzine Hcl 25 Mg Tablet) 25 mg PO Q6H PRN PRN Reason: Anxiety Lorazepam (Lorazepam 1 Mg Tablet) 2 mg PO TID PRN PRN Reason: panic attacks Last Admin: 08/06/24 09:26 Dose: 2 mg Magnesium Hydroxide (Milk Of Magnesia 30 Ml Oral.Susp) 30 ml PO DAILY PRN PRN Reason: Constipation Melatonin (Melatonin 3 Mg Tablet) 6 mg PO BEDTIME PRN PRN Reason: Insomnia Nicotine Polacrilex (Nicotine Polacrilex 2 Mg Gum) 2 mg BUCCAL Q2H PRN PRN Reason: Nicotine Cravings Last Admin: 08/05/24 14:39 Dose: 2 mg Ondansetron HCl (Ondansetron Hcl 4 Mg/2 Ml Vial) 4 mg IVPUSH Q8H PRN PRN Reason: Nausea and Vomiting Last Admin: 08/05/24 21:29 Dose: 4 mg Pharmacy Consult (Consult Rx Etoh Phenob Im/Po) 1 each MISCELLANE ONCE PRN; Protocol PRN Reason: Consult order Phenobarbital (Phenobarbital 30 Mg Tablet) 30 mg PO BID FRANK Stop: 08/07/24 21:01 Last Admin: 08/06/24 08:49 Dose: 30 mg Phenobarbital (Phenobarbital 30 Mg Tablet) 30 mg PO DAILY FRANK Stop: 08/09/24 09:01 Prazosin HCl (Prazosin Hcl 1 Mg Capsule) 2 mg PO BEDTIME FRANK; Protocol Last Admin: 08/05/24 21:20 Dose: 2 mg Quetiapine Fumarate (Quetiapine Fumarate 25 Mg Tablet) 25 mg PO BEDTIME FRANK Last Admin: 08/05/24 21:20 Dose: 25 mg Sodium Chloride (0.9 % Sodium Chloride Flush 3 Ml Syringe) 3 ml IVFLUSH QSHIFT [facility] Last Admin: 08/06/24 08:49 Dose: 3 ml Thiamine HCl (Thiamine Hcl 100 Mg Tablet) 100 mg PO DAILY [facility] Last Admin: 08/06/24 08:49 Dose: 100 mg Trazodone HCl (Trazodone Hcl 100 Mg Tablet) 100 mg PO BEDTIME PRN PRN Reason: Sleep Last Admin: 08/05/24 21:20 Dose: 100 mg Venlafaxine HCl (Venlafaxine Hcl Er 150 Mg Cap.Er.24h) 300 mg PO DAILY [facility] Last Admin: 08/06/24 08:49 Dose: 300 mg Allergies Allergies Allergy/AdvReac Type Severity Reaction Status Date / Time watermelon Allergy Itching Verified 08/03/24 16:30 Assessment & Plan Assessment & Plan (1) Alcohol use disorder, severe, dependence: Status: Acute Code(s): F10.20 - Alcohol dependence, uncomplicated Assessment and Plan: declines appt or [facility] at discharge--prefers to follow up with [facility] providers and discuss then resources provided for non MAT recovery supports and strategies (2) Alcohol withdrawal syndrome: Qualifiers: Complication of substance-induced condition: with perceptual disturbance Qualified Code(s): F10.932 - Alcohol use, unspecified with withdrawal with perceptual disturbance Status: Acute Code(s): F10.939 - Alcohol use, unspecified with withdrawal, unspecified Assessment and Plan: withdrawal sx much improved -CIWA 2 this morning Total time managing care of this patient today 15____ minutes.
[2024-08-06 11:46] VITALS: BP 119/81; PULSE 100; RESP 18; TEMP 36.4; O2SAT 96
[2024-08-06] MEDS: hydrOXYzine HCL 25 MG TABLET PO (12:12)
[2024-08-06 14:36] VITALS: BP 143/82; PULSE 107; RESP 18; TEMP 36.1; O2SAT 97
== END 2024-08-06 14:45 | disposition home or self-care (01) | DRG 897 ==
LOC: HO.ED 19:42 → HO.EDOVER 19:44 → HO.S3 08-05 07:01
PROVIDERS: Physician Assistant Medical; Admitting Provider Student in an Organized Health Care Education/Training Program; Emergency Provider Emergency Medicine; Visit Provider Internal Medicine
DX: F10.239 Alcohol dependence with withdrawal, unspecified (principal); E87.21 Acute metabolic acidosis; Y90.6 Blood alcohol level of 120-199 mg/100 ml; F43.10 Post-traumatic stress disorder, unspecified; F31.9 Bipolar disorder, unspecified; E66.9 Obesity, unspecified; F41.9 Anxiety disorder, unspecified; Z68.36 Body mass index [BMI] 36.0-36.9, adult; Z71.3 Dietary counseling and surveillance; Z87.891 Personal history of nicotine dependence; Z79.899 Other long term (current) drug therapy
CPT/HCPCS: 36415; 76705; 78227; 80048; 80053; 80307; 81001; 83605; 83690; 83735; 85025; 87040; 93005; 99285; A9537; J1650; J2270; J2405; J2543; J2560; J2805; J3360; J3411; J7120; S9485

== ENCOUNTER → 2024-08-03 16:29 | Outpatient (BNV) | payer OTHER, SELFPAY | PROVIDERS: Admitting Provider Student in an Organized Health Care Education/Training Program; Emergency Provider Emergency Medicine; Visit Provider Internal Medicine Cardiovascular Disease | DX: R00.0 Tachycardia, unspecified (principal) | CPT/HCPCS: 93010 ==

== ENCOUNTER → 2024-08-03 18:19 | Outpatient (BNV) | payer OTHER, SELFPAY | PROVIDERS: Admitting Provider Student in an Organized Health Care Education/Training Program; Emergency Provider Emergency Medicine; Visit Provider Radiology Diagnostic Radiology | DX: R19.8 Other specified symptoms and signs involving the digestive system and abdomen (principal); K76.0 Fatty (change of) liver, not elsewhere classified | CPT/HCPCS: 76705; 76981 ==

== ENCOUNTER 2024-08-03 19:41 | Outpatient (BNV) | payer OTHER, SELFPAY | END 2024-08-04 13:45 | PROVIDERS: Admitting Provider Student in an Organized Health Care Education/Training Program; Emergency Provider Emergency Medicine; Visit Provider Radiology Diagnostic Radiology | DX: R10.9 Unspecified abdominal pain (principal) | CPT/HCPCS: 78227 ==

== ENCOUNTER → 2024-08-03 19:41 | Outpatient (BNV) | payer OTHER, SELFPAY | PROVIDERS: Admitting Provider Student in an Organized Health Care Education/Training Program; Emergency Provider Emergency Medicine; Visit Provider Social Worker | DX: F31.9 Bipolar disorder, unspecified (principal); F10.20 Alcohol dependence, uncomplicated; F43.10 Post-traumatic stress disorder, unspecified | CPT/HCPCS: 99233 ==

== ENCOUNTER → 2024-08-03 19:41 | Outpatient (BNV) | payer OTHER, SELFPAY | PROVIDERS: Admitting Provider Student in an Organized Health Care Education/Training Program; Emergency Provider Emergency Medicine; Visit Provider Student in an Organized Health Care Education/Training Program | DX: E87.21 Acute metabolic acidosis (principal); F10.932 Alcohol use, unspecified with withdrawal with perceptual disturbance; R10.9 Unspecified abdominal pain; K70.9 Alcoholic liver disease, unspecified | CPT/HCPCS: 99223 ==

== ENCOUNTER → 2024-08-03 19:41 | Outpatient (BNV) | payer OTHER, SELFPAY | PROVIDERS: Admitting Provider Student in an Organized Health Care Education/Training Program; Emergency Provider Emergency Medicine; Visit Provider Nurse Practitioner Psychiatric/Mental Health | DX: F10.20 Alcohol dependence, uncomplicated (principal) | CPT/HCPCS: 99222; 99231 ==

== ENCOUNTER 2024-12-16 18:38 | Emergency (ER) | payer SELFPAY ==
[2024-12-16] VITALS (18 sets, daily range): BP systolic 82–167; BP diastolic 33–99; PULSE 93–138; RESP 4–33; O2SAT 70–100; BMI 33.4
--- NOTE | ~2024-12-16 | XR_ITS ---
CLINICAL HISTORY: suspect aspiration 1 view chest x-ray Comparison: 01/24/2023 Findings: New medial left base consolidation. Differential includes aspiration as well as pneumonia. Right lung is clear. Heart size enlarged. No acute bony abnormalities. Impression: Left medial base consolidation as above Differential includes aspiration and pneumonia This document has been electronically signed by: Elton Moise MD on 12/16/2024 19:57:29
[2024-12-16] MEDS: OLANZapine 10 MG VIAL 5 MG IM (18:47)
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
--- NOTE | 2024-12-16 19:03 | PC.NURSE ---
arrivaed via ems with blood in mouth. Per pd patient had bottle of ativan or clonzapam filled yesterday with 90 tablets, 34 missing upon being counted. Patient placed in 4 point restraints and spit mask. Patient screaming about judges, PD, and the .
[2024-12-16] MEDS: Lactated Ringers 2,000 ML 999 ML IV (20:20)
[2024-12-16 20:37] LABS: MANUAL DIFF FLAG NO
[2024-12-16 20:45] LABS: INTERNATIONAL NORM RATIO 1.0 (0.9-1.1); Prothrombin Time 11.0 SEC (10.9-12.4)
[2024-12-16 20:48] LABS: Hematocrit 45.3 % (42.0-52.0); Hemoglobin 15.6 g/dl (14.0-18.0); Imm Gran Abs Auto 0.16 X10*3/uL (0.00-0.03); Imm Gran Pct Auto 1.3 % (0.0-0.4); Lymphocytes Absolute Auto 1.9 X10*3/uL (1.2-4.9); Mean Corpuscular HGB Conc 34.4 g/dl (31.0-36.0); Mean Corpuscular Hemoglobin 27.5 pg (27.0-33.0); Mean Corpuscular Volume 79.8 fL (80.0-98.0); NRBC Abs Auto 0.000 X10*3/uL (0.0-0.012); NRBC Pct Auto 0.0 /100WBC (0.0-0.2); Partial Thromboplastin Time 26.2 SEC (26.7-34.1); Platelet Count 337 X10*3/uL (160-400); Red Blood Count 5.68 X10*6/uL (4.60-5.80); White Blood Count 12.0 X10*3/uL (4.8-10.8)
[2024-12-16 21:03] LABS: Acetaminophen LAB < 3 mcg/mL (<30); Alanine Aminotransferase 56 U/L (0-40); Albumin Level 4.0 g/dL (3.5-5.0); Alkaline Phosphatase 57 U/L (39-117); Anion Gap 22 (12-20); Aspartate Amino Transferase 55 U/L (5-37); Blood Urea Nitrogen 13 mg/dL (9-16); Calcium 9.1 mg/dL (8.4-10.2); Carbon Dioxide 23 mmol/L (22-29); Chloride 98 mmol/L (96-108); Creatinine Clr Calc Pharmacy 85.0; Estimated Glomerular Filt Rate 53; Potassium 3.4 mmol/L (3.3-5.1); Salicylate < 5.0 mg/dL (15-30); Sodium 140 mmol/L (135-145); Total Protein 6.8 g/dL (6.5-8.0)
--- NOTE | 2024-12-16 22:25 | PC.NURSE ---
Pt awoke suddenly, calm and asking where he is. Pt does not recall events prior to arrival to hospital. Pt unsure of the date at this time, reoriented to date/place/situation. Pt remains in PD custody, calm and cooperative at this time. aware.
[2024-12-16 23:15] LABS: Cannabinoid Screen Urine Not Detected (Not Detect)
[2024-12-16 23:53] LABS: Anion Gap 14 (12-20); Blood Urea Nitrogen 12 mg/dL (9-16); Calcium 8.8 mg/dL (8.4-10.2); Carbon Dioxide 26 mmol/L (22-29); Chloride 104 mmol/L (96-108); Creatinine Clr Calc Pharmacy 114.2; Estimated Glomerular Filt Rate > 60; Potassium 3.3 mmol/L (3.3-5.1); Sodium 141 mmol/L (135-145)
[2024-12-17] MEDS: Lactated Ringers 1,000 ML 999 ML IV (00:16)
[2024-12-17 00:17] VITALS: BP 105/46; PULSE 99; RESP 22; O2SAT 97
--- NOTE | 2024-12-17 00:18 | PC.NURSE ---
pt remains somnolent at this time but responsive to verbal stimuli. upon awakening, pt seemingly disoriented. unaware on date/location/what brought him here. pt remains on 8L via oxymask - no sob/wob noted. respirations even/labored while asleep. slightly hypotensive - IVF continues to infuse at this time. otherwise vss and up to date. pt remains in PD custody at this time - handcuffed. 1:1 sitter remains present as well. plan of care ongoing. call riggs placed within reach.
[2024-12-17 01:47] VITALS: BP 107/62; RESP 107; O2SAT 100
--- NOTE | 2024-12-17 01:48 | PC.NURSE ---
pt awake/alert. calm/cooperative. pt taken off of oxymask and transitioned to RA w/o difficulty. SPO2 of 100%. no sob/wob noted. respirations even/unlabored. vital signs otherwise remain stable/up to date aside from being slightly tachycardic. pt reassessed by MD. plan: repeat lab work s/p IVF boluses. pt notified/aware/agreeable to plan of care. pt remains in PD custody. 1:1 sitter remains bedside. plan of care ongoing.
--- NOTE | 2024-12-17 01:52 | ECG_ITS ---
Test Reason : POSSIBLE OVERDOSE Blood Pressure : */* mmHG Vent. Rate : 104 BPM Atrial Rate : 104 BPM P-R Int : 166 ms QRS Dur : 84 ms QT Int : 342 ms P-R-T Axes : 37 -44 -23 degrees QTcB Int : 449 ms Sinus tachycardia Left axis deviation Abnormal ECG When compared with ECG of 03-Aug-2024 16:32, No significant change was found Referred By: Alex Glez Electronically Signed By: KOREY VAZQUEZ
[2024-12-17 02:31] VITALS: BP 114/57; PULSE 100; RESP 19; TEMP 36.9; O2SAT 80; O2SAT 97
--- NOTE | 2024-12-17 02:32 | PC.NURSE ---
patient noted to desat to 80% on RA while asleep. when waking pt up w/ verbal stimuli, pt remained hypoxic. pt placed back on oxymask @ 2L. no respiratory distress noted. no sob/wob noted. respirations even/unlabored. otherwise vss and up to date aside from being slightly tachycardic. provider notified/aware of results. pt remains in PD custody. 1:1 sitter bedside.
[2024-12-17 06:14] VITALS: BP 122/72; PULSE 92; RESP 17; O2SAT 97
[2024-12-17 07:48] VITALS: BP 122/72; PULSE 92; RESP 17; TEMP 36.8; O2SAT 97
== END 2024-12-17 08:14 ==
PROVIDERS: Emergency Medicine; Emergency Provider Emergency Medicine
DX: M62.82 Rhabdomyolysis (principal); R45.1 Restlessness and agitation; F41.1 Generalized anxiety disorder; F43.0 Acute stress reaction; R00.0 Tachycardia, unspecified; F14.10 Cocaine abuse, uncomplicated; R11.0 Nausea; F10.129 Alcohol abuse with intoxication, unspecified; Y90.6 Blood alcohol level of 120-199 mg/100 ml; Z79.899 Other long term (current) drug therapy; Z51.81 Encounter for therapeutic drug level monitoring
CPT/HCPCS: 36415; 71045; 80048; 80053; 80143; 80179; 80307; 82550; 85025; 85610; 85730; 93005; 96360; 96361; 96372; 99285; J2250; J2359; J7120

== ENCOUNTER → 2024-12-16 19:27 | Outpatient (BNV) | payer OTHER, SELFPAY | PROVIDERS: Emergency Provider Emergency Medicine; Visit Provider Radiology Diagnostic Radiology | DX: F14.10 Cocaine abuse, uncomplicated (principal) | CPT/HCPCS: 71045 ==

== ENCOUNTER → 2024-12-17 01:52 | Outpatient (BNV) | payer OTHER, SELFPAY | PROVIDERS: Emergency Provider Emergency Medicine; Visit Provider Internal Medicine | DX: R00.0 Tachycardia, unspecified (principal) | CPT/HCPCS: 93010 ==